=== PATIENT | male | born 1945 | race Caucasian/White ===

== ENCOUNTER 2022-03-28 07:45 | Outpatient (CLI) | payer MEDICARE, BC, SELFPAY ==
[2022-03-28 10:34] LABS: Albumin* 3.5 g/dL (3.3-5.0); Chloride* 105 mmol/L (96-114)
[2022-03-28 10:35] LABS: Sodium* 138 mmol/L (135-149)
[2022-03-28 10:36] LABS: Potassium* 4.9 mmol/L (3.6-5.1)
[2022-03-28 10:37] LABS: Cholesterol* 142 mg/dL (90-199)
[2022-03-28 10:38] LABS: Alanine Aminotransferase* 18 U/L (4-50); Alkaline Phosphatase* 71 U/L (40-150); Aspartate Amino Transferase* 22 U/L (12-35); Bilirubin Total* 0.4 mg/dL (0.1-1.5); Blood Urea Nitrogen* 23 mg/dL (7-30); Carbon Dioxide* 32 mmol/L (20-32); Creatinine* 0.7 mg/dL (0.5-1.5); Estimated Glomerular Filt Rate 95 ml/min; Glucose* 96 mg/dL (60-115); Total Protein* 6.2 g/dL (6.0-8.3); Triglycerides* 67 mg/dL (40-149)
[2022-03-28 10:39] LABS: HDL Cholesterol* 39 mg/dL (>=40); LDL Cholesterol Calculated 90 mg/dL (<100)
[2022-03-28 11:11] LABS: PSA Screen* 1.99 ng/mL (0.10-4.00)
[2022-03-28 11:15] LABS: Ferritin* 23.8 ng/mL (17.9-464.0)
== END 2022-03-28 07:46 | disposition home or self-care (01) ==
PROVIDERS: PCP Family Medicine; Visit Provider Family Medicine
DX: Z00.00 Encounter for general adult medical examination without abnormal findings (principal); E78.5 Hyperlipidemia, unspecified; D64.9 Anemia, unspecified; Z12.5 Encounter for screening for malignant neoplasm of prostate
CPT/HCPCS: 80053; 80061; 82728; 84153

== ENCOUNTER 2022-03-29 12:37 | Outpatient (CLI) | payer MEDICARE, BC, SELFPAY ==
--- NOTE | 2022-03-29 13:00 | CRLHL7_ITS ---
For Patients: As a result of the Century Cures Act, medical imaging exams and procedure reports are released immediately into your electronic medical record. You may view this report before your referring provider. If you have questions, please contact your health care provider. Indication: Follow up cystic lesion Technique: Post contrast CT chest. 75 cc Isovue 370 intravenous contrast. Please note that all CT scans at this facility use dose modulation, iterative reconstruction, and/or weight-based dosing when appropriate to reduce radiation dose to as low as reasonably achievable. Comparison: 08/11/2020 Findings: Stable ground-glass nodule within the left upper lobe measuring 8 millimeters, 3/46. stable ground-glass nodular density within the right upper lobe measuring 11-12 millimeters. Stable primarily cystic lesion within the periphery of the right upper lobe measuring 2.7 cm. Mild dependent atelectasis in the right lower lobe. Tiny pleural-based nodule left lower lobe is unchanged. No pneumothorax or infiltrate. No edema or effusion. Mild scarring at the right lung apex. Visualized thyroid is normal. No adenopathy. Upper abdomen is normal. Impression: Stable cavitary lesion within the periphery of the right upper lobe. Stable ground-glass nodules in both upper lobes. One year surveillance follow-up suggested. Please note that all CT scans at this facility use dose modulation, iterative reconstruction, and/or weight-based dosing when appropriate to reduce radiation dose to as low as reasonably achievable. Dictated by Rich Samuel MD @ 03/29/2022 1:36:30 PM (Electronically Signed)
== END 2022-03-29 12:38 | disposition home or self-care (01) ==
LOC: CT 12:38
PROVIDERS: PCP Family Medicine; Visit Provider Family Medicine
DX: R91.8 Other nonspecific abnormal finding of lung field (principal)
CPT/HCPCS: 71260; Q9967

== ENCOUNTER 2022-12-25 16:41 | Outpatient (REF) | payer MEDICARE, SELFPAY ==
[2022-12-25 16:53] LABS: Appearance Urine Clear (Clear); Bilirubin Urine Negative (Negative); Blood Urine Negative (Negative); Color Urine Yellow (Yellow); Glucose Urine Negative (Negative); Ketones Urine Trace (Negative); Leukocyte Esterase Urine Negative (Negative); Nitrite Urine Negative (Negative); Protein Urine Negative (Negative); Specific Gravity Urine 1.025 (1.000-1.030); Urobilinogen Urine 0.2 (0.2-1.0); pH Urine 5.5 (5.0-8.5)
== END 2022-12-25 16:42 | disposition home or self-care (01) ==
LOC: NPINS 16:41
PROVIDERS: PCP Family Medicine
DX: C67.9 Malignant neoplasm of bladder, unspecified (principal)
CPT/HCPCS: 81003; 87086; 87186

== ENCOUNTER 2023-01-15 12:59 | Outpatient (CLI) | payer MEDICARE, SELFPAY | END 2023-01-15 13:00 | disposition home or self-care (01) | PROVIDERS: PCP Family Medicine; Referring Provider Family Medicine; Visit Provider Internal Medicine | DX: M54.9 Dorsalgia, unspecified (principal); N39.0 Urinary tract infection, site not specified | CPT/HCPCS: 87086 ==

== ENCOUNTER 2023-02-10 07:55 | Outpatient (RCR) | payer MEDICARE, SELFPAY ==
--- NOTE | 2023-02-10 14:37 | PT.OPE ---
[facility] Eval Start: 02/10/23 14:13 Freq: Status: Active Protocol: Document 02/10/23 14:14 LISA (Rec: 02/10/23 14:30 LISA [id number]) E-signed By Tremaine Simon, PT, ATC Physical Therapy Outpatient Evaluation Insurance Information Insurance Name Medicare B Medical Diagnosis M54.9 Dorsalgia. Low back pain Treating Diagnosis Low back pain Referring MD Sharma Subjective Subjective Bill aggravated his lower back symptoms four weeks ago. Pain occurs after extended sitting and then transferring to standing. Also noticed when standing for increased durations. Two rounds of oral steroids have lessened his symptoms significantly. Last pill was yesterday so unsure what remainder of week could bring. He leaves for his winter home in [place] in a month so hopes to work in therapy to lessen chance for continuing symptoms. History of L5S1 DDD-arthritis. Epidural 2 1/2 years ago reported but doesn't believe this made much of a difference . Is performing a few ex.s daily he learned in PT previously. Pain Comments 05/10 today 10/07 four weeks ago Date of Last Physician Visit 02/03/23 Current Work Status Retired Preferred Name Jarod Precautions Weight Bearing Status Full Weight Bearing Therapy Limitations/Systems Review Not Limited Objective Range of Motion Trunk and hip ROM WNL's to all directions. End range back extension appears tight. Strength LE 5/5 all joints and respective patterns Palpation Mild tenderness over lower lumbar vertebrae-P/A direct pressure Some tenderness in lumbar paraspinals. No gluteal muscle irritation or tightness. Posture Stands in erect posture. Assessment Assessment/Impression Jarod is well known in PT from a similar episode of lower back symptoms a couple years ago. At that time he was also experiencing bilateral foot neuropathies and/or paresthesia in his feet. No report of this with this episode. I suspect his lumbar degenerative changes have advanced since seeing him last despite his effort to continue exercise and remain active with weekly tennis participation. The oral steroids have done a good job with symptom control...unsure yet how long they will last. He is a good candidate for PT and an exercise program for core stabilization and LE strengthening. Primary Functional Limitations Sit to stand transfers Extended standing Plan of Care Rehabilitation Potential Good Physical Therapy Goals 1.To keep lower back symptoms at 2/10 level or less with all transfers and extended standing. 2.Able to stand and prepare meals for durations up to 20 minutes without limitation for lbp. 3.To demonstrate correct performance with his HEP for core stabilization, hip stretching and LE strengthening. Coordination/Communication With Referral Source Frequency/Duration 3-12 visits Patient Will Be Discharged From Therapy Independent w/HEP, Independently Progressing Evaluation Billing Untimed Code Treatment Minutes 30 PT Eval No Charge No Complexity Low Certification Information Initial Certification Date 02/10/23 Ending Certification Date 05/13/23 Provider Signature Shows Agreement With POC & Medical Necessity Physician Signature & Date Requested Please Sign/Date Here Physician Comment/Change : Physician NPI Number #
== END 2023-04-23 15:41 | disposition home or self-care (01) ==
PROVIDERS: PCP Family Medicine; Visit Provider Internal Medicine
DX: M54.50 Low back pain, unspecified (principal); Z51.89 Encounter for other specified aftercare
CPT/HCPCS: 97110; 97161

== ENCOUNTER 2023-03-27 15:41 | Outpatient (CLI) | payer MEDICARE, SELFPAY | END 2023-03-27 15:42 | disposition home or self-care (01) | LOC: NFLDREF 15:42 | PROVIDERS: PCP Family Medicine; Visit Provider Family Medicine | DX: N40.0 Benign prostatic hyperplasia without lower urinary tract symptoms (principal); Z12.5 Encounter for screening for malignant neoplasm of prostate; N52.9 Male erectile dysfunction, unspecified | CPT/HCPCS: 84153 ==

== ENCOUNTER 2023-06-24 07:28 | Outpatient (CLI) | payer MEDICARE, SELFPAY ==
[2023-06-24 07:52] LABS: Creatinine* 0.7 mg/dL (0.5-1.5); Estimated Glomerular Filt Rate 95 ml/min
--- NOTE | 2023-06-24 08:00 | CT_ITS ---
Patient: RADHIKA SAEZ Facility:?[facility] Patient ID:?[id number] Site Patient ID:?[id number]. Site :?[id number] Study:?CT-Chest W/ 75CC ISOVUE 370-06/24/2023 8:32:22 AM Ordering Physician:HANNAH Final Report: INDICATION: Follow-up ground-glass opacity TECHNIQUE: CT chest with 75 mL Isovue 370 IV contrast. COMPARISON: 03/29/2022, 08/11/2020, 02/27/2018 chest CTs FINDINGS: Lungs and pleura: 7 mm ground-glass nodule left upper lobe image 36 series 3, stable. Semi-solid nodule in the right upper lobe best seen on image 57 of series 4 measures 12 x 6 mm. Overall size is unchanged. There is a 5 mm solid component in the superior portion of the nodule that was not present in 2018 and was very inconspicuous on intervening studies. 3.3 cm lateral right upper lobe cyst is unchanged. Mild emphysema through both lungs. Hyperinflation. Heart and vasculature: Heart size is normal. Thoracic aorta and pulmonary artery are normal in caliber.Coronary artery calcification. Lymph nodes/mediastinum: New mild mediastinal and bilateral hilar adenopathy. See for example a 24 x 14 mm right paratracheal node on image 45 of series 2 that measured 16 x 10 mm in 2021. thyroid gland is normal. Chest wall: No masses. Upper abdomen: Normal. Bones: Unremarkable for age. IMPRESSION: 1. Semi-solid right upper lobe pulmonary nodule stable in overall size at 12 x 6 mm but contains an enlarging 5 mm solid component. 2. New mediastinal and bilateral hilar adenopathy, nonspecific. 3. Left upper lobe ground-glass nodule and right middle lobe cystic lesion are stable. Please note that all CT scans at this facility use dose modulation, iterative reconstruction, and/or weight-based dosing when appropriate to reduce radiation dose to as low as reasonably achievable. Dictated by Frankie Farmer MD @ 06/24/2023 1:20:19 PM Signed by:?Frankie Farmer MD @06/24/2023 1:20:19 PM (Electronic Signature)
== END 2023-06-24 07:29 | disposition home or self-care (01) ==
LOC: CT 07:30
PROVIDERS: PCP Family Medicine; Visit Provider Family Medicine
DX: R91.8 Other nonspecific abnormal finding of lung field (principal)
CPT/HCPCS: 36415; 71260; 82565; Q9967

== ENCOUNTER 2023-08-12 06:33 | Observation (INO) | payer MEDICARE, SELFPAY ==
[2023-08-12] VITALS (39 sets, daily range): BP systolic 100–149; BP diastolic 65–99; PULSE 61–137; RESP 16–18; TEMP 36.5–37; O2SAT 86–98; BMI 24.4
--- NOTE | 2023-08-12 06:48 | ED_ITS ---
HPI - Arrhythmia/Palpitations General Time Seen by Provider: 06:49 Date Seen: 08/12/23 Chief Complaint: Arrhythmia/Palpitations Stated Complaint: irratic pulse Time Seen by Provider: 08/12/23 06:48 Source: patient Mode of arrival: ambulatory Limitations: no limitations History of Present Illness HPI narrative: 78-year-old male with recent respiratory infection, newly diagnosed COPD arrives at the emergency room with chest tightness and shortness of breath and a rapid heart rate which came on this morning while he was doing his workout. Martin is noted to have had a significant URI while wintering in the [facility]. initially was put on amoxicillin but he ended up being allergic to it he had constant cough with production at that time he then came back to [place] 3 weeks ago and was seen at [place] at which time they noted H change in ground-glass opacities he was put on Cipro and improved remarkably. During that time of infection he did experience shortness of breath and chest tightness. He was also noted to have had a CT that showed possible COPD versus chronic bronchitis. He is supposed to have a full pulmonology workup but is not able to do that until late August. Patient notes the onset of shortness of breath and chest tightness once again on August 06 the day after he underwent a 2nd course of BCG for bladder cancer. He notes that flu symptoms are normal and he did experience that but that is chest tightness and shortness of breath have continued. He gets dizzy when he is going up stairs. Currently in room 8 patient notes very slight chest tightness but no shortness of breath. No past history of heart attack. He quit smoking many years ago. No significant alcohol use but has had approximately 2 oz in the last 48 hours. Denies fever. Cough has resolved. Denies history of lower extremity swelling or DVT. Did take a commercial flight back from his home in the [facility] 3 weeks ago. Related Data Home Medications Medication Instructions Recorded Confirmed ascorbic acid (vitamin C) 250 mg 250 mg PO DAILY 01/22/22 07/14/23 tablet cholecalciferol (vitamin D3) 250 10,000 unit PO QDAY 01/22/22 07/14/23 mcg (10,000 unit) capsule multivitamin (Multiple Vitamins 1 tab PO QDAY 01/22/22 07/14/23 tablet) Previous Rx's Medication Instructions Recorded albuterol sulfate 90 mcg/actuation 2 puff inhalation Q4-6H PRN 03/27/22 aerosol inhaler shortness of breath or wheezing #6.7 grams gabapentin 300 mg capsule 300 mg PO DAILY #90 caps 03/27/23 lorazepam 1 mg tablet 0.5 - 1 mg (0.5 - 1 x 1 mg) PO BID 03/27/23 PRN tinnitus #30 tabs albuterol sulfate 90 mcg/actuation 2 puff inhalation Q4-6H PRN 07/14/23 aerosol inhaler shortness of breath or wheezing #8.5 grams Allergies Allergy/AdvReac Type Severity Reaction Status Date / Time amoxicillin Allergy Rash Verified 07/14/23 11:14 Review of Systems Status of ROS: Reports: 10 or more systems reviewed and unremarkable except as noted in History and below [facility] Medical History UTI (urinary tract infection) ?N39.0 - Urinary tract infection, site not specified (ICD-10) Back Pain ?M54.9 - Dorsalgia, unspecified (ICD-10) Laceration of scalp ?S01.01XA - Laceration without foreign body of scalp, initial encounter (ICD- 10) Injury of head ?S09.90XA - Unspecified injury of head, initial encounter (ICD-10) Hematoma of scalp ?S00.03XA - Contusion of scalp, initial encounter (ICD-10) Dizziness ?R42 - Dizziness and giddiness (ICD-10) Dehydration ?E86.0 - Dehydration (ICD-10) Family History Father Coronary artery disease Social History What is your current living situation?: I presently have a place to live Problems where you live: declined to answer In the past 12 months, utilities in danger of being shut off: no In past 12 months, lack of transportation kept you from medical appts, meetings, work, or getting things needed for daily living: no In the past 12 mos, have been you worried that your food would run out before you had money to buy more?: never true In the past 12 mos, the food you bought just didn't last and you didn't have money to buy more?: never true Smoking Status: Never smoker Do you use any of these nicotine containing products: None Non-prescribed substance use: denies use How often does anyone, including family, friends and others, physically hurt you : never How often does anyone, including family, friends and others, insult or talk down to you: never How often does anyone, including family, friends and others, threaten you with harm: never How often does anyone, including family, friends and others, scream or curse at you: never Little interest or pleasure in doing things: not at all Feeling down, depressed, or hopeless: not at all Exam Narrative: Exam Narrative: Martin is alert and oriented. No acute distress. No coughing is noted. Head is atraumatic normocephalic. Face is symmetrical. Speech is normal. Mentation is normal. Heart with a irregularly irregular rhythm and rapid rate. Questionable rather distant heart sounds. Lungs are with decreased breath sounds in the bases but I do not auscultate any crackles. Abdomen soft nontender. Lower extremities with no edema. Calves are nontender. Negative Homans sign. Moving all extremities. Const: Vital Signs, click to edit/add: Vital Signs - 24 hr 08/12/23 06:45 08/12/23 06:53 08/12/23 07:00 Temperature 97.7 F Pulse Rate 118 H 112 H Pulse Rate [Pulse Oximeter] 137 H Respiratory Rate 18 Blood Pressure Blood Pressure [Le ft Upper Arm] 115/78 Pulse Oximetry 97 98 97 [facility] 08/12/23 07:02 08/12/23 07:17 08/12/23 07:30 Temperature Pulse Rate 131 H 116 H 120 H Pulse Rate [Pulse Oximeter] Respiratory Rate Blood Pressure 100/69 101/87 Blood Pressure [Le ft Upper Arm] Pulse Oximetry 96 96 94 Oxygen Delivery Nh thod 08/12/23 07:31 08/12/23 07:47 08/12/23 07:48 Temperature Pulse Rate 111 H 121 H 114 H Pulse Rate [Pulse Oximeter] Respiratory Rate Blood Pressure 107/79 106/68 Blood Pressure [Le ft Upper Arm] Pulse Oximetry 97 96 86 L [facility] 08/12/23 08:00 08/12/23 08:02 08/12/23 08:17 Temperature Pulse Rate 136 H 76 72 Pulse Rate [Pulse Oximeter] Respiratory Rate Blood Pressure 125/99 H 110/68 Blood Pressure [Le ft Upper Arm] Pulse Oximetry 89 90 96 Oxygen Delivery Me thod 08/12/23 08:33 08/12/23 08:47 08/12/23 09:00 Temperature Pulse Rate 74 74 74 Pulse Rate [Pulse Oximeter] Respiratory Rate Blood Pressure 132/96 H Blood Pressure [Le ft Upper Arm] Pulse Oximetry 97 97 96 Oxygen Delivery Me thod 08/12/23 09:03 08/12/23 09:17 08/12/23 09:30 Temperature Pulse Rate 74 75 73 Pulse Rate [Pulse Oximeter] Respiratory Rate Blood Pressure 149/84 H 122/68 Blood Pressure [Le ft Upper Arm] Pulse Oximetry 97 98 96 Oxygen Delivery Me thod 08/12/23 09:32 08/12/23 09:47 08/12/23 10:00 Temperature Pulse Rate 78 77 74 Pulse Rate [Pulse Oximeter] Respiratory Rate Blood Pressure 116/65 136/80 Blood Pressure [Le ft Upper Arm] Pulse Oximetry 94 98 97 Oxygen Delivery Me thod 08/12/23 10:17 Temperature Pulse Rate 73 Pulse Rate [Pulse Oximeter] Respiratory Rate Blood Pressure 120/66 Blood Pressure [Le ft Upper Arm] Pulse Oximetry 97 Oxygen Delivery Me thod Documenting provider has reviewed patient's vital signs: yes Course Course ED Course: Patient is clearly in AFib with RVR. Differential diagnosis does include OK, PE, electrolyte abnormality, angina,. Will place an IV and give 1 L of normal saline check labs to include troponin, CBC, D-dimer, comprehensive panel, CRP as well as urinalysis to rule out infection. Chest x-ray pending at this time. Patient will remain on the monitor and also have EKG done. Reevaluation(s) Reevaluation #1: Patient noted to have some spontaneous conversion to normal sinus rhythm shortly after 0800 hours. Repeat EKG done. I also spoke with patient about need for CT given the elevated D-dimer. Vital Signs Vital signs: Initial Vital Signs Temperature 97.7 F 08/12/23 06:45 Temperature Source Temporal Artery Scan 08/12/23 06:45 Pulse Rate 137 H 08/12/23 06:45 Pulse Rhythm Irregular 08/12/23 06:45 Respiratory Rate 18 08/12/23 06:45 Respiratory Effort Spontaneous, Shortness of Breath at Re 08/12/23 06:45 Respiratory Depth Normal 08/12/23 06:45 Respiratory Pattern Normal 08/12/23 06:45 Blood Pressure 115/78 08/12/23 06:45 Blood Pressure Mean 90 08/12/23 06:45 Blood Pressure Position Sitting 08/12/23 06:45 Pulse Oximetry 97 08/12/23 06:45 Oxygen Delivery Method Room Air 08/12/23 06:45 Vital Signs Temperature 97.7 F 08/12/23 06:45 Pulse Rate 137 H 08/12/23 06:45 Respiratory Rate 18 08/12/23 06:45 Blood Pressure 115/78 08/12/23 06:45 Pulse Oximetry 97 08/12/23 06:45 Oxygen Delivery Method Room Air 08/12/23 06:45 Temperature 97.7 F 08/12/23 06:45 Pulse Rate 73 08/12/23 10:17 Respiratory Rate 18 08/12/23 06:45 Blood Pressure 120/66 08/12/23 10:17 Pulse Oximetry 97 08/12/23 10:17 Oxygen Delivery Method Room Air 08/12/23 06:45 Medications Administered Medications: Discontinued Medications Generic Name Dose Route Start Last Admin Trade Name Freq PRN Reason Stop Dose Admin Sodium Chloride 1,000 mls @ 1,000 mls/hr 08/12/23 07:04 08/12/23 10:25 0.9 % Sodium Chloride 1000 Ml IV 08/12/23 08:03 Infused .Q1H MEKHI Infusion MDM - Arrhythmia/Palpitations MDM Narrative Medical decision making narrative: 1. AFib with RVR -resolved after fluids. Troponin negative. Second troponin negative as well. Continues to be in a sinus rhythm. 2. New onset congestive heart failure-new pericardial effusion and pleural effusions are present with elevation of proBNP 2 greater than 3000. patient notes chest tightness and shortness of breath since undergoing BCG for bladder cancer on FridayAugust 12. CT concerning for cardiomegaly, new pleural effusions. No evidence of PE. ProBNP elevated greater than 3000 with no previous values for comparison. Pulmonology does not feel that the findings on CT which were pushed to [place] represent great changes for them but do note the congestive heart failure which is new compared to a CT from 3 weeks ago. I had the pleasure of speaking with Dr. Key cardiology at [place] who does suggest diuresis, admission and echocardiogram. Discussed the coincidence of onset following BCG treatment. However patient has no fever and white count is no rmal. 3. Disposition-admission to [facility] under the care of Dr. Grimes. Patient will receive Lasix 40 mg IV at this time. Medical Records Attestation: I reviewed the patient's medical records. Lab Data Attestation: I reviewed the patient's lab results. Labs: Lab Results 08/12/23 08/12/23 08/12/23 Range/Units 06:53 07:04 08:45 WBC 7.28 (4.50-11.00) K/uL RBC 4.08 L (4.30-5.90) m/uL Hgb 11.2 L (13.5-17.5) gm/dL Hct 35.7 L (37.0-53.0) % MCV 88 (80-100) fL MCH 28 (26-34) pg MCHC 31 L (32-36) gm/dL RDW Coeff of Thomas 13.7 (11.5-15.5) % Plt Count 265 (140-440) K/uL Neut % (Auto) 62.6 (42.0-72.0) % Lymph % (Auto) 17.2 L (20-44) % [place] % (Auto) 16.2 H (0.0-11.0) % Eos % (Auto) 3.4 (0.0-7.0) % Baso % (Auto) 0.5 (0.0-3.0) % Neut # (Auto) 4.55 (1.7-7.0) K/uL Lymph # (Auto) 1.30 (0.90-2.90) K/uL [place] # (Auto) 1.20 H (0.00-0.90) K/UL Eos # (Auto) 0.25 (0.00-0.50) K/uL Baso # (Auto) 0.04 (0.00-0.30) K/uL Abs Immat Gran (auto) 0.01 (0.00-0.30) K/uL Imm/Tot Granulo (auto) 0.1 % D-Dimer Quant (PE/DVT) 2.72 H (0.00-0.50) ug/ml Sodium 135 (135-149) mmol/L Potassium 3.6 (3.6-5.1) mmol/L Chloride 100 (96-114) mmol/L Carbon Dioxide 31 (20-32) mmol/L Anion Gap 4 L (7-15) mEq/L BUN 17 (7-30) mg/dL Creatinine 0.7 (0.5-1.5) mg/dL Estimated Creat Clear 72.76 Estimated GFR 94 ml/min Glucose 112 (60-115) mg/dL Calcium 8.5 (8.4-10.6) mg/dL Magnesium 2.2 (1.5-2.6) mg/dL Total Bilirubin 0.7 (0.1-1.5) mg/dL AST 61 H (12-35) U/L ALT 99 H (4-50) U/L Alkaline Phosphatase 191 H (40-150) U/L C-Reactive Protein 15.1 H (0.5-1.0) mg/dL NT-Pro-B Natriuret Pep 3040 pg/mL Total Protein 6.7 (6.0-8.3) g/dL Albumin 3.4 (3.3-5.0) g/dL Urine Color (Yellow) Urine Appearance (Clear) Urine pH (5.0-8.5) Ur Specific [place]ury (1.000-1.030) Urine Protein (Negative) Urine Glucose (UA) (Negative) Urine Ketones (Negative) Urine Blood (Negative) Urine Nitrite (Negative) Urine Bilirubin (Negative) Urine Urobilinogen (0.2-1.0) Ur Leukocyte Esterase (Negative) Urine RBC (0-2) Urine WBC (0-5) Ur Squamous Epith Cells (None-Few) Urine Bacteria (None) Lab Acknowledgement Test Added POC Troponin I 0.01 (0.01-0.04) ng/ml 08/12/23 08/12/23 Range/Units 09:29 10:03 WBC (4.50-11.00) K/uL RBC (4.30-5.90) m/uL Hgb (13.5-17.5) gm/dL Hct (37.0-53.0) % MCV (80-100) fL MCH (26-34) pg MCHC (32-36) gm/dL RDW Coeff of Thomas (11.5-15.5) % Plt Count (140-440) K/uL Neut % (Auto) (42.0-72.0) % Lymph % (Auto) (20-44) % [place] % (Auto) (0.0-11.0) % Eos % (Auto) (0.0-7.0) % Baso % (Auto) (0.0-3.0) % Neut # (Auto) (1.7-7.0) K/uL Lymph # (Auto) (0.90-2.90) K/uL [place] # (Auto) (0.00-0.90) K/UL Eos # (Auto) (0.00-0.50) K/uL Baso # (Auto) (0.00-0.30) K/uL Abs Immat Gran (auto) (0.00-0.30) K/uL Imm/Tot Granulo (auto) % D-Dimer Quant (PE/DVT) (0.00-0.50) ug/ml Sodium (135-149) mmol/L Potassium (3.6-5.1) mmol/L Chloride (96-114) mmol/L Carbon Dioxide (20-32) mmol/L Anion Gap (7-15) mEq/L BUN (7-30) mg/dL Creatinine (0.5-1.5) mg/dL Estimated Creat Clear Estimated GFR ml/min Glucose (60-115) mg/dL Calcium (8.4-10.6) mg/dL Magnesium (1.5-2.6) mg/dL Total Bilirubin (0.1-1.5) mg/dL AST (12-35) U/L ALT (4-50) U/L Alkaline Phosphatase (40-150) U/L C-Reactive Protein (0.5-1.0) mg/dL NT-Pro-B Natriuret Pep pg/mL Total Protein (6.0-8.3) g/dL Albumin (3.3-5.0) g/dL Urine Color Dark yellow (Yellow) Urine Appearance Clear (Clear) Urine pH 5.0 (5.0-8.5) Ur Specific [place]ury <= 1.005 (1.000-1.030) Urine Protein Negative (Negative) Urine Glucose (UA) Negative (Negative) Urine Ketones 1+ A (Negative) Urine Blood Negative (Negative) Urine Nitrite Negative (Negative) Urine Bilirubin Negative (Negative) Urine Urobilinogen 1.0 (0.2-1.0) Ur Leukocyte Esterase Negative (Negative) Urine RBC 0-2 (0-2) Urine WBC 5-10 A (0-5) Ur Squamous Epith Cells Few (None-Few) Urine Bacteria Few A (None) Lab Acknowledgement POC Troponin I 0.01 (0.01-0.04) ng/ml Imaging Data Chest x-ray: Attestation: I have reviewed the pertinent imaging results. My impression: Increased lung markings throughout. Radiologist's impression: Marked cardiomegaly which is new when compared to July 14, 2023. Acute cardiomyopathy or pericardial effusions are considerations. Mild interstitial opacities and central vascular congestion concerning for mild interstitial edema. Small right pleural effusion and mild bibasilar atelectasis. No pneumothorax. CT scan - chest: Attestation: I have reviewed the pertinent imaging results. Radiologist's impression: Cardiovascular structures: CT pulmonary angiogram demonstrates adequate opacification of the pulmonary arteries. No evidence of pulmonary embolus. Thoracic aorta is normal in caliber. Coronary artery calcifications. Heart size is within normal limits. Mediastinum and wood: Lower right paratracheal node on image 87 of series 4 is 19 x 12 mm and was 24 x 14 mm. Additional subcentimeter short axis mediastinal nodes have similarly decreased. No new lymphadenopathy. Lungs: No pneumothorax. Mild lower lobe bronchial wall thickening. Central airways are otherwise patent. Mild emphysema. Stable 7 mm left upper lobe ground-glass nodule on image 82 of series 4. Semi-solid 12 mm nodule in the r ight upper lobe on image 56 is unchanged. Stable 3 cm cystic lesion in the right upper lobe on image 84. New bilateral subcentimeter nodular and ground-glass opacities greatest in the right lower lobe. A right lower lobe nodule on image 161 measures 10 mm. Bibasilar scarring and atelectasis has increased. Pleura and pericardium: New small bilateral pleural effusions. New small to moderate pericardial effusion. Chest wall and axilla: Unremarkable. Bones: Mild degenerative changes. No acute or suspicious osseous abnormality. Upper abdomen: Unremarkable. IMPRESSION: 1. No evidence of pulmonary embolus. 2. New bilateral subcentimeter nodular and ground-glass opacities are likely infectious/inflammatory. However, metastasis is also a consideration. Continued attention to these on follow-up imaging is recommended. 3. New small to moderate pericardial effusion and small bilateral pleural effusions. Mild lower lobe atelectasis. 4. Mediastinal lymphadenopathy has improved. 5. Previously indexed pulmonary nodules and cystic right upper lobe lesion are unchanged. ECG Data Attestation: I personally reviewed and interpreted this ECG as follows: ECG interpretation date: 08/12/23 Interpretation: EKG by my read shows atrial fibrillation with RVR at a rate of 137. There is a T-wave inversion noted in the inferior lateral leads. P.r.n. QT intervals within normal limits. EKG 2. By my read shows sinus rhythm at a rate of 71. Persisting nonspecific ST and T-wave changes are noted. Discharge Plan Discharge Clinical Impression: New onset atrial fibrillation, Atrial fibrillation with rapid ventricular response Prescriptions: No Action cholecalciferol (vitamin D3) 250 mcg (10,000 unit) capsule 10,000 unit PO QDAY ascorbic acid (vitamin C) 250 mg tablet 250 mg PO DAILY multivitamin [Multiple Vitamins] Tablet 1 tab PO QDAY albuterol sulfate 90 mcg/actuation HFA aerosol inhaler 2 puff inhalation Q4-6H PRN (Reason: shortness of breath or wheezing) Qty: 8.5 1RF albuterol sulfate 90 mcg/actuation HFA aerosol inhaler 2 puff inhalation Q4-6H PRN (Reason: shortness of breath or wheezing) Qty: 6.7 5RF lorazepam 1 mg tablet 0.5 - 1 mg PO BID PRN (Reason: tinnitus) Qty: 30 0RF gabapentin 300 mg capsule 300 mg PO DAILY Qty: 90 3RF Follow Up/Referrals: González Mathew MD [Primary Care Provider] -
--- NOTE | 2023-08-12 07:04 | XR_ITS ---
Patient: RADHIKA SAEZ Facility:?[facility] Patient ID:?[id number] Site Patient ID:?[id number]. Site :?[id number] Study:?XRay-Chest PORTABLE-08/12/2023 7:33:36 AM Ordering Physician:INEZ Final Report: INDICATION: NEW ONSET AFIB TECHNIQUE: Chest 1 views. COMPARISON: July 14, 2023. IMPRESSION: Marked cardiomegaly which is new when compared to July 14, 2023. Acute cardiomyopathy or pericardial effusions are considerations. Mild interstitial opacities and central vascular congestion concerning for mild interstitial edema. Small right pleural effusion and mild bibasilar atelectasis. No pneumothorax. Dictated by Rocky Shepherd MD @ 08/12/2023 7:40:49 AM Signed by:?Rocky Shepherd MD @08/12/2023 7:40:49 AM (Electronic Signature)
[2023-08-12 07:08] LABS: Troponin, Point-of-Care* 0.01 ng/ml (0.01-0.04)
--- OUTSIDE RECORDS SUMMARY | 2023-08-12 07:10 | XMS_ITS ---
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 Manager Name Role Phone Miguel Vazquez DO Primary Care Provider Plan of Treatment No Plan of Treatment Recorded Assessments Includes: Assessments for all patient encounters No Assessments Recorded Medical Equipment - Implanted Devices Includes: Current and historical Devices No Medical Equipment Recorded Medications Administered Includes: Administered Medications in patient's chart No Administered Medications Recorded Results Includes: Results from 08/11/2020 through 08/12/2023 No Results Recorded For Specified Dates Social History No Social History Recorded - Smoking Status Unknown Medical History Includes: Medical History in patient's chart No Medical History Recorded Family History Includes: Family History in patient's chart No Family History Recorded Review of Systems Review of Systems not supported for this document type No Review of Systems Recorded Mental Status No Mental Status Recorded Functional Status No Functional Status Recorded Physical Exam Physical Exam not supported for this document type No Physical Exam Recorded Insurance Includes: Active Insurance Policies No Insurance Coverage Recorded Guarantor Relationship Effective Dates Guarantor Ph one Martin Vieira Self [id number] Clinical Notes Includes: Signed Clinical Notes starting from 11/08/2022 No Clinical Notes Recorded
--- OUTSIDE RECORDS SUMMARY | 2023-08-12 07:10 | XMS_ITS | Continuity of Care Document ---
Author Name Unknown Address [address] [place] [address] Phone [phone] Organization [facility], [facility] Address [address] [facility] [place] [address] Assessment No assessment recorded. Plan of Treatment Reminders Order Date Submit Date Provider Last Modified By Organization Details Last Modified Time Details Appointments None recorded. Lab None recorded. Referral None recorded. Procedures None recorded. Surgeries None recorded. Imaging None recorded. Medication Orders amoxicillin 875 mg tablet 2023 024 [facility] [id number], [address] [place], [place], [id number], 4 12:29:55 Medrol (Ranjith) 4 mg tablets in a dose pack [address] [facility] [facility] #[id number], [address] [place], [place], [id number], 4 12:29:58 Patient TargetsNo targets recorded. Patient InstructionsNo instructions recorded. Reason for Referral None Reported. Problems Name Status Onset Date Resolution Date Notes Provider Name and Address Organization Details Recorded Time Generalized rash Active 06/28/19 24 Darin Marie MD [address] [place], [address], [facility] 06/28/2023 10:05:38 Allergic reaction to drug Active 06/28/19 24 Darin Marie MD [address] [place], [address], [facility] 06/28/2023 10:06:11 Problem Notes None recorded. Medical Equipment None Reported. Allergies Allergen ID Allergen Name Allergen Category Reaction Reaction Severity Criticality Documentation Date Start Date Code Code System Note Provider Name and Address Organization Details Recorded Time 4653 amoxicill in medicatio n Not available Not available Not available 06/28/2023 723 [facility] Darin Marie MD [address] [place], [address] [place] [address] Urgent Care 10:02:28 Medications Name Sig Start Date Stop Date Status Note LastModified by Organization Details LastModified Time ofloxacin 0.3 % eye drops active Not Available Not Available Not Available prednisone 20 mg tablet TAKE 1 TABLET BY MOUTH TWICE DAILY FOR 5 DAYS active Not Available Not Available No t Available ciprofloxaci n 250 mg tablet TAKE 1 TABLET BY MOUTH TWICE DAILY FOR UTI active Not Available Not Available No t Available sulfamethoxa zole 800 mg-trimethop rim 160 mg tablet TAKE 1 TABLET BY MOUTH TWICE DAILY FOR UTI active Not Available Not Available No t Available amoxicillin 875 mg tablet TAKE 1 TABLET BY MOUTH EVERY 12 HOURS active Not Available Not Available No t Available prednisolone acetate 1 % eye drops,suspen susan active Not Available Not Available Not Available gabapentin 300 mg capsule TAKE 1 CAPSULE BY MOUTH DAILY active Not Available Not Available Not Available dexamethason e sodium phosphate 4 mg/mL injection solution Inject 4 mg by intramuscul ar route. 2023 active Not Available Not Available Not Avai lable lorazepam 1 mg tablet TAKE ONE-HALF TO 1 TABLET BY MOUTH TWICE DAILY NEEDED FOR TINNITUS active Not Available Not Available No t Available epinephrine 0.3 mg/0.3 mL injection, auto-injecto r INJECT 1 PEN IN THE MUSCLE ONCE NEEDED FOR ANAPHYLAXIS active Not Available Not Available Not Available levofloxacin 500 mg tablet active Not Available Not Available Not Available methylpredni solone 4 mg tablets in a dose pack FOLLOW PACKAGE DIRECTIONS active Not Available Not Available N ot Available cefdinir 300 mg capsule active Not Available Not Available N ot Available ketorolac 0.4 % eye drops active Not Available Not Available Not Available Vitals Date Recorded Body height Body mass index (BMI) Body weight Body temperature Respiratory rate Oxygen saturation Oxygen saturation in Arterial blood by Pulse oximetry Heart rate Systolic blood pressure Diastolic blood pressure Provider Name and Address Organization Details Last Updated DateTime 4 190.5 cm 25 kg/m2 63614.4 7 g 98.1 [degF] 16 /min 99 % 99 % 59 /min 118 mm[Hg] 66 mm[Hg] Farh[facility] 12:20:15 Social History Question Answer Notes LastModified by Organizat ion Details LastModified Time Tobacco Smoking Status Former Smoker Not Available [facility] 06/19/2023 12:01:38 What Is Your Level Of Alcohol Consumption? Occasional [email or web address]-13 Information not available 06/19/2023 Do You Or Have You Ever Used E-cigarettes Or Vape? Never Used Electronic Cigarettes [email or web address] Information not available 06/19/2023 Do You Use Any Illicit Or Recreational Drugs? No [email or web address] Information not available 06/19/2023 Has Tobacco Cessation Counseling Been Provided? No [email or web address] Information not available 06/19/2023 Sex: Male Functional Status None recorded. Mental Status None recorded. Family History Relationship Description Onset Age of this Age Resolved Age Notes Father Myocardial infarction pt. added directly (06/19/23) Medical History Condition Response Other Y Cancer Y Past Encounters Encounter ID Performer Location Encounter Start Date Encounter Closed Date Diagnosis/Indication Diagnosis SNOMED-CT Code [id number] Raji Parikh MD [facility] [address] [place] [phone] 06/19/2023 11:14:05 06/19/2023 12:32:51 Sinusitis [id number] Health Concerns Section Related Observation LastModified by Organization Detai ls LastModified Time None Recorded Concern Status LastModified by Organization Details LastModified Time None Recorded Payers Encounter Date Sequence Insurance Name Policy Number Policy Magallanes Covered Member ID Magallanes Member ID Guarantor Name 06/19/2023 2 [place] Martin Vieira [id number] Martin Vieira 06/19/2023 1 [employer] (PPO) Martin Vieira [id number] Martin Vieira Notes Date Note Type Note Provider Name and Address Organization Details Recorded Time 06/19/2023 text/html HPI Notes: runny nose, nasal congestion, cough x 3 days pt took at home covid test yesterday and was neg fly to [place] jhonathan + bladder [place] Raji Parikh MD [address] [facility] [place], [address], [facility] 06/19/2023 12:32:16
--- OUTSIDE RECORDS SUMMARY | 2023-08-12 07:10 | XMS_ITS ---
Care Plan - [facility] Created on: August 12, 2023 Martin Vieira : 1945 Sex: Male Author Name Unknown Address [address] [facility] [address] [place] [address] Phone Organization [facility] Address [address] [facility] [address] [place] [address] Phone Care Team Providers Care Transportation Modeler Name Role Phone Miguel Vazquez DO Primary Care Provider
[2023-08-12] MEDS: 0.9 % SODIUM CHLORIDE 1000 ml 1,000 ML IV (07:11)
--- OUTSIDE RECORDS SUMMARY | 2023-08-12 07:11 | XMS_ITS | Encounter Summary ---
Author Name Unknown Organization [facility] Address [address] [place] [address] Care Team Providers Care Front Desk Representative Name Role Phone Elsewhere, Pcp Primary Care Provider Unavailabl e Reason for Referral * Injectables (Routine) - Authorized Specialty Diagnoses / Procedures Referred By Mychal izquierdo Referred To Contact Diagnoses Malignant Neoplasm Of Bladder (HCC) Procedures URO Intravesical instillation - BCG maintenance River Stockton M.D. [address] [place] [phone] [facility] Referral ID Status Reason Start Date Expiration Date V isits Requested Visits Authorized [id number] Authorized 07/29/2023 07/28/2024 6 6 Reason for Visit * Reason Onset Date Comments Appt Request 07/24/2023 Encounter Details Date Type Department Care Team (Late st Contact Info) Description 07/24/2023 Clinical Communication Department of Urology in [place], [place] [address] [place] [phone] River Stockton M.D. [address] [place] [phone] Appt Request Social History Tobacco Use Types Packs/Day Years Used Date Smoking Tobacco: Former Cigarettes 1.5 42.2 0 03/31/1961 - 06/30/2003 Passive Smoke Exposure: Past Smokeless Tobacco: Former Chew Quit: 03/31/1998 Comments:Quit several times Alcohol Use Standard Drinks/Week Comments Yes 9 (1 standard drink = 0.6 oz pur e alcohol) [facility] Utilities Answer Date Recorded In the past 12 months has e electric, gas, oil, or water company threatened to shut off services in your home? No 03/26/2023 Humiliation, Afraid, Rape, and Kick questionnair e Answer Date Recorded Within the last year, have y ou been afraid of your partner or ex-partner? No 08/27/2022 Within the last year, have y ou been humiliated or emotionally abused in other ways by your partner or ex-partner? No Within the last year, have y ou been kicked, hit, slapped, or otherwise physically hurt by your partner or ex-partner? No 08/27/2022 Within the last year, have y ou been raped or forced to have any kind of sexual activity by your partner or ex-partner? No 08/27/2022 Social Connection and Isolat ion Panel [NHANES] Answer Date Recorded In a typical week, how many times do you talk on the phone with family, friends, or neighbors? More than three times a week 03/17/2022 How often do you get togethe r with friends or relatives? Twice a week 03/17/2022 How often do you attend chur or yazidism services? Never 03/17/2022 Do you belong to any clubs o r organizations such as taoist groups, unions, fraternal or athletic groups, or school groups? Yes 03/17/2022 How often do you attend meet ings of the clubs or organizations you belong to? More than 4 times per year 03/17/2022 Are you , , di vorced, , never , or living with a partner? 03/17/2022 AUDIT-C Answer Date Recorded Q1: How often do you have a drink containing alcohol? 4 or more times a week 03/17/2022 Q2: How many drinks containi ng alcohol do you have on a typical day when you are drinking? 1 or 2 2 Q3: How often do you have si x or more drinks on one occasion? Never 03/17/2022 Overall Financial Resource Strain (CARDIA) Answe r Date Recorded How hard is it for you to pa y for the very basics like food, housing, medical care, and heating? Not hard at all 08/27/2022 [facility] - Occupational Stress Questionnaire Answer Date Recorded Do you feel stress - tense, restless, nervous, or anxious, or unable to sleep at night because your mind is troubled all the time - these days? Only a little 03/17/2022 Exercise Vital Sign Answer Date Recorde d On average, how many days pe r week do you engage in moderate to strenuous exercise (like a brisk walk)? 3 days 03/26/2023 On average, how many minutes do you engage in exercise at this level? 60 min 03/26/2023 Hunger Vital Sign Answer Date Recorded Within the past 12 months, y ou worried that your food would run out before you got the money to buy more. Never true 03/26/20 23 Within the past 12 months, t he food you bought just didn't last and you didn't have money to get more. Never true 03/26/2023 PRAPARE - Transportation Answer Date Re corded In the past 12 months, has l ack of transportation kept you from medical appointments or from getting medications? No 03/01 In the past 12 months, has l ack of transportation kept you from meetings, work, or from getting things needed for daily living? No 03/26/2023 Nutrition Answer Date Recorded Nutrition: EVOO Fat Source Yes 03/26 On average, how many serving s of fruits and vegetables do you eat per day (serving size is equal to 1 cup or approximately the size of a tennis ball)? 3-5 03/26/2023 Dental Answer Date Recorded Dental: Regular Dentist Yes 06/02/19 Employment Answer Date Recorded Employment status Retired 03/26/2023 Housing Stability Answer Date Recorded What is your living situation today? I have a [facility] place to live 03/26/2023 Education Answer Date Recorded What is the highest level of school you have completed or the highest degree you have received? Bachelor's degree (e.g., BA, AB, BS) 03/05/2019 Sex and Gender Information Value Date Recorded Sex Assigned at Male 09/14/2017 9:59 AM CDT Gender Identity Male 09/14/2017 9:59 AM CDT Sexual Orientation Straight 08/28/2018 6: 34 AM CDT documented as of this encounter Miscellaneous Notes * Telephone Encounter - River Stockton M.D. - 07/29/2023 2:09 PM CDT Mr. Vieira is a 77 y.o. 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 He had an induction course of BCG earlier this year. He had a negative biopsy in December of 2022. 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 I reviewed the results with the patient. Recommended another induction course of BCG. We will get that scheduled. Results for orders placed or performed during the hospital encounter of 07/16/23 Surgical Pathology Status: None Result Value Report electronically signed by Riley Tarango M.D. I verify that I have examined all relevant slides/materials for the specimen(s) and rendered or confirmed the diagnosis. Gross Description Interpretation FINAL DIAGNOSIS A. Urinary bladder, left diverticulum, biopsy: Urothelial carcinoma in situ No muscularis propria identified B. 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 *Note: Due to a large number of results and/or encounters for the requested time period, some results have not been displayed. A complete set of results can be found in Results Review. documented in this encounter Plan of Treatment Upcoming Encounters Date Type Department Care Team (Late st Contact Info) Description 08/13/2023 1:00 PM CDT Procedure visit Department of Urology in [place], [place] [address] [place] [address] River Stockton M.D. [address] [place] [address] 08/20/2023 1:00 PM CDT Procedure visit Department of Urology in [place], [place] [address] [place] [phone] River Stockton M.D. [address] [place] [phone] 08/26/2023 10:30 AM CDT Procedure visit Department of Urology in [place], [place] [address] [place] [phone] River Stockton M.D. [address] [place] [phone] 09/03/2023 1:00 PM CDT Procedure visit Department of Urology in [place], [place] [address] [place] [address] River Stockton M.D. [address] [place] [phone] 09/09/2023 10:30 AM CDT Procedure visit Department of Urology in [place], [place] [address] [place] [address] River Stockton M.D. [address] [place] [phone] 09/22/2023 10:30 AM CDT Procedure visit Department of Dermatology in [place], [place] [address] [place] [phone] Vitaliy Alvares M.D. [address] [place] [phone] 09/25/2023 9:00 AM CDT Appointment Department of Radiology, [facility], in [place], [place] [address] [place] [phone] Cody Carroll M.D. [address] [place] [phone] 09/25/2023 9:30 AM CDT Diagnostic Division of Pulmonary Medicine in [place], [place] [address] [place] [phone] Cody Carroll M.D. [address] [place] [phone] 09/25/2023 11:30 AM CDT Office Visit Division of Pulmonary Medicine in [place], [place] [address] [place] [phone] Teri Cerda APRN, C.N.P., D.N.P. [address] [place] [phone] 10/23/2023 9:20 AM CDT Office Visit Department of Dermatology in [place], [place] [address] [place] [phone] Crystal Rodriguez APRN, C.N.P., M.S.N. [address] [place] [phone] Scheduled Orders Name Type Priority Associated Diagnoses Orde r Schedule URO Intravesical instillation - BCG maintenance Procedure Routine Malignant Neoplasm Of Bladder (HCC) 6 Occurrences starting 07/29/2023 until 10/27/2024 documented as of this encounter Visit Diagnoses Diagnosis Malignant Neoplasm Of Bladder (HCC)- Primary documented in this encounter Additional Health Concerns Infection Onset Date Last Indicated Resolved Time Protective Environment 08/06/2023 08/06/2023 documented as of this encounter Care Teams Front Desk Representative Relationship Specialty Start Date End Date Elsewhere, Pcp PCP - General Family Medicine 10/30/20 documented as of this encounter
--- OUTSIDE RECORDS SUMMARY | 2023-08-12 07:11 | XMS_ITS ---
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 Linked Problems Malignant Neoplasm Of Bladde r (HCC) Treatment Medications BCG bladder instillation (TI CE BCG) Past Plans Urology Plan Name Start Date Discontinue Date Treatment Medications Discontinue Reason Plan Provider BCG LIVE (INDUCTION) WEEKLY FOR 6 WEEKS 10/03/2022 07/29/2023 BCG live ([facility] BCG) Therapy Complete River Stockton M.D. Radiation Treatments * No radiation treatments are documented for this patient in [facility]. Treatments may have been administered in another system. Lifetime Dose Tracking * Chemical Lifetime Dose Automatic Entry Manual Entr y Radiation 10.09 mGy 10.09 mGy 0 mGy Fluoro Time 0.217 minutes 0.217 minutes 0 minutes
--- OUTSIDE RECORDS SUMMARY | 2023-08-12 07:11 | XMS_ITS | Referral Summary ---
Author Name Unknown Organization [facility] Address [address] [place] [address] Care Team Providers Care Design Assembler Name Role Phone Elsewhere, Pcp Primary Care Provider Unavailabl e Source Comments Patient records contain information from all sites at [facility]. For routine questions regarding patient records, call [phone] during business hours, M-F 8:00 AM - 5:00 PM Central Time. Record requests for emergency care only can be directed to [phone] at any time.[facility] Encounters Date Type Department Care Team Description 08/11/2023 Clinical Communication Division of Pulmonary Medicine in [place], [place] [address] [place] [phone] Cody Carroll M.D. 08/06/2023 1:00 PM CDT Procedure visit Department of Urology in [place], [place] [address] [place] [phone] River Stockton M.D. Hartz, Jane L, R.N. Malignant Neoplasm Of Bladder (HCC) (Primary Dx) 07/30/2023 Orders Only Department of Urology in [place], [place] [address] [place] [phone] River Stockton M.D. Malignant Neoplasm Of Bladder (HCC) 07/29/2023 Orders Only Department of Urology in [place], [place] [address] [place] [phone] River Stockton M.D. 07/24/2023 Clinical Communication Department of Urology in [place], [place] [address] [place] [phone] River Stockton M.D. Appt Request 07/17/2023 8:30 AM CDT Comprehensive Visit Division of Pulmonary Medicine in [place], [place] [address] [place] [phone] Cody Carroll M.D. Nodule Pulmonary Solitary; Localized Enlarged Lymph Nodes 07/16/2023 12:00 PM CDT Ancillary Procedure Department of General Surgery 07/16/2023 12:55 PM CDT - 07/16/2023 2:10 PM CDT Surgery Outpatient Procedure Center in [address] [phone] Cale De La Fuente M.D. CYSTOSCOPY BIOPSY FULGURATION 07/16/2023 2:07 PM CDT Anesthesia Event Outpatient Procedure Center in [address] [phone] Grecia Chauhan APRN, CRNA Ochs Kinney, Michelle A, M.D. 07/16/2023 11:29 AM CDT - 07/16/2023 3:55 PM CDT Hospital Encounter Outpatient Procedure Center in [address] [phone] Cale De La Fuente M.D. Malignant Neoplasm Of Bladder (HCC) Discharge Disposition: Home or Self Care 07/15/2023 2:15 PM CDT Clinical Communication Virtual Review in [place], [place] 200 [place] [address] Pre-visit Intake 07/09/2023 Clinical Communication Department of Urology in [address] [phone] Lynne Virgen 07/09/2023 Virtual Visit Division of Pulmonary Medicine in [address] [phone] Marcial Bush M.D. Nodule Pulmonary (Primary Dx) 07/07/2023 Clinical Communication Department of Urology in [place], [place] [address] [place] [address] River Stockton M.D. Urine Results 07/07/2023 2:00 PM CDT Telemedicine Preoperative Evaluation Center in [place], [place] [address] [place] [address] Cornell Rowan APRN, C.N.PJodie Mckeon APRN C.N.P., M.S.N. Preanesthetic Medical Exam (Primary Dx); Mass Bladder; Malignant Neoplasm Of Bladder (HCC); Other Nonspecific Abnormal Finding Of Lung Field; Paresthesias Feet; Polyneuropathy; Neuroma Acoustic (HCC); Vertigo; Crohn's Disease (HCC) 07/04/[address] [address] González Mathew M.D. Nodule Pulmonary Solitary (Primary Dx); Localized Enlarged Lymph Nodes 07/04/2023 Clinical Communication Preoperative Evaluation Center in [place], [place] [address] [place] [address] Vanessa Larios APRN, C.N.P., M.S.N. 06/30/2023 Orders Only Department of Dermatology in [place], [place] [address] [place] [address] Sallie Padilla P.A.-Trini., M.S. Squamous Cell Carcinoma In Situ (Primary Dx) 06/23/2023 Orders Only Department of Urology in [place], [place] [address] [place] [address] Cornell Rowan APRN, C.N.P. Mass Bladder (Primary Dx); Malignant Neoplasm Of Bladder (HCC) 06/23/2023 8:05 AM CDT Ancillary Procedure Department of Dermatology 06/23/2023 8:00 AM CDT Comprehensive Visit Department of Dermatology in [place], [place] [address] [place] [phone] Sallie Padilla P.Norberto.-Trini., M.S. Tumor Skin Uncertain Behavior (Primary Dx); Keratosis Actinic; Keratosis Seborrheic 06/23/2023 3:00 PM CDT Office Visit Department of Urology in [place], [place] [address] [place] [phone] River Stockton M.D. Lesion Bladder (Primary Dx) 06/23/2023 10:00 AM CDT Procedure visit Department of Urology in [address] [phone] Rula Elmore M.D. Tentis, Elise R, P.A.-C. Malignant Neoplasm Of Bladder (HCC) 06/20/2023 11:15 AM CDT Clinical Communication Virtual Review in [address] [phone] Pre-visit Intake from Last 3 Months Allergies Active Allergy Reactions Criticality Noted Date Comments Amoxicillin Rash 07/07/2023 Rash and 'fuzzy' tongue. Medications Medication Sig Dispensed Refills Start Date End Date Status multivitamin tablet Take 1 tablet by mouth daily. 09/29/2008 Active omega-3 fatty acids/fish oil (OMEGA 3 FISH OIL ORAL) Take 2 capsules by mouth daily. 500 mg capsules - total 1000 mg 11/18/2013 Active LORazepam (ATIVAN) 0.5 mg tablet 0.5 mg as needed (vertigo). 10/20/2017 Active vitamin B complex tablet extended release Take 1 capsule by mouth daily. 08/29/2020 Active cholecalciferol (VITAMIN D3) 125 mcg (5,000 Unit) tablet Take 125 mcg by mouth daily. Active gabapentin (NEURONTIN) 300 mg capsule Take 2 capsules (600 mg total) by mouth 3 (three) times a day. 540 capsule 3 02/01/2021 Active Additional Information Patient taking differently:600 mg oral 3 times daily,1 capsule daily, Reported on 08/16/2022 albuterol 90 mcg/actuation inhaler Inhale 2 puffs every 4 (four) hours as needed. 01/22/2022 Active qs-hjc-IW-vit O-ofdizy-hcgcdhy (PreserVision AREDS 2 Plus MV) 200 mcg-15 mcg- 5 mg-1 mg capsule Take by mouth. Active calcipotriene 0.005 %, 5-FU 5 % - lipoderm Apply topically 2 (two) times a day. Apply to entire scalp, forehead, temples, and cheeks for 7 days. 30 g 2 06/23/2023 Active EPINEPHrine 0.3 mg/0.3 mL injection syringe Inject 0.3 mg intramuscularly as needed. 06/27/2023 Active azithromycin (ZITHROMAX) 250 mg tablet 250 mg daily. 6 days 07/14/2023 Acti ve Active Problems Problem Noted Date Diagnosed Date [...] Sleep Behavior Disorder 02/12 Neuroma Acoustic 08/29/2020 Immunizations Name Administration Dates Next Due Influenza (IM) Preservative Free 01/27/2013 Social History Tobacco Use Types Packs/Day Years Used Date Smoking Tobacco: Former Cigarettes 1.5 42.2 0 03/31/1961 - 06/30/2003 Passive Smoke Exposure: Past Smokeless Tobacco: Former Chew Quit: 03/31/1998 Tobacco Cessation:Counseling Given: Not Answered Comments:Quit several times Alcohol Use Standard Drinks/Week Comments Yes 9 (1 standard drink = 0.6 oz pur e alcohol) [facility] Utilities Answer Date Recorded In the past 12 months has e [employer], gas, oil, or water [email or web address] threatened to shut off services in your [...] How often do you attend chur or baptist services? Never 03/17/2022 Do you belong to any clubs o r organizations such as mu-ism groups, unions, fraternal or athletic groups, or [...] and heating? Not hard at all 08/27/2022 [facility] of Occupat ional Health - Occupational Stress Questionnaire Answer Date Recorded [...] your living situation today? I have a [facility] place to live 03/26/2023 Education Answer Date Recorded What is the highest level of school you have completed or the highest degree you have received? Bachelor's degree (e.g., BA, AB, BS) 03/05/2019 Sex and Gender Information Value Date Recorded Sex Assigned at Male 09/14/2017 9:59 AM CDT Gender Identity Male 09/14/2017 9:59 AM CDT Sexual Orientation Straight 08/28/2018 6: 34 AM CDT Last Filed Vital Signs Vital Sign Reading Time Taken Comments Blood Pressure 141/90 07/16/2023 3:15 PM CDT Pulse 62 07/16/2023 3:25 PM CDT Temperature 36.6 ??C (97.9 ??F) 07/16/2023 1:29 PM CD T Respiratory Rate 15 07/16/2023 3:25 PM CDT Oxygen Saturation 94% 07/17/2023 8:19 AM CDT Inhaled Oxygen Concentration - - Weight 89 kg (196 lb 3.4 oz) 07/16/2023 1:29 PM CDT Height 188 cm (6' 2.02) 07/16/2023 1:29 PM CDT Body Mass Index 25.18 07/16/2023 1:29 PM CDT Plan of Treatment Upcoming Encounters Date Type Department Care Team (Late st Contact Info) Description 08/13/2023 1:00 PM CDT Procedure visit Department of Urology in [place], [place] [address] [place] [phone] River Stockton M.D. [address] [place] [phone] 08/20/2023 1:00 PM CDT Procedure visit Department of Urology in [place], [place] [address] [place] [address] River Stockton M.D. [address] [place] [phone] 08/26/2023 10:30 AM CDT Procedure visit Department of Urology in [place], [place] [address] [place] [address] River Stockton M.D. [address] [place] [phone] 09/03/2023 1:00 PM CDT Procedure visit Department of Urology in [place], [place] [address] [place] [address] River Stockton M.D. [address] [place] [phone] 09/09/2023 10:30 AM CDT Procedure visit Department of Urology in [place], [place] [address] [place] [address] River Stockton M.D. [address] [place] [phone] 09/22/2023 10:30 AM CDT Procedure visit Department of Dermatology in [place], [place] [address] [place] [phone] Vitaliy Alvares M.D. [address] [place] [phone] 09/25/2023 9:00 AM CDT Appointment Department of Radiology, [facility], in [place], [place] [address] [place] [phone] Cody Carroll M.D. [address] [place] [phone] 09/25/2023 9:30 AM CDT Diagnostic Division of Pulmonary Medicine in [place], [place] [address] [place] [phone] Cody Carroll M.D. [address] [place] [phone] 09/25/2023 11:30 AM CDT Office Visit Division of Pulmonary Medicine in [place], [place] [address] [place] [phone] Teri Cerda APRN, C.N.P., D.N.P. [address] [place] [phone] 10/23/2023 9:20 AM CDT Office Visit Department of Dermatology in [place], [place] [address] [place] [phone] Crystal Rodriguez APRN, C.N.P., M.S.N. [address] [place] [phone] Medical Devices Implanted Type Area Senior Controller Device Identifier Shelf Expiration Date Model / Serial / Lot Lens Tcn Mnfcl Dcb00 +18.5d - [id number] - [id number] Implanted:Qty : 1 on 01/29/2023 by Chuckie Sawant M.D. at [facility] Ocular Lens Left: Eye [employer] (Previously ERENDIRA) 11/10/2025 [id number] / [id number] / Eyhance Iol Implanted:Qty : 1 on 02/28/2023 by Chuckie Sawant M.D. at [facility] Ocular Lens Right: Eye [employer] 12/24/2025 [id number] / [id number] / Procedures Procedure Name Priority Date/Time Associated Diagnosis Comments SURGICAL PATHOLOGY Routine 07/16/2023 2: 33 PM CDT Malignant Neoplasm Of Bladder (HCC) CYSTOSCOPY BIOPSY FULGURATION 07/16/2023 1:57 PM CDT Malignant Neoplasm Of Bladder (HCC) Case Notes Shantanu 07/06 Special Needs Primary [place]. ADULT OXYGEN THERAPY Routine 07/16/2023 1:05 PM CDT SURGERY IMAGE EXAM Routine 07/16/2023 12:00 PM CDT OUTSIDE DX CHEST Routine 07/14/2023 11:[address] BODY Routine 06/24/2023 8:15 AM CDT URO CYSTOSCOPY (GENERAL) Routine 06/23/2023 10:00 AM CDT Malignant Neoplasm Of Bladder (HCC) CYTOLOGY NON-MILL LABORER Routine 06/23/2023 9:58 AM CDT Malignant Neoplasm Of Bladder (HCC) DERMATOPATHOLOGY Routine 06/23/2023 8:06 AM CDT DERMATOLOGY IMAGE EXAM Routine 8:04 AM CDT COLONOSCOPY Routine 08/29/2021 9:32 AM CDT Crohn's Disease (HCC) CT ABDOMEN PELVIS ENTEROGRAPHY WITH IV CONTRAST Routine 11/18/2013 1:46 PM CDT from Last 3 Months or Most Recently Relevant to Health Maintenance Results * Surgical Pathology (07/16/2023 2:33 PM CDT) 07/17/2023 1:23 PM CDT DTL Report electronically signed by Riley Tarango M.D. I verify that I have examined all relevant slides/materi als for the specimen(s) and rendered or confirmed the diagnosis. 07/17/2023 1:23 PM CDT DTL Gross Description A: Received in formalin labeled with the patient's name, medical record number, and left diverticulum is a 0.2 x 0.2 x 0.2 cm fragment ofpink-white soft tissue. ??The specimen is entirely submitted as received in A1. ??Tiffanie Perez M.S., PA([facility]) B: Received in formalin labeled with the patient's name, medical record number, and right diverticulum are 2 fragments of sanchez-white tissue ranging from 0.2-0.3 cm in greatest dimension. ??The specimen is entirely submitted in B1. ??Tiffanie Perez M.S., PA([facility]) 07/17/2023 1:23 PM CDT DTL Interpretation FINAL DIAGNOSIS A. Urinary bladder, left diverticulum, biopsy: Urothelial carcinoma in situ No muscularis propria identified B. 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 07/17/2023 1:23 PM CDT DTL Biopsy (Bladder) 07/16/2023 2:33 PM CDT Biopsy (Bladder) 07/16/2023 2:33 PM CDT Cale De La Fuente M.D. LAB SURG PATH ORDERA BLES [facility] [address] [place] [address], [facility] DTL [address] [place] [address] * BLADDER-Surgery Image Exam (07/16/2023 12:00 PM CDT) 07/16/2023 11:5 6 AM CDT Narrative IISC - 07/16/2023 3:01 PM CDT This order has been created and auto-finalized to support the import of images acquired without order. The clinical documentation to support these images can be found on the encounter that produced images. Provider Not In System IMG NON RAD IMAGI NG PROCEDURES Performing Organization Address [facility] de Phone Number IIMS NA * XR chest 2V-Outside Chest Xray (07/14/2023 11:45 AM CDT) 07/14/2023 11:4 1 AM CDT Narrative IISC - 07/14/2023 1:23 PM CDT This order has been created and auto-finalized to support the import of outside images. If available, original interpretation can be found on the Media Tab in Chart Review, in Document Viewer, or as an image in QREADS. If a re-interpretation or overread is required please follow defined workflow. ?? Provider Not In System IM DIAGNOSTIC IM AGING PROCEDURES Performing Organization Address [facility] de Phone Number IIMS NA * CT CHEST W CON-Outside CT Body (06/24/2023 8:15 AM CDT) Narrative IISC - 07/04/2023 1:06 PM CDT This order has been created and auto-finalized to support the import of outside images. If available, original interpretation can be found on the Media Tab in Chart Review, in Document Viewer, or as an image in QREADS. If a re-interpretation or overread is required please follow defined workflow. ?? Provider Not In System IM CT PROCEDURES Performing Organization Address [facility] de Phone Number IIMS NA * URO Cystoscopy (general) (06/23/2023 10:00 AM CDT) Narrative Irma Larsen P.A.-C. - 06/23/2023 10:00 AM CDT Irma Larsen P.A.-C. ? 06/23/2023 ??9:53 AM URO Cystoscopy (general) Performed by: Irma Larsen P.A.-C. Authorized by: Rula Elmore M.D. ?? Additional procedures performed: cystoscopy ?? PROCEDURE DETAILS: ??Blue light imaging agent used: ??no Fluoroscopy: Fluoroscopic image guidance used to localize target, identify at risk structures, and dynamically used to direct therapy to the target. Image(s) acquired and saved. A flexible cystoscope was inserted through the urethra into the bladder. Cystoscope was removed at the end of procedure. 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 BX 01/07/2023 reactive cystitis Patient was prepped and draped in the dorsal lithotomy position. ?? Cystoscope was placed into the urethra and sphincter coapted appropriately. ??Upon entry into the bladder spangler cystoscopy was performed with a pinched up area on the posterior bladder wall that was indeterminate. ??Along the right lateral bladder wall there was a diverticulum that was inspected with a small area of erythema which was also indeterminate. ??Along the left bladder wall there was a larger bladder diverticulum that was inspected and this too had a more prominent area of erythema in pinched up tissue. ??On retroflexed view there is normal-appearing bladder neck with ureteral orifices in the orthotopic position. ??Cystoscope was then removed and the patient tolerated the procedure well. DX: ??Indeterminate area within bilateral bladder diverticulum left bladder wall more than the right. ??Pinched up area of tissue along posterior bladder wall. ??Clinical correlation recommended. PLAN: Patient has upcoming appt with Dr. Stockton CONSENT Consent obtained: verbal Consent given by: patient The benefits, risks and alternatives to the procedure and the potential need for sedation or anesthesia as well as the names, roles, and responsibilities of healthcare team members performing significant interventional tasks were discussed with the patient and/or decision maker. UNIVERSAL PROTOCOL All relevant documentation and testing were reviewed and available. All required blood products, implants, devices and or special equipment were made available as applicable. Pre-procedure verification was conducted and the correct site was marked if required. A fire risk assessment was done as applicable. The procedural time-out to verify correct patient, correct side/site, and procedure was conducted prior to performing the procedure and confirmed in a procedural pause. PRE-PROCEDURE DETAILS Procedure purpose: ??Diagnostic Appropriate hand hygiene, gown, cap, mask, protective eyewear, sterile gloves, skin preparation, sterile drape, and strict aseptic technique were utilized as applicable for the procedure.: yes ?? Site preparation: ??Povidone-iodine SEDATION / ANESTHESIA Anesthesia method: none POST-PROCEDURE DETAILS Procedure completed successfully: yes ?? Complications: no apparent complications ?? Rula Elmore M.D. UROLOGY ORDERABLES * Cytology Non-MILL LABORER (06/23/2023 9:58 AM CDT) 06/24/2023 1:37 PM CDT DTL Report electronically signed by Kyara Chappell M.D. I verify that I have examined all relevant slides/material s for the specimen(s) and rendered or confirmed the diagnosis. 06/24/2023 1:37 PM CDT DTL Gross Description Received 20 cc of yellow fluid. 06/24/2023 1:37 PM CDT DTL Source A. Urine, Cystoscopy, catheterized 06/24/2023 1:37 PM CDT DTL Interpretation A. Urine, Cystoscopy, catheterized (ThinPrep): Negative for High-Grade Urothelial Carcinoma. ?? Degenerated urothelial cells. 06/24/2023 1:37 PM CDT DTL Urine 06/23/2023 9:58 AM CDT 06/23/2023 10:33 AM CDT Irma Larsen P.A.-C. LAB SURG PATH ORD ERABLES [facility] [address] [place] [address], [facility] DTL [address] [place] [address] * Dermatopathology (06/23/2023 8:06 AM CDT) 06/26/2023 9:35 AM CDT PDRM Participated in the Interpretation Salo Sequeira M.D. - Dermatopathology Fellow 06/26/2023 9:35 AM CDT PDRM Report electronically signed by Teresa Pérez M.D. 06/26/2023 9:35 AM CDT PDRM Gross Description A: Received in formalin, labeled with the patient's name, medical record number, and designated right frontal scalp, a is a 1 x 0.8 x 0.2cm friable and nodular sanchez-white skin shave quadrisected and submitted entirely in cassette A1. Grossed by [email or web address]. B: Received in formalin, labeled with the patient's name, medical record number, and designated right parietal scalp, B is a 0.9 x 0.7 x0.1 cm white-sanchez skin shave, bisected, and submitted entirely in cassette B1. ??Grossed by [email or web address]. C: Received in formalin, labeled with the patient's name, medical record number, and designated left vertex scalp, C is a 0.9 x 0.7 x 0.1cm white-sanchez skin shave, bisected, and submitted entirely in cassette C1. ??Grossed by [email or web address]. 06/26/2023 9:35 AM CDT PDRM Interpretation FINAL DIAGNOSIS A. ??Right Frontal Scalp, A, Skin shave biopsy: At least squamous cell carcinoma in situ, superficially transected B. ??Right Parietal Scalp, B, Skin shave biopsy: ??Squamous cell carcinoma in situ, involving biopsy borders C. ??Left vertex scalp, C, Skin shave biopsy: ??At least squamous cell carcinoma in situ, superficially transected, with inflamed and impetiginized crust COMMENT Clinical note and photographs reviewed. Digital imaging was used in the diagnostic assessment of this case. 06/26/2023 9:35 AM CDT PDRM Skin (Right Frontal Scalp) 06/23/2023 8:04 AM CDT Skin (Right Parietal Scalp) 06/23/2023 8:04 AM CDT Skin (Left vertex scalp) 06/23/2023 8:05 AM CDT Claire Cerda P.A.-C.S. LAB PATH DE RM ORDERABLES [facility] [address] [place] [address], [facility] [address] [place] [address] * Scalp 502-Dermatology Image Exam (06/23/2023 8:04 AM CDT) 06/23/2023 8:02 AM CDT Narrative IIMS - 06/23/2023 8:04 AM CDT This order has been created and auto-finalized to support the import of images acquired without order. The clinical documentation to support these images can be found on the encounter that produced images. Provider Not In System IMG NON RAD IMAGI NG PROCEDURES Performing Organization Address [facility] Co de Phone Number IIMS NA * CT Abdomen Pelvis Enterography with IV Contrast (11/18/2013 1:46 PM CDT) Anatomical Region Laterality Modality Abdomen, Pelvis N/A Computed Tomogra phy 11/18/2013 1:46 PM CDT Impressions 11/18/2013 2:53 PM CDT ??Findings of active Crohn's disease are similar to comparison CT enterography. Possible minimal penetrating disease, as below. FINDINGS: ??Again seen are several abnormal mid and distal ileal segments with mural thickening,asymmetric mucosal hyperenhancement, and mild narrowing with intervening minimally dilated segments. Findings are consistent with active Crohn's disease. The distribution, degree of enhancement and mural thickening is similar to the comparison CT enterography, with the ??disease being most prominent in the 20 cm segment of mid ileum referenced on comparison exam (series 3/149, series 4/103). There is a small 5 mm serosal contour irregularity involving this inflamed segment (series 2/149). It may represent a small Sinus tract, ??however, the finding appears unchanged from the exam. Otherwise, no evidence of penetrating disease. Stable 4.5 cm duodenal diverticulum at the junction of the third and fourth segments. The liver, gallbladder, pancreas, left kidney, adrenal glands are normal. Tiny splenic cyst or hemangioma. Multiple cysts right kidney. Colonic diverticulosis without diverticulitis. Bladder diverticula. Electronically signed by: ?? Nico Ospina MD [phone] 18-Nov-2013 14:53 ?Rich Munoz M.D. [phone] 18-Nov-2013 14:53 Narrative 11/18/2013 2:53 PM CDT 18-Nov-2013 13:46:00 ??Exam: CT Ent Abd w - Pelvis w Indications: Crohn's Disease Small Intestine;Pain Abdominal NOS ORIGINAL REPORT - 18-Nov-2013 14:53:00 EXAM: CT scan of the Abdomen and Pelvis with oral and IV contrast using the enterography protocol COMPARISON: ?? CT enterography 02/26/2011 Procedure Note Rich Munoz M.B., Ch.B. - 06/27/2017 18-Nov-2013 13:46:00 Exam: CT Ent Abd w - Pelvis w Indications: Crohn's Disease Small Intestine;Pain Abdominal NOS ORIGINAL REPORT - 18-Nov-2013 14:53:00 EXAM: CT scan of the Abdomen and Pelvis with oral and IV contrast usingthe enterography protocol COMPARISON: CT enterography 02/26/2011 IMPRESSION: Findings of active Crohn's disease are similar to comparisonCT enterography. Possible minimal penetrating disease, as below. FINDINGS: Again seen are several abnormal mid and distal ileal segmentswith mural thickening,asymmetric mucosal hyperenhancement, and mildnarrowing with intervening minimally dilated segments. Findings areconsistent with active Crohn's disease. The distribution, degree ofenhancement and mural thickening is similar to the comparison CTenterography, with the disease being most prominent in the 20 cm segmentof mid ileum referenced on comparison exam (series 3/149, series 4/103).There is a small 5 mm serosal contour irregularity involving this inflamedsegment (series 2/149). It may represent a small Sinus tract, however,the finding appears unchanged from the exam. Otherwise, no evidence ofpenetrating disease. Stable 4.5 cm duodenal diverticulum at the junction of the third andfourth segments. The liver, gallbladder, pancreas, left kidney, adrenalglands are normal. Tiny splenic cyst or hemangioma. Multiple cysts rightkidney. Colonic diverticulosis without diverticulitis. Bladderdiverticula. Electronically signed by: Nico Ospina MD [id number] 18-Nov-2013 14:53 Rich Munoz [id number] 18-Nov-2013 14:53 Noé Artis M.D. IMG CT PROCEDURES from Last 3 Months or Most Recently Relevant to Health Maintenance Additional Health Concerns Infection Onset Date Last Indicated Protective Environment 08/06/2023 Advance Directives For more information, please contact: [phone] Documents on File Type Date Recorded Patient Electronic Engineering Technician Expl anation Advance Directives 11/30/2018 4:27 PM Healt h Care Directive * Full Code (Latest Code Status on File) Date Activated Date Inactivated Comments 07/16/2023 1:05 PM 07/16/2023 5:55 PM Question Answer Comments Full Code: Discussed Healthcare Agents on File Name Relationship Healthcare Agent Relationship Communication Joanie Vieira Spouse Health Care Agent Melonie Vieira First Alternate Health Care Agent Nissa Vieira Second Alternat e Health Care Agent Care Teams Design Assembler Relationship Specialty Start Date End Date Elsewhere, Pcp PCP - General Family Medicine 10/30/20
--- OUTSIDE RECORDS SUMMARY | 2023-08-12 07:11 | XMS_ITS | Encounter Summary ---
Author Name Unknown Organization [facility] Address [address] [place] [address] Care Team Providers Care Carpenter Supervisor Wooden Ship Name Role Phone Elsewhere, Pcp Primary Care Provider Unavailabl e Reason for Visit * Reason Comments Bladder Cancer BCG #1 of 6. * Injectables (Routine) - Authorized Specialty Diagnoses / Procedures Referred By Contradha t Referred To Contact Diagnoses Malignant Neoplasm Of Bladder (HCC) Procedures URO Intravesical instillation - BCG maintenance River Stockton M.D. [address] [place] [phone] [facility] Referral ID Status Reason Start Date Expiration Date V isits Requested Visits Authorized [id number] Authorized 07/29/2023 07/28/2024 6 6 Encounter Details Date Type Department Care Team (Latest Contact Info) Description 08/06/2023 1:00 PM CDT Procedure visit Department of Urology in [place], [place] [address] [place] [phone] River Stockton M.D. [address] [place] [address] [phone] Abimbola Pascal R.N. [address] [place] [address] [phone] Malignant Neoplasm Of Bladder (HCC) (Primary Dx) Social History Tobacco Use Types Packs/Day Years Used Date Smoking Tobacco: Former Cigarettes 1.5 42.2 0 03/31/1961 - 06/30/2003 Passive Smoke Exposure: Past Smokeless Tobacco: Former Chew Quit: 03/31/1998 Comments:Quit several times Alcohol Use Standard Drinks/Week Comments Yes 9 (1 standard drink = 0.6 oz pur e alcohol) [facility] Utilities Answer Date Recorded In the past [...] week 03/17/2022 How often do you attend [facility] services? Never 03/17/2022 Do you belong to any clubs o r organizations such as adventist groups, unions, fraternal or athletic groups, or [...] and heating? Not hard at all 08/27/2022 [facility] - Occupational Stress Questionnaire Answer Date Recorded [...] Date Recorded Dental: Regular Dentist Yes 06/02/19 21 Employment Answer Date Recorded Employment status Retired 03/26/2023 Housing Stability Answer Date Recorded What is your living situation today? I have a [facility] place to live 03/26/2023 Education Answer Date [...] AM CDT documented as of this encounter Progress Notes * Abimbola Pascal R.N. - 08/06/2023 1:00 PM CDT CHIEF COMPLAINT Martin Vieira is here for BCG treatment # 1 of 6 Patient denies symptoms of urinary tract infection, blood in the urine, fever, chills, urgency, frequency, and pain with urination. We will proceed with today's treatment. Per provider orders urines not indicated and labs CBC not indicated . Patient has done these treatments in the past. Treatment #2 scheduled for 08/13/2023. Abimbola Pascal R.N. * Abimbola Pascal R.N. - 08/06/2023 1:00 PM CDT CHIEF COMPLAINT Bladder Instillation Patient here for BCG treatment #1 of #6 Prior to the procedure the following lab(s) were reviewed: Urines/Labs Not Indicated for this visit The patient was prepped in sterile fashion using Betadine Catheter size: 12F Catheter type:coude non-latex, had attempted #12 Fr. Coude red rubber without success and 8 mL's lubricating jelly per urethra prior. Medication administered (see MAR for specific details): BCG 50MG/50ML Medication instilled via closed system. Catheter removed intact. Patient tolerated procedure well. The patient was provided with the following post instillation: Dwell time of 1-2 hours, post procedure instructions per [id number] and cleansing wipes. Next treatment/follow up scheduled for: 08/13/2023 documented in this encounter Plan of Treatment Upcoming Encounters Date Type Department Care Team (Late st Contact Info) Description 08/13/2023 1:00 PM CDT Procedure visit Department of Urology in [place], [place] [address] [place] [address] River Stockton M.D. [address] [place] [phone] 08/20/2023 1:00 PM CDT Procedure visit Department of Urology in [place], [place] [address] [place] [address] River Stockton M.D. [address] [place] [phone] 08/26/2023 10:30 AM CDT Procedure visit Department of Urology in [place], [place] [address] [place] [address] River Stockton M.D. [address] [place] [phone] 09/03/2023 1:00 PM CDT Procedure visit Department of Urology in [place], [place] [address] [place] [address] River Stockton M.D. [address] [place] [phone] 09/09/2023 10:30 AM CDT Procedure visit Department of Urology in [place], [place] [address] [place] [phone] River Stockton M.D. [address] [place] [phone] 09/22/2023 10:30 AM CDT Procedure visit Department of Dermatology in [place], [place] [address] [place] [phone] Vitaliy Alvares M.D. [address] [place] [phone] 09/25/2023 9:00 AM CDT Appointment Department of Radiology, [facility], in [place], [place] [address] [place] [phone] Cody Carroll M.D. [address] [place] [phone] 09/25/2023 9:30 AM CDT Diagnostic Division of Pulmonary Medicine in [place], [place] [address] [place] [phone] Cody Carroll M.D. [address] [place] [phone] 09/25/2023 11:30 AM CDT Office Visit Division of Pulmonary Medicine in [place], [place] [address] [place] [phone] Teri Cerda APRN, C.N.P., D.N.P. [address] [place] [phone] 10/23/2023 9:20 AM CDT Office Visit Department of Dermatology in [place], [place] [address] [place] [phone] Crystal Rodriguez APRN, C.N.P., M.S.N. [address] [place] [phone] documented as of this encounter Visit Diagnoses Diagnosis Malignant Neoplasm Of Bladder (HCC)- Primary documented in this encounter Administered Medications Inactive Administered Medications - up to 3 most recent administrations Medication Order MAR Action Action Date Dose Rate Site BCG live 50 mg in NaCl 0.9% 50 mL bladder instillation ([place] BCG) 50 mg, intravesical, Once, On Fri08/06/23 at 1300, For 1 dose, For bladder instillation, recommended dwell time is 120 minutes if tolerated, no less than 60 minutes. HAZARDOUS - Handle with care. Use with CSTD Bladder Instillation Kit. Given 08/06/2023 1:03 PM CDT 50 mg documented in this encounter Additional Health Concerns Infection Onset Date Last Indicated Resolved Time Protective Environment 08/06/2023 08/06/2023 documented as of this encounter Care Teams Carpenter Supervisor Wooden Ship Relationship Specialty Start Date End Date Elsewhere, Pcp PCP - General Family Medicine 10/30/20 documented as of this encounter
--- OUTSIDE RECORDS SUMMARY | 2023-08-12 07:11 | XMS_ITS | Encounter Summary ---
Author Name Unknown Organization [facility] Address [address] [place] [address] Care Team Providers Care Production Drilling Machine Operator Name Role Phone Elsewhere, Pcp Primary Care Provider Unavailabl e Encounter Details Date Type Department Care Team (Late st Contact Info) Description 08/11/2023 Clinical Communication Division of Pulmonary Medicine in [place], [place] [address] [place] [phone] Cody Carroll M.D. [address] [place] [phone] Social History Tobacco Use Types Packs/Day Years Used Date Smoking Tobacco: Former Cigarettes 1.5 42.2 0 03/31/1961 - 06/30/2003 Passive Smoke Exposure: Past Smokeless Tobacco: Former Chew Quit: 03/31/1998 Comments:Quit several times Alcohol Use Standard Drinks/Week Comments Yes 9 (1 standard drink = 0.6 oz pur e alcohol) [facility] Utilities Answer Date Recorded In the [...] How often do you attend chur or cheondoism services? Never 03/17/2022 Do you belong to any clubs o r organizations such as muslim groups, unions, fraternal or athletic groups, or [...] and heating? Not hard at all 08/27/2022 [facility] - Occupational Stress [...] your living situation today? I have a [facility] place to live 03/26/2023 Education Answer [...] encounter Miscellaneous Notes * Telephone Encounter - Cody Carroll M.D. - 08/11/2023 5:27 PM CDT I responded to his message via phone call. Chest tightness worse with exertion but satuaration is 93% and heart rate is 70's (basseline is 50's). The symptom started 5 days ago after BCG treatment. I told him I was concerned about PE or IN and other side effects from BCG. Advised him to go to ED since he did not respond to Albuterol. He wanted to see and get evaluated by local provider tomorrow. I shared my concern and ultimately let him decide. He will share CXR and other workup done at local provider with me tomorrow when done. Cody Carroll MD Department of Pulmonary and Critical Care Fellow, PGY-4 documented in this encounter Plan of Treatment Upcoming Encounters Date Type Department Care Team (Late st Contact Info) Description 08/13/2023 1:00 PM CDT Procedure visit Department of Urology in [place], [place] [address] [place] [phone] River Stockton M.D. [address] [place] [phone] 08/20/2023 1:00 PM CDT Procedure visit Department of Urology in [place], [place] [address] [place] [phone] River Stockton M.D. [address] [place] [phone] 08/26/2023 10:30 AM CDT Procedure visit Department of Urology in [place], [place] [address] [place] [address] River Stockton M.D. [address] [place] [phone] 09/03/2023 1:00 PM CDT Procedure visit Department of Urology in [place], [place] [address] [place] [phone] River Stockton M.D. [address] [place] [phone] 09/09/2023 10:30 AM CDT Procedure visit Department of Urology in [place], [place] [address] [place] [phone] River Stockton M.D. [address] [place] [phone] 09/22/2023 10:30 AM CDT Procedure visit Department of Dermatology in [place], [place] [address] [place] [phone] Vitaliy Alvares M.D. [address] [place] [phone] 09/25/2023 9:00 AM CDT Appointment Department of Radiology, [facility], in [place], [place] [address] [place] [phone] Cody Carroll M.D. [address] [place] [phone] 09/25/2023 9:30 AM CDT Diagnostic Division of Pulmonary Medicine in [place], [place] [address] [place] [phone] Cody Carroll M.D. [address] [place] [phone] 09/25/2023 11:30 AM CDT Office Visit Division of Pulmonary Medicine in [place], [place] [address] [place] [phone] Teri Cerda APRN, C.N.P., D.N.P. [address] [place] [phone] 10/23/2023 9:20 AM CDT Office Visit Department of Dermatology in [place], [place] [address] [place] [phone] Crystal Rodriguez APRN, C.N.P., M.S.N. [address] [place] [phone] documented as of this encounter Visit Diagnoses Not on filedocumented in this encounter Additional Health Concerns Infection Onset Date Last Indicated Resolved Time Protective Environment 08/06/2023 08/06/2023 documented as of this encounter Care Teams Production Drilling Machine Operator Relationship Specialty Start Date End Date Elsewhere, Pcp PCP - General Family Medicine 10/30/20 documented as of this encounter
--- OUTSIDE RECORDS SUMMARY | 2023-08-12 07:11 | XMS_ITS | Encounter Summary ---
Author Name Unknown Organization [facility] Address [address] [place] [address] Care Team Providers Care Web Page Developer Name Role Phone Elsewhere, Pcp Primary Care Provider Unavailabl e Encounter Details Date Type Department Care Team (Late st Contact Info) Description 07/16/2023 12:00 PM CDT Ancillary Procedure Department of General Surgery Social History Tobacco Use Types Packs/Day Years Used Date Smoking Tobacco: Former Cigarettes 1.5 42.2 0 03/31/1961 - 06/30/2003 Passive Smoke Exposure: Past Smokeless Tobacco: Former Chew Quit: 03/31/1998 Comments:Quit several times Alcohol Use Standard Drinks/Week Comments Yes 9 (1 standard drink = 0.6 oz pur e alcohol) [facility] Utilities Answer Date Recorded In the past 12 months has e [employer], gas, oil, or water [employer] threatened to shut off services in your [...] How often do you attend chur or alevism services? Never 03/17/2022 Do you belong to any clubs o r organizations such as religion groups, unions, fraternal or athletic groups, or [...] and heating? Not hard at all 08/27/2022 [facility] - Occupational Stress [...] your living situation today? I have a [facility] place [facility] 03/26/2023 Education Answer [...] AM CDT documented as of this encounter Plan of Treatment Upcoming Encounters Date Type Department Care Team (Late st Contact Info) Description 08/13/2023 1:00 PM CDT Procedure visit Department of Urology in [place], [place] [address] [place] [address] River Stockton M.D. [address] [place] [phone] 08/20/2023 1:00 PM CDT Procedure visit Department of Urology in [place], [place] [address] [place] [address] River Stockton M.D. [address] [place] [phone] 08/26/2023 10:30 AM CDT Procedure visit Department of Urology in [place], [place] [address] [place] [address] River Stockton M.D. [address] [place] [phone] 09/03/2023 1:00 PM CDT Procedure visit Department of Urology in [place], [place] [address] [place] [address] River Stockton M.D. [address] [place] [phone] 09/09/2023 10:30 AM CDT Procedure visit Department of Urology in [place], [place] [address] [place] [address] River Stockton M.D. [address] [place] [phone] 09/22/2023 10:30 AM CDT Procedure visit Department of Dermatology in [place], [place] [address] [place] [address] Vitaliy Alvares M.D. [address] [place] [phone] 09/25/2023 9:00 AM CDT Appointment Department of Radiology, [facility], in [place], [place] [address] [place] [address] Cody Carroll M.D. [address] [place] [phone] 09/25/2023 9:30 AM CDT Diagnostic Division of Pulmonary Medicine in [place], [place] [address] [place] [address] Cody Carroll M.D. [address] [place] [phone] 09/25/2023 11:30 AM CDT Office Visit Division of Pulmonary Medicine in [place], [place] [address] [place] [phone] Teri Cerda APRN, C.N.P., D.N.P. [address] [place] [phone] 10/23/2023 9:20 AM CDT Office Visit Department of Dermatology in [place], [place] [address] [place] [phone] Crystal Rodriguez APRN, C.N.P., M.S.N. [address] [place] [phone] documented as of this encounter Procedures Procedure Name Priority Date/Time Associated Diagnosis Comments SURGERY IMAGE EXAM Routine 07/16/2023 12 :00 PM CDT documented in this encounter Results * BLADDER-Surgery Image Exam (07/16/2023 12:00 PM CDT) 07/16/2023 11:5 6 AM CDT Narrative [facility] - 07/16/2023 3:01 PM CDT This order has been created and auto-finalized to support the import of images acquired without order. The clinical documentation to support these images can be found on the encounter that produced images. Provider Not In System IMG NON RAD IMAGI NG PROCEDURES [facility] NA documented in this encounter Visit Diagnoses Not on filedocumented in this encounter Care Teams Web Page Developer Relationship Specialty Start Date End Date Elsewhere, Pcp PCP - General Family Medicine 10/30/20 documented as of this encounter
--- OUTSIDE RECORDS SUMMARY | 2023-08-12 07:11 | XMS_ITS | Encounter Summary ---
Author Name Unknown Organization [facility] Address [address] [place] [address] Care Team Providers Care Training And Development Specialist Name Role Phone Elsewhere, Pcp Primary Care Provider Unavailabl e Encounter Details Date Type Department Care Team (Late st Contact Info) Description 07/30/2023 Orders Only Department of Urology in [place], [place] [address] [place] [phone] River Stockton M.D. [address] [place] [phone] Malignant Neoplasm Of Bladder (HCC) Social History Tobacco Use Types Packs/Day Years Used Date Smoking Tobacco: Former Cigarettes 1.5 42.2 0 03/31/1961 - 06/30/2003 Passive Smoke Exposure: Past Smokeless Tobacco: Former Chew Quit: 03/31/1998 Comments:Quit several times Alcohol Use Standard Drinks/Week Comments Yes 9 (1 standard drink = 0.6 oz pur e alcohol) [facility] Utilities Answer Date Recorded In the past [...] How often do you attend chur or presybeterian services? Never 03/17/2022 Do you belong to any clubs o r organizations such as jewish groups, unions, fraternal or athletic groups, or [...] and heating? Not hard at all 08/27/2022 [facility] Occupat ional Health - Occupational Stress [...] your living situation today? I have a [facility] place to live 03/26/2023 Education Answer [...] CDT Procedure visit Department of Urology in [place], [place] 200 [place] [address] River Stockton M.D. 200 [place] [address] 08/20/2023 1:00 PM CDT Procedure visit Department of Urology in [place], [place] [address] [place] [address] River Stockton M.D. [address] [place] [phone] 08/26/2023 10:30 AM CDT Procedure visit Department of Urology in [place], [place] [address] [place] [address] River Stockton M.D. [address] [place] [phone] 09/03/2023 1:00 PM CDT Procedure visit Department of Urology in [place], [place] [address] [place] [address] River Stockton M.D. [address] [place] [phone] 09/09/2023 10:30 AM CDT Procedure visit Department of Urology in [place], [place] [address] [place] [address] River Stockton M.D. [address] [place] [phone] 09/22/2023 10:30 AM CDT Procedure visit Department of Dermatology in [place], [place] [address] [place] [phone] Vitaliy Alvares M.D. [address] [place] [phone] 09/25/2023 9:00 AM CDT Appointment Department of Radiology, [facility], in [place], [place] [address] [place] [address] Cody Carroll M.D. [address] [place] [phone] 09/25/2023 9:30 AM CDT Diagnostic Division of Pulmonary Medicine in [place], [place] [address] [place] [phone] Cody Carroll M.D. [address] [place] [phone] 09/25/2023 11:30 AM CDT Office Visit Division of Pulmonary Medicine in [place], [place] [address] [place] [phone] Teri Cerda APRN, C.N.P., D.N.P. [address] [place] [phone] 10/23/2023 9:20 AM CDT Office Visit Department of Dermatology in [place], [place] [address] [place] [phone] Crystal Rodriguez APRN, C.N.P., M.S.N. [address] [place] [phone] documented as of this encounter Visit Diagnoses Diagnosis Malignant Neoplasm Of Bladder (HCC) documented in this encounter Additional Health Concerns Infection Onset Date Last Indicated Resolved Time Protective Environment 08/06/2023 08/06/2023 documented as of this encounter Care Teams Training And Development Specialist Relationship Specialty Start Date End Date Elsewhere, Pcp PCP - General Family Medicine 10/30/20 documented as of this encounter
--- OUTSIDE RECORDS SUMMARY | 2023-08-12 07:11 | XMS_ITS | Encounter Summary ---
Author Name Unknown Organization [facility] Address [address] [place] [address] Care Team Providers Care Plastics Worker Name Role Phone Elsewhere, Pcp Primary Care Provider Unavailabl e Reason for Referral * Outpatient (Routine) - Authorized Specialty Diagnoses / Procedures Referred By Contac t Referred To Contact Pulmonary Medicine Diagnoses Nodule Pulmonary Solitary Localized Enlarged Lymph Nodes Cody Carroll M.D. [address] [place] [address] [facility] Referral ID Status Reason Start Date Expiration Date V isits Requested Visits Authorized [id number] Authorized 07/17/2023 01/15/2025 1 1 * MRI/CAT/PET Scan (Routine) - Pending Review Specialty Diagnoses / Procedures Referred By Contradha t Referred To Contact Radiology Diagnoses Nodule Pulmonary Solitary Localized Enlarged Lymph Nodes Procedures CT Chest without IV Contrast Cody Carroll M.D. [address] [place] [address] [facility] Referral ID Status Reason Start Date Expiration Date V isits Requested Visits Authorized [id number] Pending Review 07/17/2023 07/16/2024 1 1 Reason for Visit * Outpatient (Routine) - Closed Specialty Diagnoses / Procedures Referred By Mychal izquierdo Referred To Contact Pulmonary Medicine Diagnoses Nodule Pulmonary Solitary Localized Enlarged Lymph Nodes González Mathew M.D. [address] [place] [address] [facility] Referral ID Status Reason Start Date Expiration Date Visits Re quested Visits Authorized [id number] Closed 07/04/2023 01/02/2025 1 1 Encounter Details Date Type Department Care Team (Latest Contact Info) Description 07/17/2023 8:30 AM CDT Comprehensive Visit Division of Pulmonary Medicine in [place], [place] [address] [place] [address] Cody Carroll M.D. [address] [place] [address] Nodule Pulmonary Solitary; Localized Enlarged Lymph Nodes Social History Tobacco Use Types Packs/Day Years Used Date Smoking Tobacco: Former Cigarettes 1.5 42.2 0 03/31/1961 - 06/30/2003 Passive Smoke Exposure: Past Smokeless Tobacco: Former Chew Quit: 03/31/1998 Comments:Quit several times Alcohol Use Standard Drinks/Week Comments Yes 9 (1 standard drink = 0.6 oz pur e alcohol) [facility] Utilities Answer Date Recorded In the past 12 months has [facility] [employer], gas, oil, or water [employer] threatened to shut off services in your [...] 03/17/2022 How often do you attend chur ch or worship services? Never 03/17/2022 Do you belong to any clubs o r organizations such as evangelical groups, unions, fraternal or athletic groups, or [...] and heating? Not hard at all 08/27/2022 [facility] - Occupational Stress [...] your living situation today? I have a [facility] place to live 03/26/2023 Education Answer [...] AM CDT documented as of this encounter Last Filed Vital Signs Vital Sign Reading Time Taken Comments Blood Pressure - - Pulse - - Temperature - - Respiratory Rate - - Oxygen Saturation 94% 07/17/2023 8:19 AM CDT Inhaled Oxygen Concentration - - Weight - - Height - - Body Mass Index - - documented in this encounter Consult Notes * Cody Carroll M.D. - 07/17/2023 8:30 AM CDT SUBJECTIVE REASON FOR CONSULT Pulmonary Lung Nodule HISTORY OF PRESENT ILLNESS Martin Vieira is a 77 y.o. 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 The patient reports that the imaging was performed to evaluate symptoms of dyspnea on exertion, productive cough, and shortness of breath which have been present for 1 month and are stable. Symptoms are exacerbated by exercise and walking and relieved by rest. Weight loss of 10 lb in 1 month during illness He has a history of 60 pack years and quit 20 years ago. The patient has no known exposure to tuberculosis. The patient does have a history of bladder cancer (2006). He has been sick since last month. He had one episode of productive cough and malaise with low grade fever and he was given 5-day course of prednisone with Amoxicillin in [place]. He did not feel better overall and developed rash and angioedema on day 8. He was hospitalized and treated for that. He felt ill again about 5-6 days ago and went to [place]. He had similar symptoms as last month.Currently only on Azithromycin without prednisone. Not having any fever or chills. No family history of Lung cancer. He takes 0.5 mg Ativan QHS PRN 2-3x in a week. With Azithromycin, he is feeling better. He has never had PFT and not on any inhaler. Up to date with vaccination with flu and Pneumococcal. 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 CT from 06/24/2023 (compared to 03/29/2022, 08/11/2020, and 02/27/2018), 7 mm Ground glass nodule ELENA stable. Semi-solid nodule in the Right Upper Lobe best seen measures 12x6 mm. Overall size is unchanged. There is a 5 mm solid component in the superior portion of the nodule that was not present in 2018 and was very inconspicuous on intervening studies. 3.3 cm lateralRUL cyst is unchanged. Mild Emphysema through both lungs. Hyperinflation. New mild mediastinal and bilateral hilar adenopathy 24 x14 mm right paratracheal node on image 45 of series 2 that measured 16 x 10 mm in 2021. The following portions of the patient's history were reviewed and updated as appropriate: allergies, current medications, family history, medical history, social history, surgical history, and problem list. Review of Systems Pertinent items are noted in HPI; all other review of systems was negative. OBJECTIVE PHYSICAL EXAM Normal physical exam. DIAGNOSTIC REVIEW I have reviewed the patient's current laboratory, imaging, and other diagnostic studies. Clinicallysignificant abnormal findings are as follows: Chest CT and Xray from June,. ASSESSMENT / PLAN ASSESSMENT # Multiple lung nodules - 7 mm GG nodule ELENA stable - Semi-solid nodule RUL 12x6 mm unchanged in size - 5 mm solid nodule, inconspicuous appearing in previous films (absent in 2018) - 3.3 cm lateral RUL cyst unchanged # Mild mediastinal and bilateral hilar adenopathy # Multiple Bronchitis/PNA - Screens negative for frequent aspiration but drinks and Ativan at nighttime concerning for microaspiration at bedtime, reviewed aspiration precaution by avoiding drinking/eating 2 hours prior to the bedtime # Allergic Rhinitis PLAN - Given that he had recent illness and the lymph nodes can be reactive from the inflammation, we will repeat chest CT in 2 months (3 month from the last film). If the nodules are still the same but the LADs are worsened and he has been recovered fully from illness, the next step will be PET-CT with+/- EBUS - Okay to complete Azithromycin 5-day course. However, if the symptoms recur, we asked him to contact us to get sputum culture ordered and work him up for possible fungal infection - PFT on the day of subsequent visit also to help out Emphysema care - For his allergic rhinitis, recommend trying Saline rinse followed by Flonase. - I sent a message to him to make sure he can send us 08/11/2020 and 02/27/2018 CT Films - RTC in 2 months - Case staffed with Dr. Jairo Carroll MD Department of Pulmonary and Critical Care Fellow, PGY-4 Cody Carroll M.D. documented in this encounter Plan of Treatment Upcoming Encounters Date Type Department Care Team (Late st Contact Info) Description 08/13/2023 1:00 PM CDT Procedure visit Department of Urology in [place], [place] [address] [place] [address] River Stockton M.D. [address] [place] [phone] 08/20/2023 1:00 PM CDT Procedure visit Department of Urology in [place], [place] [address] [place] [phone] River Stockton M.D. [address] [place] [address] 08/26/2023 10:30 AM CDT Procedure visit Department of Urology in [place], [place] [address] [place] [address] River Stockton M.D. [address] [place] [phone] 09/03/2023 1:00 PM CDT Procedure visit Department of Urology in [place], [place] [address] [place] [address] River Stockton M.D. [address] [place] [phone] 09/09/2023 10:30 AM CDT Procedure visit Department of Urology in [place], [place] [address] [place] [address] River Stockton M.D. [address] [place] [phone] 09/22/2023 10:30 AM CDT Procedure visit Department of Dermatology in [place], [place] [address] [place] [address] Vitaliy Alvares M.D. [address] [place] [phone] 09/25/2023 9:00 AM CDT Appointment Department of Radiology, [facility], in [place], [place] [address] [place] [address] Cody Carroll M.D. [address] [place] [phone] 09/25/2023 9:30 AM CDT Diagnostic Division of Pulmonary Medicine in [place], [place] [address] [place] [phone] Cody Carroll M.D. [address] [place] [phone] 09/25/2023 11:30 AM CDT Office Visit Division of Pulmonary Medicine in [place], [place] [address] [place] [phone] Teri Cerda APRN, C.N.P., D.N.P. [address] [place] [phone] 10/23/2023 9:20 AM CDT Office Visit Department of Dermatology in [place], [place] [address] [place] [phone] Crystal Rodriguez APRN, C.N.P., M.S.N. [address] [place] [phone] Scheduled Orders Name Type Priority Associated Diagnoses Orde r Schedule Pulmonary Function Tests PFT Routine Nodule Pulmonary Solitary Localized Enlarged Lymph Nodes Expected: 09/25/2023, Expires: 10/15/2024 CT Chest without IV Contrast Imaging RAD - Routine (most inpatients and all outpatients) Nodule Pulmonary Solitary Localized Enlarged Lymph Nodes Expected: 09/25/2023, Expires: 10/15/2024 Scheduled Referrals Name Type Priority Associated Diagnoses Orde r Schedule Pulmonary Medicine office visit (clinic) Outpatient Referral Routine Nodule Pulmonary Solitary Localized Enlarged Lymph Nodes Expected: 09/25/2023, Expires: 10/15/2024 documented as of this encounter Visit Diagnoses Diagnosis Nodule Pulmonary Solitary Localized Enlarged Lymph Nodes documented in this encounter Care Teams Plastics Worker Relationship Specialty Start Date End Date Elsewhere, Pcp PCP - General Family Medicine 10/30/20 documented as of this encounter
--- OUTSIDE RECORDS SUMMARY | 2023-08-12 07:11 | XMS_ITS ---
Author Name Unknown Organization [facility] Address [address] [place] [address] Care Team Providers Care Telephone Answerer Name Role Phone Unavailable Unavailable Unavailable Surgery Details Not on file Complications Check Surgery Details section. Procedure Estimated Blood Loss Check Surgery Details section. Procedure Findings Check Surgery Details section. Procedure Specimens Taken Check Surgery Details section.
--- OUTSIDE RECORDS SUMMARY | 2023-08-12 07:11 | XMS_ITS | Encounter Summary ---
Author Name Unknown Organization [facility] Address [address] [place] [address] Care Team Providers Care Control Clerk Repairs Name Role Phone Elsewhere, Pcp Primary Care Provider Unavailabl e Encounter Details Date Type Department Care Team (Late st Contact Info) Description 07/29/2023 Orders Only Department of Urology in [place], [place] [address] [place] [phone] River Stockton M.D. [address] [place] [phone] Social History Tobacco Use Types Packs/Day Years Used Date Smoking Tobacco: Former Cigarettes 1.5 42.2 0 03/31/1961 - 06/30/2003 Passive Smoke Exposure: Past Smokeless Tobacco: Former Chew Quit: 03/31/1998 Comments:Quit several times Alcohol Use Standard Drinks/Week Comments Yes 9 (1 standard drink = 0.6 oz pur e alcohol) [facility] Utilities Answer Date Recorded In the [...] How often do you attend chur or confucianism services? Never 03/17/2022 Do you belong to any clubs o r organizations such as restorationist groups, unions, fraternal or athletic groups, or [...] and heating? Not hard at all 08/27/2022 [facility] [place] of Occupat ional Health - Occupational Stress [...] your living situation today? I have a [facility] place to live 03/26/2023 Education Answer [...] CDT Procedure visit Department of Urology in [place], [place] 200 [place] [address] River Stockton M.D. 200 [place] [address] 08/20/2023 1:00 PM CDT Procedure visit Department of Urology in [place], [place] [address] [place] [address] River Stockton M.D. [address] [place] [phone] 08/26/2023 10:30 AM CDT Procedure visit Department of Urology in [place], [place] [address] [place] [address] River Stockton M.D. [address] [place] [phone] 09/03/2023 1:00 PM CDT Procedure visit Department of Urology in [place], [place] [address] [place] [address] River Stockton M.D. [address] [place] [phone] 09/09/2023 10:30 AM CDT Procedure visit Department of Urology in [place], [place] [address] [place] [address] River Stockton M.D. [address] [place] [phone] 09/22/2023 10:30 AM CDT Procedure visit Department of Dermatology in [place], [place] [address] [place] [phone] Vitaliy Alvares M.D. [address] [place] [phone] 09/25/2023 9:00 AM CDT Appointment Department of Radiology, [facility], in [place], [place] [address] [place] [address] Cody Carroll M.D. [address] [place] [phone] 09/25/2023 9:30 AM CDT Diagnostic Division of Pulmonary Medicine in [place], [place] [address] [place] [phone] Cody Carroll M.D. [address] [place] [phone] 09/25/2023 11:30 AM CDT Office Visit Division of Pulmonary Medicine in [place], [place] [address] [place] [phone] Teri Cerda APRN, C.N.P., D.N.P. [address] [place] [phone] 10/23/2023 9:20 AM CDT Office Visit Department of Dermatology in [place], [place] [address] [place] [phone] Crystal Rodriguez APRN, C.N.P., M.S.N. [address] [place] [phone] documented as of this encounter Visit Diagnoses Not on filedocumented in this encounter Additional Health Concerns Infection Onset Date Last Indicated Resolved Time Protective Environment 08/06/2023 08/06/2023 documented as of this encounter Care Teams Control Clerk Repairs Relationship Specialty Start Date End Date Elsewhere, Pcp PCP - General Family Medicine 10/30/20 documented as of this encounter
--- OUTSIDE RECORDS SUMMARY | 2023-08-12 07:11 | XMS_ITS | Clinical Summary ---
Author Name Unknown Organization [facility] Address [place], [place] [address] Care Team Providers Care Adult Caregiver Name Role Phone Unavailable Primary Care Provider Unavailabl e Allergies No known active allergies Medications Medication Sig Dispensed Refills Start Date End Date Status MULTIVITAMIN TAB take 1 tablet by oral route once daily with food 0 01/19/2007 Active OMEGA 3-6-9 40 MG-60 MG-10 UNIT CAP Once daily 0 01/19/2007 Active ZINC 15 MG TAB 1/2 tablet daily 0 01/19/2007 Acti ve ASPIRIN 81 MG TAB, DELAYED RELEASE take 1 tablet (81 mg) by oral route once daily 0 05/16/2008 Active LYSINE 500 MG TAB 1 po qd 0 05/16/2008 Active ergocalciferol (VITAMIN D) 50,000 unit capsule Take 1 capsule by mouth once weekly. one po WEEKLY for 8 weeks 8 capsule 0 11/02/2009 Active albuterol HFA (PRO-AIR,VENTOLIN,PROV ENTIL) 90 mcg/Actuation inhalerIndications:Acu te bronchitis 2 Puffs. 2 puffs every 4-6 hours PRN wheezing. Up to 4 times per day. 1 Inhaler 0 01/01/2011 Active predniSONE (DELTASONE) 20 mg tabletIndications:Acut e bronchospasm Take 3 tablets once a day x 5 days. Take with food or a meal. 15 tablet 0 01/04/2011 Active tadalafil (CIALIS) 20 mg tablet 1/2 to one oral daily as needed. Take 30 minutes before sexual activity. 10 tablet prn 03/21/2011 Active ORDER - MEDICATION ORDER COMPOSER 0 04/01/2011 Active budesonide (ENTOCORT EC) 3 mg capsule Take 1 capsule by mouth every morning. 0 12/02/2015 Active Active Problems Problem Noted Date Diagnosed Date Benign localized hyperplasia of prostate with urinary obstruction and other lower urinary tract symptoms (LUTS)(600.21) 01/19/2007 Diverticulosis of colon (without mention of hemo rrhage) 01/19/2007 Family history of diabetes mellitus 01/19/2007 Immunizations Name Administration Dates Next Due Influenza, High-dose Inactivated 03/18/2016 Influenza, IIV3 (Age >=3 years) 12/07/2008,01/19 Td (Age >=7 Years) 03/31/2001 Tdap 04/01/2011 Family History Medical History Relation Name Comments Cancer Brother , Hodgk ins Heart Disease Father in 50 s from [place] Other Father colitis Diabetes Maternal Aunt Psychiatric illness Mother dementia Cancer-colon Neg. 1 Cancer-prostate Neg. 2 GI Disease Sister Crohns Relation Name Status Comments Brother Father Maternal Aunt Mother Alive Neg. 1 Neg. 2 Sister Social History Tobacco Use Types Packs/Day Years Used Date Smoking Tobacco: Former Cigarettes Q uit: 01/20/2004 Smokeless Tobacco: Never Tobacco Cessation:Counseling Given: Yes Comments:Still chews nicotine gum; 60 pack years Alcohol Use Standard Drinks/Week Comments Yes 0 (1 standard drink = 0.6 oz pur e alcohol) 3-4 drinks/day x 40 years Sex and Gender Information Value Date Recorded Sex Assigned at Not on file Gender Identity Not on file Sexual Orientation Not on file Obstetrics History Last Filed Vital Signs Vital Sign Reading Time Taken Comments Blood Pressure 144/79 12/02/2015 8:41 AM CDT Pulse 62 12/02/2015 8:41 AM CDT Temperature 36.8 ??C (98.2 ??F) 12/02/2015 8:41 AM CD T Respiratory Rate - - Oxygen Saturation 95% 12/02/2015 8:41 AM CDT Inhaled Oxygen Concentration - - Weight 101.7 kg (224 lb 2 oz) 12/02/2015 8:41 AM CDT Height 190.5 cm (6' 3) 12/02/2015 8:41 AM CDT Body Mass Index 28.01 12/02/2015 8:41 AM CDT Plan of Treatment Health Maintenance Due Date Last Done Comments Hepatitis C screening for age 18-79 08/01/1963 Zoster (shingles) series for age 50+ (1 of 2) 08/01/1995 Pneumococcal series for age 65+ (1 of 1 - PCV) 2010 BMI (ht and wt on same day) for age 18+ 12/01/2016 12/02/2015 Depression screening for age 12+ 12/01/2016 12/02/19 16 Tetanus booster 04/01/2021 04/01/2011, 05/01, 03/31/2001 COVID-19 vaccine series (2022-24 season) 2022 Influenza for age 65+ 11/30/2023 03/18/2016 , 12/07/2008, 01/19/2007 Tdap Completed 04/01/2011
--- OUTSIDE RECORDS SUMMARY | 2023-08-12 07:11 | XMS_ITS | Clinical Summary ---
Author Name Unknown Organization [facility] Address [address] [place] [address] Care Team Providers Care Judge Name Role Phone Elsewhere, Pcp Primary Care Provider Unavailabl e Source Comments Patient records contain information from all sites at [facility]. For routine questions regarding patient records, call [phone] during business hours, M-F 8:00 AM - 5:00 PM Central Time. Record requests for emergency care only can be directed to [phone] at any time.[facility] Allergies Active Allergy Reactions Criticality Noted Date [...] 4 (four) hours as needed. 01/22/2022 Active kr-uee-FY-vit X-qqqlfm-cxirlou (PreserVision AREDS 2 Plus MV) 200 mcg-15 [...] Sleep Behavior Disorder 02/12 Neuroma Acoustic 08/29/2020 Encounters Date Type Department Care Team Description 08/11/2023 Clinical Communication Division of Pulmonary Medicine in [place], [place] [address] [place] [phone] Cody Carroll M.D. 08/06/2023 1:00 PM CDT Procedure visit Department of Urology in [place], [place] [address] [place] [phone] River Stockton M.D. Hartz, Jane L, R.N. Malignant Neoplasm Of Bladder (HCC) (Primary Dx) 07/30/2023 Orders Only Department of Urology in [place], [place] [address] [place] [phone] River Stockton M.D. Malignant Neoplasm Of Bladder (HCC) 07/29/2023 Orders Only Department of Urology in [place], [place] [address] [place] [phone] River Stockton M.D. 07/24/2023 Clinical Communication Department of Urology in [place], [place] [address] [place] [phone] River Stockton M.D. Appt Request 07/17/2023 8:30 AM CDT Comprehensive Visit Division of Pulmonary Medicine in [address] [phone] Cody Carroll M.D. Nodule Pulmonary Solitary; Localized Enlarged Lymph Nodes 07/16/2023 2:07 PM CDT Anesthesia Event Outpatient Procedure Center in [address] [phone] Grecia Chauhan APRN, CRNA Ochs Kinney, Michelle A, M.D. 07/16/2023 12:55 PM CDT - 07/16/2023 2:10 PM CDT Surgery Outpatient Procedure Center in [address] [phone] Cale De La Fuente M.D. CYSTOSCOPY BIOPSY FULGURATION 07/16/2023 12:00 PM CDT Ancillary Procedure Department of General Surgery 07/16/2023 11:29 AM CDT - 07/16/2023 3:55 PM CDT Hospital Encounter Outpatient Procedure Center in [address] [phone] Cale De La Fuente M.D. Malignant Neoplasm Of Bladder (HCC) Discharge Disposition: Home or Self Care 07/15/2023 2:15 PM CDT Clinical Communication Virtual Review in [address] [phone] Pre-visit Intake 07/09/2023 Clinical Communication Department of Urology in [place], [place] [address] [place] [address] Lynne Virgen 07/09/2023 Virtual Visit Division of Pulmonary Medicine in [place], [place] [address] [place] [phone] Marcial Bush M.D. Nodule Pulmonary (Primary Dx) 07/07/2023 2:00 PM CDT Telemedicine Preoperative Evaluation Center in [place], [place] [address] [place] [phone] Cornell Rowan APRN, C.N.P. Jodie Durbin APRN, C.N.P., M.S.N. Preanesthetic Medical Exam (Primary Dx); Mass Bladder; Malignant Neoplasm Of Bladder (HCC); Other Nonspecific Abnormal Finding Of Lung Field; Paresthesias Feet; Polyneuropathy; Neuroma Acoustic (HCC); Vertigo; Crohn's Disease (HCC) 07/07/2023 Clinical Communication Department of Urology in [place], [place] [address] [place] [phone] River Stockton M.D. Urine Results 07/04/2023 [facility] AND [address] [address] González Mathew M.D. Nodule Pulmonary Solitary (Primary Dx); Localized Enlarged Lymph Nodes 07/04/2023 Clinical Communication Preoperative Evaluation Center in [place], [place] [address] [place] [phone] Vanessa Larios APRN, C.N.P., M.S.N. 06/30/2023 Orders Only Department of Dermatology in [place], [place] [address] [place] [phone] Sallie Padilla P.A.-C., M.S. Squamous Cell Carcinoma In Situ (Primary Dx) 06/23/2023 3:00 PM CDT Office Visit Department of Urology in [place], [place] [address] [place] [phone] River Stockton M.D. Lesion Bladder (Primary Dx) 06/23/2023 10:00 AM CDT Procedure visit Department of Urology in [place], [place] [address] [place] [phone] Rula Elmore M.D. Tentis, Elise R, P.A.-C. Malignant Neoplasm Of Bladder (HCC) 06/23/2023 8:05 AM CDT Ancillary Procedure Department of Dermatology 06/23/2023 8:00 AM CDT Comprehensive Visit Department of Dermatology in [place], [place] [address] [place] [phone] Sallie Padilla P.A.-Dorian, M.S. Tumor Skin Uncertain Behavior (Primary Dx); Keratosis Actinic; Keratosis Seborrheic 06/23/2023 Orders Only Department of Urology in [place], [place] [address] [place] [phone] Cornell Rowan, ZAKIYA CRenataNRenataPRenata Mass Bladder (Primary Dx); Malignant Neoplasm Of Bladder (HCC) 06/20/2023 11:15 AM CDT Clinical Communication Virtual Review in [place], [place] 200 [place] [address] Pre-visit Intake from Last 3 Months Immunizations Name Administration Dates Next Due Influenza (IM) Preservative Free 01/27/2013 Family History Medical History Relation Name Comments Coronary artery disease Father Jeffrey Ulcerative colitis Father Jeffrey Dementia Mother Kieran at 91 years Migraines Mother Kieran Macular degeneration Sister rajat Migraines Sister rajat Ulcerative colitis Sister rajat Amblyopia Neg Hx Blindness Neg Hx Cancer Neg Hx Cataracts Neg Hx Corneal Dystrophy Neg Hx Diabetes Neg Hx Glaucoma Neg Hx Hypertension Neg Hx Retinal degeneration Neg Hx Retinal detachment Neg Hx Strabismus Neg Hx Stroke Neg Hx Thyroid disease Neg Hx Vision loss Neg Hx Relation Name Status Comments Father Jeffrey Mother Kieran Sister rajat Social History Tobacco Use Types Packs/Day Years Used Date Smoking Tobacco: Former Cigarettes 1.5 42.2 0 03/31/1961 - 06/30/2003 Passive Smoke Exposure: Past Smokeless Tobacco: Former Chew Quit: 03/31/1998 Tobacco Cessation:Counseling Given: Not Answered Comments:Quit several times Alcohol Use Standard Drinks/Week Comments Yes 9 (1 standard drink = 0.6 oz pur e alcohol) [facility] Utilities Answer Date Recorded In the past 12 months has th e electric, gas, oil, or water company [...] How often do you attend chur or yazidi services? Never 03/17/2022 Do you belong to any clubs o r organizations such as confucianist groups, unions, fraternal or athletic groups, or [...] and heating? Not hard at all 08/27/2022 [facility] Health - Occupational Stress Questionnaire Answer Date [...] CDT Procedure visit Department of Urology in [place], [place] [address] [place] [phone] River Stockton M.D. [address] [place] [phone] 08/20/2023 1:00 PM CDT Procedure visit Department of Urology in [place], [place] [address] [place] [phone] River Stockton M.D. [address] [place] [phone] 08/26/2023 10:30 AM CDT Procedure visit Department of Urology in [place], [place] [address] [place] [phone] River Stockton M.D. [address] [place] [phone] 09/03/2023 1:00 PM CDT Procedure visit Department of Urology in [place], [place] [address] [place] [phone] River Stockton M.D. [address] [place] [phone] 09/09/2023 10:30 AM CDT Procedure visit Department of Urology in [place], [place] [address] [place] [address] River Stockton M.D. [address] [place] [phone] 09/22/2023 10:30 AM CDT Procedure visit Department of Dermatology in [place], [place] [address] [place] [phone] Vitaliy Alvares M.D. [address] [place] [phone] 09/25/2023 9:00 AM CDT Appointment Department of Radiology, [facility] in [place], [place] [address] [place] [phone] Cody Carroll M.D. [address] [place] [phone] 09/25/2023 9:30 AM CDT Diagnostic Division of Pulmonary Medicine in [place], [place] [address] [place] [phone] Cody Carroll M.D. [address] [place] [phone] 09/25/2023 11:30 AM CDT Office Visit Division of Pulmonary Medicine in [place], [place] [address] [place] [phone] Teri Cerda, ZAKIYA, C.N.P., D.N.P. [address] [place] [phone] 10/23/2023 9:20 AM CDT Office Visit Department of Dermatology in [place], [place] [address] [place] [address] Crystal Rodriguez APRN, C.N.P., M.S.N. [address] [place] [address] Health Maintenance Due Date Last Done Comments Hepatitis C Screening 1945 COVID-19 Vaccine (4 - 2022-2 4 season) 2023 12/31/2022, 12/14/2021, 01/01/2021 Depression Screening (Annual PHQ-2) 03/31/2023 DTaP,Tdap,and Td Vaccines (4 - Td or Tdap) 03/28/2032 03/28/2022, 06/07/2019, 04/01/2011 Abdominal Aortic Aneurysm (A AA) Screen Discontinued 11/18/2013, 02/26/2011 Pneumococcal vaccine (65+ years) Completed 01/23/20, 09/29/2012 Zoster Vaccines Completed 03/15/2019, 12/23/2018 Colonoscopy Discontinued 08/29/2021, 060 03/2021, 01/29/2017, Additional history exists Colonoscopy Discontinued 08/29/2021, 060 03/2021, 01/29/2017, Additional history exists Colorectal Cancer Screening Discontinued Colorectal Cancer Surveillance Discontinued Influenza Vaccine Completed 12/31/2022, , 02/15/2021, Additional history exists Fall Risk Screen (Annual) Completed 07/16/[address] Colonography Discontinued Cologuard Discontinued FIT Discontinued Medical Devices Implanted Type Area Corporate Staff Accountant Device Identifier Shelf Expiration Date Model / Serial / Lot Lens Tcn Mnfcl Dcb00 +18.5d - [id number] - [id number] Implanted:Qty : 1 on 01/29/2023 by Chuckie Sawant M.D. at [facility] Ocular Lens Left: Eye [employer] (Previously ERENDIRA) 11/10/2025 [id number] / [id number] / Eyhance Iol Implanted:Qty : 1 on 02/28/2023 by Chuckie Sawant M.D. at [facility] O[employer] Lens Right: Eye [facility]Nlion [facility] 12/24/2025 [id number] / [id number] / Procedures Procedure Name Priority Date/Time Associated Diagnosis Comments SURGICAL PATHOLOGY Routine 07/16/2023 2: 33 PM CDT Malignant Neoplasm Of Bladder (HCC) CYSTOSCOPY BIOPSY FULGURATION 07/16/2023 1:57 PM CDT Malignant Neoplasm Of Bladder (HCC) Case Notes Shantanu 4/ Special Needs Primary Pabellones. ADULT OXYGEN THERAPY Routine 07/16/2023 1:05 PM CDT SURGERY IMAGE EXAM Routine 07/16/2023 12:00 PM CDT OUTSIDE DX CHEST Routine 07/14/2023 11:[address] BODY Routine 06/24/2023 8:15 AM CDT URO CYSTOSCOPY (GENERAL) Routine 06/23/2023 10:00 AM CDT Malignant Neoplasm Of Bladder (HCC) CYTOLOGY NON-DOCTOR OF NAPRAPATHY Routine 06/23/2023 9:58 AM CDT Malignant Neoplasm [...] as received in A1. ??Tiffanie Perez M.S., TANISHA([facility]) B: Received in formalin labeled with the patient's name, medical record number, and right diverticulum are 2 fragments of sanchez-white tissue ranging from 0.2-0.3 cm in greatest dimension. ??The specimen is entirely submitted in B1. ??Tiffanie Perez M.S., TANISHA([facility]) 07/17/2023 1:23 PM CDT DTL Interpretation FINAL [...] La Fuente M.D. LAB SURG PATH ORDERA [facility] [place] [address] [place] [address], [facility] DTL [address] [place] [address] * BLADDER-Surgery Image Exam (07/16/2023 12:00 PM [...] RAD IMAGI NG PROCEDURES Performing Organization Address [facility] de Phone Number IIMS NA * XR chest 2V-Outside Chest Xray (07/14/2023 11:45 AM CDT) 07/14/2023 11:4 1 AM CDT Narrative IIWY - 07/14/2023 1:23 PM CDT This order [...] DIAGNOSTIC IM AGING PROCEDURES Performing Organization Address [facility] de Phone Number IIMS NA * CT CHEST W CON-Outside CT Body (06/24/2023 8:15 AM CDT) Narrative [facility] - 07/04/2023 1:06 PM CDT This order [...] System IM CT PROCEDURES Performing Organization Address [facility] de Phone Number IIMS NA * URO [...] Rula Elmore M.D. UROLOGY ORDERABLES * Cytology Non-DOCTOR OF NAPRAPATHY (06/23/2023 9:58 AM CDT) 06/24/2023 1:37 PM [...] Larsen P.A.-C. LAB SURG PATH ORD ERABLES Performing Organization Address City/State/[facility] Co de Phone Number [facility] [place] [address] DTL 200 [facility] [address] [place] [address] * Dermatopathology (06/23/2023 8:06 AM CDT) 06/26/2023 9:35 AM CDT PDRKye Participated in the Interpretation Salo Sequeira M.D. [...] (Left vertex scalp) 06/23/2023 8:05 AM CDT Sallie Padilla P.A.-C., M.S. LAB PATH DE ORDERABLES [facility] [place] [address] [place] [address], [facility] PDR [address] [place] [address] * Scalp 502-Dermatology Image Exam (06/23/2023 8:04 AM CDT) 06/23/2023 8:02 AM CDT Narrative IIMS - 06/23/2023 8:04 AM CDT This order has been created and auto-finalized to support the import of images acquired without order. The clinical documentation to support these images can be found on the encounter that produced images. Provider Not In System IMG NON RAD IMAGI NG PROCEDURES IIWY NA * CT Abdomen Pelvis Enterography with [...] Electronically signed by: ?? Nico Ospina MD [id number] 18-Nov-2013 14:53 ?Rich Munoz M.D. [id number] 18-Nov-2013 14:53 Narrative 11/18/2013 2:53 PM CDT 18-Nov-2013 13:46:00 ??Exam: CT Ent Abd w - Pelvis w Indications: Crohn's Disease Small Intestine;Pain Abdominal NOS ORIGINAL REPORT - 18-Nov-2013 14:53:00 EXAM: CT scan of the Abdomen and Pelvis with oral and IV contrast using the enterography protocol COMPARISON: ?? CT enterography 02/26/2011 Procedure Note Rich Munoz M.B., .B. - 06/27/2017 18-Nov-2013 13:46:00 Exam: CT Ent [...] Bladderdiverticula. Electronically signed by: Nico Ospina MD [id number] 18-Nov-2013 14:53 Rich Munoz M.D.[id number] 18-Nov-2013 14:53 Noé Artis M.D. IMG CT PROCEDURES from Last 3 Months or Most Recently Relevant to Health Maintenance Additional Health Concerns Infection Onset Date Last Indicated Protective Environment 08/06/2023 05/08/202 4 Advance Directives For more information, please contact: [phone] Documents on File Type Date Recorded Patient Dishwasher Preparer Expl anation Advance Directives 11/30/2018 4:27 PM [...] Alternat e Health Care Agent Care Teams Judge Relationship Specialty Start Date End Date Elsewhere, Pcp PCP - General Family Medicine 10/30/20
--- OUTSIDE RECORDS SUMMARY | 2023-08-12 07:12 | XMS_ITS | Encounter Summary ---
Author Name Unknown Organization [facility] Address [address] [place] [address] Care Team Providers Care Software Engineer Name Role Phone Elsewhere, Pcp Primary Care Provider Unavailabl e Encounter Details Date Type Department Care Team (Late st Contact Info) Description 06/23/2023 8:05 AM CDT Ancillary Procedure Department of Dermatology Social History Tobacco Use Types Packs/Day Years Used Date Smoking Tobacco: Former Cigarettes 0 03/31/1961 - 03/31/1999 Passive Smoke Exposure: Past Smokeless Tobacco: Former Snuff Quit: 03/31/1994 Alcohol Use Standard Drinks/Week Comments Yes 7 (1 standard drink = 0.6 oz pur e alcohol) [facility] Utilities Answer Date Recorded In the past 12 months has [facility] [employer], gas, oil, or water [email or web address] threatened to shut off services in your [...] often do you attend chur ch or mandaen services? Never 03/17/2022 Do you belong to any clubs o r organizations such as yarsani groups, unions, fraternal or athletic groups, or [...] and heating? Not hard at all 08/27/2022 [facility] Health - Occupational Stress Questionnaire Answer Date [...] your living situation today? I have a [facility] place to live 03/26/2023 Education [...] CDT Procedure visit Department of Urology in [place], [place] [address] [place] [phone] River Stockton M.D. [address] [place] [phone] 08/20/2023 1:00 PM CDT Procedure visit Department of Urology in [place], [place] [address] [place] [address] River Stockton M.D. [address] [place] [phone] 08/26/2023 10:30 AM CDT Procedure visit Department of Urology in [place], [place] [address] [place] [phone] River Stockton M.D. [address] [place] [phone] 09/03/2023 1:00 PM CDT Procedure visit Department of Urology in [place], [place] [address] [place] [phone] River Stockton M.D. [address] [place] [phone] 09/09/2023 10:30 AM CDT Procedure visit Department of Urology in [place], [place] [address] [place] [address] River Stockton M.D. [address] [place] [phone] 09/22/2023 10:30 AM CDT Procedure visit Department of Dermatology in [place], [place] [address] [place] [phone] Vitaliy Alvares M.D. [address] [place] [phone] 09/25/2023 9:00 AM CDT Appointment Department of Radiology, [facility], in [place], [place] [address] [place] [phone] Cody Carroll M.D. [address] [place] [phone] 09/25/2023 9:30 AM CDT Diagnostic Division of Pulmonary Medicine in [place], [place] [address] [place] [phone] Cody Carroll M.D. [address] [place] [phone] 09/25/2023 11:30 AM CDT Office Visit Division of Pulmonary Medicine in [place], [place] [address] [place] [address] Teri Cerda APRN, C.N.P., D.N.P. [address] [place] [address] 10/23/2023 9:20 AM CDT Office Visit Department of Dermatology in [place], [place] [address] [place] [phone] Crystal Rodriguez APRN, C.N.P., M.S.N. [address] [place] [phone] documented as of this encounter Procedures Procedure Name Priority Date/Time Associated Diagnosis Comments DERMATOLOGY IMAGE EXAM Routine 06/23/2023 8:04 AM CDT documented in this encounter Results * Scalp 502-Dermatology Image Exam (06/23/2023 8:04 [...] on filedocumented in this encounter Care Teams Software Engineer Relationship Specialty Start Date End Date Elsewhere, Pcp PCP - General Family Medicine 10/30/20 documented as of this encounter
--- OUTSIDE RECORDS SUMMARY | 2023-08-12 07:12 | XMS_ITS | Encounter Summary ---
Author Name Unknown Organization [facility] Address [address] [place] [address] Care Team Providers Care Stunner Animal Name Role Phone Elsewhere, Pcp Primary Care Provider Unavailabl e Encounter Details Date Type Department Care Team (Late st Contact Info) Description 07/04/2023 Clinical Communication Preoperative Evaluation Center in [place], [place] [address] [place] [phone] Vanessa Larios APRN, C.N.P., M.S.N. [address] [place] [phone] Social History Tobacco Use Types Packs/Day Years Used Date Smoking Tobacco: Former Cigarettes 0 03/31/1961 - 03/31/1999 Passive Smoke Exposure: Past Smokeless Tobacco: Former Snuff Quit: 03/31/1994 Alcohol Use Standard Drinks/Week Comments Yes 7 (1 standard drink = 0.6 oz pur e alcohol) [facility] Utilities Answer Date Recorded In the past [...] How often do you attend chur or buddhism services? Never 03/17/2022 Do you belong to any clubs o r organizations such as voodoo groups, unions, fraternal or athletic groups, or [...] and heating? Not hard at all 08/27/2022 [facility] [place] of Occupat ional Health - Occupational Stress [...] your living situation today? I have a [facility] place to live 03/26/2023 Education Answer [...] AM CDT documented as of this encounter Patient Instructions * Attachments The following attachments cannot be sent through Care Everywhere. * Instructions To Get Ready for Your Surgery or Procedure: [facility] ([place]) documented in this encounter Plan of Treatment Upcoming Encounters Date Type Department Care Team (Late st Contact Info) Description 08/13/2023 1:00 PM CDT Procedure visit Department of Urology in [place], [place] 200 [place] [phone] River Stockton M.D. [address] [place] [phone] 08/20/2023 1:00 PM CDT Procedure visit Department of Urology in [place], [place] [address] [place] [phone] River Stockton M.D. [address] [place] [phone] 08/26/2023 10:30 AM CDT Procedure visit Department of Urology in [place], [place] [address] [place] [phone] River Stockton M.D. [address] [place] [phone] 09/03/2023 1:00 PM CDT Procedure visit Department of Urology in [place], [place] [address] [place] [phone] River Stockton M.D. [address] [place] [phone] 09/09/2023 10:30 AM CDT Procedure visit Department of Urology in [place], [place] [address] [place] [phone] River Stockton M.D. [address] [place] [phone] 09/22/2023 10:30 AM CDT Procedure visit Department of Dermatology in [place], [place] [address] [place] [phone] Vitaliy Alvares M.D. [address] [place] [phone] 09/25/2023 9:00 AM CDT Appointment Department of Radiology, [facility], in [place], [place] [address] [place] [phone] Cody Carroll M.D. [address] [place] [phone] 09/25/2023 9:30 AM CDT Diagnostic Division of Pulmonary Medicine in [place], [place] [address] [place] [phone] Cody Carroll M.D. [address] [place] [phone] 09/25/2023 11:30 AM CDT Office Visit Division of Pulmonary Medicine in [place], [place] [address] [place] [phone] Teri Cerda APRN, C.N.P., D.N.P. [address] [place] [phone] 10/23/2023 9:20 AM CDT Office Visit Department of Dermatology in [place], [place] [address] [place] [phone] Crystal Rodriguez APRN, C.N.P., M.S.N. [address] [place] [phone] documented as of this encounter Visit Diagnoses Not on filedocumented in this encounter Care Teams Stunner Animal Relationship Specialty Start Date End Date Elsewhere, Pcp PCP - General Family Medicine 10/30/20 documented as of this encounter
--- OUTSIDE RECORDS SUMMARY | 2023-08-12 07:12 | XMS_ITS | Encounter Summary ---
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 [address] [place] [phone] [facility] Referral ID Status Reason Start Date Expiration Date Visits Re quested Visits Authorized [id number] Closed 07/04/2023 01/02/2025 1 1 Encounter Details Date Type Department Care Team (Late st Contact Info) Description 07/04/2023 [facility] [address] [place] [address] González Mathew M.D. [address] [place] [phone] Nodule Pulmonary Solitary (Primary Dx); Localized Enlarged Lymph Nodes Social History Tobacco Use Types Packs/Day Years Used Date Smoking Tobacco: Former Cigarettes 0 03/31/1961 - 03/31/1999 Passive Smoke Exposure: Past Smokeless Tobacco: Former Snuff Quit: 03/31/1994 Alcohol Use Standard Drinks/Week Comments Yes 7 (1 standard drink = 0.6 oz pur e alcohol) [facility] Utilities Answer Date Recorded In the past [...] often do you attend chur ch or protestant services? Never 03/17/2022 Do you belong to any clubs o r organizations such as latter-day groups, unions, fraternal or athletic groups, or [...] when you are drinking? 1 or 2 Q3: How often do you have si x or more drinks on one occasion? Never 03/17/2022 Overall Financial Resource Strain (CARDIA) Answe r Date Recorded How hard is it for you to pa y for the very basics like food, housing, medical care, and heating? Not hard at all 08/27/2022 [facility] [place] of Occupat ional Health - Occupational Stress [...] your living situation today? I have a [facility] place to live 03/26/2023 Education Answer Date [...] CDT Procedure visit Department of Urology in [place], [place] [address] [place] [phone] River Stockton M.D. [address] [place] [phone] 08/20/2023 1:00 PM CDT Procedure visit Department of Urology in [place], [place] [address] [place] [phone] River Stockton M.D. [address] [place] [phone] 08/26/2023 10:30 AM CDT Procedure visit Department of Urology in [place], [place] [address] [place] [phone] River Stockton M.D. [address] [place] [phone] 09/03/2023 1:00 PM CDT Procedure visit Department of Urology in [place], [place] [address] [place] [phone] River Stockton M.D. [address] [place] [phone] 09/09/2023 10:30 AM CDT Procedure visit Department of Urology in [place], [place] [address] [place] [phone] River Stockton M.D. [address] [place] [phone] 09/22/2023 10:30 AM CDT Procedure visit Department of Dermatology in [place], [place] [address] [place] [phone] Vitaliy Alvares M.D. [address] [place] [phone] 09/25/2023 9:00 AM CDT Appointment Department of Radiology, [facility], in [place], [place] [address] [place] [phone] Cody Carroll M.D. [address] [place] [phone] 09/25/2023 9:30 AM CDT Diagnostic Division of Pulmonary Medicine in [place], [place] [address] [place] [phone] Cody Carroll M.D. [address] [place] [phone] 09/25/2023 11:30 AM CDT Office Visit Division of Pulmonary Medicine in [place], [place] [address] [place] [phone] Teri Cerda APRN, C.N.P., D.N.P. [address] [place] [phone] 10/23/2023 9:20 AM CDT Office Visit Department of Dermatology in [place], [place] [address] [place] [phone] Crystal Rodriguez APRN, C.N.P., M.S.N. 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
--- OUTSIDE RECORDS SUMMARY | 2023-08-12 07:12 | XMS_ITS | Encounter Summary ---
Author Name Unknown Organization [facility] Address [address] [place] [address] Care Team Providers Care Web Merchant Name Role Phone Elsewhere, Pcp Primary Care Provider Unavailabl e Reason for Visit * Auth/Cert (Routine) Specialty Diagnoses / Procedures Referred By Mychal t Referred To Contact Diagnoses Bladder disorder, unspecified X Procedures OH CYSTOURETHROSCOPY WITH BX BIOPSY BLADDER Referral ID Status Reason Start Date Expiration Date Visits Re quested Visits Authorized [id number] 1 1 Encounter Details Date Type Department Care Team (Late st Contact Info) Description 07/16/2023 12:55 PM CDT - 07/16/2023 2:10 PM CDT Surgery Outpatient Procedure Center in [place], [place] [address] [place] [phone] Cale De La Fuente M.D. [address] [place] [phone] CYSTOSCOPY BIOPSY FULGURATION Social History Tobacco Use Types Packs/Day Years Used Date Smoking Tobacco: Former Cigarettes 1.5 42.2 0 03/31/1961 - 06/30/2003 Passive Smoke Exposure: Past Smokeless Tobacco: Former Chew Quit: 03/31/1998 Comments:Quit several times Alcohol Use Standard Drinks/Week Comments Yes 9 (1 standard drink = 0.6 oz pur e alcohol) [facility] Utilities Answer Date Recorded In the past 12 months has [employer], gas, oil, or water [employer] threatened to shut off services in your [...] often do you attend chur ch or taoism services? Never 03/17/2022 Do you belong to [...] and heating? Not hard at all 08/27/2022 [facility] [place] of Occupat ional Health - Occupational Stress [...] your living situation today? I have a [facility] place to live 03/26/2023 Education Answer [...] Sign Reading Time Taken Comments Blood Pressure 122/58 07/16/2023 1:45 PM CDT Pulse 60 07/16/2023 2:00 PM CDT Temperature 36.6 ??C (97.9 ??F) 07/16/2023 1:29 PM CD T Respiratory Rate 21 07/16/2023 2:00 PM CDT Oxygen Saturation 94% 07/16/2023 2:00 PM CDT Inhaled Oxygen Concentration - - Weight 89 kg (196 lb 3.4 oz) 07/16/2023 1:29 PM CDT Height 188 cm (6' 2.02) 07/16/2023 1:29 PM CDT Body Mass Index 25.18 07/16/2023 1:29 PM CDT documented in this encounter Medications at Time of Discharge Medication Sig Dispensed Refills Start Date End Date albuterol 90 mcg/actuation inhaler Inhale 2 puffs every 4 (four) hours as needed. 01/22/2022 azithromycin (ZITHROMAX) 250 mg tablet 250 mg daily. 6 days 07/14/2023 calcipotriene 0.005 %, 5-FU 5 % - lipoderm Apply topically 2 (two) times a day. Apply to entire scalp, forehead, temples, and cheeks for 7 days. 30 g 2 06/23/2023 cholecalciferol (VITAMIN D3) 125 mcg (5,000 Unit) tablet Take 125 mcg by mouth daily. EPINEPHrine 0.3 mg/0.3 mL injection syringe Inject 0.3 mg intramuscularly as needed. 06/27/2023 LORazepam (ATIVAN) 0.5 mg tablet 0.5 mg as needed (vertigo). 10/20/2017 multivitamin tablet Take 1 tablet by mouth daily. 09/29/2008 po-wxf-NG-vit S-gtaxan-odbyftj (PreserVision AREDS 2 Plus MV) 200 mcg-15 mcg- 5 mg-1 mg capsule Take by mouth. omega-3 fatty acids/fish oil (OMEGA 3 FISH OIL ORAL) Take 2 capsules by mouth daily. 500 mg capsules - total 1000 mg 11/18/2013 vitamin B complex tablet extended release Take 1 capsule by mouth daily. 08/29/2020 documented as of this encounter OR Notes * Op Jennifer - Christel Callejas M.D. - 07/16/2023 2:26 PM CDT Pre-op Diagnosis Malignant Neoplasm Of Bladder (HCC) Post-op Diagnosis Malignant Neoplasm Of Bladder (HCC) Industrial Real Estate Agent A medical record assistant actively participated and was necessary for one or more of the following: opening, exposure and visualization during the case, maintaining hemostasis, wound closure resulting in itssafe and expeditious completion. Findings As expected. Complications None Operative Note Narrative FINDINGS AT THE TIME OF THE PROCEDURE 1. Anterior and posterior urethra unremarkable 2. Left diverticuli with erythematous area and indeterminate carpeting. Right posterior lateral diverticuli with indeterminate erythema. 3. Biopsy and fulguration within left and right diverticuli as described above NARRATIVE OF EVENTS After appropriate patient identification and verification of informed consent, the patient was brought into the OR where he underwent general anesthesia. The patient was then prepped and draped in the standard sterile fashion in the dorsal lithotomy position. After surgical pause and confirmation of antibiotic administration, we proceeded with a cystoscopy. Anterior and posterior urethra unremarkable. The bladder was systematically examined demonstrating trabeculations, cellules, and multiple diverticuli. Large left diverticuli with erythematous necessary area and indeterminate carpeting. No with right posterolateral diverticuli with indeterminate erythema. A total of 2 areas were identified. We proceeded to biopsy these areas using the cold-cup biopsy forceps, < 0.5 cm in total. Hemostasis was then obtained by fulgurating the biopsy site and surrounding edges. The bladder was drained under direct visualization revealing excellent hemostasis. The patient's bladder was drained. The patient was awoken from anesthesia and transferred to the recovery room in stable condition Christel Callejas M.D. documented in this encounter Plan of Treatment Upcoming Encounters Date Type Department Care Team (Late st Contact Info) Description 08/13/2023 1:00 PM CDT Procedure visit Department of Urology in [place], [place] [address] [place] [phone] River Stockton M.D. [address] [place] [phone] 08/20/2023 1:00 PM CDT Procedure visit Department of Urology in [place], [place] [address] [place] [phone] River Stockton M.D. [address] [place] [phone] 08/26/2023 10:30 AM CDT Procedure visit Department of Urology in [place], [place] [address] [place] [phone] River Stockton M.D. [address] [place] [phone] 09/03/2023 1:00 PM CDT Procedure visit Department of Urology in [place], [place] [address] [place] [phone] River Stockton M.D. [address] [place] [phone] 09/09/2023 10:30 AM CDT Procedure visit Department of Urology in [place], [place] [address] [place] [phone] River Stockton M.D. [address] [place] [phone] 09/22/2023 10:30 AM CDT Procedure visit Department of Dermatology in [place], [place] [address] [place] [phone] Vitaliy Alvares M.D. [address] [place] [phone] 09/25/2023 9:00 AM CDT Appointment Department of Radiology, [facility], in [place], [place] [address] [place] [phone] Cody Carroll M.D. [address] [place] [phone] 09/25/2023 9:30 AM CDT Diagnostic Division of Pulmonary Medicine in [place], [place] [address] [place] [phone] Cody Carroll M.D. [address] [place] [phone] 09/25/2023 11:30 AM CDT Office Visit Division of Pulmonary Medicine in [place], [place] [address] [place] [phone] Teri Cerda APRN, C.N.P., D.N.P. [address] [place] [phone] 10/23/2023 9:20 AM CDT Office Visit Department of Dermatology in [place], [place] [address] [place] [phone] Crystal Rodriguez APRN, C.N.P., M.S.N. [address] [place] [phone] documented as of this encounter Procedures Procedure Name Priority Date/Time Associated Diagnosis Comments SURGICAL PATHOLOGY Routine 07/16/2023 2: 33 PM CDT Malignant Neoplasm Of Bladder (HCC) CYSTOSCOPY BIOPSY FULGURATION 07/16/2023 1:57 PM CDT Malignant Neoplasm Of Bladder (HCC) Case Notes Shantanu 4/8 Special Needs Primary Kath. ADULT OXYGEN THERAPY Routine 07/16/2023 1:05 PM CDT documented in this encounter Results * Surgical Pathology (07/16/2023 2:33 PM CDT) 07/17/2023 1:23 PM CDT DTL Report electronically signed by Riely Tarango M.D. I verify that I have [...] as received in A1. ??Tiffanie Perez M.S., [facility]IS[facility]) B: Received in formalin labeled with the patient's name, medical record number, and right diverticulum are 2 fragments of sanchez-white tissue ranging from 0.2-0.3 cm in greatest dimension. ??The specimen is entirely submitted in B1. ??Tiffanie Perez M.S., [place]([facility]) 07/17/2023 1:23 PM CDT DTL Interpretation [...] La Fuente M.D. LAB SURG PATH ORDERA MINNA Performing Organization Address City/State/[facility] Co de Phone Number [facility] [address] [place] [address], [facility] DTL [address] [place] [address] documented in this encounter Visit Diagnoses Diagnosis Malignant Neoplasm Of Bladder (HCC) Malignant Neoplasm Of Bladder (HCC) documented in this encounter Administered Medications Inactive Administered Medications - up to 3 most recent administrations Medication Order MAR Action Action Date Dose Rate Site acetaminophen injection 1,000 mg 1,000 mg, intravenous, at 400 mL/hr, Administer over 15 Minutes, Once as needed, other, If patient has not received in previous 6 hours, Starting on Fri07/16/23 at 1305, For 1 dose, PACU (only), Oral unless RASS less than -1 or nausea/vomiting. Do not use if given in last 6 hours, Restriction Criteria (Pharmacy will review and approve if criteria met): Unable to take or tolerate medications administered via the enteral route or orally (not just NPO) acetaminophen tablet 1,000 mg (TYLENOL) 1,000 mg, oral, Once, On Fri07/16/23 at 1330, For 1 dose, Pre-Op Given 07/16/2023 1:38 PM CDT 1,000 mg acetaminophen tablet 1,000 mg (TYLENOL) 1,000 mg, oral, Once as needed, other, If patient has not received in the previous 6 hours, Starting on Fri07/16/23 at 1305, For 1 dose, PACU (only), Oral unless RASS less than -1 or nausea/vomiting. Do not use if given in last 6 hours chlorhexidine 0.12 % mouthwash 15 mL (PERIDEX) 15 mL, swish & spit, Once as needed, Chlorhexidine mouthwash (Peridex) should be given if patient did not complete oral care, if completion is greater than 4 hours prior to surgery or procedure start time and they do not have the opportunity to brush their teeth now (or at this time)., Starting on Fri07/16/23 at 1305, For 1 dose, Pre-Op, Instruct patient to swish entire content of Chlorhexidine 0.12% mouthwash (PERIDEX) 15 mL cup for 30 seconds, then spit, swish & spit. If patient is at risk for aspiration, apply Chlorhexidine 0.12% mouthwash to a swab and gently swab the patient's teeth and gums. Ensure swab is not oversaturated. Lactated Ringer's 80 mL/hr, intravenous, Continuous, Starting on Fri07/16/23 at 1330 Rate/Dose Change 07/16/2023 2:48 PM CDT 900 mL/hr Rate/Dose Verify 07/16/2023 2:07 PM CDT 80 mL/h r New Bag 07/16/2023 1:38 PM CDT 80 mL/hr 80 mL/hr lidocaine HCL 2 % topical jelly 1 Application (GLYDO) 1 Application, urethral, Once, On Fri07/16/23 at 1215, For 1 dose, Intra-Op Given 07/16/2023 2:22 PM CDT 1 Application Ur ethra sodium chloride 0.9 % injection 10 mL 10 mL, intravenous, As needed, line care, Starting on Fri07/16/23 at 1305, Pre-Op, Peripheral Intravenous Catheter and Rapid Infusion Catheter, prior to blood sampling, post blood transfusion or post blood sampling sodium chloride 0.9 % injection 3 mL 3 mL, intravenous, As needed, line care, Starting on Fri07/16/23 at 1305, Pre-Op, Prior to and following infusion and between multiple consecutive infusions: sodium chloride 0.9 % injection sodium chloride 0.9 % injection 3 mL 3 mL, intravenous, Every 12 hours scheduled, First dose on Fri07/16/23 at 2100, Pre-Op, Peripheral Intravenous Catheter and Rapid Infusion Catheter, when no infusion to maintain patency documented in this encounter Active and Recently Administered Medications Times are shown in CDT. Scheduled Medication Order 07/14/2023 07/15/2023 07/16/2023 acetaminophen tablet 1,000 mg (TYLENOL) 1,000 mg, oral, Once, On Fri07/16/23 at 1330, For 1 dose, Pre-Op, PreOp give in preprocedural area. 1330 (Due) acetaminophen tablet 1,000 mg (TYLENOL) (COMPLETED) 1,000 mg, oral, Once, On Fri07/16/23 at 1330, For 1 dose, Pre-Op 1338 (Given - Provid er: Humberto Morales, R.N.) ceFAZolin injection 2 g (ANCEF) (COMPLETED) 2 g, intravenous, Once, On Fri07/16/23 at 1215, For 1 dose, Intra-Op, If needed, reconstitute vial per package insert instructions. See IVAG for administration guidelines., Drug Monitoring Program: Pharmacist to adjust medication dosing based on indication and drug clearance factors., Indications: Prophylaxis, surgical 1418 (Given - Provid er: Grecia Chauhan APRN, LAB TESTER - Comment: NO RASH NOTED FROM ADMINISTRATION) lidocaine HCL 2 % topical jelly 1 Application (GLYDO) (COMPLETED) 1 Application, urethral, Once, On Fri07/16/23 at 1215, For 1 dose, Intra-Op 1215 (Due)1422 (Give n - Provider: Christel Callejas M.D.) sodium chloride 0.9 % injection 3 mL 3 mL, intravenous, Every 12 hours scheduled, First dose on Fri07/16/23 at 2100, Pre-Op, Peripheral Intravenous Catheter and Rapid Infusion Catheter, when no infusion to maintain patency Continuous Medication Order 07/14/2023 07/15/2023 07/16/2023 Lactated Ringer's 80 mL/hr, intravenous, Continuous, Starting on Fri07/16/23 at 1330 1338 (New Bag - Prov ider: Humberto Morales, R.N.)1407 (Rate/Dose Verify - Provider: Grecia Chauhan APRN, CRNA)1448 (Rate/Dose Change - Provider: Grecia Chauhan APRN, CRNA)1449 (Anesthesia Volume Adjustment - Provider: Grecia Chauhan APRN, CRNA) PRN Medication Order 07/14/2023 07/15/2023 07/16/2023 acetaminophen injection 1,000 mg(Linked Group 1) 1,000 mg, intravenous, at 400 mL/hr, Administer over 15 Minutes, Once as needed, other, If patient has not received in previous 6 hours, Starting on Fri07/16/23 at 1305, For 1 dose, PACU (only), Oral unless RASS less than -1 or nausea/vomiting. Do not use if given in last 6 hours, Restriction Criteria (Pharmacy will review and approve if criteria met): Unable to take or tolerate medications administered via the enteral route or orally (not just NPO) acetaminophen tablet 1,000 mg (TYLENOL)(Linked Group 1) 1,000 mg, oral, Once as needed, other, If patient has not received in the previous 6 hours, Starting on Fri07/16/23 at 1305, For 1 dose, PACU (only), Oral unless RASS less than -1 or nausea/vomiting. Do not use if given in last 6 hours chlorhexidine 0.12 % mouthwash 15 mL (PERIDEX) 15 mL, swish & spit, Once as needed, Chlorhexidine mouthwash (Peridex) should be given if patient did not complete oral care, if completion is greater than 4 hours prior to surgery or procedure start time and they do not have the opportunity to brush their teeth now (or at this time)., Starting on Fri07/16/23 at 1305, For 1 dose, Pre-Op, Instruct patient to swish entire content of Chlorhexidine 0.12% mouthwash (PERIDEX) 15 mL cup for 30 seconds, then spit, swish & spit. If patient is at risk for aspiration, apply Chlorhexidine 0.12% mouthwash to a swab and gently swab the patient's teeth and gums. Ensure swab is not oversaturated. fentaNYL injection 25 mcg (SUBLIMAZE) 25 mcg, intravenous, Every 2 min PRN, moderate pain or score 4-6 of 10, severe pain or score 7-10 of 10, Starting on Fri07/16/23 at 1305, PACU (only), Up to maximum total dose of 200 mcg ondansetron (PF) injection 4 mg (ZOFRAN) 4 mg, intravenous, Every 6 hours PRN, nausea, vomiting, (If patient has not received in the previous 6 hours), Starting on Fri07/16/23 at 1305, PACU (only), Administer first. If nausea and vomiting persists, proceed with haloperidol. (order of antiemetic administration - ondansetron then haloperidol then granisetron) oxyBUTYnin tablet 5 mg (DITROPAN) 5 mg, oral, Once as needed, If patient is not required to void prior to dismissal, Starting on Fri07/16/23 at 1305, For 1 dose, PACU (only) oxyCODONE IR tablet 5 mg (ROXICODONE) 5 mg, oral, Once as needed, For pain 4 or greater, Starting on Fri07/16/23 at 1305, For 1 dose, PACU (only) sodium chloride 0.9 % injection 10 mL 10 mL, intravenous, As needed, line care, Starting on Fri07/16/23 at 1305, Pre-Op, Peripheral Intravenous Catheter and Rapid Infusion Catheter, prior to blood sampling, post blood transfusion or post blood sampling sodium chloride 0.9 % injection 3 mL 3 mL, intravenous, As needed, line care, Starting on Fri07/16/23 at 1305, Pre-Op, Prior to and following infusion and between multiple consecutive infusions: sodium chloride 0.9 % injection Linked Groups Order Group 1: acetaminophen tablet 1,000 mg (TYLENOL)Jump to med 1,000 mg, oral, Once as needed, other, If patient has not received in the previous 6 hours, Starting on Fri07/16/23 at 1305, For 1 dose, PACU (only), Oral unless RASS less than -1 or nausea/vomiting. Do not use if given in last 6 hours Or acetaminophen injection 1,000 mgJump to med 1,000 mg, intravenous, at 400 mL/hr, Administer over 15 Minutes, Once as needed, other, If patient has not received in previous 6 hours, Starting on Fri07/16/23 at 1305, For 1 dose, PACU (only), Oral unless RASS less than -1 or nausea/vomiting. Do not use if given in last 6 hours, Restriction Criteria (Pharmacy will review and approve if criteria met): Unable to take or tolerate medications administered via the enteral route or orally (not just NPO) documented in this encounter Care Teams Web Merchant Relationship Specialty Start Date End Date Elsewhere, Pcp PCP - General Family Medicine 10/30/20 documented as of this encounter
--- OUTSIDE RECORDS SUMMARY | 2023-08-12 07:12 | XMS_ITS | Encounter Summary ---
Author Name Unknown Organization [facility] Address [address] [place] [address] Care Team Providers Care Shrimp Packer Name Role Phone Elsewhere, Pcp Primary Care Provider Unavailabl e Reason for Referral * Outpatient (Routine) - Authorized Specialty Diagnoses / Procedures Referred By Mychal izquierdo Referred To Contact Urology Cornell Rowan APRN, C.N.P. [address] [place] [phone] River Stockton M.D. [address] [place] [phone] Referral ID Status Reason Start Date Expiration Date V isits Requested Visits Authorized [id number] Authorized 07/21/2023 01/19/2025 1 1 Scheduling Instructions F2f or video Reason for Visit * Reason Onset Date Comments Urine Results 07/07/2023 Encounter Details Date Type Department Care Team (Late st Contact Info) Description 07/07/2023 Clinical Communication Department of Urology in [place], [place] [address] [place] [phone] River Stockton M.D. [address] [place] [phone] Urine Results Social History Tobacco Use Types Packs/Day Years Used Date Smoking Tobacco: Former Cigarettes 1.5 42.2 0 03/31/1961 - 06/30/2003 Passive Smoke Exposure: Past Smokeless Tobacco: Former Chew Quit: 03/31/1998 Comments:Quit several times Alcohol Use Standard Drinks/Week Comments Yes 9 (1 standard drink = 0.6 oz pur e alcohol) [facility] Utilities Answer Date Recorded In the past 12 months has e [employer], [employer], oil, or water [employer] threatened to shut off services in your [...] often do you attend chur ch or catholic services? Never 03/17/2022 Do you belong to any clubs o r organizations such as religious groups, unions, fraternal or athletic groups, or [...] and heating? Not hard at all 08/27/2022 [facility] - Occupational Stress Questionnaire Answer Date [...] encounter Miscellaneous Notes * Telephone Encounter - Cornell Rowan APRN, C.N.P. - 07/21/2023 3:45 PM CDT I reached Mr. Vieira by phone to go over the results from his bladder biopsy last week. 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 We reviewed options going forward. I suspect he will need additional intravesical therapy. He does have questions on if there are agents that would be superior as an alternative to BCG or in combination with BCG. He is also concerned about getting the BCG into the diverticulum. We will set up an meggan ointment with Dr. Stockton to go over options. documented in this encounter Plan of Treatment Upcoming Encounters Date Type Department Care Team (Late st Contact Info) Description 08/13/2023 1:00 PM CDT Procedure visit Department of Urology in [place], [place] [address] [place] [phone] River Stockton M.D. [address] [place] [phone] 08/20/2023 1:00 PM CDT Procedure visit Department of Urology in [place], [place] [address] [place] [phone] River Stockton M.D. [address] [place] [phone] 08/26/2023 10:30 AM CDT Procedure visit Department of Urology in [place], [place] [address] [place] [address] River Stockton M.D. [address] [place] [phone] 09/03/2023 1:00 PM CDT Procedure visit Department of Urology in [place], [place] [address] [place] [address] River Stockton M.D. [address] [place] [phone] 09/09/2023 10:30 AM CDT Procedure visit Department of Urology in [place], [place] [address] [place] [address] River Stockton M.D. [address] [place] [phone] 09/22/2023 10:30 AM CDT Procedure visit Department of Dermatology in [place], [place] [address] [place] [address] Vitaliy Alvares M.D. [address] [place] [phone] 09/25/2023 9:00 AM CDT Appointment Department of Radiology, [facility], in [place], [place] [address] [place] [address] Cody Carroll M.D. [address] [place] [phone] 09/25/2023 9:30 AM CDT Diagnostic Division of Pulmonary Medicine in [place], [place] [address] [place] [phone] Cody Carroll M.D. [address] [place] [phone] 09/25/2023 11:30 AM CDT Office Visit Division of Pulmonary Medicine in [place], [place] [address] [place] [phone] Teri Cerda APRN, C.N.P., D.N.P. [address] [place] [phone] 10/23/2023 9:20 AM CDT Office Visit Department of Dermatology in [place], [place] [address] [place] [phone] Crystal Rodriguez APRN, C.N.P., M.S.N. [address] [place] [phone] Scheduled Referrals Name Type Priority Associated Diagnoses Orde r Schedule Urology office visit (clinic) Outpatient Referral Routine Expected: 07/21/2023, Expires: 10/19/2024 documented as of this encounter Visit Diagnoses Not on filedocumented in this encounter Care Teams Shrimp Packer Relationship Specialty Start Date End Date Elsewhere, Pcp PCP - General Family Medicine 10/30/20 documented as of this encounter
--- OUTSIDE RECORDS SUMMARY | 2023-08-12 07:12 | XMS_ITS | Encounter Summary ---
Author Name Unknown Organization [facility] Address [address] [place] [address] Care Team Providers Care Dot Net Developer Name Role Phone Elsewhere, Pcp Primary Care Provider Unavailabl e Reason for Visit * Auth/Cert (Routine) Specialty Diagnoses / Procedures Referred By Mychal t Referred To Contact Diagnoses Bladder disorder, unspecified X Procedures SC CYSTOURETHROSCOPY WITH BX BIOPSY BLADDER Referral ID Status Reason Start Date Expiration Date Visits Re quested Visits Authorized [id number] 1 1 Encounter Details Date Type Department Care Team (Latest Contact Info) Description 07/16/2023 11:29 AM CDT - 07/16/2023 3:55 PM CDT Hospital Encounter Outpatient Procedure Center in [place], [place] [address] [place] [address] Cale De La Fuente M.D. [address] [place] [address] Malignant Neoplasm Of Bladder (HCC) Discharge Disposition: Home or Self Care Social History Tobacco Use Types Packs/Day Years Used Date Smoking Tobacco: Former Cigarettes 1.5 42.2 0 03/31/1961 - 06/30/2003 Passive Smoke Exposure: Past Smokeless Tobacco: Former Chew Quit: 03/31/1998 Comments:Quit several times Alcohol Use Standard Drinks/Week Comments Yes 9 (1 standard drink = 0.6 oz pur e alcohol) [facility] Utilities Answer Date Recorded In the past 12 months has th e [employer], gas, oil, or water company threatened to [...] often do you attend chur ch or tenriism services? Never 03/17/2022 Do you belong to any clubs o r organizations such as shinto groups, unions, fraternal or athletic groups, or [...] heating? Not hard at all 08/27/2022 [facility] [place] of Occupat ional Health - Occupational Stress [...] your living situation today? I have a [facility] [facility] place to live 03/26/2023 Education Answer Date [...] 15 07/16/2023 3:25 PM CDT Oxygen Saturation 92% 07/16/2023 3:25 PM CDT Inhaled Oxygen Concentration - - [...] Take 1 tablet by mouth daily. 09/29/2008 ww-kug-OH-vit W-yawdwh-jnecflx (PreserVision AREDS 2 Plus MV) 200 mcg-15 mcg- 5 mg-1 mg capsule Take by mouth. omega-3 fatty acids/fish oil (OMEGA 3 FISH OIL ORAL) Take 2 capsules by mouth daily. 500 mg capsules - total 1000 mg 11/18/2013 vitamin B complex tablet extended release Take 1 capsule by mouth daily. 08/29/2020 documented as of this encounter OR Notes * Op Note - Christel Callejas M.D. - 07/16/2023 2:26 PM CDT Pre-op Diagnosis Malignant Neoplasm Of Bladder (HCC) Post-op Diagnosis Malignant Neoplasm Of Bladder (HCC) Managed Care Liaison A retail administrative assistant actively participated and was necessary for [...] CDT Procedure visit Department of Urology in [place], [place] [address] [place] [address] River Stockton M.D. [address] [place] [address] 08/20/2023 1:00 PM CDT Procedure visit Department of Urology in [place], [place] [address] [place] [address] River Stockton M.D. [address] [place] [phone] 08/26/2023 10:30 AM CDT Procedure visit Department of Urology in [place], [place] [address] [place] [address] River Stockton M.D. [address] [place] [phone] 09/03/2023 1:00 PM CDT Procedure visit Department of Urology in [place], [place] [address] [place] [address] River Stockton M.D. [address] [place] [phone] 09/09/2023 10:30 AM CDT Procedure visit Department of Urology in [place], [place] [address] [place] [address] River Stockton M.D. [address] [place] [phone] 09/22/2023 10:30 AM CDT Procedure visit Department of Dermatology in [place], [place] [address] [place] [phone] Vitaliy Alvares M.D. [address] [place] [phone] 09/25/2023 9:00 AM CDT Appointment Department of Radiology, [facility], in [place], [place] [address] [place] [phone] Cody Carroll M.D. [address] [place] [phone] 09/25/2023 9:30 AM CDT Diagnostic Division of Pulmonary Medicine in [place], [place] [address] [place] [phone] Cody Carroll M.D. [address] [place] [phone] 09/25/2023 11:30 AM CDT Office Visit Division of Pulmonary Medicine in [place], [place] [address] [place] [phone] Teri Cerda APRN C.N.P., D.N.P. [address] [place] [phone] 10/23/2023 9:20 AM CDT Office Visit Department of Dermatology in [place], [place] [address] [place] [phone] Crystal Rodriguez APRN, C.N.P., M.S.N. [address] [place] [phone] documented as of this encounter Procedures Procedure Name Priority Date/Time Associated Diagnosis Comments SURGICAL PATHOLOGY Routine 07/16/2023 2: 33 PM CDT Malignant Neoplasm Of Bladder (HCC) CYSTOSCOPY BIOPSY FULGURATION 07/16/2023 1:57 PM CDT Malignant Neoplasm Of Bladder (HCC) Case Notes Shantanu 4/8 Special Needs Primary [place]. ADULT OXYGEN THERAPY Routine 07/16/2023 1:05 PM [...] as received in A1. ??Tiffanie Perez M.S., PA([facility]) B: Received in formalin labeled with the patient's name, medical record number, and right diverticulum are 2 fragments of sanchez-white tissue ranging from 0.2-0.3 cm in greatest dimension. ??The specimen is entirely submitted in B1. ??Tiffanie Perez M.S., TANISHA([facility]) 07/17/2023 1:23 PM CDT DTL [...] La Fuente M.D. LAB SURG PATH [facility] [address] [place] [address], [facility] [address] [place] [address] documented in this encounter Visit Diagnoses Diagnosis [...] 1:38 PM CDT 80 mL/hr 80 mL/hr sodium chloride 0.9 % injection 10 mL 10 mL, intravenous, As needed, line care, Starting on Fri07/16/23 at 1305, Pre- Op, Peripheral Intravenous Catheter and Rapid Infusion Catheter, prior to blood sampling, post blood transfusion or post blood sampling sodium chloride 0.9 % injection 3 mL 3 mL, intravenous, As needed, line care, Starting on Fri07/16/23 at 1305, Pre- Op, Prior to and following infusion and between [...] (Given - Provid er: Grecia Chauhan APRN, CONTINUOUS PICKLING LINE PICKLER HELPER - Comment: NO RASH NOTED FROM ADMINISTRATION) [...] NPO) documented in this encounter Care Teams Dot Net Developer Relationship Specialty Start Date End Date Elsewhere, Pcp PCP - General Family Medicine 10/30/20 documented as of this encounter
--- OUTSIDE RECORDS SUMMARY | 2023-08-12 07:12 | XMS_ITS | Encounter Summary ---
Author Name Unknown Organization [facility] Address [address] [place] [address] Care Team Providers Care Consulting Group Analyst Name Role Phone Elsewhere, Pcp Primary Care Provider Unavailabl e Reason for Visit * Reason Onset Date Comments Pre-visit Intake 07/15/2023 Encounter Details Date Type Department Care Team (Latest Contact Info) Description 07/15/2023 2:15 PM CDT Clinical Communication Virtual Review in [place], [place] 200 [place] [address] Pre-visit Intake Social History Tobacco Use Types Packs/Day Years Used Date Smoking Tobacco: Former Cigarettes 1.5 42.2 0 03/31/1961 - 06/30/2003 Passive Smoke Exposure: Past Smokeless Tobacco: Former Chew Quit: 03/31/1998 Tobacco Cessation:Counseling Given: Not Answered Comments:Quit several times Alcohol Use Standard Drinks/Week Comments Yes 9 (1 standard drink = 0.6 oz pur e alcohol) [facility] Utilities Answer Date Recorded In the past 12 months has e electric, gas, oil, or water [employer] threatened to shut off services in your [...] any clubs o r organizations such as synagogue groups, unions, fraternal or athletic groups, or [...] and heating? Not hard at all 08/27/2022 [facility] [place] of Occupat ional Health - Occupational Stress [...] your living situation today? I have a [facility] place to live 03/26/2023 Education [...] CDT Procedure visit Department of Urology in [place], [place] 200 [place] [address] River Stockton M.D. 200 [place] [address] 08/20/2023 1:00 PM CDT Procedure visit Department of Urology in [place], [place] [address] [place] [address] River Stockton M.D. [address] [place] [phone] 08/26/2023 10:30 AM CDT Procedure visit Department of Urology in [place], [place] [address] [place] [address] River Stockton M.D. [address] [place] [phone] 09/03/2023 1:00 PM CDT Procedure visit Department of Urology in [place], [place] [address] [place] [phone] River Stockton M.D. [address] [place] [phone] 09/09/2023 10:30 AM CDT Procedure visit Department of Urology in [place], [place] [address] [place] [address] River Stockton M.D. [address] [place] [phone] 09/22/2023 10:30 AM CDT Procedure visit Department of Dermatology in [place], [place] [address] [place] [phone] Vitaliy Alvares M.D. [address] [place] [phone] 09/25/2023 9:00 AM CDT Appointment Department of Radiology, [facility], in [place], [place] [address] [place] [phone] Cody Carroll M.D. [address] [place] [phone] 09/25/2023 9:30 AM CDT Diagnostic Division of Pulmonary Medicine in [place], [place] [address] [place] [phone] Cody Carroll M.D. [address] [place] [phone] 09/25/2023 11:30 AM CDT Office Visit Division of Pulmonary Medicine in [place], [place] [address] [place] [phone] Teri Cerda APRN, C.N.P., D.N.P. [address] [place] [phone] 10/23/2023 9:20 AM CDT Office Visit Department of Dermatology in [place], [place] [address] [place] [phone] Crystal Rodriguez APRN, C.N.P., M.S.N. [address] [place] [phone] documented as of this encounter Visit Diagnoses Not on filedocumented in this encounter Care Teams Consulting Group Analyst Relationship Specialty Start Date End Date Elsewhere, Pcp PCP - General Family Medicine 10/30/20 documented as of this encounter
--- OUTSIDE RECORDS SUMMARY | 2023-08-12 07:12 | XMS_ITS | Encounter Summary ---
Author Name Unknown Organization [facility] Address [address] [place] [address] Care Team Providers Care Product Scientist Name Role Phone Elsewhere, Pcp Primary Care Provider Unavailabl e Reason for Referral * Outpatient (Routine) - Authorized Specialty Diagnoses / Procedures Referred By Mychal izquierdo Referred To Contact Dermatology Diagnoses Squamous Cell Carcinoma In Situ Procedures LASHAWN MOHS 1-4 sites Sallie Padilla P.A.-C., M.S. [address] [place] [phone] [facility] Referral ID Status Reason Start Date Expiration Date V isits Requested Visits Authorized [id number] Authorized 06/30/2023 06/29/2024 1 1 Encounter Details Date Type Department Care Team (Late st Contact Info) Description 06/30/2023 Orders Only Department of Dermatology in [place], [place] [address] [place] [phone] Sallie Padilla P.A.-C., M.S. [address] [place] [phone] Squamous Cell Carcinoma In Situ (Primary Dx) Social History Tobacco Use Types Packs/Day Years Used Date Smoking Tobacco: Former Cigarettes 0 03/31/1961 - 03/31/1999 Passive Smoke Exposure: Past Smokeless Tobacco: Former Snuff Quit: 03/31/1994 Alcohol Use Standard Drinks/Week Comments Yes 7 (1 standard drink = 0.6 oz pur e alcohol) [facility] Utilities Answer Date Recorded In the [...] How often do you attend chur or protestant services? Never 03/17/2022 Do you belong to any clubs o r organizations such as congregational groups, unions, fraternal or athletic groups, or [...] and heating? Not hard at all 08/27/2022 [facility] - Occupational Stress Questionnaire Answer Date [...] living situation today? I have a [facility] place to live 03/26/2023 Education Answer [...] CDT Procedure visit Department of Urology in [place], [place] [address] [place] [phone] River Stockton M.D. [address] [place] [phone] 08/20/2023 1:00 PM CDT Procedure visit Department of Urology in [place], [place] [address] [place] [phone] River Stockton M.D. [address] [place] [phone] 08/26/2023 10:30 AM CDT Procedure visit Department of Urology in [place], [place] [address] [place] [phone] River Stockton M.D. [address] [place] [phone] 09/03/2023 1:00 PM CDT Procedure visit Department of Urology in [place], [place] [address] [place] [phone] River Stockton M.D. [address] [place] [phone] 09/09/2023 10:30 AM CDT Procedure visit Department of Urology in [place], [place] [address] [place] [phone] River Stockton M.D. [address] [place] [phone] 09/22/2023 10:30 AM CDT Procedure visit Department of Dermatology in [place], [place] [address] [place] [phone] Vitaliy Alvares M.D. [address] [place] [phone] 09/25/2023 9:00 AM CDT Appointment Department of Radiology, [facility], in [place], [place] [address] [place] [phone] Cody Carroll M.D. [address] [place] [phone] 09/25/2023 9:30 AM CDT Diagnostic Division of Pulmonary Medicine in [place], [place] [address] [place] [phone] Cody Carroll M.D. [address] [place] [phone] 09/25/2023 11:30 AM CDT Office Visit Division of Pulmonary Medicine in [address] [phone] Teri Cerda APRN, C.N.P., D.N.P. [address] [place] [phone] 10/23/2023 9:20 AM CDT Office Visit Department of Dermatology in [place], [place] [address] [place] [phone] Crystal Rodriguez APRN, C.N.P., M.S.N. [address] [place] [phone] Scheduled Orders Name Type Priority Associated Diagnoses Orde r Schedule LASHAWN MOHS 1-4 sites Dermatology Routine Squamous Cell Carcinoma In Situ Expected: 07/14/2023, Expires: 09/28/2024 documented as of this encounter Visit Diagnoses Diagnosis Squamous Cell Carcinoma In Situ- Primary documented in this encounter Care Teams Product Scientist Relationship Specialty Start Date End Date Elsewhere, Pcp PCP - General Family Medicine 10/30/20 documented as of this encounter
--- OUTSIDE RECORDS SUMMARY | 2023-08-12 07:12 | XMS_ITS | Encounter Summary ---
Author Name Unknown Organization [facility] Address [address] [place] [phone] Care Team Providers Care Circuit Board Repair Technician Name Role Phone Elsewhere, Pcp Primary Care Provider Unavailabl e Reason for Visit * Auth/Cert (Routine) Specialty Diagnoses / Procedures Referred By Mychal t Referred To Contact Diagnoses Bladder disorder, unspecified X Procedures OR CYSTOURETHROSCOPY WITH BX BIOPSY BLADDER Referral ID Status Reason Start Date Expiration Date Visits Re quested Visits Authorized [id number] 1 1 Encounter Details Date Type Department Care Team (Late st Contact Info) Description 07/16/2023 2:07 PM CDT Anesthesia Event Outpatient Procedure Center in [place], [place] [address] [place] [phone] Grecia Chauhan APRN, JAYLA [address] [place] [phone] Mahogany Elkins M.D. [address] [place] [phone] Anesthesia Record Procedure Summary Procedure Name Responsible Anesthesiologist Anesthesia Start Time Anesthesia Stop Time CYSTOSCOPY BIOPSY FULGURATION Grecia Chauhan APRN, CRNA 07/16/23 1407 07/16/23 1500 Events Date Time Event Comment 07/16/2023 1407 An Start Machine/Equipme nt Checked Infection Precautions Followed Procedure/Site Verified NPO Status Verified Supine Standard ASA Monitors Applied 1416 Turnover to Proceduralist 1426 Proc Start 1448 Proc Fin 1449 Turnover to ANE Staff 1455 an stop data 1500 An End I completed my handoff to the receiving staff during which we 1. Identified the patient 2. Identified the responsible provider 3. Reviewed the pertinent medical history 4. Discussed the surgical course 5. Reviewed intra-op anesthesia management and issues during anesthesia 6. Set expectations for post-procedure period 7. Allowed opportunity for questions and acknowledgement of understanding. Meds Name Total fentanyl injection 50 mcg/mL 50 mcg lidocaine 2% (mg) injection 100 mg ondansetron PF 4 mg/2 mL injection 4 mg propofol 10 mg/mL injection 50 mg propofol 10 mg/mL infusion 371.13 mg ceFAZolin injection 2 g (ANCEF) 2 g phenylephrine 100 mcg/mL injection 300 m cg Lactated Ringer's 900 mL * Agents No agents on file. * Blood No blood administrations on file. Lines, Drains, and Airways Type Details Placement Removal Wound 02/28/23; N; Incisio n; Eye; Right; cataract; eye shield 02/28/23 0000 by Mahogany Weiss M.S.N., R.N. Peripheral IV Placement Date: 06/29 10/21; Placement Time: 1329; Catheter Size: 22 G; Orientation: Left; Location: Antecubital; Removal Date: 07/16/23; Removal Time: 153; Removal Reason: Patient discharged 07/16/23 1329 by Caty Spivey, M.A.N., R.N. 07/16/23 1532 by Caty Spivey M.A.N., R.N. documented in this encounter Social History Tobacco Use Types Packs/Day Years Used Date Smoking Tobacco: Former Cigarettes 1.5 42.2 0 03/31/1961 - 06/30/2003 Passive Smoke Exposure: Past Smokeless Tobacco: Former Chew Quit: 03/31/1998 Comments:Quit several times Alcohol Use Standard Drinks/Week Comments Yes 9 (1 standard drink = 0.6 oz pur e alcohol) [facility] Utilities Answer Date Recorded In the past 12 months has [place], gas, oil, or water [employer] threatened to shut off services in your [...] week 03/17/2022 How often do you attend [facility] or confucianist services? Never 03/17/2022 Do you belong to any clubs o r organizations such as scientologist groups, unions, fraternal or athletic groups, or [...] and heating? Not hard at all 08/27/2022 [facility] - Occupational [...] your living situation today? I have a [facility] place to live 03/26/2023 Education Answer [...] AM CDT documented as of this encounter OR Notes * Anesthesia Postprocedure Evaluation - Grecia Chauhan APRN, JAYLA - 07/16/2023 3:01 PM CDT Patient: Martin Vieira Procedure Summary Date: 07/16/23 Room / Location: ROOM [address] / [facility] in [place], [place] Anesthesia Start: 1407 Anesthesia Stop: 1500 Procedure: CYSTOSCOPY BIOPSY FULGURATION Diagnosis: Malignant Neoplasm Of Bladder (HCC) (Malignant Neoplasm Bladder (HCC) [C67.9].) Surgeons: Cale De La Fuente M.D. Responsible Provider: Grecia Chauhan APRN, CRNA Anesthesia Type: MAC ASA Status: 3 Anesthesia Type: MAC Last vitals Vitals Value Taken Time BP 109/71 07/16/23 1501 Temp Pulse 65 07/16/23 1501 Resp 24 07/16/23 1501 SpO2 94 % 07/16/23 1501 Vitals shown include unfiled device data. Please reference Vitals flowsheet for most recent vital signs. Anesthesia Post Evaluation Patient Disposition: dismissal Cardiovascular status: hemodynamics (HR & BP) acceptable Respiratory status: patent airway with spontaneous effort Temperature: normothermic Oxygen requirements: room air Level of consciousness: awake Pain score: pain adequately controlled and/or at baseline Post Op nausea/vomiting: none Hydration status: euvolemic * Anesthesia Preprocedure Evaluation - Mahogany Elkins M.D. - 07/16/2023 1:46 PM CDT Preprocedure Anesthesia & H&P Assessment Procedure Summary Date/Time: 07/16/23 1255 Procedure: BIOPSY BLADDER. Diagnosis: Malignant Neoplasm Of Bladder (HCC) [C67.9] Pre-op diagnosis: Malignant Neoplasm Bladder (HCC) [C67.9]. Location: ROOM [address] / [facility] in [place], [place] Surgeons: Cale De La Fuente M.D. Pertinent components of the patient's history including current problem list, medical history, surgical history, family history, social history, medications and allergies were reviewed. Present illness and pre-op diagnosis were confirmed. The planned surgery / procedure was verified with the patient / legal guardian. The patient's general health condition remains unchanged RELEVANT COMORBID CONDITIONS GI (+) Crohn's Disease (HCC) ONC (+) Personal History Of Malignant Melanoma Of Skin OBJECTIVE PHYSICAL EXAMINATION Airway (HEENT) Mallampati: III TM Distance: >3 FB Neck ROM: Full Mouth Opening: >3 cm Cardiovascular Rhythm: Regular Rate: Normal Cardiovascular Assessment: cardiovascular normal Functional Capacity: >4 METS Pulmonary Pulmonary Assessment: Clear General / Constitutional Constitutional Assessment: Normal General State of Health:: healthy appearing and calm Neurological Neurologic Assessment: alert Dental Dental Assessment: dentition intact ASSESSMENT / PLAN ANESTHESIA PLAN ASA: 3 Anesthesia Plan: general Patient seen and allergies reviewed, anesthesia plan and risks discussed directly with patient /legal guardian or through an lean manufacturing engineer. The use of blood products not discussed Approval to Proceed: approved for anesthesia documented in this encounter Plan of Treatment Upcoming Encounters Date Type Department Care Team (Late st Contact Info) Description 08/13/2023 1:00 PM CDT Procedure visit Department of Urology in [place], [place] [address] [place] [phone] River Stockton M.D. [address] [place] [phone] 08/20/2023 1:00 PM CDT Procedure visit Department of Urology in [place], [place] [address] [place] [phone] River Stockton M.D. [address] [place] [phone] 08/26/2023 10:30 AM CDT Procedure visit Department of Urology in [place], [place] [address] [place] [phone] River Stockton M.D. [address] [place] [phone] 09/03/2023 1:00 PM CDT Procedure visit Department of Urology in [place], [place] [address] [place] [phone] River Stockton M.D. [address] [place] [phone] 09/09/2023 10:30 AM CDT Procedure visit Department of Urology in [place], [place] [address] [place] [phone] River Stockton M.D. [address] [place] [phone] 09/22/2023 10:30 AM CDT Procedure visit Department of Dermatology in [place], [place] [address] [place] [phone] Vitaliy Alvares M.D. [address] [place] [phone] 09/25/2023 9:00 AM CDT Appointment Department of Radiology, [facility], in [place], [place] [address] [place] [phone] Cody Carroll M.D. [address] [place] [phone] 09/25/2023 9:30 AM CDT Diagnostic Division of Pulmonary Medicine in [place], [place] [address] [place] [phone] Cody Carroll M.D. [address] [place] [phone] 09/25/2023 11:30 AM CDT Office Visit Division of Pulmonary Medicine in [place], [place] [address] [place] [phone] Teri Cerda, ZAKIYA, C.N.P., D.N.P. [address] [place] [phone] 10/23/2023 9:20 AM CDT Office Visit Department of Dermatology in [place], [place] [address] [place] [phone] Crystal Rodriguez APRN, C.N.P., M.S.N. [address] [place] [phone] documented as of this encounter Visit Diagnoses Not on filedocumented in this encounter Administered Medications Inactive Administered Medications - up to 3 most recent administrations Medication Order MAR Action Action Date Dose Rate Site ceFAZolin injection 2 g (ANCEF) 2 g, intravenous, Once, On Fri07/16/23 at 1215, For 1 dose, Intra-Op, If needed, reconstitute vial per package insert instructions. See IVAG for administration guidelines., Drug Monitoring Program: Pharmacist to adjust medication dosing based on indication and drug clearance factors., Indications: Prophylaxis, surgical Given 07/16/2023 2:18 PM CDT 2 g fentaNYL injection (SUBLIMAZE) intravenous, As needed, Starting on Fri07/16/23 at 1413, Anesthesia Intra-op Given 07/16/2023 2:13 PM CDT 50 mcg Lactated Ringer's 80 mL/hr, intravenous, Continuous, Starting on Fri07/16/23 at 1330 Rate/Dose Change 07/16/2023 2:48 PM CDT 900 mL/hr Rate/Dose Verify 07/16/2023 2:07 PM CDT 80 mL/h r New Bag 07/16/2023 1:38 PM CDT 80 mL/hr 80 mL/hr lidocaine (PF) (cardiac) injection intravenous, As needed, Starting on Fri07/16/23 at 1413, Anesthesia Intra-op Given 07/16/2023 2:13 PM CDT 100 mg ondansetron (PF) injection (ZOFRAN) intravenous, As needed, Starting on Fri07/16/23 at 1413, Anesthesia Intra-op Given 07/16/2023 2:13 PM CDT 4 mg phenylephrine injection intravenous, As needed, Starting on Fri07/16/23 at 1431, Anesthesia Intra-op Given 07/16/2023 2:51 PM CDT 100 mcg Given 07/16/2023 2:40 PM CDT 100 mcg Given 07/16/2023 2:31 PM CDT 100 mcg propofol 10 mg/mL infusion (DIPRIVAN) intravenous, Continuous Infusion: Per Instructions PRN, Starting on Fri07/16/23 at 1413, Anesthesia Intra-op Rate/Dose Change 07/16/2023 2:42 PM CDT 90 mcg/kg/min 48.06 mL/hr Rate/Dose Change 07/16/2023 2:18 PM CDT 120 mcg/kg/min 64. 08 mL/hr New Bag 07/16/2023 2:13 PM CDT 150 mcg/kg/min 80.1 mL/h r propofoL injection (DIPRIVAN) intravenous, As needed, Starting on Fri07/16/23 at 1414, Anesthesia Intra-op Given 07/16/2023 2:26 PM CDT 20 mg Given 07/16/2023 2:14 PM CDT 30 mg documented in this encounter Care Teams Circuit Board Repair Technician Relationship Specialty Start Date End Date Elsewhere, Pcp PCP - General Family Medicine 10/30/20 documented as of this encounter
--- OUTSIDE RECORDS SUMMARY | 2023-08-12 07:12 | XMS_ITS | Encounter Summary ---
Author Name Unknown Organization [facility] Address [address] [place] [id number] Care Team Providers Care Freelance Interpreter/Translator Name Role Phone Elsewhere, Pcp Primary Care Provider Unavailabl e Reason for Visit * Outpatient (Routine) - Closed Specialty Diagnoses / Procedures Referred By Mychal izquierdo Referred To Contact Anesthesiology Diagnoses Mass Bladder Malignant Neoplasm Of Bladder (HCC) Cornell Rowan APRN, C.N.P. 200 [place] [address] [facility] Referral ID Status Reason Start Date Expiration Date Visits Re quested Visits Authorized [id number] Closed 06/23/2023 12/22/2024 1 1 Encounter Details Date Type Department Care Team (Latest Contact Info) Description 07/07/2023 2:00 PM CDT Telemedicine Preoperative Evaluation Center in [place], [place] 200 [place] [phone] Cornell Rowan APRN, C.N.P. [address] [place] [phone] Jodie Durbin APRN, C.N.P., M.S.N. [address] [place] [phone] Preanesthetic Medical Exam (Primary Dx); Mass Bladder; Malignant Neoplasm Of Bladder (HCC); Other Nonspecific Abnormal Finding Of Lung Field; Paresthesias Feet; Polyneuropathy; Neuroma Acoustic (HCC); Vertigo; Crohn's Disease (HCC) Social History Tobacco Use Types Packs/Day Years Used Date Smoking Tobacco: Former Cigarettes 1.5 42.2 0 03/31/1961 - 06/30/2003 Passive Smoke Exposure: Past Smokeless Tobacco: Former Chew Quit: 03/31/1998 Tobacco Cessation:Counseling Given: Not Answered Comments:Quit several times Alcohol Use Standard Drinks/Week Comments Yes 9 (1 standard drink = 0.6 oz pur e alcohol) [facility] Utilities Answer Date Recorded In the past 12 months has e electric, gas, oil, or water [employer] threatened to shut off services in your [...] often do you attend chur ch or baptist services? Never 03/17/2022 Do you belong to any clubs o r organizations such as orthodoxy groups, unions, fraternal or athletic groups, or [...] and heating? Not hard at all 08/27/2022 [facility] - [facility]ational Stress Questionnaire Answer Date Recorded [...] AM CDT documented as of this encounter H&P Notes * Jodie Durbin APRN, C.N.P., M.S.N. - 07/07/2023 2:00 PM CDT Images from the original note were not included. REASON FOR VISIT: Preoperative Medical Evaluation REFERRING PHYSICIAN: Cornell Rowan APRN C.N.P. 07/16/2023: BIOPSY BLADDER; Cale De La Fuente M.D. Surgery Specific Risk Classification: Low Risk SUBJECTIVE HISTORY OF PRESENT ILLNESS This Consult was conducted via real-time audio/video technology. This is a 77 y.o. male who is here for preanesthetic medical examination prior to the planned procedure as listed above. REVIEW OF SYSTEMS The following systems were negative: Constitutional, Respiratory, Cardiovascular, Neurological Cardiac Risk Scoring: PRO Scores: 10/23/2020 11/24/2020 06/30/2023 Spine[employer] PROMIS-CAT: Anxiety 54 (within normal limits) 60 (mild) PROMIS-CAT: Depression 50 (within normal limits) 56 (mild) PROMIS-CAT: Fatigue 49 (within normal limits) 59 (mild) PROMIS-CAT: Sleep disturbance 49 (within normal limits) 54 (within normal limits) PROMIS-CAT: Pain interference 65 (moderate) PROMIS-CAT: Ability to participate social roles 44 (mild dysfunction) 44 (mild dysfunction) PROMIS-CAT: Physical function 36 (moderate dysfunction) 38 (moderate dysfunction) 45 (within normallimits) PROMIS SHORT FORM (Pain Intensity): Pain rating (avg.) 7 7 DASI Calculations Flowsheet Row Telemedicine from 07/07/2023 in Preoperative Evaluation Center in [place], [place] Telemedicine from 07/25/2022 in Preoperative Evaluation Center in [place], [place] DASI Total Score 37.45 45.45 Estimated V02 Peak 25.7 29.14 Estimated MET Level 7.34 8.33 OBJECTIVE OBJECTIVE PHYSICAL EXAMINATION General/Constitutional Constitutional Assessment: Normal General State of Health: Healthy appearing Airway (HEENT) Neck ROM: Full Dental Assessment: Dentition intact Cardiovascular Virtual visit Pulmonary Virtual visit Neurological Neurologic Assessment: Alert and oriented X 3 Musculoskeletal Unable to assess gait. MSK Assessment: Normal Ambulate with: None Psychiatric Psychiatric Assessment: Calm Dermatology Skin Assessment: normal Physical exam will be performed by anesthesia the day of procedure. ASSESSMENT / PLAN Anesthesia: Patient denies previous anesthesia related complications. Airway Hx : 01/07/2023. LMA unique. Size 4 (MC). 09/04/2022. LMA unique. Size 5 (). Lab Results Component Value Date CREATININE 0.96 07/09/2022 EGFR 82 07/09/2022 TSH 1.6 08/11/2020 HGBA1C 5.4 08/11/2020 ECG: Not indicated. ECHO: 2013. Document viewer. Holter Monitor. 10/21/2016. Sinus rhythm with an average heart rate of 63. Rare premature beats with 1 couplet. Supraventricular ectopics totaled 40 with (3-7 beats) episodes of ectopic atrial tachycardia with maximum heart rate 139. Diary notes ???flutter/buzz?? sinus rhythm with and without PVCs and PACs, heart rate varied from 56-84 (CE). CT Coronary Calcium Score. 10/03/2015 (CE). Total calcium score 115. The total Agatston calcium score is 115, which is in the 44 th percentile compared to age and gender matched control group. #1 Preanesthetic Medical Exam #2 Mass Bladder #3 Malignant Neoplasm Of Bladder (HCC) Delightful 77-year-old male, former smoker (52.5 pack years) presents for virtual CYNDY. He will be accompanied by his day of procedure. He is very active playing tennis, hiking and can tolerate 2flights of stair climbing. He denies any worrisome cardiopulmonary symptoms at rest or with activity. He will hold all vitamins, supplements, and NSAIDs 1 week prior to procedure. Tylenol as needed forpain. #4 Other Nonspecific Abnormal Finding Of Lung Field He has a 5 mm solid component to the right upper lobe pulmonary nodule in addition to a new mediastinal and bilateral hilar adenopathy per CT scan on 07/03/2023. He will be meeting with Pulmonary Medicine in the next 1 week. Please see Care everywhere from [facility] in Care everywhere if n eeded. #5 Paresthesias Feet #6 Polyneuropathy Managed with gabapentin. He will continue as prescribed. #7 Neuroma Acoustic (HCC) #8 Vertigo Right vestibular schwannoma. He takes lorazepam 1-2 times per week for vertigo. He will continue asprescribed. #9 Crohn's Disease (HCC) In remission. No medications. RECOMMENDATIONS: Patient medically optimized for planned procedure: Yes Further Recommendations: None Caprini Total Score: Caprini not calculated. VTE prophylaxis per surgery provider PATIENT EDUCATION: Instructions To Get Ready for Your Surgery or Procedure: [facility]?? [id number] rev 0124. Verbal instructions given on medication management before surgery. Reviewed instructions on avoiding aspirin, ibuprofen-containing medications, and supplements one week before surgery. Patient may take acetaminophen as needed for pain. Evening before your surgery: The evening before your procedure at about 8:15 p.m. [facility] will inform you of the time to arrive the next day using one of these methods: - A text -or- An automated phone call If you have not received a text or a phone call by 8:45 p.m. or if you prefer to call after 8:15 p.m. to get the information: - Please call [phone] (automated) or [phone] (live plastic press operator) to learn report time for surgery next day. Phone system will ask for [facility] number and date of . Fasting for Adults: - 8 hours before your report time stop eating solid foods. - 6 hours before your report time stop drinking any non clear liquids such as: milk, soy/almond milk, orange juice, or tomato juice. - 1 hour before your report time stop drinking clear liquids. Clear Liquids: - Water, clear fruit juice (apple/white grape), carbonated beverages, clear broth, gelatin, ice pops or popsicles, and clear tea or black coffee (no milk or creamer). Consult conducted via real-time audio/video technology by Jodie Durbin APRN, C.N.P., M.S.N. in [facility] to the patient in the patient's home. documented in this encounter Plan of Treatment Upcoming Encounters Date Type Department Care Team (Late st Contact Info) Description 08/13/2023 1:00 PM CDT Procedure visit Department of Urology in [place], [place] [address] [place] [phone] River Stockton M.D. [address] [place] [phone] 08/20/2023 1:00 PM CDT Procedure visit Department of Urology in [place], [place] [address] [place] [phone] River Stockton M.D. [address] [place] [phone] 08/26/2023 10:30 AM CDT Procedure visit Department of Urology in [place], [place] [address] [place] [phone] River Stockton M.D. [address] [place] [phone] 09/03/2023 1:00 PM CDT Procedure visit Department of Urology in [place], [place] [address] [place] [phone] River Stockton M.D. [address] [place] [phone] 09/09/2023 10:30 AM CDT Procedure visit Department of Urology in [place], [place] [address] [place] [phone] River Stocktno M.D. [address] [place] [phone] 09/22/2023 10:30 AM CDT Procedure visit Department of Dermatology in [place], [place] [address] [place] [phone] Vitaliy Alvares M.D. [address] [place] [phone] 09/25/2023 9:00 AM CDT Appointment Department of Radiology, [facility] in [place], [place] [address] [place] [phone] Cody Carroll M.D. [address] [place] [phone] 09/25/2023 9:30 AM CDT Diagnostic Division of Pulmonary Medicine in [place], [place] [address] [place] [phone] Cody Carroll M.D. [address] [place] [phone] 09/25/2023 11:30 AM CDT Office Visit Division of Pulmonary Medicine in [place], [place] [address] [place] [phone] Teri Cerda APRN, C.N.P., D.N.P. [address] [place] [phone] 10/23/2023 9:20 AM CDT Office Visit Department of Dermatology in [place], [place] [address] [place] [phone] Crystal Rodriguez APRN, C.N.P., M.S.N. [address] [place] [phone] documented as of this encounter Visit Diagnoses Diagnosis Preanesthetic Medical Exam- Primary Mass Bladder Malignant Neoplasm Of Bladder (HCC) Other Nonspecific Abnormal Finding Of Lung Field Paresthesias Feet Polyneuropathy Neuroma Acoustic (HCC) Vertigo Crohn's Disease (HCC) documented in this encounter Care Teams Freelance Interpreter/Translator Relationship Specialty Start Date End Date Elsewhere, Pcp PCP - General Family Medicine 10/30/20 documented as of this encounter
--- OUTSIDE RECORDS SUMMARY | 2023-08-12 07:12 | XMS_ITS | Encounter Summary ---
Author Name Unknown Organization [facility] Address [address] [place] [address] Care Team Providers Care Laboratory Immunologist Name Role Phone Elsewhere, Pcp Primary Care Provider Unavailabl e Encounter Details Date Type Department Care Team (Late st Contact Info) Description 07/09/2023 Clinical Communication Department of Urology in [place], [place] [address] [place] [address] Lynne Virgen Kye Social History Tobacco Use Types Packs/Day Years Used Date Smoking Tobacco: Former Cigarettes 1.5 42.2 0 03/31/1961 - 06/30/2003 Passive Smoke Exposure: Past Smokeless Tobacco: Former Chew Quit: 03/31/1998 Comments:Quit several times Alcohol Use Standard Drinks/Week Comments Yes 9 (1 standard drink = 0.6 oz pur e alcohol) [facility] Utilities Answer Date Recorded In the past 12 months has [employer] gas, oil, or water [employer] threatened to shut off services in your [...] often do you attend chur ch or yarsanism services? Never 03/17/2022 Do you belong to any clubs o r organizations such as moravian groups, unions, fraternal or athletic groups, or [...] and heating? Not hard at all 08/27/2022 [facility] of Occupat ionwa Health - Occupational Stress Questionnaire Answer Date [...] your living situation today? I have a [facility] place to live 03/26/2023 Education Answer [...] CDT Procedure visit Department of Urology in [place], [place] [address] [place] [address] River Stockton M.D. [address] [place] [phone] 08/20/2023 1:00 PM CDT Procedure visit Department of Urology in [place], [place] [address] [place] [address] River Stockton M.D. [address] [place] [phone] 08/26/2023 10:30 AM CDT Procedure visit Department of Urology in [place], [place] [address] [place] [address] River Stockton M.D. [address] [place] [phone] 09/03/2023 1:00 PM CDT Procedure visit Department of Urology in [place], [place] [address] [place] [address] River Stockton M.D. [address] [place] [phone] 09/09/2023 10:30 AM CDT Procedure visit Department of Urology in [place], [place] [address] [place] [address] River Stockton M.D. [address] [place] [phone] 09/22/2023 10:30 AM CDT Procedure visit Department of Dermatology in [place], [place] [address] [place] [phone] Vitaliy Alvares M.D. [address] [place] [phone] 09/25/2023 9:00 AM CDT Appointment Department of Radiology, [facility], in [place], [place] [address] [place] [phone] Cody Carroll M.D. [address] [place] [phone] 09/25/2023 9:30 AM CDT Diagnostic Division of Pulmonary Medicine in [place], [place] [address] [place] [phone] Cody Carroll M.D. [address] [place] [phone] 09/25/2023 11:30 AM CDT Office Visit Division of Pulmonary Medicine in [place], [place] [address] [place] [phone] Teri Cerda APRN, C.N.P., D.N.P. [address] [place] [phone] 10/23/2023 9:20 AM CDT Office Visit Department of Dermatology in [place], [place] [address] [place] [phone] Crystal Rodriguez APRN, C.N.P., M.S.N. [address] [place] [phone] documented as of this encounter Visit Diagnoses Not on filedocumented in this encounter Care Teams Laboratory Immunologist Relationship Specialty Start Date End Date Elsewhere, Pcp PCP - General Family Medicine 10/30/20 documented as of this encounter
--- OUTSIDE RECORDS SUMMARY | 2023-08-12 07:12 | XMS_ITS | Encounter Summary ---
Author Name Unknown Organization [facility] Address [address] [place] [address] Care Team Providers Care Sock Drier Name Role Phone Elsewhere, Pcp Primary Care Provider Unavailabl e Encounter Details Date Type Department Care Team (Late st Contact Info) Description 07/09/2023 Virtual Visit Division of Pulmonary Medicine in [place], [place] [address] [place] [phone] Marcial Bush M.D. [address] [place] [phone] Nodule Pulmonary (Primary Dx) Social History Tobacco Use Types Packs/Day Years Used Date Smoking Tobacco: Former Cigarettes 1.5 42.2 0 03/31/1961 - 06/30/2003 Passive Smoke Exposure: Past Smokeless Tobacco: Former Chew Quit: 03/31/1998 Comments:Quit several times Alcohol Use Standard Drinks/Week Comments Yes 9 (1 standard drink = 0.6 oz pur e alcohol) [facility] Utilities Answer Date Recorded In the past 12 months has [employer], gas, oil, or water company threatened to [...] How often do you attend chur or episcopalian services? Never 03/17/2022 Do you belong to any clubs o r organizations such as amish groups, unions, fraternal or athletic groups, or [...] and heating? Not hard at all 08/27/2022 [facility] [place] of Occupat ional Health - Occupational Stress [...] your living situation today? I have a [facility] place to live 03/26/2023 Education [...] AM CDT documented as of this encounter Consult Notes * Marcial Bush M.D. - 07/09/2023 8:26 AM CDT SUBJECTIVE Ovy-Trzy-cw-Face Consultation ASSESSMENT / PLAN #1 Cystic lesion, right upper lobe Kpzd-tz-fyve consultation would be appropriate for review of the CT scan findings and determinationof next steps. This could be done either virtually or in person. MARGIN CODE: No charge. Marcial Bush M.D. CT CT Job ID: [id number] documented in this encounter Plan of Treatment Upcoming Encounters Date Type Department Care Team (Late st Contact Info) Description 08/13/2023 1:00 PM CDT Procedure visit Department of Urology in [place], [place] [address] [place] [phone] River Stockton M.D. [address] [place] [phone] 08/20/2023 1:00 PM CDT Procedure visit Department of Urology in [place], [place] [address] [place] [phone] River Stockton M.D. [address] [place] [phone] 08/26/2023 10:30 AM CDT Procedure visit Department of Urology in [place], [place] [address] [place] [phone] River Stockton M.D. [address] [place] [phone] 09/03/2023 1:00 PM CDT Procedure visit Department of Urology in [place], [place] [address] [place] [phone] River Stockton M.D. [address] [place] [phone] 09/09/2023 10:30 AM CDT Procedure visit Department of Urology in [place], [place] [address] [place] [phone] River Stockton M.D. [address] [place] [phone] 09/22/2023 10:30 AM CDT Procedure visit Department of Dermatology in [place], [place] [address] [place] [phone] Vitaliy Alvares M.D. [address] [place] [phone] 09/25/2023 9:00 AM CDT Appointment Department of Radiology, [facility], in [place], [place] [address] [place] [phone] Cody Carroll M.D. [address] [place] [phone] 09/25/2023 9:30 AM CDT Diagnostic Division of Pulmonary Medicine in [address] [phone] Cody Carroll M.D. [address] [place] [phone] 09/25/2023 11:30 AM CDT Office Visit Division of Pulmonary Medicine in [address] [phone] Teri Cerda APRN, C.N.P., D.N.P. [address] [place] [phone] 10/23/2023 9:20 AM CDT Office Visit Department of Dermatology in [address] [phone] Crystal Rodriguez APRN, C.N.P., M.S.N. [address] [place] [phone] documented as of this encounter Visit Diagnoses Diagnosis Nodule Pulmonary- Primary documented in this encounter Care Teams Sock Drier Relationship Specialty Start Date End Date Elsewhere, Pcp PCP - General Family Medicine 10/30/20 documented as of this encounter
--- OUTSIDE RECORDS SUMMARY | 2023-08-12 07:12 | XMS_ITS | Encounter Summary ---
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 200 [place] [address] [facility] Referral ID Status Reason Start Date Expiration Date Visits Re quested Visits Authorized [id number] Closed 06/23/2023 12/22/2024 1 1 Encounter Details Date Type Department Care Team (Late st Contact Info) Description 06/23/2023 Orders Only Department of Urology in [place], [place] [address] [place] [phone] Cornell Rowan APRN, C.N.P. [address] [place] [phone] Mass Bladder (Primary Dx); Malignant Neoplasm Of Bladder (HCC) Social History Tobacco Use Types Packs/Day Years Used Date Smoking Tobacco: Former Cigarettes 0 03/31/1961 - 03/31/1999 Passive Smoke Exposure: Past Smokeless Tobacco: Former Snuff Quit: 03/31/1994 Alcohol Use Standard Drinks/Week Comments Yes 7 (1 standard drink = 0.6 oz pur e alcohol) [facility] Utilities Answer Date Recorded In the [...] How often do you attend chur or religion services? Never 03/17/2022 Do you belong to any clubs o r organizations such as jehovah's witness groups, unions, fraternal or athletic groups, or [...] and heating? Not hard at all 08/27/2022 [facility] [place] of Occupat ional Health - Occupational Stress [...] your living situation today? I have a [facility] place to live 03/26/2023 Education Answer [...] CDT Procedure visit Department of Urology in [place], [place] [address] [place] [phone] River Stockton M.D. [address] [place] [phone] 08/20/2023 1:00 PM CDT Procedure visit Department of Urology in [place], [place] [address] [place] [address] River Stockton M.D. [address] [place] [phone] 08/26/2023 10:30 AM CDT Procedure visit Department of Urology in [place], [place] [address] [place] [address] River Stockton M.D. [address] [place] [phone] 09/03/2023 1:00 PM CDT Procedure visit Department of Urology in [place], [place] [address] [place] [phone] River Stockton M.D. [address] [place] [phone] 09/09/2023 10:30 AM CDT Procedure visit Department of Urology in [place], [place] [address] [place] [address] River Stockton M.D. [address] [place] [phone] 09/22/2023 10:30 AM CDT Procedure visit Department of Dermatology in [place], [place] [address] [place] [phone] Vitaliy Alvares M.D. [address] [place] [phone] 09/25/2023 9:00 AM CDT Appointment Department of Radiology, [facility], in [place], [place] [address] [place] [phone] Cody Carroll M.D. [address] [place] [phone] 09/25/2023 9:30 AM CDT Diagnostic Division of Pulmonary Medicine in [address] [phone] Cody Carroll M.D. [address] [place] [phone] 09/25/2023 11:30 AM CDT Office Visit Division of Pulmonary Medicine in [address] [phone] Teri Cerda APRN, C.N.P., D.N.P. [address] [place] [phone] 10/23/2023 9:20 AM CDT Office Visit Department of Dermatology in [address] [phone] Crystal Rodriguez APRN, C.N.P., M.S.N. 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
--- OUTSIDE RECORDS SUMMARY | 2023-08-12 07:13 | XMS_ITS ---
Care Plan - [facility] Created on: August 12, 2023 Martin Vieira : 1945 Sex: Male Author Name Unknown Address [address] [facility] [address] [place] [address] Phone Organization [facility] Address [address] [facility] [address] [place] [address] Phone Care Team Providers Care Physical Chemist Name Role Phone Miguel Vazquez DO Primary Care Provider
--- OUTSIDE RECORDS SUMMARY | 2023-08-12 07:13 | XMS_ITS | Encounter Summary ---
Author Name Unknown Organization [facility] Address [address] [place] [address] Care Team Providers Care Seamstress Fitter Name Role Phone Elsewhere, Pcp Primary Care Provider Unavailabl e Reason for Visit * Reason Onset Date Comments Pre-visit Intake 06/20/2023 Encounter Details Date Type Department Care Team (Latest Contact Info) Description 06/20/2023 11:15 AM CDT Clinical Communication Virtual Review in [place], [place] 200 [place] [address] Pre-visit Intake Social History Tobacco Use Types Packs/Day Years Used Date Smoking Tobacco: Former Cigarettes 0 03/31/1961 - 03/31/1999 Passive Smoke Exposure: Past Smokeless Tobacco: Former Snuff Quit: 03/31/1994 Tobacco Cessation:Counseling Given: Not Answered Alcohol Use Standard Drinks/Week Comments Yes 7 (1 standard drink = 0.6 oz pur e alcohol) [facility] Utilities Answer Date Recorded In the past 12 months has [employer], gas, oil, or water [employer] threatened to shut off services in your [...] often do you attend chur ch or confucianism services? Never 03/17/2022 Do you belong to any clubs o r organizations such as advent groups, unions, fraternal or athletic groups, or [...] and heating? Not hard at all 08/27/2022 [facility] of Occupat ional Health - Occupational Stress [...] your living situation today? I have a [facility] place to live 03/26/2023 Education [...] CDT Procedure visit Department of Urology in [place], [place] 200 [place] [address] River Stockton M.D. [address] [place] [address] 08/20/2023 1:00 PM CDT Procedure visit Department of Urology in [place], [place] [address] [place] [address] River Stockton M.D. [address] [place] [phone] 08/26/2023 10:30 AM CDT Procedure visit Department of Urology in [place], [place] [address] [place] [address] River Stockton M.D. [address] [place] [phone] 09/03/2023 1:00 PM CDT Procedure visit Department of Urology in [place], [place] [address] [place] [address] River Stockton M.D. [address] [place] [phone] 09/09/2023 10:30 AM CDT Procedure visit Department of Urology in [place], [place] [address] [place] [address] River Stockton M.D. [address] [place] [phone] 09/22/2023 10:30 AM CDT Procedure visit Department of Dermatology in [place], [place] [address] [place] [address] Vitaliy Alvares M.D. [address] [place] [phone] 09/25/2023 9:00 AM CDT Appointment Department of Radiology, [facility], in [place], [place] [address] [place] [address] Cody Carroll M.D. [address] [place] [phone] 09/25/2023 9:30 AM CDT Diagnostic Division of Pulmonary Medicine in [place], [place] [address] [place] [phone] Cody Carroll M.D. [address] [place] [phone] 09/25/2023 11:30 AM CDT Office Visit Division of Pulmonary Medicine in [place], [place] [address] [place] [phone] Teri Cerda APRN, C.N.P., D.N.P. [address] [place] [phone] 10/23/2023 9:20 AM CDT Office Visit Department of Dermatology in [place], [place] [address] [place] [phone] Crystal Rodriguez APRN, C.N.P., M.S.N. [address] [place] [phone] documented as of this encounter Visit Diagnoses Not on filedocumented in this encounter Care Teams Seamstress Fitter Relationship Specialty Start Date End Date Elsewhere, Pcp PCP - General Family Medicine 10/30/20 documented as of this encounter
--- OUTSIDE RECORDS SUMMARY | 2023-08-12 07:13 | XMS_ITS | Encounter Summary ---
Author Name Unknown Organization [facility] Address [address] [place] [address] Care Team Providers Care Pattern Drafter Name Role Phone Elsewhere, Pcp Primary Care Provider Unavailabl e Encounter Details Date Type Department Care Team (Late st Contact Info) Description 04/15/2023 Clinical Communication Department of Urology in [place], [place] [address] [place] [phone] River Stockton M.D. [address] [place] [phone] Social History Tobacco Use Types Packs/Day Years Used Date Smoking Tobacco: Former Cigarettes 0 03/31/1961 - 03/31/1999 Passive Smoke Exposure: Past Smokeless Tobacco: Former Snuff Quit: 03/31/1994 Alcohol Use Standard Drinks/Week Comments Yes 7 (1 standard drink = 0.6 oz pur e alcohol) [facility] Utilities Answer Date Recorded In [...] How often do you attend chur or restorationist services? Never 03/17/2022 Do you belong to any clubs o r organizations such as zoroastrian groups, unions, fraternal or athletic groups, or [...] and heating? Not hard at all 08/27/2022 [facility] of Occupat ional Health - [...] your living situation today? I have a [facility] place to live 03/26/2023 Education Answer [...] CDT Procedure visit Department of Urology in [place], [place] 200 [place] [address] River Stockton M.D. 200 [place] [address] 08/20/2023 1:00 PM CDT Procedure visit Department of Urology in [place], [place] [address] [place] [address] River Stockton M.D. [address] [place] [phone] 08/26/2023 10:30 AM CDT Procedure visit Department of Urology in [place], [place] [address] [place] [address] River Stockton M.D. [address] [place] [phone] 09/03/2023 1:00 PM CDT Procedure visit Department of Urology in [place], [place] [address] [place] [address] River Stockton M.D. [address] [place] [phone] 09/09/2023 10:30 AM CDT Procedure visit Department of Urology in [place], [place] [address] [place] [address] River Stockton M.D. [address] [place] [phone] 09/22/2023 10:30 AM CDT Procedure visit Department of Dermatology in [place], [place] [address] [place] [phone] Vitaliy Alvares M.D. [address] [place] [phone] 09/25/2023 9:00 AM CDT Appointment Department of Radiology, [facility], in [place], [place] [address] [place] [phone] Cody Carroll M.D. [address] [place] [phone] 09/25/2023 9:30 AM CDT Diagnostic Division of Pulmonary Medicine in [place], [place] [address] [place] [phone] Cody Carroll M.D. [address] [place] [phone] 09/25/2023 11:30 AM CDT Office Visit Division of Pulmonary Medicine in [place], [place] [address] [place] [phone] Teri Cerda APRN, C.N.P., D.N.P. [address] [place] [phone] 10/23/2023 9:20 AM CDT Office Visit Department of Dermatology in [place], [place] [address] [place] [phone] Crystal Rodriguez APRN, C.N.P., M.S.N. [address] [place] [phone] documented as of this encounter Visit Diagnoses Not on filedocumented in this encounter Care Teams Pattern Drafter Relationship Specialty Start Date End Date Elsewhere, Pcp PCP - General Family Medicine 10/30/20 documented as of this encounter
--- OUTSIDE RECORDS SUMMARY | 2023-08-12 07:13 | XMS_ITS ---
Author Name Unknown Address [address] [facility] [address] [place] [address] Phone Organization [facility] Address [address] [facility] [address] [place] [address] Phone Care Team Providers Care Researcher Name Role Phone Miguel Vazquez DO Primary [...] Dates Guarantor Ph one Martin Vieira Self [phone] Clinical Notes Includes: Signed Clinical Notes starting from 11/08/2022 No Clinical Notes Recorded
--- OUTSIDE RECORDS SUMMARY | 2023-08-12 07:13 | XMS_ITS | Data Portability ---
Author Name Unknown Address [address] [place] [address] Phone [phone] Organization [place] - [facility], Patient Home Address [address] [place] [address] Assessment No assessment recorded. Plan of Treatment Reminders Order Date Submit Date Provider Last Modified By Organization Details Last Modified Time Details Appointments None recorded. Lab None recorded. Referral None recorded. Procedures None recorded. Surgeries None recorded. Imaging None recorded. Medication Orders prednisone 20 mg tablet 2023 024 [facility] #[id number], [address] [place], [place], [id number], 4 10:06:51 dexamethaso ne sodium phosphate 4 mg/mL injection solution 2023 024 [email or web address] Not available 4 12:25:20 amoxicillin 875 mg tablet 2023 024 [id number], [address], [place], [id number], 4 12:29:55 Medrol (Ranjith) 4 mg tablets in a dose pack 2023 024 [id number], [address], [place], [id number], 4 12:29:58 Patient TargetsNo targets recorded. Patient InstructionsNo instructions recorded. Reason for Referral None Reported. Problems Name Status Onset Date Resolution Date Notes Provider Name and Address Organization Details Recorded Time Generalized rash Active 06/28/19 24 Darin Marie MD [address] [place], [address], [facility] 06/28/2023 10:05:38 Allergic reaction to drug Active 06/28/19 24 Darin Marie MD [address] [place], [address], [facility] 06/28/2023 10:06:11 Problem Notes None recorded. Medical Equipment None Reported. Allergies Allergen ID Allergen Name Allergen Category Reaction Reaction Severity Criticality Documentation Date Start Date Code Code System Note Provider Name and Address Organization Details Recorded Time 4653 amoxicill in medicatio n Not available Not available Not available 06/28/2023 723 Rx[facility] Darin Marie MD [address] [place], [address], [facility] 10:02:28 Medications Name Sig Start Date Stop [...] Updated DateTime 4 190.5 cm 25 kg/m2 59367.4 7 g 98.1 [degF] 16 /min 99 % 99 % 59 /min 118 mm[Hg] 66 mm[Hg] Farhana Gonzalez [facility] 4 12:20:15 Date Recorded Body height Body mass index (BMI) Body weight Heart rate Respiratory rate Oxygen saturation Oxygen saturation in Arterial blood by Pulse oximetry Body temperature Systolic blood pressure Diastolic blood pressure Provider Name and Address Organization Details Last Updated DateTime 4 187.96 cm 25 kg/m2 29115.5 1 g 65 /min 18 /min 97 % 97 % 98.4 [degF] 132 mm[Hg] 71 mm[Hg] Victor Manuel Cheneyahan [facility] 4 09:56:35 Social History Question Answer Notes LastModified by [...] Encounter Closed Date Diagnosis/Indication Diagnosis SNOMED-CT Code [id number] Raji Parikh MD [facility] [address] [place] [address] 06/19/2023 11:14:05 06/19/2023 12:32:51 Sinusitis [id number] Darin Marie MD [facility] [address] [place] [address] 06/28/2023 09:34:11 06/28/2023 12:59:02 Generalized rash 873097509 Allergic r eaction to drug 492305013 Health Concerns Section Related Observation LastModified by Organization Detai ls LastModified Time None Recorded Concern Status LastModified by Organization Details LastModified Time None Recorded Advance Directives Directive None Recorded Payers Encounter Date Sequence Insurance Name Policy Number Policy Magallanes Covered Member ID Magallanes Member ID Guarantor Name 06/28/2023 1 [employer] - DOS ON OR AFTER 19 (MEDICARE REPLACEMENT/ ADVANTAGE - PPO) Martin Vieira [id number] Martin Vieira 06/19/2023 2 [place] Martin Vieira [id number] Martin Vieira 06/19/2023 1 [employer] (PPO) Martin Vieira [id number] Martin Vieira Notes Date Note Type Note Provider Name and Address Organization Details Recorded Time 06/19/2023 text/html HPI Notes: runny nose, nasal congestion, cough x 3 days pt took at home covid test yesterday and was neg fly to [place] friday + bladder CA Raji Parikh MD [address] [place], [address], [facility] 06/19/2023 12:32:16 06/28/2023 text/html HPI Notes: allergic reaction to prob amox went to the ER rash only no angioedeam given 1 day of steroids helped but now worse again Darin Marie MD [address] [place], [address], [facility] 06/28/2023 10:39:42
--- OUTSIDE RECORDS SUMMARY | 2023-08-12 07:13 | XMS_ITS | Encounter Summary ---
Author Name Unknown Organization [facility] Address [address] [place] [address] Care Team Providers Care Fern Cutter Name Role Phone Elsewhere, Pcp Primary Care Provider Unavailabl e Reason for Visit * Outpatient (Routine) - Closed Specialty Diagnoses / Procedures Referred By Mychal izquierdo Referred To Contact Diagnoses Malignant Neoplasm Of Bladder (HCC) Procedures URO Cystoscopy (general) Rula Elmore M.D. [address] [place] [phone] [facility] Region Referral ID Status Reason Start Date Expiration Date Visits Re quested Visits Authorized [id number] Closed 04/16/2023 04/15/2024 1 1 Encounter Details Date Type Department Care Team (Latest Contact Info) Description 06/23/2023 10:00 AM CDT Procedure visit Department of Urology in [place], [place] [address] [place] [phone] Rula Elmore M.D. [address] [place] [phone] Irma Larsen P.A.-C. [address] [place] [phone] Malignant Neoplasm Of Bladder (HCC) Social History Tobacco Use Types Packs/Day Years Used Date Smoking Tobacco: Former Cigarettes 0 03/31/1961 - 03/31/1999 Passive Smoke Exposure: Past Smokeless Tobacco: Former Snuff Quit: 03/31/1994 Alcohol Use Standard Drinks/Week Comments Yes 7 (1 standard drink = 0.6 oz pur e alcohol) [facility] Utilities Answer Date Recorded In the [...] How often do you attend chur or anabaptism services? Never 03/17/2022 Do you belong to [...] when you are drinking? 1 or 2 12/18/202 2 Q3: How often do you have si x or more drinks on one occasion? Never 03/17/2022 Overall Financial Resource Strain (CARDIA) Answe r Date Recorded How hard is it for you to pa y for the very basics like food, housing, medical care, and heating? Not hard at all 08/27/2022 [facility] [...] living situation today? I have a [facility] place to live 03/26/2023 Education Answer Date [...] as of this encounter Patient Instructions * Patient Instructions* Shira Bermudez L.P.N. - 06/23/2023 10:00 AM CDT Care after your cystoscopy Possible blood in your urine You may see some blood the first few times you urinate after the cystoscopy. There could be some small clots of blood in your urine. Or your urine could be pink or light red. These effects are commonafter a cystoscopy. Discomfort For the first day or two after your cystoscopy, you may need to urinate often, and you may have a mild burning feeling while urinating. You also may have mild low abdominal pain for a day. To relievediscomfort, drink two 8-ounce glasses of water each hour for two hours after the test (a total of four glasses in two hours). This will help flush your bladder. To relieve discomfort, if your provider says it???s OK, you may take a warm tub bath for 20 minutes. Or you may hold a clean, warm, moist washcloth over the urethral opening for 20 minutes. Some common pain relievers can affect blood thinning. Examples include aspirin, aspirin-containing products, ibuprofen (Advil, Motrin), and naproxen(Aleve, Naprosyn). Talk with your health care providers about what you can take for pain. Activity Rest for the remainder of the day after your cystoscopy. Gradually return to your usual activity level when you feel able. Diet For the first two days after your cystoscopy, while you are awake, you may find it more comfortableif you drink at least one glass of fluid every one to two hours. This will help flush your bladder.Drink fluids such as water, juice, caffeine-free carbonated beverages and tea. Resume your usual diet after the procedure, unless you are scheduled for more tests or procedures that require a specialdiet. When to get medical help Contact your health care provider right away if you: Are not able to urinate for 6 to 8 hours. Have blood clots or bright red blood in your urine (not pink or rust colored) that lasts for 4 to 5hours despite increased intake of fluids. Have frequent urination with any of the following: - Pain not relieved by increasing fluids. - Chills. - Temperature of 100.4 degrees Fahrenheit (38 degrees Celsius) or higher. Have a burning feeling while urinating on day three or after. documented in this encounter Progress Notes * Shira Bermudez L.P.N. - 06/23/2023 10:00 AM CDT Patient here for a cystoscopy performed by Irma Larsen Cystoscope [facility]F-[facility] #[id number] was used during today's cystoscopy procedure. Accessories used: disposable stop cock. Load number from processing via [employer]: [id number] Urines sent: No 4. Was dye used? No documented in this encounter Procedure Notes * Irma Larsen P.A.-C. - 06/23/2023 10:00 AM CDTAssociated Order(s): URO Cystoscopy (general) Pre-Procedure Diagnose(s): Malignant Neoplasm Of Bladder (HCC) Post-Procedure Diagnose(s): Malignant Neoplasm Of Bladder (HCC) URO Cystoscopy (general) Performed by: Irma Larsen P.A.-C. Authorized by: Rula Elmore M.D. Additional procedures performed: cystoscopy PROCEDURE DETAILS: Blue light imaging agent used: no Fluoroscopy: Fluoroscopic image guidance used to localize [...] and draped in the dorsal lithotomy position. Cystoscope was placed into the urethra and sphincter coapted appropriately. Upon entry into the bladder spangler cystoscopy was performed with a pinched up area on the posterior bladder wall that was indeterminate. Along the right lateral bladder wall there was a diverticulum that was inspected with a small area of erythema which was also indeterminate. Along the left bladder wall there was a larger bladder diverticulum that was inspected and this too had a more prominent area of erythema in pinched up tissue. On retroflexed view there is normal-appearing bladder neck with ureteral orifices in the orthotopic position. Cystoscope was then removed and the patient tolerated the procedure well. DX: Indeterminate area within bilateral bladder diverticulum left bladder wall more than the right.Pinched up area of tissue along posterior bladder wall. Clinical correlation recommended. PLAN: Patient has upcoming appt [...] a procedural pause. PRE-PROCEDURE DETAILS Procedure purpose: Diagnostic Appropriate hand hygiene, gown, cap, mask, protective eyewear, sterile gloves, skin preparation, sterile drape, and strict aseptic technique were utilized as applicable for the procedure.: yes Site preparation: Povidone-iodine SEDATION / ANESTHESIA Anesthesia method: none POST-PROCEDURE DETAILS Procedure completed successfully: yes Complications: no apparent complications documented in this encounter Plan of Treatment Upcoming Encounters Date Type Department Care Team (Late st Contact Info) Description 08/13/2023 1:00 PM CDT Procedure visit Department of Urology in [place], [place] [address] [place] [phone] River Stockton M.D. [address] [place] [address] 08/20/2023 1:00 PM CDT Procedure visit Department of Urology in [place], [place] [address] [place] [address] River Stockton M.D. [address] [place] [phone] 08/26/2023 10:30 AM CDT Procedure visit Department of Urology in [place], [place] [address] [place] [address] River Stockton M.D. [address] [place] [phone] 09/03/2023 1:00 PM CDT Procedure visit Department of Urology in [place], [place] [address] [place] [address] River Stockton M.D. [address] [place] [phone] 09/09/2023 10:30 AM CDT Procedure visit Department of Urology in [place], [place] [address] [place] [address] River Stockton M.D. [address] [place] [phone] 09/22/2023 10:30 AM CDT Procedure visit Department of Dermatology in [place], [place] [address] [place] [phone] Vitaliy Alvares M.D. [address] [place] [phone] 09/25/2023 9:00 AM CDT Appointment Department of Radiology, [facility], in [place], [place] [address] [place] [address] Cody Carroll M.D. [address] [place] [phone] 09/25/2023 9:30 AM CDT Diagnostic Division of Pulmonary Medicine in [place], [place] [address] [place] [phone] Cody Carroll M.D. [address] [place] [phone] 09/25/2023 11:30 AM CDT Office Visit Division of Pulmonary Medicine in [place], [place] [address] [place] [phone] Teri Cerda APRN, C.N.P., D.N.P. [address] [place] [phone] 10/23/2023 9:20 AM CDT Office Visit Department of Dermatology in [address] [phone] Crystal Rodriguez APRN, C.N.P., M.S.N. [address] [place] [phone] documented as of this encounter Procedures Procedure Name Priority Date/Time Associated Diagnosis Comments URO CYSTOSCOPY (GENERAL) Routine 06/23/2023 10:00 AM CDT Malignant Neoplasm Of Bladder (HCC) CYTOLOGY NON-INFECTION PREVENTION COORDINATOR Routine 06/23/2023 9:58 AM CDT Malignant Neoplasm Of Bladder (HCC) documented in this encounter Results * URO Cystoscopy (general) (06/23/2023 10:00 AM [...] Rula Elmore M.D. UROLOGY ORDERABLES * Cytology Non-INFECTION PREVENTION COORDINATOR (06/23/2023 9:58 AM CDT) 06/24/2023 1:37 PM [...] Larsen P.A.-C. LAB SURG PATH ORD ERABLES [facility] [address] [place] [address], [facility] [address] [place] [address] documented in this encounter Visit Diagnoses Diagnosis Malignant Neoplasm Of Bladder (HCC) documented in this encounter Care Teams Fern Cutter Relationship Specialty Start Date End Date Elsewhere, Pcp PCP - General Family Medicine 10/30/20 documented as of this encounter
--- OUTSIDE RECORDS SUMMARY | 2023-08-12 07:13 | XMS_ITS | Encounter Summary ---
Author Name Unknown Organization [facility] Address [address] [place] [address] Care Team Providers Care Visiting Nurse Name Role Phone Elsewhere, Pcp Primary Care Provider Unavailabl e Reason for Referral * Outpatient (Routine) - Closed Specialty Diagnoses / Procedures Referred By Mychal izquierdo Referred To Contact Otorhinolaryngology Diagnoses Neuroma Acoustic (HCC) Vertigo Rikki Leiva M.D. [address] [place] [address] [facility] Referral ID Status Reason Start Date Expiration Date Visits Re quested Visits Authorized [id number] Closed 04/17/2018 04/17/2019 2 1 STIGATOR CASH SHORTAGE Encounter Details Date Type Department Care Team (Late st Contact Info) Description 04/17/2018 [facility] [address] [place] [address] Rikki Leiva M.D. [address] [place] [address] Neuroma Acoustic (HCC) (Primary Dx); Vertigo Social History Tobacco Use Types Packs/Day Years Used Date Smoking Tobacco: Former Smokeless Tobacco: Never Sex and Gender Information Value Date Recorded Sex Assigned at Male 09/14/2017 9:59 AM CDT Gender Identity Male 09/14/2017 9:59 AM CDT Sexual Orientation Straight 08/28/2018 6: 34 AM CDT documented as of this encounter Plan of Treatment Upcoming Encounters Date Type Department Care Team (Late st Contact Info) Description 08/13/2023 1:00 PM CDT Procedure visit Department of Urology in [place], [place] [address] [place] [address] River Stockton M.D. [address] [place] [phone] 08/20/2023 1:00 PM CDT Procedure visit Department of Urology in [place], [place] [address] [place] [address] River Stockton M.D. [address] [place] [phone] 08/26/2023 10:30 AM CDT Procedure visit Department of Urology in [place], [place] [address] [place] [address] River Stockton M.D. [address] [place] [phone] 09/03/2023 1:00 PM CDT Procedure visit Department of Urology in [place], [place] [address] [place] [address] River Stockton M.D. [address] [place] [phone] 09/09/2023 10:30 AM CDT Procedure visit Department of Urology in [place], [place] [address] [place] [address] River Stockton M.D. [address] [place] [phone] 09/22/2023 10:30 AM CDT Procedure visit Department of Dermatology in [place], [place] [address] [place] [phone] Vitaliy Alvares M.D. [address] [place] [phone] 09/25/2023 9:00 AM CDT Appointment Department of Radiology, [facility], in [place], [place] [address] [place] [phone] Cody Carroll M.D. [address] [place] [phone] 09/25/2023 9:30 AM CDT Diagnostic Division of Pulmonary Medicine in [place], [place] [address] [place] [phone] Cody Carroll M.D. [address] [place] [phone] 09/25/2023 11:30 AM CDT Office Visit Division of Pulmonary Medicine in [place], [place] [address] [place] [phone] Teri Cerda APRN, C.N.P., D.N.P. [address] [place] [phone] 10/23/2023 9:20 AM CDT Office Visit Department of Dermatology in [address] [phone] Crystal Rodriguez APRN, C.N.P., M.S.N. [address] [place] [phone] Scheduled Referrals Name Type Priority Associated Diagnoses Order Schedule Otolaryngology Referral Outpatient Referral Routine Neuroma Acoustic (HCC) Vertigo Expected: 08/05/2018 (Approximate), Expires: 04/17/2021 documented as of this encounter Visit Diagnoses Diagnosis Neuroma Acoustic (HCC)- Primary Vertigo documented in this encounter Additional Health Concerns Infection Onset Date Last Indicated Resolved Time COVID19 Pending 10/25/2020 10/26/2020 10/26/2020 8 :41 PM CDT COVID19 Pending 08/28/2021 08/28/2021 08/28/2021 5 :58 PM CDT Protective Environment 09/04/2022 09/04/202212/08 5:31 AM CDT Protective Environment 08/06/2023 08/06/2023 documented as of this encounter Care Teams Visiting Nurse Relationship Specialty Start Date End Date Elsewhere, Pcp PCP - General Family Medicine 10/30/20 documented as of this encounter
--- OUTSIDE RECORDS SUMMARY | 2023-08-12 07:13 | XMS_ITS | Encounter Summary ---
Author Name Unknown Organization [facility] Address [address] [place] [address] Care Team Providers Care Cement Mason Name Role Phone Elsewhere, Pcp Primary Care Provider Unavailabl e Reason for Visit * Outpatient (Routine) - Closed Specialty Diagnoses / Procedures Referred By Mychal izquierdo Referred To Contact Urology Rula Elmore M.D. [address] [place] [phone] River Stockton M.D. [address] [place] [phone] Referral ID Status Reason Start Date Expiration Date Visits Re quested Visits Authorized [id number] Closed 04/16/2023 04/15/2026 1 1 Encounter Details Date Type Department Care Team (Late st Contact Info) Description 06/23/2023 3:00 PM CDT Office Visit Department of Urology in [place], [place] [address] [place] [phone] River Stockton M.D. [address] [place] [address] [phone] Lesion Bladder (Primary Dx) Social History Tobacco Use Types Packs/Day Years Used Date Smoking Tobacco: Former Cigarettes 0 03/31/1961 - 03/31/1999 Passive Smoke Exposure: Past Smokeless Tobacco: Former Snuff Quit: 03/31/1994 Alcohol Use Standard Drinks/Week Comments Yes 7 (1 standard drink = 0.6 oz pur e alcohol) [facility] Utilities Answer Date Recorded In [...] often do you attend chur ch or orthodox services? Never 03/17/2022 Do you belong to [...] and heating? Not hard at all 08/27/2022 [facility] - Occupational Stress [...] your living situation today? I have a [facility] place to live 03/26/2023 Education [...] as of this encounter Progress Notes * Cornell Rowan APRN, C.N.P. - 06/23/2023 3:00 PM CDT SUBJECTIVE REASON FOR CONSULT Urothelial carcinoma of the bladder Suspicious bladder lesions HISTORY OF PRESENT ILLNESS Mr. Vieira is a 77 y.o. 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 He had a negative biopsy in December of 2022. Cystoscopy today shows erythematous patches in both bladder diverticulum and within the bladder mucosa. PHYSICAL EXAM General: Well-appearing, in no acute apparent distress. ASSESSMENT / PLAN #1 Bladder lesions Plan I have recommended biopsy which the patient is in agreement with. We had a good discussion on risks. These include bleeding, infection, urosepsis, bladder perforation, hematuria, need for catheter, and need for stent. He wishes to proceed forward. Informed consent signed. We reviewed NPO instructions. His report location is [facility]. Surgical date is July 15 I gave him an order to obtain urine culture locally 1 to 2 weeks before the procedure. RECOMMENDATIONS 1. Preoperative examination 2. Urine culture 1 to 2 weeks before procedure 3. NPO after midnight night before procedure 4. Multiple CBF in OPC 07/16/2023 documented in this encounter Plan of Treatment Upcoming Encounters Date Type Department Care Team (Late st Contact Info) Description 08/13/2023 1:00 PM CDT Procedure visit Department of Urology in [place], [place] [address] [place] [phone] River Stockton M.D. [address] [place] [phone] 08/20/2023 1:00 PM CDT Procedure visit Department of Urology in [place], [place] [address] [place] [phone] River Stockton M.D. [address] [place] [address] 08/26/2023 10:30 AM CDT Procedure visit Department of Urology in [place], [place] [address] [place] [address] River Stockton M.D. [address] [place] [phone] 09/03/2023 1:00 PM CDT Procedure visit Department of Urology in [place], [place] [address] [place] [phone] River Stockton M.D. [address] [place] [phone] 09/09/2023 10:30 AM CDT Procedure visit Department of Urology in [place], [place] [address] [place] [phone] River Stockton M.D. [address] [place] [phone] 09/22/2023 10:30 AM CDT Procedure visit Department of Dermatology in [place], [place] [address] [place] [address] Vitaliy Alvares M.D. [address] [place] [phone] 09/25/2023 9:00 AM CDT Appointment Department of Radiology, [facility], in [place], [place] [address] [place] [address] Cody Carroll M.D. [address] [place] [phone] 09/25/2023 9:30 AM CDT Diagnostic Division of Pulmonary Medicine in [place], [place] [address] [place] [phone] Cody Carroll M.D. [address] [place] [phone] 09/25/2023 11:30 AM CDT Office Visit Division of Pulmonary Medicine in [place], [place] [address] [place] [phone] Teri Cerda APRN, C.N.P., D.N.P. [address] [place] [phone] 10/23/2023 9:20 AM CDT Office Visit Department of Dermatology in [place], [place] [address] [place] [phone] Crystal Rodriguez APRN, C.N.P., M.S.N. [address] [place] [phone] documented as of this encounter Visit Diagnoses Diagnosis Lesion Bladder- Primary documented in this encounter Care Teams Cement Mason Relationship Specialty Start Date End Date Elsewhere, Pcp PCP - General Family Medicine 10/30/20 documented as of this encounter
--- OUTSIDE RECORDS SUMMARY | 2023-08-12 07:13 | XMS_ITS | Encounter Summary ---
Author Name Unknown Organization [facility] Address [address] [place] [address] Care Team Providers Care Safety Manager Name Role Phone Elsewhere, Pcp Primary Care Provider Unavailabl e Reason for Referral * Outpatient (Routine) - Authorized Specialty Diagnoses / Procedures Referred By Contac t Referred To Contact Dermatology Sallie Padilla P.A.-C., M.S. [address] [place] [phone] [facility] Referral ID Status Reason Start Date Expiration Date V isits Requested Visits Authorized [id number] Authorized 06/23/2023 12/22/2024 1 1 Scheduling Instructions Needs full body skin check, can be with any provider Reason for Visit * Appointment Request (Routine) - Closed Specialty Diagnoses / Procedures Referred By Contac t Referred To Contact Dermatology Diagnoses Lesion Skin Face Referral ID Status Reason Start Date Expiration Date Visits Re quested Visits Authorized [id number] Closed 05/26/2023 05/25/2024 1 1 Encounter Details Date Type Department Care Team (Latest Contact Info) Description 06/23/2023 8:00 AM CDT Comprehensive Visit Department of Dermatology in [place], [place] [address] [place] [phone] Sallie Padilla P.A.-C., M.S. [address] [place] [address] Tumor Skin Uncertain Behavior (Primary Dx); Keratosis Actinic; Keratosis Seborrheic Social History Tobacco Use Types Packs/Day Years Used Date Smoking Tobacco: Former Cigarettes 0 03/31/1961 - 03/31/1999 Passive Smoke Exposure: Past Smokeless Tobacco: Former Snuff Quit: 03/31/1994 Alcohol Use Standard Drinks/Week Comments Yes 7 (1 standard drink = 0.6 oz pur e alcohol) [facility] Utilities Answer Date Recorded In the [...] often do you attend chur ch or episcopalian services? Never 03/17/2022 Do you belong to any clubs o r organizations such as christian groups, unions, fraternal or athletic groups, or [...] and heating? Not hard at all 08/27/2022 [facility] - Occupational Stress Questionnaire Answer Date [...] as of this encounter Progress Notes * Ana Lilia Wong R.N. - 06/23/2023 8:00 AM CDT Shave biopsies on the right frontal scalp (A), right parietal scalp (B), and left vertex scalp (C) was/were performed as ordered and outlined by Dottie Padilla P.A.-C., M.S. in the clinical note dated with today's date. Fire Risk Assessment: NA. documented in this encounter Consult Notes * Sallie Padilla P.A.-C., M.S. - 06/23/2023 8:00 AM CDT REFERRED BY No ref. provider found CHIEF COMPLAINT/REASON FOR VISIT Skin lesions HISTORY OF PRESENT ILLNESS Mr. Martin Vieira is a pleasant 77 y.o. male who presents today for a scalp and face skin cancer screening examination. 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 A biopsy ofthe right forehead was obtained and revealed a squamous cell carcinoma in-situ with marked periadnexal extension. This was treated with electrodesiccation and curettage at time of biopsy. Today, the patient requests limited evaluation of his scalp and face only. He has noticed some scaly lesions throughout his scalp. He has a has a new skin growth on the right nasal dorsum and right lateral canthus. He states these areas are scaly. The lesion on the right frontal scalp does not seemto be healing. These areas do not itch, bleed, or cause pain. In the past, patient has previously declined field treatment for actinic keratoses. He questions if this is something he should now consider. No Known Allergies PAST DERMATOLOGIC HISTORY 1. 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 History of nonmelanoma skin cancer FAMILY DERMATOLOGIC HISTORY Negative for skin cancer PHYSICAL EXAM General: Awake, alert, in no acute distress, and with appropriate affect. Eyes: No scleral injection or icterus. No eyelid abnormalities. Skin: I have examined the scalp and face. Sanchez skin type II with evidence of significant dermatoheliosis on the sun-exposed scalp and face. Involving the patient's lesion of concern at the right nasal dorsum as well throughout the face and scalp are few skin colored to sanchez-brown, waxy, stuck-on papules consistent with seborrheic keratosis. Involving the scalp, forehead, temples, right lateral canthus, right superior helix, left tragus, right lateral neck, and right postauricular neck x2 are pink to red macules with overlying adherent scale and small thin hyperkeratotic and crusted papules consistent with actinic keratoses. Involving the left vertex scalp is an indurated hyperkeratotic plaque. Involving the right parietal scalp is a pink hyperkeratotic plaque with dot vessels on dermoscopy. Involving the right frontal scalp an erythematous indurated hyperkeratotic plaque. IMPRESSION/REPORT/PLAN #1 Tumor of the skin uncertain behavior x3, right frontal scalp, right parietal scalp, and left vertex scalp Photographs obtained. These are clinically significant for nonmelanoma skin cancer. Shave biopsy performed by Ana Lilia Wong RN. Results will be communicated in a letter on the [facility] portal. CONSENT Discussed the risks, benefits, alternatives, and the necessity of other members of the healthcare team participating in the procedure. All questions answered and consent given. UNIVERSAL PROTOCOL Procedural pause conducted to verify: correct patient identity, procedure to be performed, and as applicable, correct side and site, correct patient position, and availability of implants, special equipment, or special requirements. PROCEDURE INFORMATION Shave biopsy. We explained the potential diagnosis and recommended that we obtain a biopsy. The risks and benefits of the procedure were discussed, and the patient consented to these procedures. Using 1% lidocainewith epinephrine for local anesthesia, a shave biopsy was obtained from the right frontal scalp, right parietal scalp, and left vertex scalp. Biopsy submitted to Dermatopathology for H&E. Specialstains will be performed as indicated. The bleeding was well controlled with application of aluminum chloride. Dressing was applied, and wound care instructions were explained. Biopsy results and anyfurther recommendations will be communicated to the patient by letter. Patient given pamphlet [id number]. #2 Actinic Keratoses x13 Actinic keratoses are pre-cancerous skin growths caused by sun exposure. Treatment is recommended and medically indicated. A total of 13 actinic keratosis were treated with liquid nitrogen. Location:Scalp x5, right lateral canthus, right druze x2, right superior helix, left tragus, right lateral neck, and right postauricular neck x2. After explaining the procedure, discussing the associated risks, benefits, and alternatives, and obtaining verbal informed consent, the lesion(s) underwent treatment with liquid nitrogen cryotherapy in the standard fashion with two freeze-thaw cycles. The patient tolerated the procedure well. Aftercare instructions were provided in writing and verbal form to the patient. Should any of these lesions recur, the patient should return for biopsy or further evaluation. #3 Diffuse actinic keratoses, scalp and face Field treatment with 5-Fluorouracil cream and calcipotriene ointment is recommended. These medications should be applied to the scalp, forehead, temples, and cheeks morning and night for 7 days. 5-fluorouracil cream and calcipotriene ointment cause a reaction to skin that has precancerous changes. The reaction includes irritation, erosion and scabbing. Although unpleasant, this is necessary to treat actinic keratoses and superficial skin cancers. To soothe your skin and help decrease discomfort during treatment, apply Aquaphor??? or petroleum jelly as often as every three hours. Wait at least 60 minutes after applying the medication before applying Aquaphor??? or petroleum jelly. Unless you are told otherwise, you may take the recommended dose of acetaminophen (Tylenol???) for discomfort and diphenhydramine (Benadryl???) for itching. An educational pamphlet was given to the patient today regarding this treatment. #4 Inflamed Seborrheic Keratoses x1 Location: Right nasal dorsum. The benign nature of this lesion(s) was discussed with the patient. Given the inflamed nature of this lesion(s), its treatment is medically indicated. After explaining the procedure, discussing the associated risks, benefits, and alternatives, and obtaining verbal informed consent, the lesion(s) underwent treatment with liquid nitrogen cryotherapy in the standard fashion. The patient tolerated the procedure well. Aftercare instructions were provided in written and verbal form to the patient. Should any of these lesions recur, the patient should return for furtherevaluation. #5 History of malignant melanoma #6 History of nonmelanoma skin cancer Full skin check offered to the patient today which he politely declined. I would recommend a full skin cancer screening examination with an appropriately trained clinician every 6 months. He will return in September for his next full body skin check. Order placed. All questions answered. PATIENT EDUCATION Ready to learn. No apparent learning barriers were identified. Learning preferences include listening. Explained diagnosis and treatment plan; patient/guardian of patient expressed understanding of the content. documented in this encounter Plan of Treatment Upcoming Encounters Date Type Department Care Team (Late st Contact Info) Description 08/13/2023 1:00 PM CDT Procedure visit Department of Urology in [place], [place] [address] [place] [address] River Stockton M.D. [address] [place] [address] 08/20/2023 1:00 PM CDT Procedure visit Department of Urology in [place], [place] [address] [place] [address] River Stockton M.D. [address] [place] [phone] 08/26/2023 10:30 AM CDT Procedure visit Department of Urology in [place], [place] [address] [place] [address] River Stockton M.D. [address] [place] [phone] 09/03/2023 1:00 PM CDT Procedure visit Department of Urology in [place], [place] [address] [place] [address] River Stockton M.D. [address] [place] [phone] 09/09/2023 10:30 AM CDT Procedure visit Department of Urology in [place], [place] [address] [place] [address] River Stockton M.D. [address] [place] [phone] 09/22/2023 10:30 AM CDT Procedure visit Department of Dermatology in [place], [place] [address] [place] [phone] Vitaliy Alvares M.D. [address] [place] [phone] 09/25/2023 9:00 AM CDT Appointment Department of Radiology, [facility], in [place], [place] [address] [place] [phone] Cody Carroll M.D. [address] [place] [phone] 09/25/2023 9:30 AM CDT Diagnostic Division of Pulmonary Medicine in [place], [place] [address] [place] [phone] Cody Carroll M.D. [address] [place] [phone] 09/25/2023 11:30 AM CDT Office Visit Division of Pulmonary Medicine in [place], [place] [address] [place] [address] Teri Cerda APRN, C.N.P., D.N.P. [address] [place] [phone] 10/23/2023 9:20 AM CDT Office Visit Department of Dermatology in [place], [place] [address] [place] [phone] Crystal Rodriguez APRN, C.N.P., M.S.N. [address] [place] [phone] Scheduled Referrals Name Type Priority Associated Diagnoses Order Schedule Dermatology office visit (clinic) Outpatient Referral Routine Expected: 10/23/2023, Expires: 09/22/2024 documented as of this encounter Procedures Procedure Name Priority Date/Time Associated Diagnosis Comments DERMATOPATHOLOGY Routine 06/23/2023 8:06 AM CDT documented in this encounter Results * Dermatopathology (06/23/2023 8:06 AM CDT) 06/26/2023 9:35 AM CDT PDRM Participated in the Interpretation Salo Sequeira M.D. - Dermatopathology Fellow 06/26/2023 9:35 AM CDT PDRM Report electronically signed by Teresa Pérez M.D. 06/26/2023 9:35 AM CDT STACEYM Gross Description A: Received in formalin, labeled [...] Sallie Padilla P.A.-C., M.S. LAB PATH DE RM ORDERABLES [facility] 200 [place] [place] [address] [address] [facility] 200 [place] [address] documented in this encounter Visit Diagnoses Diagnosis Tumor Skin Uncertain Behavior- Primary Keratosis Actinic Keratosis Seborrheic documented in this encounter Care Teams Safety Manager Relationship Specialty Start Date End Date Elsewhere, Pcp PCP - General Family Medicine 10/30/20 documented as of this encounter
[2023-08-12 07:18] LABS: Basophils Absolute Auto 0.04 K/uL (0.00-0.30); Basophils Percent Auto 0.5 % (0.0-3.0); Eosinophils Absolute Auto 0.25 K/uL (0.00-0.50); Eosinophils Percent Auto 3.4 % (0.0-7.0); Hematocrit 35.7 % (37.0-53.0); Hemoglobin* 11.2 gm/dL (13.5-17.5); Immature Granulocytes Abs Auto 0.01 K/uL (0.00-0.30); Immature Granulocytes Pct Auto 0.1 %; Lymphocytes Percent Auto 17.2 % (20-44); Mean Corpuscular HGB Conc 31 gm/dL (32-36); Mean Corpuscular Hemoglobin 28 pg (26-34); Mean Corpuscular Volume 88 fL (80-100); Monocytes Percent Auto 16.2 % (0.0-11.0); Neutrophils Absolute Auto 4.55 K/uL (1.7-7.0); Neutrophils Percent Auto 62.6 % (42.0-72.0); Platelet Count* 265 K/uL (140-440); RDW Coefficient of Variation % 13.7 % (11.5-15.5); Red Blood Count 4.08 m/uL (4.30-5.90); White Blood Count* 7.28 K/uL (4.50-11.00)
[2023-08-12 07:22] LABS: Slide Review Reflex No
[2023-08-12 07:31] LABS: Albumin* 3.4 g/dL (3.3-5.0); Chloride* 100 mmol/L (96-114)
[2023-08-12 07:32] LABS: Potassium* 3.6 mmol/L (3.6-5.1); Sodium* 135 mmol/L (135-149)
[2023-08-12 07:34] LABS: Alkaline Phosphatase* 191 U/L (40-150); Anion Gap 4 mEq/L (7-15); Aspartate Amino Transferase* 61 U/L (12-35); Bilirubin Total* 0.7 mg/dL (0.1-1.5); Carbon Dioxide* 31 mmol/L (20-32); Creatinine* 0.7 mg/dL (0.5-1.5); Est. Creatinine Clearance* 72.76; Estimated Glomerular Filt Rate 94 ml/min; Magnesium* 2.2 mg/dL (1.5-2.6); Total Protein* 6.7 g/dL (6.0-8.3)
[2023-08-12 07:35] LABS: Alanine Aminotransferase* 99 U/L (4-50); Blood Urea Nitrogen* 17 mg/dL (7-30); Calcium* 8.5 mg/dL (8.4-10.6); Glucose* 112 mg/dL (60-115)
[2023-08-12 07:43] LABS: D Dimer Quantitative* 2.72 ug/ml (0.00-0.50)
[2023-08-12 07:50] LABS: C Reactive Protein* 15.1 mg/dL (0.5-1.0)
--- NOTE | 2023-08-12 07:56 | CT_ITS ---
Patient: RADHIKA SAEZ Facility:?[facility] RIS Patient ID:?[id number] Site Patient ID:?[id number]. Site :?[id number] Study:?CT-Chest W/95 ML ISOVUE 370 PE PROTOCOL-08/12/2023 8:43:39 AM Ordering Physician:SHAVON WILEY Final Report: INDICATION: Cough. Possible atrial fibrillation. Elevated D-dimer. History of bladder cancer. Opacity on radiograph. TECHNIQUE: CT chest pulmonary angiogram acquired with 95 mL of Isovue 370 IV contrast. COMPARISON: Chest radiograph 08/12/2023. CT chest 06/24/2023. FINDINGS: Cardiovascular structures: CT pulmonary angiogram demonstrates adequate opacification of the pulmonary arteries. No evidence of pulmonary embolus. Thoracic aorta is normal in caliber. Coronary artery calcifications. Heart size is within normal limits. Mediastinum and wood: Lower right paratracheal node on image 87 of series 4 is 19 x 12 mm and was 24 x 14 mm. Additional subcentimeter short axis mediastinal nodes have similarly decreased. No new lymphadenopathy. Lungs: No pneumothorax. Mild lower lobe bronchial wall thickening. Central airways are otherwise patent. Mild emphysema. Stable 7 mm left upper lobe ground-glass nodule on image 82 of series 4. Semi-solid 12 mm nodule in the right upper lobe on image 56 is unchanged. Stable 3 cm cystic lesion in the right upper lobe on image 84. New bilateral subcentimeter nodular and ground- glass opacities greatest in the right lower lobe. A right lower lobe nodule on image 161 measures 10 mm. Bibasilar scarring and atelectasis has increased. Pleura and pericardium: New small bilateral pleural effusions. New small to moderate pericardial effusion. Chest wall and axilla: Unremarkable. Bones: Mild degenerative changes. No acute or suspicious osseous abnormality. Upper abdomen: Unremarkable. IMPRESSION: 1. No evidence of pulmonary embolus. 2. New bilateral subcentimeter nodular and ground-glass opacities are likely infectious/inflammatory. However, metastasis is also a consideration. Continued attention to these on follow-up imaging is recommended. 3. New small to moderate pericardial effusion and small bilateral pleural effusions. Mild lower lobe atelectasis. 4. Mediastinal lymphadenopathy has improved. 5. Previously indexed pulmonary nodules and cystic right upper lobe lesion are unchanged. Dictated by Tato Genao MD @ 08/12/2023 9:18:39 AM Please note that all CT scans at this facility use dose modulation, iterative reconstruction, and/or weight-based dosing when appropriate to reduce radiation dose to as low as reasonably achievable. Dictated by: Tato Genao MD @ 08/12/2023 09:18:56 Signed by:?Tato Genao MD @08/12/2023 9:18:56 AM (Electronic Signature)
[2023-08-12 09:28] LABS: NT Pro B Type NatriureticPept* 3040 pg/mL
[2023-08-12 10:15] LABS: Appearance Urine Clear (Clear); Bilirubin Urine Negative (Negative); Blood Urine Negative (Negative); Color Urine Dark yellow (Yellow); Glucose Urine Negative (Negative); Ketones Urine 1+ (Negative); Leukocyte Esterase Urine Negative (Negative); Nitrite Urine Negative (Negative); Protein Urine Negative (Negative); Specific Gravity Urine <= 1.005 (1.000-1.030)
[2023-08-12 10:20] LABS: Troponin, Point-of-Care* 0.01 ng/ml (0.01-0.04)
[2023-08-12 10:22] LABS: RBC Urine 0-2 (0-2)
[2023-08-12 10:23] LABS: Bacteria Urine Few; Squamous Epithelial Cell Urine Few (None-Few)
--- NOTE | 2023-08-12 11:17 | P.IMHP_ITS ---
Hospitalist- H&P: HPI History of Present Illness Date Seen: 08/12/23 Chief complaint: erratic pulse Narrative: Martin Vieira is a 78 year old male who presented to the emergency room this morning for concern of palpitations. He was doing some light calisthenics at home this morning, when he started noticing a fluttering in his chest. He checked his heart rate on his home pulse oximeter, and it was in the 130s, which prompted ER visit. Martin has a history of recently diagnosed bladder cancer, last BCG treatment was 6 days ago. Following the treatment he had 2 days of mild flu symptoms, typical. He also had post-procedure dyspnea and intermittent chest tightness that per sisted until yesterday. He called his [facility] department chairperson (seeing them for lengthy URI over the past winter and recent diagnosis of COPD, known GGOs on previous imaging), who recommended an ED visit ER Course and Findings: - Found to be in a fib with RVR upon arrival, spontaneously converted to sinus rhythm while receiving 1L of NS in ED - elevated d-dimer, CTA revealed no PE, GGOs bilaterally, small pleural effusions and small to moderate pericardial effusion - elevated AST/ALT/Alk phos, normal bilirubin Histories updated below. PCP is Dr. Mathew locally. Review of Systems Status of ROS: Reports: 10 or more systems reviewed and unremarkable except as noted in History and below Narrative: - had lost about 10 pounds over the winter while dealing with URI, has gained 5 pounds back - no abdominal pain or stool changes - no skin concerns PFSH [facility] Medical History (Updated 08/12/23 @ 13:35 by Joanne Kelly MD) Insomnia ?G47.00 - Insomnia, unspecified (ICD-10) Macular degeneration ?H35.30 - Unspecified macular degeneration (ICD-10) Bilateral cataracts ?H26.9 - Unspecified cataract (ICD-10) REM sleep behavior disorder ?G47.52 - REM sleep behavior disorder (ICD-10) Squamous cell carcinoma Malignant neoplasm of urinary bladder (2004) ?C67.9 - Malignant neoplasm of bladder, unspecified (ICD-10) Malignant melanoma ?C43.9 - Malignant melanoma of skin, unspecified (ICD-10) Hyperlipidemia ?E78.5 - Hyperlipidemia, unspecified (ICD-10) Erectile dysfunction (09/29/12) ?N52.9 - Male erectile dysfunction, unspecified (ICD-10) Crohn's disease (09/29/12) ?K50.90 - Crohn's disease, unspecified, without complications (ICD-10) Acoustic neuroma ?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.3 - Benign neoplasm of cranial nerves (ICD-10) UTI (urinary tract infection) ?N39.0 - Urinary tract infection, site not specified (ICD-10) Back Pain ?M54.9 - Dorsalgia, unspecified (ICD-10) Laceration of scalp ?S01.01XA - Laceration without foreign body of scalp, initial encounter (ICD- 10) Injury of head ?S09.90XA - Unspecified injury of head, initial encounter (ICD-10) Hematoma of scalp ?S00.03XA - Contusion of scalp, initial encounter (ICD-10) Dizziness ?R42 - Dizziness and giddiness (ICD-10) Dehydration ?E86.0 - Dehydration (ICD-10) Family History Father Coronary artery disease Social History (Updated 08/12/23 @ 13:21 by Joanne Kelly MD) Narrative: Lives with Joanie, retired. Nonsmoker, no ETOH. Requests Full Code status. What is your current living situation?: I presently have a place to live Problems where you live: declined to answer Problems where you live details: na In the past 12 months, utilities in danger of being shut off: no In past 12 months, lack of transportation kept you from medical appts, meetings, work, or getting things needed for daily living: no In the past 12 mos, have been you worried that your food would run out before you had money to buy more?: never true In the past 12 mos, the food you bought just didn't last and you didn't have money to buy more?: never true Highest level of school completed/degree received: Bachelor's degree Smoking Status: Never smoker Do you use any of these nicotine containing products: None How often do you have a drink containing alcohol: 2-3 times a week AUDIT-C Alcohol total score: 3 Non-prescribed substance use: denies use How often does anyone, including family, friends and others, physically hurt you : never How often does anyone, including family, friends and others, insult or talk down to you: never How often does anyone, including family, friends and others, threaten you with harm: never How often does anyone, including family, friends and others, scream or curse at you: never Little interest or pleasure in doing things: not at all Feeling down, depressed, or hopeless: not at all service: No Meds Home Medications and Allergies Home Medications Medication Instructions Recorded Confirmed Type ascorbic acid (vitamin C) 250 mg 250 mg PO DAILY 01/22/22 08/12/23 History tablet cholecalciferol (vitamin D3) 250 10,000 unit PO QDAY 01/22/22 08/12/23 History mcg (10,000 unit) capsule multivitamin (Multiple Vitamins 1 tab PO QDAY 01/22/22 08/12/23 History tablet) Allergies Allergy/AdvReac Type Severity Reaction Status Date / Time amoxicillin Allergy Rash Verified 07/14/23 11:14 Exam Narrative: Exam Narrative: GEN: Alert HEENT: Normal external ears, EOMIs bilaterally, no scleral icterus CV: Sinus rhythm during my exam, distant heart sounds without any concerning murmurs noted R: LCTA bilaterally without concerning wheezing, air movement adequate Ab: Soft, mild hepatomegaly. Moderate discomfort with palpation of RUQ, negative Vazquez's sign Ext: wwp, no LE edema Skin: Scattered AKs and SKs on back and extremities Neuro: Nonfocal Psych: Appropriate Const: Vital Signs, click to edit/add: Vital Signs - 24 hr 08/12/23 06:45 08/12/23 06:53 08/12/23 07:00 Temperature 97.7 F Pulse Rate 118 H 112 H Pulse Rate [Pulse Oximeter] 137 H Respiratory Rate 18 Blood Pressure Blood Pressure [Le ft Upper Arm] 115/78 Pulse Oximetry 97 98 97 Oxygen Delivery Me thod Room Air 08/12/23 07:02 08/12/23 07:17 08/12/23 07:30 Temperature Pulse Rate 131 H 116 H 120 H Pulse Rate [Pulse Oximeter] Respiratory Rate Blood Pressure 100/69 101/87 Blood Pressure [Le ft Upper Arm] Pulse Oximetry 96 96 94 Oxygen Delivery Me thod 08/12/23 07:31 08/12/23 07:47 08/12/23 07:48 Temperature Pulse Rate 111 H 121 H 114 H Pulse Rate [Pulse Oximeter] Respiratory Rate Blood Pressure 107/79 106/68 Blood Pressure [Le ft Upper Arm] Pulse Oximetry 97 96 86 L Oxygen Delivery [facility] 08/12/23 08:00 08/12/23 08:02 08/12/23 08:17 Temperature Pulse Rate 136 H 76 72 Pulse Rate [Pulse Oximeter] Respiratory Rate Blood Pressure 125/99 H 110/68 Blood Pressure [Le ft Upper Arm] Pulse Oximetry 89 90 96 Oxygen Delivery [facility] 08/12/23 08:33 08/12/23 08:47 08/12/23 09:00 Temperature Pulse Rate 74 74 74 Pulse Rate [Pulse Oximeter] Respiratory Rate Blood Pressure 132/96 H Blood Pressure [Le ft Upper Arm] Pulse Oximetry 97 97 96 Oxygen Delivery [facility] 08/12/23 09:03 08/12/23 09:17 08/12/23 09:30 Temperature Pulse Rate 74 75 73 Pulse Rate [Pulse Oximeter] Respiratory Rate Blood Pressure 149/84 H 122/68 Blood Pressure [Le ft Upper Arm] Pulse Oximetry 97 98 96 Oxygen Delivery [facility] 08/12/23 09:32 08/12/23 09:47 08/12/23 10:00 Temperature Pulse Rate 78 77 74 Pulse Rate [Pulse Oximeter] Respiratory Rate Blood Pressure 116/65 136/80 Blood Pressure [Le ft Upper Arm] Pulse Oximetry 94 98 97 Oxygen Delivery [facility] 08/12/23 10:17 Temperature Pulse Rate 73 Pulse Rate [Pulse Oximeter] Respiratory Rate Blood Pressure 120/66 Blood Pressure [Le ft Upper Arm] Pulse Oximetry 97 Oxygen Delivery [facility] Hospitalist - H&P: Result Labs Labs: Short CBC 08/12/23 Range/Units 06:53 WBC 7.28 (4.50-11.00) K/uL Hgb 11.2 L (13.5-17.5) gm/dL Hct 35.7 L (37.0-53.0) % Plt Count 265 (140-440) K/uL BMP 08/12/23 06:53 Sodium 135 Potassium 3.6 Chloride 100 Carbon Dioxide 31 BUN 17 Creatinine 0.7 Glucose 112 Calcium 8.5 Liver Function 08/12/23 Range/Units 06:53 Total Bilirubin 0.7 (0.1-1.5) mg/dL AST 61 H (12-35) U/L ALT 99 H (4-50) U/L Alkaline Phosphatase 191 H (40-150) U/L Albumin 3.4 (3.3-5.0) g/dL Urine 08/12/23 Range/Units 09:29 Urine Color Dark yellow (Yellow) Urine Appearance Clear (Clear) Urine pH 5.0 (5.0-8.5) Ur Specific [place] <= 1.005 (1.000-1.030) Urine Protein Negative (Negative) Urine Glucose (UA) Negative (Negative) Assessment and Plan Assessment and plan (1) Atrial fibrillation with rapid ventricular response: Problem comment: - new diagnosis (08/12/23), - initiated Metoprolol and Eliquis 08/11 - TTE, telemetry Status: Acute (2) Elevated LFTs: Problem comment: - concern for hepatomegaly on exam, RUQ ultrasound ordered Status: Acute (3) Malignant neoplasm of urinary bladder: Problem comment: - follows with [facility], last BCG treatment was 08/06/23 Status: Acute (4) Ground glass opacity present on imaging of lung: Problem comment: - known, following with [facility] Status: Acute (5) Pleural effusion: Status: Acute Plan - per above - plan pending results of above studies - home with when medically appropriate for d/c
--- OUTSIDE RECORDS SUMMARY | 2023-08-12 14:05 | XMS_ITS | Continuity of Care Document ---
Author Name Unknown Address [address] [place] [address] Phone [phone] Organization [facility], [facility] Address [address] [address] Assessment No assessment recorded. Plan of Treatment Reminders Order Date Submit Date Provider Last Modified By Organization Details Last Modified Time Details Appointments None recorded. Lab None recorded. Referral None recorded. Procedures None recorded. Surgeries None recorded. Imaging None recorded. Medication Orders prednisone 20 mg tablet 2023 024 [id number], [address] [place], [place], [id number], 10:06:51 dexamethaso ne sodium phosphate 4 mg/mL injection solution 2023 024 [email or web address] Not available 12:25:20 Patient TargetsNo targets recorded. Patient InstructionsNo instructions recorded. Reason for Referral None Reported. Problems Name Status Onset Date Resolution Date Notes Provider Name and Address Organization Details Recorded Time Generalized rash Active 06/28/19 24 Darin Marie MD [address] [place], [address], [facility] 06/28/2023 10:05:38 Allergic reaction to drug Active 06/28/19 24 Darin Marie MD [address] [place], [address], [facility] 06/28/2023 10:06:11 Problem Notes None recorded. Medical Equipment None Reported. Allergies Allergen ID Allergen Name Allergen Category Reaction Reaction Severity Criticality Documentation Date Start Date Code Code System Note Provider Name and Address Organization Details Recorded Time 4653 amoxicill in medicatio n Not available Not available Not available 06/28/2023 723 RxNorm Darin Marie MD [address] [place], [address], [facility] 4 10:02:28 Medications Name Sig Start Date Stop [...] Updated DateTime 4 187.96 cm 25 kg/m2 12476.5 1 g 65 /min 18 /min 97 % 97 % 98.4 [degF] 132 mm[Hg] 71 mm[Hg] Victor Manuel Acosta [facility] 09:56:35 Social History Question Answer Notes LastModified [...] Encounter Closed Date Diagnosis/Indication Diagnosis SNOMED-CT Code 12214 Raji Parikh MD [facility] [address] [place] [address] 06/19/2023 11:14:05 06/19/2023 12:32:51 Sinusitis [id number] Darin Marie MD [facility] [address] [place] [address] 06/28/2023 09:34:11 06/28/2023 12:59:02 Generalized rash 141806337 Allergic r eaction to drug [id number] Health Concerns Section Related Observation LastModified by Organization Detai ls LastModified Time None Recorded Concern Status LastModified by Organization Details LastModified Time None Recorded Payers Encounter Date Sequence Insurance Name Policy Number Policy Magallanes Covered Member ID Magallanes Member ID Guarantor Name 06/28/2023 1 [employer] - DOS ON OR AFTER 19 (MEDICARE REPLACEMENT/ ADVANTAGE - PPO) Martin Vieira [id number] Martin Vieira Notes Date Note Type Note Provider Name and Address Organization Details Recorded Time 06/28/2023 text/html HPI Notes: allergic reaction to prob amox went to the ER rash only no angioedeam given 1 day of steroids helped but now worse again Darin Marie MD [address] [place], [address], [facility] 06/28/2023 10:39:42
--- OUTSIDE RECORDS SUMMARY | 2023-08-12 14:05 | XMS_ITS | Clinical Summary ---
Author Name Unknown Organization [facility] Address [place], [place] [address] Care Team Providers Care Senior Writer Name Role Phone Unavailable Primary Care Provider [...] Heart Disease Father in 50 s from [place] Other Father colitis Diabetes Maternal Aunt Psychiatric [...]
--- OUTSIDE RECORDS SUMMARY | 2023-08-12 14:06 | XMS_ITS | Encounter Summary ---
Author Name Unknown Organization [facility] Address [address] [place] [address] Care Team Providers Care Assisted Living Executive Director Name Role Phone Elsewhere, Pcp Primary Care Provider Unavailabl e Encounter Details Date Type Department Care Team (Late st Contact Info) Description 07/30/2023 Orders Only Department of Urology in [place], [place] [address] [place] [place] [phone] River Stockton M.D. [address] [place] [phone] Malignant Neoplasm Of Bladder (HCC) Social History Tobacco Use Types Packs/Day Years Used Date Smoking Tobacco: Former Cigarettes 1.5 42.2 0 03/31/1961 - 06/30/2003 Passive Smoke Exposure: Past Smokeless Tobacco: Former Chew Quit: 03/31/1998 Comments:Quit several times Alcohol Use Standard Drinks/Week Comments Yes 9 (1 standard drink = 0.6 oz pur e alcohol) [facility] Utilities Answer Date Recorded In the [...] How often do you attend chur or gnosticism services? Never 03/17/2022 Do you belong to any clubs o r organizations such as presybeterian groups, unions, fraternal or athletic groups, or [...] heating? Not hard at all 08/27/2022 [facility] [place] of Occupat ional Health - Occupational Stress [...] your living situation today? I have a [facility] place to live 03/26/2023 Education Answer [...] Care Team (Late st Contact Info) Description 08/20/2023 1:00 PM CDT Procedure visit Department of Urology in [place], [place] 200 [place] [address] River Stockton M.D. 200 [place] [address] 08/26/2023 10:30 AM CDT Procedure visit Department of Urology in [place], [place] [address] [place] [address] River Stockton M.D. [address] [place] [phone] 09/03/2023 1:00 PM CDT Procedure visit Department of Urology in [place], [place] [address] [place] [address] River Stockton M.D. [address] [place] [phone] 09/09/2023 10:30 AM CDT Procedure visit Department of Urology in [place], [place] [address] [place] [address] River Stockton M.D. [address] [place] [phone] 09/22/2023 10:30 AM CDT Procedure visit Department of Dermatology in [place], [place] [address] [place] [place] [phone] Vitaliy Alvares M.D. [address] [place] [phone] 09/25/2023 9:00 AM CDT Appointment Department of Radiology, [facility], in [place], [place] [address] [place] [address] Cody Carroll M.D. [address] [place] [phone] 09/25/2023 9:30 AM CDT Diagnostic Division of Pulmonary Medicine in [place], [place] [address] [place] [address] Cody Carroll M.D. [address] [place] [phone] 09/25/2023 11:30 AM CDT Office Visit Division of Pulmonary Medicine in [place], [place] [address] [place] [address] Teri Cerda APRN C.N.P., D.N.P. [address] [place] [phone] 10/23/2023 9:20 AM CDT Office Visit Department of Dermatology in [place], [place] [address] [place] [address] Crystal Rodriguez APRN, C.N.P., M.S.N. [address] [place] [phone] documented as of this encounter Visit Diagnoses Diagnosis Malignant Neoplasm Of Bladder (HCC) documented in this encounter Additional Health Concerns Infection Onset Date Last Indicated Resolved Time Protective Environment 08/06/2023 08/06/2023 documented as of this encounter Care Teams Assisted Living Executive Director Relationship Specialty Start Date End Date Elsewhere, Pcp PCP - General Family Medicine 10/30/20 documented as of this encounter
--- OUTSIDE RECORDS SUMMARY | 2023-08-12 14:06 | XMS_ITS | Encounter Summary ---
Author Name Unknown Organization [facility] Address [address] [place] [address] Care Team Providers Care Mini Baccarat Dealer Name Role Phone Elsewhere, Pcp Primary Care Provider Unavailabl e Encounter Details Date Type Department Care Team (Late st Contact Info) Description 08/12/2023 Clinical Communication Department of Urology in [place], [place] [address] [place] [phone] River Stockton M.D. [address] [place] [phone] Social History Tobacco Use Types Packs/Day Years Used Date Smoking Tobacco: Former Cigarettes 1.5 42.2 0 03/31/1961 - 06/30/2003 Passive Smoke Exposure: Past Smokeless Tobacco: Former Chew Quit: 03/31/1998 Comments:Quit several times Alcohol Use Standard Drinks/Week Comments Yes 9 (1 standard drink = 0.6 oz pur e alcohol) [facility] Utilities Answer Date Recorded In the [...] How often do you attend chur or buddhist services? Never 03/17/2022 Do you belong to any clubs o r organizations such as mandaen groups, unions, fraternal or athletic groups, or [...] Not hard at all 08/27/2022 [facility] [place] of Occupat ional Health - Occupational Stress [...] your living situation today? I have a [facility] place to live 03/26/2023 Education Answer [...] CDT Procedure visit Department of Urology in [place], [place] 200 [place] [address] River Stockton M.D. 200 [place] [address] 08/26/2023 10:30 AM CDT Procedure visit Department of Urology in [place], [place] [address] [place] [address] River Stockton M.D. [address] [place] [phone] 09/03/2023 1:00 PM CDT Procedure visit Department of Urology in [place], [place] [address] [place] [phone] River Stockton M.D. [address] [place] [phone] 09/09/2023 10:30 AM CDT Procedure visit Department of Urology in [place], [place] [address] [place] [address] River Stockton M.D. [address] [place] [phone] 09/22/2023 10:30 AM CDT Procedure visit Department of Dermatology in [place], [place] [address] [place] [phone] Vitaliy Alvares M.D. [address] [place] [phone] 09/25/2023 9:00 AM CDT Appointment Department of Radiology, [facility], in [place], [place] [address] [place] [phone] Cody Carroll M.D. [address] [place] [phone] 09/25/2023 9:30 AM CDT Diagnostic Division of Pulmonary Medicine in [place], [place] [address] [place] [phone] Cody Carroll M.D. [address] [place] [phone] 09/25/2023 11:30 AM CDT Office Visit Division of Pulmonary Medicine in [place], [place] [address] [place] [phone] Teri Cerda APRN, C.N.P., D.N.P. [address] [place] [phone] 10/23/2023 9:20 AM CDT Office Visit Department of Dermatology in [place], [place] [address] [place] [phone] Crystal Rodriguez APRN, C.N.P., M.S.N. [address] [place] [phone] documented as of this encounter Visit Diagnoses Not on filedocumented in this encounter Additional Health Concerns Infection Onset Date Last Indicated Resolved Time Protective Environment 08/06/2023 08/06/2023 documented as of this encounter Care Teams Mini Baccarat Dealer Relationship Specialty Start Date End Date Elsewhere, Pcp PCP - General Family Medicine 10/30/20 documented as of this encounter
--- OUTSIDE RECORDS SUMMARY | 2023-08-12 14:06 | XMS_ITS | Encounter Summary ---
Author Name Unknown Organization [facility] Address [address] [place] [address] Care Team Providers Care Ferryboat Ticket Taker Name Role Phone Elsewhere, Pcp Primary Care Provider Unavailabl e Reason for Visit * Auth/Cert (Routine) Specialty Diagnoses / Procedures Referred By Mychal t Referred To Contact Diagnoses Bladder disorder, unspecified X Procedures AL CYSTOURETHROSCOPY WITH BX BIOPSY BLADDER Referral ID Status Reason Start Date Expiration Date Visits Re quested Visits Authorized [id number] 1 1 Encounter Details Date Type Department Care Team (Late st Contact Info) Description 07/16/2023 12:55 PM CDT - 07/16/2023 2:10 PM CDT Surgery Outpatient Procedure Center in [place], [place] [address] [place] [phone] Cale De La Fuente M.D. [address] [place] [phone] CYSTOSCOPY BIOPSY FULGURATION Social History Tobacco Use Types Packs/Day Years Used Date Smoking Tobacco: Former Cigarettes 1.5 42.2 0 03/31/1961 - 06/30/2003 Passive Smoke Exposure: Past Smokeless Tobacco: Former Chew Quit: 03/31/1998 Comments:Quit several times Alcohol Use Standard Drinks/Week Comments Yes 9 (1 standard drink = 0.6 oz pur e alcohol) [facility] Utilities Answer Date Recorded In the past 12 months has [employer], gas, oil, or water [employer] threatened to shut off services in your [...] often do you attend chur ch or bahai services? Never 03/17/2022 Do you belong to any clubs o r organizations such as pentecostal groups, unions, fraternal or athletic groups, or [...] hard at all 08/27/2022 [facility] of Occupat ional Health - Occupational Stress [...] your living situation today? I have a [facility] place to live 03/26/2023 Education Answer [...] Take 1 tablet by mouth daily. 09/29/2008 ew-rfd-XD-vit B-cqdngc-ltyioez (PreserVision AREDS 2 Plus MV) 200 mcg-15 mcg- 5 mg-1 mg capsule Take by mouth. omega-3 fatty acids/fish oil (OMEGA 3 FISH OIL ORAL) Take 2 capsules by mouth daily. 500 mg capsules - total 1000 mg 11/18/2013 vitamin B complex tablet extended release Take 1 capsule by mouth daily. 08/29/2020 documented as of this encounter OR Notes * Op Jeninfer - Christel Callejas M.D. - 07/16/2023 2:26 PM CDT Pre-op Diagnosis Malignant Neoplasm Of Bladder (HCC) Post-op Diagnosis Malignant Neoplasm Of Bladder (HCC) Amusement Equipment Operator A airline pilot/first officer actively participated and was necessary for one [...] CDT Procedure visit Department of Urology in [place], [place] [address] [place] [phone] River Stockton M.D. [address] [place] [phone] 08/26/2023 10:30 AM CDT Procedure visit Department of Urology in [place], [place] [address] [place] [address] River Stockton M.D. [address] [place] [phone] 09/03/2023 1:00 PM CDT Procedure visit Department of Urology in [place], [place] [address] [place] [address] River Stockton M.D. [address] [place] [phone] 09/09/2023 10:30 AM CDT Procedure visit Department of Urology in [place], [place] [address] [place] [address] River Stockton M.D. [address] [place] [phone] 09/22/2023 10:30 AM CDT Procedure visit Department of Dermatology in [place], [place] [address] [place] [phone] Vitaliy Alvares M.D. [address] [place] [phone] 09/25/2023 9:00 AM CDT Appointment Department of Radiology, [facility], in [place], [place] [address] [place] [phone] Cody Carroll M.D. [address] [place] [phone] 09/25/2023 9:30 AM CDT Diagnostic Division of Pulmonary Medicine in [place], [place] [address] [place] [phone] Cody Carroll M.D. [address] [place] [phone] 09/25/2023 11:30 AM CDT Office Visit Division of Pulmonary Medicine in [place], [place] [address] [place] [address] Teri Cerda APRN, C.N.P., D.N.P. [address] [place] [phone] 10/23/2023 9:20 AM CDT Office Visit Department of Dermatology in [place], [place] [address] [place] [phone] Crystal Rodriguez APRN, C.N.P., M.S.N. [address] [place] [phone] documented as of this encounter Procedures Procedure Name Priority Date/Time Associated Diagnosis Comments SURGICAL PATHOLOGY Routine 07/16/2023 2: 33 PM CDT Malignant Neoplasm Of Bladder (HCC) CYSTOSCOPY BIOPSY FULGURATION 07/16/2023 1:57 PM CDT Malignant Neoplasm Of Bladder (HCC) Case Notes Shantanu 4 Special Needs Primary [place]. ADULT OXYGEN THERAPY Routine 07/16/2023 1:05 PM [...] as received in A1. ??Tiffanie Perez M.S., PA([facility]) B: Received in formalin labeled with the patient's name, medical record number, and right diverticulum are 2 fragments of sanchez-white tissue ranging from 0.2-0.3 cm in greatest dimension. ??The specimen is entirely submitted in B1. ??Tiffanie Perez M.S., TANISHA([facility]) 07/17/2023 1:23 PM CDT DTL [...] Fuente M.D. LAB SURG PATH ORDERA [facility] [address] [facility] [address] [place] [address] documented in this encounter Visit Diagnoses Diagnosis [...] (Given - Provid er: Grecia Chauhan APRN, ACCOUNTING FILE CLERK - Comment: NO RASH NOTED FROM ADMINISTRATION) [...] 1330 1338 (New Bag - Prov ider: Caty L Selvaraju, M.A.N., R.N.)1407 (Rate/Dose Verify - Provider: Grecia Chauhan [...] received in previous 6 hours, Starting on 4/17/24 at 1305, For 1 dose, PACU (only), Oral unless RASS less than -1 or nausea/vomiting. Do not use if given in last 6 hours, Restriction Criteria (Pharmacy will review and approve if criteria met): Unable to take or tolerate medications administered via the enteral route or orally (not just NPO) documented in this encounter Care Teams Ferryboat Ticket Taker Relationship Specialty Start Date End Date Elsewhere, Pcp PCP - General Family Medicine 10/30/20 documented as of this encounter
--- OUTSIDE RECORDS SUMMARY | 2023-08-12 14:06 | XMS_ITS ---
Author Name Unknown Organization [facility] Address [address] [place] [address] Care Team Providers Care Spring Upholsterer Name Role Phone Unavailable Unavailable Unavailable Surgery Details Not on file Complications Check Surgery Details section. Procedure Estimated Blood Loss Check Surgery Details section. Procedure Findings Check Surgery Details section. Procedure Specimens Taken Check Surgery Details section.
--- OUTSIDE RECORDS SUMMARY | 2023-08-12 14:06 | XMS_ITS | Encounter Summary ---
Author Name Unknown Organization [facility] Address [address] [place] [address] Care Team Providers Care Dissolver Operator Name Role Phone Elsewhere, Pcp Primary Care Provider Unavailabl e Encounter Details Date Type Department Care Team (Late st Contact Info) Description 07/29/2023 Orders Only Department of Urology in [place], [place] [address] [place] [phone] River Stockton M.D. [address] [place] [phone] Social History Tobacco Use Types Packs/Day Years Used Date Smoking Tobacco: Former Cigarettes 1.5 42.2 0 03/31/1961 - 06/30/2003 Passive Smoke Exposure: Past Smokeless Tobacco: Former Chew Quit: 03/31/1998 Comments:Quit several times Alcohol Use Standard Drinks/Week Comments Yes 9 (1 standard drink = 0.6 oz pur e alcohol) [facility] Utilities Answer Date Recorded In the [...] How often do you attend chur or faith services? Never 03/17/2022 Do you belong to any clubs o r organizations such as bahai groups, unions, fraternal or athletic groups, or [...] and heating? Not hard at all 08/27/2022 [facility] of Occupat ional Health - Occupational Stress [...] your living situation today? I have a [facility] place to live 03/26/2023 Education Answer [...] CDT Procedure visit Department of Urology in [place], [place] 200 [place] [address] River Stockton M.D. 200 [place] [phone] 08/26/2023 10:30 AM CDT Procedure visit Department of Urology in [place], [place] [address] [place] [address] River Stockton M.D. [address] [place] [phone] 09/03/2023 1:00 PM CDT Procedure visit Department of Urology in [place], [place] [address] [place] [phone] River Stockton M.D. [address] [place] [phone] 09/09/2023 10:30 AM CDT Procedure visit Department of Urology in [place], [place] [address] [place] [address] River Stockton M.D. [address] [place] [phone] 09/22/2023 10:30 AM CDT Procedure visit Department of Dermatology in [place], [place] [address] [place] [phone] Vitaliy Alvares M.D. [address] [place] [phone] 09/25/2023 9:00 AM CDT Appointment Department of Radiology, [facility], in [place], [place] [address] [place] [phone] Cody Carroll M.D. [address] [place] [phone] 09/25/2023 9:30 AM CDT Diagnostic Division of Pulmonary Medicine in [place], [place] [address] [place] [phone] Cody Carroll M.D. [address] [place] [phone] 09/25/2023 11:30 AM CDT Office Visit Division of Pulmonary Medicine in [place], [place] [address] [place] [phone] Teri Cerda APRN, C.N.P., D.N.P. [address] [place] [phone] 10/23/2023 9:20 AM CDT Office Visit Department of Dermatology in [place], [place] [address] [place] [phone] Crystal Rodriguez APRN, C.N.P., M.S.N. [address] [place] [phone] documented as of this encounter Visit Diagnoses Not on filedocumented in this encounter Additional Health Concerns Infection Onset Date Last Indicated Resolved Time Protective Environment 08/06/2023 08/06/2023 documented as of this encounter Care Teams Dissolver Operator Relationship Specialty Start Date End Date Elsewhere, Pcp PCP - General Family Medicine 10/30/20 documented as of this encounter
--- OUTSIDE RECORDS SUMMARY | 2023-08-12 14:06 | XMS_ITS | Encounter Summary ---
Author Name Unknown Organization [facility] Address [address] [place] [address] Care Team Providers Care Nursing Informatics Analyst Name Role Phone Elsewhere, Pcp Primary [...] = 0.6 oz pur e alcohol) [facility] Utilities Answer Date Recorded In the past 12 months has e [employer], gas, oil, or water [employer] threatened to shut off services in your [...] How often do you attend chur or scientologist services? Never 03/17/2022 Do you belong to [...] and heating? Not hard at all 08/27/2022 [facility] of Occupat ional Health - Occupational Stress [...] CDT Procedure visit Department of Urology in [place], [place] [address] [place] [address] River Stockton M.D. [address] [place] [phone] 08/26/2023 10:30 AM CDT Procedure visit Department of Urology in [place], [place] [address] [place] [address] River Stockton M.D. [address] [place] [phone] 09/03/2023 1:00 PM CDT Procedure visit Department of Urology in [place], [place] [address] [place] [address] River Stockton M.D. [address] [place] [phone] 09/09/2023 10:30 AM CDT Procedure visit Department of Urology in [place], [place] [address] [place] [address] River Stockton M.D. [address] [place] [phone] 09/22/2023 10:30 AM CDT Procedure visit Department of Dermatology in [place], [place] [address] [place] [phone] Vitaliy Alvares M.D. [address] [place] [phone] 09/25/2023 9:00 AM CDT Appointment Department of Radiology, [facility], in [place], [place] [address] [place] [address] Cody Carroll M.D. [address] [place] [phone] 09/25/2023 9:30 AM CDT Diagnostic Division of Pulmonary Medicine in [place], [place] [address] [place] [phone] Cody Carroll M.D. [address] [place] [phone] 09/25/2023 11:30 AM CDT Office Visit Division of Pulmonary Medicine in [place], [place] [address] [place] [phone] BanzoTeri reyes APRN, C.NJames., D.N.P. [address] [place] [phone] 10/23/2023 9:20 AM CDT Office Visit Department of Dermatology in [place], [place] [address] [place] [address] Crystal Rodriguez APRN, C.N.Marianela., M.S.N. [address] [place] [phone] documented as of this encounter Procedures Procedure [...] on filedocumented in this encounter Care Teams Nursing Informatics Analyst Relationship Specialty Start Date End Date Elsewhere, Pcp PCP - General Family Medicine 10/30/20 documented as of this encounter
--- OUTSIDE RECORDS SUMMARY | 2023-08-12 14:06 | XMS_ITS | Clinical Summary ---
Author Name Unknown Organization [facility] Address [address] [place] [address] Care Team Providers Care Manager Poker Name Role Phone Elsewhere, Pcp Primary Care Provider Unavailabl e Source Comments Patient records contain information from all sites at [facility]. For routine questions regarding patient records, call [phone] during business hours, M-F 8:00 AM - 5:00 PM Central Time. Record requests for emergency care only can be directed to [phone] at any time.[facility] Allergies Active Allergy Reactions Criticality Noted Date [...] 4 (four) hours as needed. 01/22/2022 Active fp-hdm-AI-vit Y-twqvby-wegqynq (PreserVision AREDS 2 Plus MV) 200 mcg-15 [...] Encounters Date Type Department Care Team Description 08/12/2023 Clinical Communication Department of Urology in [place], [place] [address] [place] [address] River Stockton M.D. 08/11/2023 Clinical Communication Division of Pulmonary Medicine in [place], [place] [address] [place] [address] Cody Carroll M.D. 08/06/2023 1:00 PM CDT Procedure visit Department of Urology in [place], [place] [address] [place] [phone] River Stockton M.D. Hartz, Jane L, R.N. Malignant Neoplasm Of Bladder (HCC) (Primary Dx) 07/30/2023 Orders Only Department of Urology in [place], [place] [address] [place] [phone] River Stockton M.D. Malignant Neoplasm Of Bladder (HCC) 07/29/2023 Orders Only Department of Urology in [place], [place] [address] [place] [phone] River Stockton M.D. 07/24/2023 Clinical Communication Department of Urology in [place], [place] [address] [place] [phone] River Stockton M.D. Appt Request 07/17/2023 8:30 AM CDT Comprehensive Visit Division of Pulmonary Medicine in [place], [place] [address] [place] [phone] Cody Carroll M.D. Nodule Pulmonary Solitary; Localized Enlarged Lymph Nodes 07/16/2023 2:07 PM CDT Anesthesia Event Outpatient Procedure Center in [address] [phone] Grecia Chauhan APRN, CRNA Ochs Kinney, Michelle A, M.D. 07/16/2023 12:55 PM CDT - 07/16/2023 2:10 PM CDT Surgery Outpatient Procedure Center in [place], [place] [address] [place] [phone] Cale De La Fuente M.D. CYSTOSCOPY BIOPSY FULGURATION 07/16/2023 12:00 PM CDT Ancillary Procedure Department of General Surgery 07/16/2023 11:29 AM CDT - 07/16/2023 3:55 PM CDT Hospital Encounter Outpatient Procedure Center in [place], [place] [address] [place] [phone] Cale De La Fuente M.D. Malignant Neoplasm Of Bladder (HCC) Discharge Disposition: Home or Self Care 07/15/2023 2:15 PM CDT Clinical Communication Virtual Review in [place], [place] 200 [place] [phone] Pre-visit Intake 07/09/2023 Clinical Communication Department of Urology in [place], [place] [address] [place] [phone] Lynne Virgen 07/09/2023 Virtual Visit Division of Pulmonary Medicine in [address] [phone] Marcial Bush M.D. Nodule Pulmonary (Primary Dx) 07/07/2023 2:00 PM CDT Telemedicine Preoperative Evaluation Center in [address] [phone] Cornell Rowan APRN, C.N.P. Jodie Durbin APRN, C.N.P., M.S.N. Preanesthetic Medical Exam (Primary Dx); Mass Bladder; Malignant Neoplasm Of Bladder (HCC); Other Nonspecific Abnormal Finding Of Lung Field; Paresthesias Feet; Polyneuropathy; Neuroma Acoustic (HCC); Vertigo; Crohn's Disease (HCC) 07/07/2023 Clinical Communication Department of Urology in [address] [phone] River Stockton M.D. Urine Results 07/04/[address] [facility] AND [address] [address] González Mathew M.D. Nodule Pulmonary Solitary (Primary Dx); Localized Enlarged Lymph Nodes 07/04/2023 Clinical Communication Preoperative Evaluation Center in [address] [phone] Vanessa Larios APRN, C.N.P., M.S.N. 06/30/2023 Orders Only Department of Dermatology in [address] [phone] Sallie Padilla P.A.-C., M.S. Squamous Cell Carcinoma In Situ (Primary Dx) 06/23/2023 3:00 PM CDT Office Visit Department of Urology in [place], [place] [address] [place] [phone] River Stockton M.D. Lesion Bladder (Primary Dx) 06/23/2023 10:00 AM CDT Procedure visit Department of Urology in [place], [place] [address] [place] [phone] Rula Elmore M.D. Tentis, Elise R, P.A.-C. Malignant Neoplasm Of Bladder (HCC) 06/23/2023 8:05 AM CDT Ancillary Procedure Department of Dermatology 06/23/2023 8:00 AM CDT Comprehensive Visit Department of Dermatology in [place], [place] [address] [place] [phone] Sallie Padilla P.A.-C., M.S. Tumor Skin Uncertain Behavior (Primary Dx); Keratosis Actinic; Keratosis Seborrheic 06/23/2023 Orders Only Department of Urology in [place], [place] [address] [place] [phone] Cornell Rowan, ZAKIYA, C.N.P. Mass Bladder (Primary Dx); Malignant Neoplasm Of Bladder (HCC) 06/20/2023 11:15 AM CDT Clinical Communication Virtual Review in [place], [place] 200 [place] [address] Pre-visit Intake from Last 3 Months Immunizations [...] drink = 0.6 oz pur e alcohol) [facility] Utilities Answer Date Recorded In [...] How often do you attend chur or spiritism services? Never 03/17/2022 Do you belong to any clubs o r organizations such as yazdanism groups, unions, fraternal or athletic groups, or [...] and heating? Not hard at all 08/27/2022 [facility] Occupat ional Health - Occupational [...] living situation today? I have a [facility] place to live 03/26/2023 Education Answer [...] CDT Procedure visit Department of Urology in [place], [place] [address] [place] [phone] River Stockton M.D. [address] [place] [phone] 08/26/2023 10:30 AM CDT Procedure visit Department of Urology in [place], [place] [address] [place] [phone] River Stockton M.D. [address] [place] [phone] 09/03/2023 1:00 PM CDT Procedure visit Department of Urology in [place], [place] [address] [place] [phone] River Stockton M.D. [address] [place] [phone] 09/09/2023 10:30 AM CDT Procedure visit Department of Urology in [place], [place] [address] [place] [phone] River Stockton M.D. [address] [place] [phone] 09/22/2023 10:30 AM CDT Procedure visit Department of Dermatology in [place], [place] [address] [place] [phone] Vitaliy Alvares M.D. [address] [place] [phone] 09/25/2023 9:00 AM CDT Appointment Department of Radiology, [facility] in [place], [place] [address] [place] [phone] Cody Carroll M.D. [address] [place] [phone] 09/25/2023 9:30 AM CDT Diagnostic Division of Pulmonary Medicine in [address] [phone] Cody Carroll M.D. [address] [place] [phone] 09/25/2023 11:30 AM CDT Office Visit Division of Pulmonary Medicine in [place], [place] [address] [place] [phone] Teri Cerda APRN, C.N.P., D.N.P. [address] [place] [phone] 10/23/2023 9:20 AM CDT Office Visit Department of Dermatology in [place], [place] [address] [place] [phone] Crystal Rodriguez APRN, C.N.P., M.S.N. [address] [place] [address] Health Maintenance Due Date Last Done Comments Hepatitis C Screening 1945 COVID-19 Vaccine (4 - 2022-2 4 season) 2023 12/31/2022, 12/14/2021, 01/01/2021 Depression Screening (Annual PHQ-2) 03/31/2023 DTaP,Tdap,and Td Vaccines (4 - Td or Tdap) 03/28/2032 03/28/2022, 06/07/2019, 04/01/2011 Abdominal Aortic Aneurysm (A AA) Screen Discontinued 11/18/2013, 02/26/2011 Pneumococcal vaccine (65+ years) Completed 01/23/20, 09/29/2012 Zoster Vaccines Completed 03/15/2019, 12/23/2018 Colonoscopy Discontinued 08/29/2021, 0 03/2021, 01/29/2017, Additional history exists Colonoscopy Discontinued 08/29/2021, 060 03/2021, 01/29/2017, Additional history exists Colorectal Cancer Screening Discontinued Colorectal Cancer Surveillance Discontinued Influenza Vaccine Completed 12/31/2022, , 02/15/2021, Additional history exists Fall Risk Screen (Annual) Completed 07/16/[address] Colonography Discontinued Cologuard Discontinued FIT Discontinued Medical Devices Implanted Type Area Attending Psychiatrist Device Identifier Shelf Expiration Date Model / Serial / Lot Lens Tcn Mnfcl Dcb00 +18.5d - [id number] - [id number] Implanted:Qty : 1 on 01/29/2023 by Chuckie Sawant M.D. at [facility] Ocular Lens Left: Eye [employer] (Previously ERENDIRA) 11/10/2025 [id number] / [id number] / Eyhance Iol Implanted:Qty : 1 on 02/28/2023 by Chuckie Sawant M.D. at [facility] Ocular Lens Right: Eye [employer] 12/24/2025 [id number] / [id number] / Procedures Procedure Name Priority Date/Time Associated Diagnosis Comments OUTSIDE CT BODY Routine 08/12/2023 8:30 AM CDT OUTSIDE DX CHEST Routine 08/12/2023 7:25 AM CDT SURGICAL PATHOLOGY Routine 07/16/2023 2: 33 PM CDT Malignant Neoplasm Of Bladder (HCC) CYSTOSCOPY BIOPSY FULGURATION 07/16/2023 1:57 PM CDT Malignant Neoplasm Of Bladder (HCC) Case Notes Shantanu 4 Special Needs Primary Kath. ADULT OXYGEN THERAPY Routine 07/16/2023 1:05 PM CDT SURGERY IMAGE EXAM Routine 07/16/2023 12:00 PM CDT OUTSIDE DX CHEST Routine 07/14/2023 11:[address] BODY Routine 06/24/2023 8:15 AM CDT URO CYSTOSCOPY (GENERAL) Routine 06/23/2023 10:00 AM CDT Malignant Neoplasm Of Bladder (HCC) CYTOLOGY NON-CAR CONDITIONER Routine 06/23/2023 9:58 AM CDT Malignant Neoplasm Of Bladder (HCC) DERMATOPATHOLOGY Routine 06/23/2023 8:06 AM CDT DERMATOLOGY IMAGE EXAM Routine 8:04 AM CDT COLONOSCOPY Routine 08/29/2021 9:32 AM CDT Crohn's Disease (HCC) CT ABDOMEN PELVIS ENTEROGRAPHY WITH IV CONTRAST Routine 11/18/2013 1:46 PM CDT from Last 3 Months or Most Recently Relevant to Health Maintenance Results * CT Angio Chest PE Protocol-Outside CT Body (08/12/2023 8:30 AM CDT) Only the most recent of2 resultswithin the time period is included. 08/12/2023 8:27 AM CDT Narrative [facility] - 08/12/2023 10:09 AM CDT This order has been created and auto-finalized to support the import of outside images. If available, original interpretation can be found on the Media Tab in Chart Review, in Document Viewer, or as an image in QREADS. If a re-interpretation or overread is required please follow defined workflow. ?? Provider Not In System IMG CT PROCEDURES Performing Organization Address [facility] Co de Phone Number [facility] NA * XR CHEST 1V PORTABLE-Outside Chest Xray (08/12/2023 7:25 AM CDT) Only the most recent of2 resultswithin the time period is included. 08/12/2023 7:25 AM CDT Narrative [facility] - 08/12/2023 9:44 AM CDT This order has been created and auto-finalized to support the import of outside images. If available, original interpretation can be found on the Media Tab in Chart Review, in Document Viewer, or as an image in QREADS. If a re-interpretation or overread is required please follow defined workflow. ?? Provider Not In System IMG DIAGNOSTIC IM AGING PROCEDURES Performing Organization Address [facility] de Phone Number [facility] NA * Surgical Pathology (07/16/2023 2:33 PM CDT) [...] as received in A1. ??Tiffanie Perez M.S., PA([facility]) B: Received in formalin labeled with the patient's name, medical record number, and right diverticulum are 2 fragments of sanchez-white tissue ranging from 0.2-0.3 cm in greatest dimension. ??The specimen is entirely submitted in B1. ??Tiffanie Perez M.S., TANISHA([facility]) 07/17/2023 1:23 PM CDT DTL Interpretation FINAL [...] Fuente M.D. LAB SURG PATH ORDERA BLES Performing Organization Address [facility]/ZIP Co de Phone Number [facility] [address] [place] [address], [facility] DTL [address] [place] [address] * BLADDER-Surgery Image Exam (07/16/2023 12:00 PM [...] RAD IMAGI NG PROCEDURES Performing Organization Address City/[facility]/ZIP Co de Phone Number [facility] NA * URO Cystoscopy (general) (06/23/2023 10:00 AM CDT) Narrative Irma Larsen P.A.-C. - 06/23/2023 10:00 AM CDT rIma Larsen P.A.-C. ? 06/23/2023 ??9:53 AM URO [...] Rula Elmore M.D. UROLOGY ORDERABLES * Cytology Non-CAR CONDITIONER (06/23/2023 9:58 AM CDT) 06/24/2023 1:37 PM [...] P.A.-C. LAB SURG PATH ORD ERABLES [facility] [address] [place] [address], [facility] DTL [address] [place] [address] * Dermatopathology (06/23/2023 8:06 AM CDT) 06/26/2023 9:35 AM CDT WALDO Participated in the Interpretation Salo Sequeira M.D. [...] Padilla P.A.-C., M.S. LAB PATH DE ORDERABLES [facility] [address] [place] [address], [facility] PDRM [address] [place] [address] * Scalp 502-Dermatology Image Exam (06/23/2023 8:04 AM CDT) 06/23/2023 8:02 AM CDT Narrative [facility] - 06/23/2023 8:04 AM CDT This order has been created and auto-finalized to support the import of images acquired without order. The clinical documentation to support these images can be found on the encounter that produced images. Provider Not In System IMG NON RAD IMAGI NG PROCEDURES II NA * CT Abdomen Pelvis Enterography with [...] Electronically signed by: ?? Nico Ospina MD [id number] 18-Nov-2013 14:53 ?Rich Munoz M.D. [id number] 18-Nov-2013 [...] Bladderdiverticula. Electronically signed by: Nico Ospina MD [id number] 18-Nov-2013 14:53 Rich Munoz M.D.[id number] 18-Nov-2013 14:53 Noé Artis M.D. IMMichelle CT PROCEDURES from Last 3 Months or Most Recently Relevant to Health Maintenance Additional Health Concerns Infection Onset Date Last Indicated Protective Environment 08/06/2023 Advance Directives For more information, please contact: [phone] Documents on File Type Date Recorded Patient Joint Terminal Attack Controller Expl anation Advance Directives 11/30/2018 4:27 PM Healt h Care Directive * Full Code (Latest Code Status on File) Date Activated Date Inactivated Comments 07/16/2023 1:05 PM 07/16/2023 5:55 PM Question Answer Comments Full Code: Discussed Healthcare Agents on File Name Relationship Healthcare Agent Relationship Communication Joanie Vieira Spouse Health Care Agent Melonie Isha First Alternate Health Care Agent Nissa Vieira Second Alternat e Health Care Agent Care Teams Manager Poker Relationship Specialty Start Date End Date Elsewhere, Pcp PCP - General Family Medicine 10/30/20
--- OUTSIDE RECORDS SUMMARY | 2023-08-12 14:06 | XMS_ITS ---
Author Name Unknown Organization [facility] Address [address] [place] [address] Care Team Providers Care Arc Cutter Name Role Phone Elsewhere, Pcp Primary [...] treatments are documented for this patient in [facility]. Treatments may have been administered in another system. Lifetime Dose Tracking * Chemical Lifetime Dose Automatic Entry Manual Entr y Radiation 10.09 mGy 10.09 mGy 0 mGy Fluoro Time 0.217 minutes 0.217 minutes 0 minutes
--- OUTSIDE RECORDS SUMMARY | 2023-08-12 14:06 | XMS_ITS | Encounter Summary ---
Author Name Unknown Organization [facility] Address [address] [place] [address] Care Team Providers Care Mechanical Operator Name Role Phone Elsewhere, Pcp Primary Care Provider Unavailabl e Encounter Details Date Type Department Care Team (Late st Contact Info) Description 08/11/2023 Clinical Communication Division of Pulmonary Medicine in [place], [place] [address] [place] [phone] Cody Carroll M.D. [address] [place] [phone] Social History Tobacco Use Types Packs/Day Years Used Date Smoking Tobacco: Former Cigarettes 1.5 42.2 0 03/31/1961 - 06/30/2003 Passive Smoke Exposure: Past Smokeless Tobacco: Former Chew Quit: 03/31/1998 Comments:Quit several times Alcohol Use Standard Drinks/Week Comments Yes 9 (1 standard drink = 0.6 oz pur e alcohol) [facility] Utilities Answer Date Recorded In the [...] and heating? Not hard at all 08/27/2022 [facility] [place] of Occupat ional Health - Occupational Stress [...] your living situation today? I have a [facility] place to live 03/26/2023 Education Answer [...] him I was concerned about PE or WA and other side effects from BCG. Advised [...] CDT Procedure visit Department of Urology in [address] [phone] River Stockton M.D. [address] [place] [phone] 08/26/2023 10:30 AM CDT Procedure visit Department of Urology in [place], [place] [address] [place] [phone] River Stockton M.D. [address] [place] [phone] 09/03/2023 1:00 PM CDT Procedure visit Department of Urology in [address] [phone] River Stockton M.D. [address] [place] [phone] 09/09/2023 10:30 AM CDT Procedure visit Department of Urology in [address] [phone] River Stockton M.D. [address] [place] [phone] 09/22/2023 10:30 AM CDT Procedure visit Department of Dermatology in [place], [place] [address] [place] [phone] Vitaliy Alvares M.D. [address] [place] [phone] 09/25/2023 9:00 AM CDT Appointment Department of Radiology, [facility], in [place], [place] [address] [place] [phone] Cody Carroll M.D. [address] [place] [phone] 09/25/2023 9:30 AM CDT Diagnostic Division of Pulmonary Medicine in [place], [place] [address] [place] [phone] Cody Carroll M.D. [address] [place] [phone] 09/25/2023 11:30 AM CDT Office Visit Division of Pulmonary Medicine in [place], [place] [address] [place] [phone] Teri Cerda APRN, C.N.P., D.N.P. [address] [place] [phone] 10/23/2023 9:20 AM CDT Office Visit Department of Dermatology in [place], [place] [address] [place] [phone] Crystal Rodriguez APRN, C.N.P., M.S.N. [address] [place] [phone] documented as of this encounter Visit Diagnoses Not on filedocumented in this encounter Additional Health Concerns Infection Onset Date Last Indicated Resolved Time Protective Environment 08/06/2023 08/06/2023 documented as of this encounter Care Teams Mechanical Operator Relationship Specialty Start Date End Date Elsewhere, Pcp PCP - General Family Medicine 10/30/20 documented as of this encounter
--- OUTSIDE RECORDS SUMMARY | 2023-08-12 14:06 | XMS_ITS | Encounter Summary ---
Author Name Unknown Organization [facility] Address [address] [place] [address] Care Team Providers Care Asphalt Distributor Operator Name Role Phone Elsewhere, Pcp Primary Care Provider Unavailabl e Reason for Visit * Reason Comments Bladder Cancer BCG #1 of 6. * Injectables (Routine) - Authorized Specialty Diagnoses / Procedures Referred By Contradha t Referred To Contact Diagnoses Malignant Neoplasm Of Bladder (HCC) Procedures URO Intravesical instillation - BCG maintenance River Stockton M.D. [address] [place] [phone] [facility] Referral ID Status Reason Start Date Expiration Date V isits Requested Visits Authorized [id number] Authorized 07/29/2023 07/28/2024 6 6 Encounter Details Date Type Department Care Team (Latest Contact Info) Description 08/06/2023 1:00 PM CDT Procedure visit Department of Urology in [place], [place] [address] [place] [phone] River Stockton M.D. [address] [place] [phone] Abimbola Pascal R.N. [address] [place] [phone] Malignant Neoplasm Of Bladder (HCC) (Primary Dx) Social History Tobacco Use Types Packs/Day Years Used Date Smoking Tobacco: Former Cigarettes 1.5 42.2 0 03/31/1961 - 06/30/2003 Passive Smoke Exposure: Past Smokeless Tobacco: Former Chew Quit: 03/31/1998 Comments:Quit several times Alcohol Use Standard Drinks/Week Comments Yes 9 (1 standard drink = 0.6 oz pur e alcohol) [facility] Utilities Answer Date Recorded [...] week 03/17/2022 How often do you attend [facility] or yazidism services? Never 03/17/2022 Do you [...] and heating? Not hard at all 08/27/2022 [facility] - Occupational Stress Questionnaire Answer Date [...] your living situation today? I have a [facility] place to live 03/26/2023 Education [...] of 1-2 hours, post procedure instructions per [id number] and cleansing wipes. Next treatment/follow up scheduled for: 08/13/2023 documented in this encounter Plan of Treatment Upcoming Encounters Date Type Department Care Team (Late st Contact Info) Description 08/20/2023 1:00 PM CDT Procedure visit Department of Urology in [place], [place] [address] [place] [address] River Stockton M.D. [address] [place] [phone] 08/26/2023 10:30 AM CDT Procedure visit Department of Urology in [place], [place] [address] [place] [address] River Stockton M.D. [address] [place] [phone] 09/03/2023 1:00 PM CDT Procedure visit Department of Urology in [place], [place] [address] [place] [address] River Stockton M.D. [address] [place] [phone] 09/09/2023 10:30 AM CDT Procedure visit Department of Urology in [place], [place] [address] [place] [phone] River Stockton M.D. [address] [place] [phone] 09/22/2023 10:30 AM CDT Procedure visit Department of Dermatology in [place], [place] [address] [place] [phone] Vitaliy Alvares M.D. [address] [place] [phone] 09/25/2023 9:00 AM CDT Appointment Department of Radiology, [facility], in [place], [place] [address] [place] [phone] Cody Carroll M.D. [address] [place] [phone] 09/25/2023 9:30 AM CDT Diagnostic Division of Pulmonary Medicine in [place], [place] [address] [place] [phone] Cody Carroll M.D. [address] [place] [phone] 09/25/2023 11:30 AM CDT Office Visit Division of Pulmonary Medicine in [place], [place] [address] [place] [phone] Teri Cerda APRN, C.N.P., D.N.P. [address] [place] [phone] 10/23/2023 9:20 AM CDT Office Visit Department of Dermatology in [place], [place] [address] [place] [phone] Crystal Rodriguez APRN, C.N.P., M.S.N. [address] [place] [phone] documented as of this encounter Visit Diagnoses [...] documented as of this encounter Care Teams Asphalt Distributor Operator Relationship Specialty Start Date End Date Elsewhere, Pcp PCP - General Family Medicine 10/30/20 documented as of this encounter
--- OUTSIDE RECORDS SUMMARY | 2023-08-12 14:06 | XMS_ITS | Referral Summary ---
Author Name Unknown Organization [facility] Address [address] [place] [address] Care Team Providers Care Bandoleer Straightener Stamper Name Role Phone Elsewhere, Pcp Primary Care Provider Unavailabl e Source Comments Patient records contain information from all sites at [facility]. For routine questions regarding patient records, call [phone] during business hours, M-F 8:00 AM - 5:00 PM Central Time. Record requests for emergency care only can be directed to [phone] at any time.[facility] Encounters Date Type Department Care Team Description 08/12/2023 Clinical Communication Department of Urology in [place], [place] [address] [place] [address] River Stockton M.D. 08/11/2023 Clinical Communication Division of Pulmonary Medicine in [place], [place] [address] [place] [phone] Cody Carroll M.D. 08/06/2023 1:00 PM CDT Procedure visit Department of Urology in [place], [place] [address] [place] [phone] River Stockton M.D. Hartz, Jane L, R.N. Malignant Neoplasm Of Bladder (HCC) (Primary Dx) 07/30/2023 Orders Only Department of Urology in [place], [place] [address] [place] [address] River Stockton M.D. Malignant Neoplasm Of Bladder (HCC) 07/29/2023 Orders Only Department of Urology in [place], [place] [address] [place] [phone] River Stockton M.D. 07/24/2023 Clinical Communication Department of Urology in [place], [place] [address] [place] [phone] River Stockton M.D. Appt Request 07/17/2023 8:30 AM CDT Comprehensive Visit Division of Pulmonary Medicine in [place], [place] [address] [place] [phone] Cody Carroll M.D. Nodule Pulmonary Solitary; Localized Enlarged Lymph Nodes 07/16/2023 12:00 PM CDT Ancillary Procedure Department of General Surgery 07/16/2023 12:55 PM CDT - 07/16/2023 2:10 PM CDT Surgery Outpatient Procedure Center in [address] [address] Cale De La Fuente M.D. CYSTOSCOPY BIOPSY FULGURATION 07/16/2023 2:07 PM CDT Anesthesia Event Outpatient Procedure Center in [address] [phone] Grecia Chauhan APRN, CRNA Ochs Kinney, Michelle A, M.D. 07/16/2023 11:29 AM CDT - 07/16/2023 3:55 PM CDT Hospital Encounter Outpatient Procedure Center in [address] [address] Cale De La Fuente M.D. Malignant Neoplasm Of Bladder (HCC) Discharge Disposition: Home or Self Care 07/15/2023 2:15 PM CDT Clinical Communication Virtual Review in [address] [phone] Pre-visit Intake 07/09/2023 Clinical Communication Department of Urology in [place], [place] [address] [place] [phone] Lynne Virgen 07/09/2023 Virtual Visit Division of Pulmonary Medicine in [place], [place] [address] [place] [phone] Marcial Bush M.D. Nodule Pulmonary (Primary Dx) 07/07/2023 Clinical Communication Department of Urology in [place], [place] [address] [place] [phone] River Stockton M.D. Urine Results 07/07/2023 2:00 PM CDT Telemedicine Preoperative Evaluation Center in [place], [place] [address] [place] [phone] Cornell Rowan APRN, C.N.P. Jodie Durbin APRN, C.N.P., M.S.N. Preanesthetic Medical Exam (Primary Dx); Mass Bladder; Malignant Neoplasm Of Bladder (HCC); Other Nonspecific Abnormal Finding Of Lung Field; Paresthesias Feet; Polyneuropathy; Neuroma Acoustic (HCC); Vertigo; Crohn's Disease (HCC) 07/04/[address] [address] González Mathew M.D. Nodule Pulmonary Solitary (Primary Dx); Localized Enlarged Lymph Nodes 07/04/2023 Clinical Communication Preoperative Evaluation Center in [place], [place] [address] [place] [phone] Vanessa Larios APRN, C.N.P., M.S.N. 06/30/2023 Orders Only Department of Dermatology in [place], [place] [address] [place] [phone] Sallie Padilla P.A.-C., M.S. Squamous Cell Carcinoma In Situ (Primary Dx) 06/23/2023 Orders Only Department of Urology in [place], [place] [address] [place] [phone] Cornell Rowan APRN, C.N.P. Mass Bladder (Primary Dx); Malignant Neoplasm Of Bladder (HCC) 06/23/2023 8:05 AM CDT Ancillary Procedure Department of Dermatology 06/23/2023 8:00 AM CDT Comprehensive Visit Department of Dermatology in [place], [place] [address] [place] [address] Sallie Padilla P.A.-C., M.S. Tumor Skin Uncertain Behavior (Primary Dx); Keratosis Actinic; Keratosis Seborrheic 06/23/2023 3:00 PM CDT Office Visit Department of Urology in [place], [place] [address] [place] [phone] River Stockton M.D. Lesion Bladder (Primary Dx) 06/23/2023 10:00 AM CDT Procedure visit Department of Urology in [place], [place] [address] [place] [phone] Rula Elmore M.D. Tentis, Elise R, P.A.-C. Malignant Neoplasm Of Bladder (HCC) 06/20/2023 11:15 AM CDT Clinical Communication Virtual Review in [place], [place] 200 [place] [address] Pre-visit Intake from Last 3 Months Allergies [...] 4 (four) hours as needed. 01/22/2022 Active wj-cqq-OA-vit U-bzfuku-oeanliv (PreserVision AREDS 2 Plus MV) 200 mcg-15 [...] drink = 0.6 oz pur e alcohol) [facility] Utilities Answer Date Recorded In the past 12 months has e [employer], gas, oil, or water company threatened to [...] week 03/17/2022 How often do you attend [facility] or adventist services? Never 03/17/2022 Do you belong to any clubs o r organizations such as pentecostalism groups, unions, fraternal or athletic groups, or [...] and heating? Not hard at all 08/27/2022 [facility] [place] of Occupat ional Health - Occupational Stress [...] your living situation today? [facility] 03/26/2023 Education [...] CDT Procedure visit Department of Urology in [place], [place] [address] [place] [phone] River Stockton M.D. [address] [place] [phone] 08/26/2023 10:30 AM CDT Procedure visit Department of Urology in [place], [place] [address] [place] [phone] River Stockton M.D. [address] [place] [phone] 09/03/2023 1:00 PM CDT Procedure visit Department of Urology in [place], [place] [address] [place] [phone] River Stockton M.D. [address] [place] [phone] 09/09/2023 10:30 AM CDT Procedure visit Department of Urology in [place], [place] [address] [place] [phone] River Stockton M.D. [address] [place] [phone] 09/22/2023 10:30 AM CDT Procedure visit Department of Dermatology in [place], [place] [address] [place] [phone] Vitaliy Alvares M.D. [address] [place] [phone] 09/25/2023 9:00 AM CDT Appointment Department of Radiology, [facility], in [place], [place] [address] [place] [phone] Cody Carroll M.D. [address] [place] [phone] 09/25/2023 9:30 AM CDT Diagnostic Division of Pulmonary Medicine in [place], [place] [address] [place] [phone] Cody Carroll M.D. [address] [place] [phone] 09/25/2023 11:30 AM CDT Office Visit Division of Pulmonary Medicine in [place], [place] [address] [place] [phone] Teri Cerda APRN, C.N.P., D.N.P. [address] [place] [phone] 10/23/2023 9:20 AM CDT Office Visit Department of Dermatology in [place], [place] [address] [place] [phone] Crystal Rodriguez APRN, C.N.P., M.S.N. [address] [place] [phone] Medical Devices Implanted Type Area Reconnaissance Crewmember Device Identifier Shelf Expiration Date Model / Serial / Lot Lens Tcn Mnfcl Dcb00 +18.5d - [id number] - [id number] Implanted:Qty : 1 on 01/29/2023 by Chuckie Sawant M.D. at [facility] Ocular Lens Left: Eye [employer] (Previously ERENDIRA) 11/10/2025 [id number] / [id number] / Eyhance Iol Implanted:Qty : 1 on 02/28/2023 by Chuckie Sawant M.D. at [facility] [place] Ocular Lens Right: Eye [employer] 12/24/2025 [id number] / [id number] / Procedures Procedure Name Priority Date/Time Associated [...] CDT Malignant Neoplasm Of Bladder (HCC) CYTOLOGY NON-DONOR SUPPORT TECHNICIAN Routine 06/23/2023 9:58 AM CDT Malignant Neoplasm [...] is included. 08/12/2023 8:27 AM CDT Narrative [facility] - 08/12/2023 10:09 AM CDT This order [...] System IMG CT PROCEDURES Performing Organization Address [facility] de Phone Number IIMS NA * XR CHEST 1V PORTABLE-Outside Chest Xray (08/12/2023 7:25 AM CDT) Only the most recent of2 resultswithin the time period is included. 08/12/2023 7:25 AM CDT Narrative [facility] - 08/12/2023 9:44 AM CDT This order [...] DIAGNOSTIC IM AGING PROCEDURES Performing Organization Address [facility] de Phone Number IIMS NA * Surgical [...] as received in A1. ??Tiffanie Perez M.S., TANISHA([facility]) B: Received in formalin labeled with the patient's name, medical record number, and right diverticulum are 2 fragments of sanchez-white tissue ranging from 0.2-0.3 cm in greatest dimension. ??The specimen is entirely submitted in B1. ??Tiffanie Perez M.S., TANISHA([facility]) 07/17/2023 1:23 PM CDT DTL Interpretation [...] Fuente M.D. LAB SURG PATH ORDERA BLES [facility] [address] [place] [address], [facility] DTL [address] [place] [address] * BLADDER-Surgery Image Exam (07/16/2023 12:00 PM [...] NON RAD IMAGI NG PROCEDURES IIMS NA * URO Cystoscopy (general) (06/23/2023 [...] Rula Elmore M.D. UROLOGY ORDERABLES * Cytology Non-DONOR SUPPORT TECHNICIAN (06/23/2023 9:58 AM CDT) 06/24/2023 1:37 PM [...] Larsen P.A.-C. LAB SURG PATH ORD ERABLES [facility] 200 [place] [address], [facility] DT 200 [facility] 200 [place] [address] * Dermatopathology (06/23/2023 8:06 AM CDT) 06/26/2023 [...] scalp) 06/23/2023 8:05 AM CDT Sallie Padilla P.A.-C. MRenataS. LAB PATH DE RM ORDERABLES Performing Organization Address City/[facility]/ZIP Co de Phone Number [facility] [address] [place] [address], [facility] P[facility] [address] [facility] 200 [place] [address] * Scalp 502-Dermatology Image Exam (06/23/2023 8:04 [...] RAD IMAGI NG PROCEDURES Performing Organization Address [facility] Co de Phone Number IIMS NA * [...] Electronically signed by: ?? Nico Ospina MD [phone] 18-Nov-2013 14:53 ?Rich Munoz M.D. [phone] 18-Nov-2013 [...] Bladderdiverticula. Electronically signed by: Nico Ospina MD [phone] 18-Nov-2013 14:53 Rich Munoz M.D.[phone] 18-Nov-2013 14:53 Noé Artis M.D. IMG CT PROCEDURES from Last 3 Months or Most Recently Relevant to Health Maintenance Additional Health Concerns Infection Onset Date Last Indicated Protective Environment 08/06/2023 Advance Directives For more information, please contact: [phone] Documents on File Type Date Recorded Patient Director Of Video Analytics Expl anation Advance Directives 11/30/2018 4:27 PM [...] Alternat e Health Care Agent Care Teams Bandoleer Straightener Stamper Relationship Specialty Start Date End Date Elsewhere, Pcp PCP - General Family Medicine 10/30/20
--- OUTSIDE RECORDS SUMMARY | 2023-08-12 14:06 | XMS_ITS | Encounter Summary ---
Author Name Unknown Organization [facility] Address [address] [place] [address] Care Team Providers Care Leadership Coach Name Role Phone Elsewhere, Pcp Primary Care Provider Unavailabl e Reason for Referral * Outpatient (Routine) - Authorized Specialty Diagnoses / Procedures Referred By Contac t Referred To Contact Pulmonary Medicine Diagnoses Nodule Pulmonary Solitary Localized Enlarged Lymph Nodes Cody Carroll M.D. 200 [place] [address] [facility] Referral ID Status Reason Start Date Expiration Date V isits Requested Visits Authorized [id number] Authorized 07/17/2023 01/15/2025 1 1 * MRI/CAT/PET Scan (Routine) - Pending Review Specialty Diagnoses / Procedures Referred By Contradha t Referred To Contact Radiology Diagnoses Nodule Pulmonary Solitary Localized Enlarged Lymph Nodes Procedures CT Chest without IV Contrast Cody Carroll M.D. [address] [place] [address] [facility] Referral ID Status Reason Start Date Expiration Date V isits Requested Visits Authorized [id number] Pending Review 07/17/2023 07/16/2024 1 1 Reason for Visit * Outpatient (Routine) - Closed Specialty Diagnoses / Procedures Referred By Mychal izquierdo Referred To Contact Pulmonary Medicine Diagnoses Nodule Pulmonary Solitary Localized Enlarged Lymph Nodes González Mathew M.D. [address] [place] [address] [facility] Referral ID Status Reason Start Date Expiration Date Visits Re quested Visits Authorized [id number] Closed 07/04/2023 01/02/2025 1 1 Encounter Details Date Type Department Care Team (Latest Contact Info) Description 07/17/2023 8:30 AM CDT Comprehensive Visit Division of Pulmonary Medicine in [place], [place] [address] [place] [address] Cody Carroll M.D. [address] [place] [address] Nodule Pulmonary Solitary; Localized Enlarged Lymph Nodes Social History Tobacco Use Types Packs/Day Years Used Date Smoking Tobacco: Former Cigarettes 1.5 42.2 0 03/31/1961 - 06/30/2003 Passive Smoke Exposure: Past Smokeless Tobacco: Former Chew Quit: 03/31/1998 Comments:Quit several times Alcohol Use Standard Drinks/Week Comments Yes 9 (1 standard drink = 0.6 oz pur e alcohol) [facility] Utilities Answer Date Recorded In the past 12 months has [facility] [employer], gas, oil, or water [employer] threatened to shut off services in your [...] often do you attend chur ch or sikhism services? Never 03/17/2022 Do you belong to any clubs o r organizations such as christianity groups, unions, fraternal or athletic groups, or [...] and heating? Not hard at all 08/27/2022 [facility] of Occupat ional Health - Occupational [...] your living situation today? I have a [employer] place to live 03/26/2023 Education Answer Date [...] 5-day course of prednisone with Amoxicillin in [place]. He did not feel better overall and developed rash and angioedema on day 8. He was hospitalized and treated for that. He felt ill again about 5-6 days ago and went to [place]. He had similar symptoms as last month.Currently [...] CDT Procedure visit Department of Urology in [place], [place] [address] [place] [address] River Stockton M.D. [address] [place] [phone] 08/26/2023 10:30 AM CDT Procedure visit Department of Urology in [place], [place] [address] [place] [phone] River Stockton M.D. [address] [place] [address] 09/03/2023 1:00 PM CDT Procedure visit Department of Urology in [place], [place] [address] [place] [address] River Stockton M.D. [address] [place] [phone] 09/09/2023 10:30 AM CDT Procedure visit Department of Urology in [place], [place] [address] [place] [address] River Stockton M.D. [address] [place] [phone] 09/22/2023 10:30 AM CDT Procedure visit Department of Dermatology in [place], [place] [address] [place] [address] Vitaliy Alvares M.D. [address] [place] [phone] 09/25/2023 9:00 AM CDT Appointment Department of Radiology, [facility], in [place], [place] [address] [place] [address] Cody Carroll M.D. [address] [place] [phone] 09/25/2023 9:30 AM CDT Diagnostic Division of Pulmonary Medicine in [place], [place] [address] [place] [phone] Cody Carroll M.D. [address] [place] [phone] 09/25/2023 11:30 AM CDT Office Visit Division of Pulmonary Medicine in [place], [place] [address] [place] [address] Teri Cerda APRN, C.N.P., D.N.P. [address] [place] [phone] 10/23/2023 9:20 AM CDT Office Visit Department of Dermatology in [place], [place] [address] [place] [phone] Crystal Rodriguez APRN, C.N.P., M.S.N. [address] [place] [phone] Scheduled Orders Name Type Priority Associated Diagnoses [...] Nodes documented in this encounter Care Teams Leadership Coach Relationship Specialty Start Date End Date Elsewhere, Pcp PCP - General Family Medicine 10/30/20 documented as of this encounter
--- OUTSIDE RECORDS SUMMARY | 2023-08-12 14:06 | XMS_ITS | Encounter Summary ---
Author Name Unknown Organization [facility] Address [address] [place] [address] Care Team Providers Care Loan Officer Assistant Name Role Phone Elsewhere, Pcp Primary Care Provider Unavailabl e Reason for Referral * Injectables (Routine) - Authorized Specialty Diagnoses / Procedures Referred By Mychal izquierdo Referred To Contact Diagnoses Malignant Neoplasm Of Bladder (HCC) Procedures URO Intravesical instillation - BCG maintenance River Stockton M.D. [address] [place] [phone] [facility] Referral ID Status Reason Start Date Expiration Date V isits Requested Visits Authorized [id number] Authorized 07/29/2023 07/28/2024 6 6 Reason for Visit * Reason Onset Date Comments Appt Request 07/24/2023 Encounter Details Date Type Department Care Team (Late st Contact Info) Description 07/24/2023 Clinical Communication Department of Urology in [place], [place] [address] [place] [phone] River Stockton M.D. [address] [place] [phone] Appt Request Social History Tobacco Use Types Packs/Day Years Used Date Smoking Tobacco: Former Cigarettes 1.5 42.2 0 03/31/1961 - 06/30/2003 Passive Smoke Exposure: Past Smokeless Tobacco: Former Chew Quit: 03/31/1998 Comments:Quit several times Alcohol Use Standard Drinks/Week Comments Yes 9 (1 standard drink = 0.6 oz pur e alcohol) [facility] Utilities Answer Date Recorded In [...] How often do you attend chur or confucianist services? Never 03/17/2022 Do you belong to any clubs o r organizations such as methodist groups, unions, fraternal or athletic groups, or [...] heating? Not hard at all 08/27/2022 [facility] of Occupat ional [facility] - Occupational Stress Questionnaire Answer Date [...] CDT Procedure visit Department of Urology in [place], [place] [address] [place] [address] River Stockton M.D. [address] [place] [address] 08/26/2023 10:30 AM CDT Procedure visit Department of Urology in [place], [place] [address] [place] [address] River Stockton M.D. [address] [place] [phone] 09/03/2023 1:00 PM CDT Procedure visit Department of Urology in [place], [place] [address] [place] [address] River Stockton M.D. [address] [place] [phone] 09/09/2023 10:30 AM CDT Procedure visit Department of Urology in [place], [place] [address] [place] [address] River Stockton M.D. [address] [place] [phone] 09/22/2023 10:30 AM CDT Procedure visit Department of Dermatology in [place], [place] [address] [place] [address] Vitaliy Alvares M.D. [address] [place] [phone] 09/25/2023 9:00 AM CDT Appointment Department of Radiology, [facility], in [place], [place] [address] [place] [address] Cody Carroll M.D. [address] [place] [phone] 09/25/2023 9:30 AM CDT Diagnostic Division of Pulmonary Medicine in [place], [place] [address] [place] [phone] Cody Gatica M.D. [address] [place] [phone] 09/25/2023 11:30 AM CDT Office Visit Division of Pulmonary Medicine in [place], [place] [address] [place] [phone] Teri Cerda APRN, C.N.P., D.N.P. [address] [place] [phone] 10/23/2023 9:20 AM CDT Office Visit Department of Dermatology in [place], [place] [address] [place] [phone] Crystal Rodriguez APRN, C.N.P., M.S.N. [address] [place] [phone] Scheduled Orders Name Type Priority Associated Diagnoses [...] documented as of this encounter Care Teams Loan Officer Assistant Relationship Specialty Start Date End Date Elsewhere, Pcp PCP - General Family Medicine 10/30/20 documented as of this encounter
--- OUTSIDE RECORDS SUMMARY | 2023-08-12 14:06 | XMS_ITS | Encounter Summary ---
Author Name Unknown Organization [facility] Address [address] [place] [address] Care Team Providers Care Engineering Technical Analyst Name Role Phone Elsewhere, Pcp Primary Care Provider Unavailabl e Reason for Visit * Auth/Cert (Routine) Specialty Diagnoses / Procedures Referred By Mychal t Referred To Contact Diagnoses Bladder disorder, unspecified X Procedures [place] CYSTOURETHROSCOPY WITH BX BIOPSY BLADDER Referral ID Status Reason Start Date Expiration Date Visits Re quested Visits Authorized [id number] 1 1 Encounter Details Date Type Department Care Team (Late st Contact Info) Description 07/16/2023 2:07 PM CDT Anesthesia Event Outpatient Procedure Center in [place], [place] [address] [place] [phone] Grecia Chauhan APRN, JAYLA [address] [place] [phone] Mahogany Elkins M.D. [address] [place] [phone] Anesthesia Record Procedure Summary Procedure Name Responsible [...] drink = 0.6 oz pur e alcohol) [facility] Utilities Answer Date Recorded In the past 12 months has [employer], gas, oil, or water [employer] threatened to shut off services in your [...] week 03/17/2022 How often do you attend [facility] or tenriism services? Never 03/17/2022 Do you [...] and heating? Not hard at all 08/27/2022 [facility] of Occupat ional Health - [...] Summary Date: 07/16/23 Room / Location: ROOM [address] / [facility] in [place], [place] Anesthesia Start: 1407 Anesthesia Stop: 1500 [...] Malignant Neoplasm Bladder (HCC) [C67.9]. Location: ROOM [address] / [facility] in [place], [place] Surgeons: Cale De La Fuente M.D. [...] with patient /legal guardian or through an prescription benefit specialist. The use of blood products not discussed Approval to Proceed: approved for anesthesia documented in this encounter Plan of Treatment Upcoming Encounters Date Type Department Care Team (Late st Contact Info) Description 08/20/2023 1:00 PM CDT Procedure visit Department of Urology in [place], [place] [address] [place] [phone] River Stockton M.D. [address] [place] [phone] 08/26/2023 10:30 AM CDT Procedure visit Department of Urology in [place], [place] [address] [place] [phone] River Stockton M.D. [address] [place] [phone] 09/03/2023 1:00 PM CDT Procedure visit Department of Urology in [place], [place] [address] [place] [phone] River Stockton M.D. [address] [place] [phone] 09/09/2023 10:30 AM CDT Procedure visit Department of Urology in [place], [place] [address] [place] [phone] River Stockton M.D. [address] [place] [phone] 09/22/2023 10:30 AM CDT Procedure visit Department of Dermatology in [place], [place] [address] [place] [phone] Vitaliy Alvares M.D. [address] [place] [phone] 09/25/2023 9:00 AM CDT Appointment Department of Radiology, [facility], in [place], [place] [address] [place] [phone] Cody Carroll M.D. [address] [place] [phone] 09/25/2023 9:30 AM CDT Diagnostic Division of Pulmonary Medicine in [address] [phone] Cody Carroll M.D. [address] [place] [phone] 09/25/2023 11:30 AM CDT Office Visit Division of Pulmonary Medicine in [address] [phone] Teri Cerda APRN, C.N.P., D.N.P. [address] [place] [phone] 10/23/2023 9:20 AM CDT Office Visit Department of Dermatology in [address] [phone] Crystal Rodriguez APRN, C.N.P., M.S.N. [address] [place] [phone] documented as of this encounter Visit Diagnoses [...] mg documented in this encounter Care Teams Engineering Technical Analyst Relationship Specialty Start Date End Date Elsewhere, Pcp PCP - General Family Medicine 10/30/20 documented as of this encounter
--- OUTSIDE RECORDS SUMMARY | 2023-08-12 14:07 | XMS_ITS | Encounter Summary ---
Author Name Unknown Organization [facility] Address [address] [place] [address] Care Team Providers Care Setup Technician Name Role Phone Elsewhere, Pcp Primary Care Provider Unavailabl e Reason for Visit * Reason Onset Date Comments Pre-visit Intake 06/20/2023 Encounter Details Date Type Department Care Team (Latest Contact Info) Description 06/20/2023 11:15 AM CDT Clinical Communication Virtual Review in [place], [place] 200 [place] [address] Pre-visit Intake Social History Tobacco Use Types Packs/Day Years Used Date Smoking Tobacco: Former Cigarettes 0 03/31/1961 - 03/31/1999 Passive Smoke Exposure: Past Smokeless Tobacco: Former Snuff Quit: 03/31/1994 Tobacco Cessation:Counseling Given: Not Answered Alcohol Use Standard Drinks/Week Comments Yes 7 (1 standard drink = 0.6 oz pur e alcohol) [facility] Utilities Answer Date Recorded In the past 12 months has [employer], gas, oil, or water [employer] threatened to shut off services in your [...] often do you attend chur ch or buddhism services? Never 03/17/2022 Do you [...] at all 08/27/2022 [facility] of Occupat ional Health - Occupational [...] your living situation today? I have a [facility] place to live 03/26/2023 Education [...] CDT Procedure visit Department of Urology in [place], [place] 200 [place] [address] River Stockton M.D. [address] [place] [address] 08/26/2023 10:30 AM CDT Procedure visit Department of Urology in [place], [place] [address] [place] [address] River Stockton M.D. [address] [place] [phone] 09/03/2023 1:00 PM CDT Procedure visit Department of Urology in [place], [place] [address] [place] [address] River Stockton M.D. [address] [place] [phone] 09/09/2023 10:30 AM CDT Procedure visit Department of Urology in [place], [place] [address] [place] [address] River Stockton M.D. [address] [place] [phone] 09/22/2023 10:30 AM CDT Procedure visit Department of Dermatology in [place], [place] [address] [place] [address] Vitaliy Alvares M.D. [address] [place] [phone] 09/25/2023 9:00 AM CDT Appointment Department of Radiology, [facility], in [place], [place] [address] [place] [phone] Cody Carroll M.D. [address] [place] [phone] 09/25/2023 9:30 AM CDT Diagnostic Division of Pulmonary Medicine in [place], [place] [address] [place] [phone] Cody Carroll M.D. [address] [place] [phone] 09/25/2023 11:30 AM CDT Office Visit Division of Pulmonary Medicine in [place], [place] [address] [place] [address] Teri Cerda APRN, C.N.P., D.N.P. [address] [place] [phone] 10/23/2023 9:20 AM CDT Office Visit Department of Dermatology in [place], [place] [address] [place] [phone] Crystal Rodriguez APRN, C.N.P., M.S.N. [address] [place] [phone] documented as of this encounter Visit Diagnoses Not on filedocumented in this encounter Care Teams Setup Technician Relationship Specialty Start Date End Date Elsewhere, Pcp PCP - General Family Medicine 10/30/20 documented as of this encounter
--- OUTSIDE RECORDS SUMMARY | 2023-08-12 14:07 | XMS_ITS | Encounter Summary ---
Author Name Unknown Organization [facility] Address [address] [place] [address] Care Team Providers Care Information Systems Director Name Role Phone Elsewhere, Pcp Primary [...] drink = 0.6 oz pur e alcohol) [facility] Utilities Answer Date Recorded In the past 12 months has [facility] [employer], gas, oil, or water [employer] threatened to shut off services in your [...] often do you attend chur ch or synagogue services? Never 03/17/2022 Do you belong to [...] and heating? Not hard at all 08/27/2022 [facility] - Occupational Stress Questionnaire Answer Date [...] CDT Procedure visit Department of Urology in [place], [place] [address] [place] [address] River Stockton M.D. [address] [place] [phone] 08/26/2023 10:30 AM CDT Procedure visit Department of Urology in [place], [place] [address] [place] [address] River Stockton M.D. 200 [place] [address] 09/03/2023 1:00 PM CDT Procedure visit Department of Urology in [place], [place] [address] [place] [phone] River Stockton M.D. [address] [place] [phone] 09/09/2023 10:30 AM CDT Procedure visit Department of Urology in [place], [place] [address] [place] [phone] River Stockton M.D. [address] [place] [phone] 09/22/2023 10:30 AM CDT Procedure visit Department of Dermatology in [place], [place] [address] [place] [phone] Vitaliy Alvares M.D. [address] [place] [phone] 09/25/2023 9:00 AM CDT Appointment Department of Radiology, [facility], in [place], [place] [address] [place] [phone] Cody Carroll M.D. [address] [place] [phone] 09/25/2023 9:30 AM CDT Diagnostic Division of Pulmonary Medicine in [place], [place] [address] [place] [phone] Cody Carroll M.D. [address] [place] [phone] 09/25/2023 11:30 AM CDT Office Visit Division of Pulmonary Medicine in [place], [place] [address] [place] [phone] Teri Cerda APRN, C.N.P., D.N.P. [address] [place] [address] 10/23/2023 9:20 AM CDT Office Visit Department of Dermatology in [place], [place] [address] [place] [address] Crystal Rodriguez APRN, C.N.P., M.S.N. [address] [place] [phone] documented as of this encounter Procedures Procedure [...] on filedocumented in this encounter Care Teams Information Systems Director Relationship Specialty Start Date End Date Elsewhere, Pcp PCP - General Family Medicine 10/30/20 documented as of this encounter
--- OUTSIDE RECORDS SUMMARY | 2023-08-12 14:07 | XMS_ITS | Encounter Summary ---
Author Name Unknown Organization [facility] Address [address] [place] [address] Care Team Providers Care Remote Encoding Operations Supervisor Name Role Phone Elsewhere, Pcp Primary Care Provider Unavailabl e Reason for Referral * Outpatient (Routine) - Authorized Specialty Diagnoses / Procedures Referred By Mychal izquierdo Referred To Contact Urology Cornell Rowan APRN, C.N.P. [address] [place] [phone] River Stockton M.D. [address] [place] [phone] Referral ID Status Reason Start Date Expiration Date V isits Requested Visits Authorized [id number] Authorized 07/21/2023 01/19/2025 1 1 Scheduling Instructions F2f or video Reason for Visit * Reason Onset Date Comments Urine Results 07/07/2023 Encounter Details Date Type Department Care Team (Late st Contact Info) Description 07/07/2023 Clinical Communication Department of Urology in [place], [place] [address] [place] [phone] River Stockton M.D. [address] [place] [phone] Urine Results Social History Tobacco Use Types Packs/Day Years Used Date Smoking Tobacco: Former Cigarettes 1.5 42.2 0 03/31/1961 - 06/30/2003 Passive Smoke Exposure: Past Smokeless Tobacco: Former Chew Quit: 03/31/1998 Comments:Quit several times Alcohol Use Standard Drinks/Week Comments Yes 9 (1 standard drink = 0.6 oz pur e alcohol) [facility] Utilities Answer Date Recorded In the past 12 months has e [employer], [employer], oil, or water [employer] threatened to shut off services in [...] often do you attend chur ch or faith services? Never 03/17/2022 Do you belong to any clubs o r organizations such as adventism groups, unions, fraternal or athletic groups, or [...] and heating? Not hard at all 08/27/2022 [facility] - Occupational Stress Questionnaire Answer Date Recorded [...] your living situation today? I have a [facility] place to live 03/26/2023 Education Answer [...] CDT Procedure visit Department of Urology in [place], [place] [address] [place] [phone] River Stockton M.D. [address] [place] [phone] 08/26/2023 10:30 AM CDT Procedure visit Department of Urology in [place], [place] [address] [place] [phone] River Stockton M.D. [address] [place] [phone] 09/03/2023 1:00 PM CDT Procedure visit Department of Urology in [place], [place] [address] [place] [address] River Stockton M.D. [address] [place] [phone] 09/09/2023 10:30 AM CDT Procedure visit Department of Urology in [place], [place] [address] [place] [address] River Stockton M.D. [address] [place] [phone] 09/22/2023 10:30 AM CDT Procedure visit Department of Dermatology in [place], [place] [address] [place] [address] Vitlaiy Alvares M.D. [address] [place] [phone] 09/25/2023 9:00 AM CDT Appointment Department of Radiology, [facility], in [place], [place] [address] [place] [address] Cody Carroll M.D. [address] [place] [phone] 09/25/2023 9:30 AM CDT Diagnostic Division of Pulmonary Medicine in [place], [place] [address] [place] [phone] Cody Carroll M.D. [address] [place] [phone] 09/25/2023 11:30 AM CDT Office Visit Division of Pulmonary Medicine in [place], [place] [address] [place] [phone] Teri Cerda APRN, C.N.P., D.N.P. [address] [place] [phone] 10/23/2023 9:20 AM CDT Office Visit Department of Dermatology in [place], [place] [address] [place] [address] Crystal Rodriguez APRN, C.N.P., M.S.N. 200 [place] [address] Scheduled Referrals Name Type Priority Associated Diagnoses Orde r Schedule Urology office visit (clinic) Outpatient Referral Routine Expected: 07/21/2023, Expires: 10/19/2024 documented as of this encounter Visit Diagnoses Not on filedocumented in this encounter Care Teams Remote Encoding Operations Supervisor Relationship Specialty Start Date End Date Elsewhere, Pcp PCP - General Family Medicine 10/30/20 documented as of this encounter
--- OUTSIDE RECORDS SUMMARY | 2023-08-12 14:07 | XMS_ITS | Encounter Summary ---
Author Name Unknown Organization [facility] Address [address] [place] [address] Care Team Providers Care Chief [employer] Name Role Phone Elsewhere, Pcp Primary Care Provider Unavailabl e Reason for Visit * Outpatient (Routine) - Closed Specialty Diagnoses / Procedures Referred By Mychal izquierdo Referred To Contact Diagnoses Malignant Neoplasm Of Bladder (HCC) Procedures URO Cystoscopy (general) Rula Elmore M.D. [address] [place] [phone] [facility] Region Referral ID Status Reason Start Date Expiration Date Visits Re quested Visits Authorized [id number] Closed 04/16/2023 04/15/2024 1 1 Encounter Details Date Type Department Care Team (Latest Contact Info) Description 06/23/2023 10:00 AM CDT Procedure visit Department of Urology in [place], [place] [address] [place] [phone] Rula Elmore M.D. [address] [place] [phone] Irma Larsen P.A.-C. [address] [place] [phone] Malignant Neoplasm Of Bladder (HCC) Social History Tobacco Use Types Packs/Day Years Used Date Smoking Tobacco: Former Cigarettes 0 03/31/1961 - 03/31/1999 Passive Smoke Exposure: Past Smokeless Tobacco: Former Snuff Quit: 03/31/1994 Alcohol Use Standard Drinks/Week Comments Yes 7 (1 standard drink = 0.6 oz pur e alcohol) [facility] Utilities Answer Date Recorded In [...] How often do you attend chur or advent services? Never 03/17/2022 Do you belong to any clubs o r organizations such as buddhism groups, unions, fraternal or athletic groups, or [...] and heating? Not hard at all 08/27/2022 [facility] of Occupat ional Health - Occupational [...] living situation today? I [facility] a [facility] to live 03/26/2023 Education Answer Date [...] cystoscopy performed by Irma Larsen Cystoscope CYF-VH #[id number] was used during today's cystoscopy procedure. Accessories used: disposable stop cock. Load number from processing via [employer]: [id number] Urines sent: No 4. Was dye used? [...] CDT Procedure visit Department of Urology in [place], [place] [address] [place] [phone] River Stockton M.D. [address] [place] [address] 08/26/2023 10:30 AM CDT Procedure visit Department of Urology in [place], [place] [address] [place] [address] River Stockton M.D. [address] [place] [phone] 09/03/2023 1:00 PM CDT Procedure visit Department of Urology in [place], [place] [address] [place] [address] River Stockton M.D. [address] [place] [phone] 09/09/2023 10:30 AM CDT Procedure visit Department of Urology in [place], [place] [address] [place] [address] River Stockton M.D. [address] [place] [phone] 09/22/2023 10:30 AM CDT Procedure visit Department of Dermatology in [place], [place] [address] [place] [address] Vitaliy Alvares M.D. [address] [place] [phone] 09/25/2023 9:00 AM CDT Appointment Department of Radiology, [facility], in [place], [place] [address] [place] [address] Cody Carroll M.D. [address] [place] [phone] 09/25/2023 9:30 AM CDT Diagnostic Division of Pulmonary Medicine in [place], [place] [address] [place] [address] Cody Carroll M.D. [address] [place] [phone] 09/25/2023 11:30 AM CDT Office Visit Division of Pulmonary Medicine in [place], [place] [address] [place] [phone] Teri Cerda APRN, C.N.PRenata, D.N.P. [address] [place] [phone] 10/23/2023 9:20 AM CDT Office Visit Department of Dermatology in [place], [place] [address] [place] [phone] Crystal Rodriguez APRN, C.N.P., M.S.N. [address] [place] [phone] documented as of this encounter Procedures Procedure Name Priority Date/Time Associated Diagnosis Comments URO CYSTOSCOPY (GENERAL) Routine 06/23/2023 10:00 AM CDT Malignant Neoplasm Of Bladder (HCC) CYTOLOGY NON-MANNEQUIN WIG MAKER Routine 06/23/2023 9:58 AM CDT Malignant Neoplasm Of Bladder (HCC) documented in this encounter Results * URO Cystoscopy (general) (06/23/2023 10:00 AM CDT) Narrative Irma Laresn P.A.-C. - 06/23/2023 10:00 AM CDT Irma [...] Rula Elmore M.D. UROLOGY ORDERABLES * Cytology Non-MANNEQUIN WIG MAKER (06/23/2023 9:58 AM CDT) 06/24/2023 1:37 PM [...] Larsen P.A.-C. LAB SURG PATH ORD ERABLES [facility] [address] [place] [address], [facility] [address] [facility] [address] [place] [address] documented in this encounter Visit Diagnoses Diagnosis Malignant Neoplasm Of Bladder (HCC) documented in this encounter Care Teams Chief Reservoir Engineering Relationship Specialty Start Date End Date Elsewhere, Pcp PCP - General Family Medicine 10/30/20 documented as of this encounter
--- OUTSIDE RECORDS SUMMARY | 2023-08-12 14:07 | XMS_ITS | Encounter Summary ---
Author Name Unknown Organization [facility] Address [address] [place] [address] Care Team Providers Care Cloth Bale Header Name Role Phone Elsewhere, Pcp Primary Care Provider Unavailabl e Reason for Visit * Reason Onset Date Comments Pre-visit Intake 07/15/2023 Encounter Details Date Type Department Care Team (Latest Contact Info) Description 07/15/2023 2:15 PM CDT Clinical Communication Virtual Review in [place], [place] 200 [place] [address] Pre-visit Intake Social History Tobacco Use Types Packs/Day Years Used Date Smoking Tobacco: Former Cigarettes 1.5 42.2 0 03/31/1961 - 06/30/2003 Passive Smoke Exposure: Past Smokeless Tobacco: Former Chew Quit: 03/31/1998 Tobacco Cessation:Counseling Given: Not Answered Comments:Quit several times Alcohol Use Standard Drinks/Week Comments Yes 9 (1 standard drink = 0.6 oz pur e alcohol) [facility] Utilities Answer Date Recorded In the past 12 months has e [employer], gas, oil, or water [facility] threatened to shut off services in your [...] any clubs o r organizations such as orthodox groups, unions, fraternal or athletic groups, or [...] and heating? Not hard at all 08/27/2022 [facility] of Occupat ional Health - Occupational Stress [...] your living situation today? I have a [facility] place to live 03/26/2023 Education Answer [...] CDT Procedure visit Department of Urology in [place], [place] 200 [place] [address] River Stockton M.D. 200 [place] [address] 08/26/2023 10:30 AM CDT Procedure visit Department of Urology in [place], [place] [address] [place] [address] River Stockton M.D. [address] [place] [phone] 09/03/2023 1:00 PM CDT Procedure visit Department of Urology in [place], [place] [address] [place] [address] River Stockton M.D. [address] [place] [phone] 09/09/2023 10:30 AM CDT Procedure visit Department of Urology in [place], [place] [address] [place] [phone] River Stockton M.D. [address] [place] [phone] 09/22/2023 10:30 AM CDT Procedure visit Department of Dermatology in [place], [place] [address] [place] [phone] Vitaliy Alvares M.D. [address] [place] [phone] 09/25/2023 9:00 AM CDT Appointment Department of Radiology, [facility], in [place], [place] [address] [place] [phone] Cody Carroll M.D. [address] [place] [phone] 09/25/2023 9:30 AM CDT Diagnostic Division of Pulmonary Medicine in [place], [place] [address] [place] [phone] Cody Carroll M.D. [address] [place] [phone] 09/25/2023 11:30 AM CDT Office Visit Division of Pulmonary Medicine in [place], [place] [address] [place] [phone] Teri Cerda APRN, C.N.P., D.N.P. [address] [place] [phone] 10/23/2023 9:20 AM CDT Office Visit Department of Dermatology in [place], [place] [address] [place] [phone] Crystal Rodriguez APRN, C.N.P., M.S.N. [address] [place] [phone] documented as of this encounter Visit Diagnoses Not on filedocumented in this encounter Care Teams Cloth Bale Header Relationship Specialty Start Date End Date Elsewhere, Pcp PCP - General Family Medicine 10/30/20 documented as of this encounter
--- OUTSIDE RECORDS SUMMARY | 2023-08-12 14:07 | XMS_ITS | Encounter Summary ---
Author Name Unknown Organization [facility] Address [address] [place] [address] Care Team Providers Care Roundhouse Supervisor Name Role Phone Elsewhere, Pcp Primary Care Provider Unavailabl e Reason for Visit * Auth/Cert (Routine) Specialty Diagnoses / Procedures Referred By Mychal t Referred To Contact Diagnoses Bladder disorder, unspecified X Procedures OH CYSTOURETHROSCOPY WITH BX BIOPSY BLADDER Referral ID Status Reason Start Date Expiration Date Visits Re quested Visits Authorized [id number] 1 1 Encounter Details Date Type Department Care Team (Latest Contact Info) Description 07/16/2023 11:29 AM CDT - 07/16/2023 3:55 PM CDT Hospital Encounter Outpatient Procedure Center in [place], [place] [address] [place] [address] Cale De La Fuente M.D. [address] [place] [address] Malignant Neoplasm Of Bladder (HCC) Discharge Disposition: Home or Self Care Social History Tobacco Use Types Packs/Day Years Used Date Smoking Tobacco: Former Cigarettes 1.5 42.2 0 03/31/1961 - 06/30/2003 Passive Smoke Exposure: Past Smokeless Tobacco: Former Chew Quit: 03/31/1998 Comments:Quit several times Alcohol Use Standard Drinks/Week Comments Yes 9 (1 standard drink = 0.6 oz pur e alcohol) [facility] Utilities Answer Date Recorded In the past 12 months has th e [employer], gas, oil, or water company threatened to [...] often do you attend chur ch or hindu services? Never 03/17/2022 Do you belong to any clubs o r organizations such as hinduism groups, unions, fraternal or athletic groups, or [...] and heating? Not hard at all 08/27/2022 [facility] [place] of Occupat ional Health - Occupational Stress [...] living situation today? I have a [facility] place to live 03/26/2023 Education [...] Take 1 tablet by mouth daily. 09/29/2008 in-ssh-SK-vit K-lfilcp-boghsar (PreserVision AREDS 2 Plus MV) 200 mcg-15 [...] Post-op Diagnosis Malignant Neoplasm Of Bladder (HCC) Community Assistant A presser first actively participated and was necessary for one [...] CDT Procedure visit Department of Urology in [place], [place] [address] [place] [address] River Stockton M.D. [address] [place] [address] 08/26/2023 10:30 AM CDT Procedure visit Department of Urology in [place], [place] [address] [place] [address] River Stockton M.D. [address] [place] [phone] 09/03/2023 1:00 PM CDT Procedure visit Department of Urology in [place], [place] [address] [place] [address] River Stockton M.D. [address] [place] [phone] 09/09/2023 10:30 AM CDT Procedure visit Department of Urology in [place], [place] [address] [place] [address] River Stockton M.D. [address] [place] [phone] 09/22/2023 10:30 AM CDT Procedure visit Department of Dermatology in [place], [place] [address] [place] [phone] Vitaliy Alvares M.D. [address] [place] [phone] 09/25/2023 9:00 AM CDT Appointment Department of Radiology, [facility], in [place], [place] [address] [place] [phone] Cody Carroll M.D. [address] [place] [phone] 09/25/2023 9:30 AM CDT Diagnostic Division of Pulmonary Medicine in [place], [place] [address] [place] [phone] Cody Carroll M.D. [address] [place] [phone] 09/25/2023 11:30 AM CDT Office Visit Division of Pulmonary Medicine in [place], [place] [address] [place] [phone] Teri Cerda APRN, C.N.P., D.N.P. [address] [place] [phone] 10/23/2023 9:20 AM CDT Office Visit Department of Dermatology in [place], [place] [address] [place] [phone] Crystal Rodriguez APRN C.N.P., M.S.N. [address] [place] [phone] documented as of this encounter Procedures Procedure Name Priority Date/Time Associated Diagnosis Comments SURGICAL PATHOLOGY Routine 07/16/2023 2: 33 PM CDT Malignant Neoplasm Of Bladder (HCC) CYSTOSCOPY BIOPSY FULGURATION 07/16/2023 1:57 PM CDT Malignant Neoplasm Of Bladder (HCC) Case Notes Shantanu 4/8 Special Needs Primary [place]. ADULT OXYGEN THERAPY Routine 07/16/2023 1:05 PM [...] as received in A1. ??Tiffanie Perez M.S., PA[facility]) B: Received in formalin labeled with the patient's name, medical record number, and right diverticulum are 2 fragments of sanchez-white tissue ranging from 0.2-0.3 cm in greatest dimension. ??The specimen is entirely submitted in B1. ??Tiffanie Perez M.S., TANISHA([facility]) 07/17/2023 1:23 PM [...] Fuente M.D. LAB SURG PATH ORDERA [facility] [address] [place] [address], [facility] [address] [place] [address] documented in this encounter Visit Diagnoses Diagnosis [...] (Given - Provid er: Grecia Chauhan APRN, CRNA - Comment: NO RASH NOTED FROM ADMINISTRATION) [...] CRNA)[id number] (Anesthesia Volume Adjustment - Provider: Grecia Chauhan, ZAKIYA, JAYLA) PRN Medication Order 07/14/2023 07/15/2023 07/16/2023 acetaminophen [...] NPO) documented in this encounter Care Teams Roundhouse Supervisor Relationship Specialty Start Date End Date Elsewhere, Pcp PCP - General Family Medicine 10/30/20 documented as of this encounter
--- OUTSIDE RECORDS SUMMARY | 2023-08-12 14:07 | XMS_ITS | Encounter Summary ---
Author Name Unknown Organization [facility] Address [address] [place] [address] Care Team Providers Care Computer Scientist Name Role Phone Elsewhere, Pcp Primary Care Provider Unavailabl e Reason for Visit * Outpatient (Routine) - Closed Specialty Diagnoses / Procedures Referred By Mychal izquierdo Referred To Contact Anesthesiology Diagnoses Mass Bladder Malignant Neoplasm Of Bladder (HCC) Cornell Rowan APRN, C.N.P. 200 [place] [address] [facility] Referral ID Status Reason Start Date Expiration Date Visits Re quested Visits Authorized [id number] Closed 06/23/2023 12/22/2024 1 1 Encounter Details Date Type Department Care Team (Latest Contact Info) Description 07/07/2023 2:00 PM CDT Telemedicine Preoperative Evaluation Center in [place], [place] 200 [place] [phone] Cornell Rowan APRN, C.N.P. [address] [place] [phone] Jodie Durbin APRN, C.N.P., M.S.N. [address] [place] [phone] Preanesthetic Medical Exam (Primary Dx); Mass [...] drink = 0.6 oz pur e alcohol) [facility] Utilities Answer Date Recorded In the past 12 months has e electric, gas, oil, or water [employer] threatened to shut off services in your [...] often do you attend chur ch or hinduism services? Never 03/17/2022 Do you belong to [...] and heating? Not hard at all 08/27/2022 [facility] - Occupational Stress Questionnaire Answer [...] from 07/07/2023 in Preoperative Evaluation Center in [place], [place] Telemedicine from 07/25/2022 in Preoperative Evaluation Center in [place], [place] DASI Total Score 37.45 45.45 Estimated [...] 1 week. Please see Care everywhere from [facility] in Care everywhere if n eeded. #5 [...] Get Ready for Your Surgery or Procedure: [facility]?? [id number] rev 0124. Verbal instructions given on medication management before surgery. Reviewed instructions on avoiding aspirin, ibuprofen-containing medications, and supplements one week before surgery. Patient may take acetaminophen as needed for pain. Evening before your surgery: The evening before your procedure at about 8:15 p.m. [facility] will inform you of the time to arrive the next day using one of these methods: - A text -or- An automated phone call If you have not received a text or a phone call by 8:45 p.m. or if you prefer to call after 8:15 p.m. to get the information: - Please call [phone] (automated) or [phone] (live lift operator) to learn report time for surgery next day. Phone system will ask for [facility] number and date of . Fasting for [...] by Jodie Durbin APRN, C.N.P., M.S.N. in [facility] to the patient in the patient's home. documented in this encounter Plan of Treatment Upcoming Encounters Date Type Department Care Team (Late st Contact Info) Description 08/20/2023 1:00 PM CDT Procedure visit Department of Urology in [place], [place] [address] [place] [phone] River Stockton M.D. [address] [place] [phone] 08/26/2023 10:30 AM CDT Procedure visit Department of Urology in [place], [place] [address] [place] [phone] River Stockton M.D. [address] [place] [phone] 09/03/2023 1:00 PM CDT Procedure visit Department of Urology in [place], [place] [address] [place] [phone] iRver Stockton M.D. [address] [place] [phone] 09/09/2023 10:30 AM CDT Procedure visit Department of Urology in [place], [place] [address] [place] [phone] River Stockton M.D. [address] [place] [phone] 09/22/2023 10:30 AM CDT Procedure visit Department of Dermatology in [place], [place] [address] [place] [phone] Vitaliy Alvares M.D. [address] [place] [phone] 09/25/2023 9:00 AM CDT Appointment Department of Radiology, [facility], in [place], [place] [address] [place] [address] Cody Carroll M.D. [address] [place] [phone] 09/25/2023 9:30 AM CDT Diagnostic Division of Pulmonary Medicine in [place], [place] [address] [place] [phone] Cody Carroll M.D. [address] [place] [phone] 09/25/2023 11:30 AM CDT Office Visit Division of Pulmonary Medicine in [place], [place] [address] [place] [phone] Teri Cerda APRN, C.N.P., D.N.P. [address] [place] [phone] 10/23/2023 9:20 AM CDT Office Visit Department of Dermatology in [place], [place] [address] [place] [phone] Crystal Rodriguez APRN, C.N.P., M.S.N. [address] [place] [phone] documented as of this encounter Visit Diagnoses Diagnosis Preanesthetic Medical Exam- Primary Mass Bladder Malignant Neoplasm Of Bladder (HCC) Other Nonspecific Abnormal Finding Of Lung Field Paresthesias Feet Polyneuropathy Neuroma Acoustic (HCC) Vertigo Crohn's Disease (HCC) documented in this encounter Care Teams Computer Scientist Relationship Specialty Start Date End Date Elsewhere, Pcp PCP - General Family Medicine 10/30/20 documented as of this encounter
--- OUTSIDE RECORDS SUMMARY | 2023-08-12 14:07 | XMS_ITS | Encounter Summary ---
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 [address] [place] [phone] [facility] Referral ID Status Reason Start Date Expiration Date Visits Re quested Visits Authorized [id number] Closed 07/04/2023 01/02/2025 1 1 Encounter Details Date Type Department Care Team (Late st Contact Info) Description 07/04/2023 [facility] [address] [place] [address] González Mathew M.D. [address] [place] [phone] Nodule Pulmonary Solitary (Primary Dx); Localized Enlarged Lymph Nodes Social History Tobacco Use Types Packs/Day Years Used Date Smoking Tobacco: Former Cigarettes 0 03/31/1961 - 03/31/1999 Passive Smoke Exposure: Past Smokeless Tobacco: Former Snuff Quit: 03/31/1994 Alcohol Use Standard Drinks/Week Comments Yes 7 (1 standard drink = 0.6 oz pur e alcohol) [facility] Utilities Answer Date Recorded In [...] often do you attend chur ch or mosque services? Never 03/17/2022 Do you belong to any clubs o r organizations such as judaism groups, unions, fraternal or athletic groups, or [...] and heating? Not hard at all 08/27/2022 [facility] [place] of Occupat ional Health - Occupational Stress [...] your living situation today? I have a [facility] place to live 03/26/2023 Education Answer [...] CDT Procedure visit Department of Urology in [place], [place] [address] [place] [phone] River Stockton M.D. [address] [place] [phone] 08/26/2023 10:30 AM CDT Procedure visit Department of Urology in [place], [place] [address] [place] [phone] River Stockton M.D. [address] [place] [phone] 09/03/2023 1:00 PM CDT Procedure visit Department of Urology in [place], [place] [address] [place] [phone] River Stockton M.D. [address] [place] [phone] 09/09/2023 10:30 AM CDT Procedure visit Department of Urology in [place], [place] [address] [place] [phone] River Stockton M.D. [address] [place] [phone] 09/22/2023 10:30 AM CDT Procedure visit Department of Dermatology in [place], [place] [address] [place] [phone] Vitaliy Alvares M.D. [address] [place] [phone] 09/25/2023 9:00 AM CDT Appointment Department of Radiology, [facility], in [place], [place] [address] [place] [address] Cody Carroll M.D. [address] [place] [phone] 09/25/2023 9:30 AM CDT Diagnostic Division of Pulmonary Medicine in [place], [place] [address] [place] [phone] Cody Carroll M.D. [address] [place] [phone] 09/25/2023 11:30 AM CDT Office Visit Division of Pulmonary Medicine in [place], [place] [address] [place] [phone] Teri Cerda APRN, C.N.P., D.N.P. [address] [place] [phone] 10/23/2023 9:20 AM CDT Office Visit Department of Dermatology in [place], [place] [address] [place] [phone] Crystal Rodriguez APRN, C.N.P., M.S.N. 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
--- OUTSIDE RECORDS SUMMARY | 2023-08-12 14:07 | XMS_ITS | Encounter Summary ---
Author Name Unknown Organization [facility] Address [address] [place] [address] Care Team Providers Care Health Communications Specialist Name Role Phone Elsewhere, Pcp Primary Care Provider Unavailabl e Encounter Details Date Type Department Care Team (Late st Contact Info) Description 07/09/2023 Clinical Communication Department of Urology in [place], [place] [address] [place] [address] Lynne Virgen Kye Social History Tobacco Use Types Packs/Day Years Used Date Smoking Tobacco: Former Cigarettes 1.5 42.2 0 03/31/1961 - 06/30/2003 Passive Smoke Exposure: Past Smokeless Tobacco: Former Chew Quit: 03/31/1998 Comments:Quit several times Alcohol Use Standard Drinks/Week Comments Yes 9 (1 standard drink = 0.6 oz pur e alcohol) [facility] Utilities Answer Date Recorded In the past 12 months has [employer] gas, oil, or water [employer] threatened to shut off services in your [...] often do you attend chur ch or mandaeism services? Never 03/17/2022 Do you belong to any clubs o r organizations such as druze groups, unions, fraternal or athletic groups, or [...] at all 08/27/2022 [facility] Occupat ionmn Health - Occupational Stress Questionnaire Answer Date [...] your living situation today? I have a [facility] place to live 03/26/2023 Education [...] CDT Procedure visit Department of Urology in [place], [place] [address] [place] [address] River Stockton M.D. [address] [place] [phone] 08/26/2023 10:30 AM CDT Procedure visit Department of Urology in [place], [place] [address] [place] [address] River Stockton M.D. [address] [place] [phone] 09/03/2023 1:00 PM CDT Procedure visit Department of Urology in [place], [place] [address] [place] [address] River Stockton M.D. [address] [place] [phone] 09/09/2023 10:30 AM CDT Procedure visit Department of Urology in [place], [place] [address] [place] [address] River Stockton M.D. [address] [place] [phone] 09/22/2023 10:30 AM CDT Procedure visit Department of Dermatology in [place], [place] [address] [place] [address] Vitaliy Alvares M.D. [address] [place] [phone] 09/25/2023 9:00 AM CDT Appointment Department of Radiology, [facility], in [place], [place] [address] [place] [phone] Cody Carroll M.D. [address] [place] [phone] 09/25/2023 9:30 AM CDT Diagnostic Division of Pulmonary Medicine in [place], [place] [address] [place] [phone] Cody Carroll M.D. [address] [place] [phone] 09/25/2023 11:30 AM CDT Office Visit Division of Pulmonary Medicine in [place], [place] [address] [place] [address] Teri Cerda APRN, C.N.P., D.N.P. [address] [place] [phone] 10/23/2023 9:20 AM CDT Office Visit Department of Dermatology in [place], [place] [address] [place] [phone] Crystal Rodriguez APRN, C.N.P., M.S.N. [address] [place] [phone] documented as of this encounter Visit Diagnoses Not on filedocumented in this encounter Care Teams Health Communications Specialist Relationship Specialty Start Date End Date Elsewhere, Pcp PCP - General Family Medicine 10/30/20 documented as of this encounter
--- OUTSIDE RECORDS SUMMARY | 2023-08-12 14:07 | XMS_ITS | Encounter Summary ---
Author Name Unknown Organization [facility] Address [address] [place] [address] Care Team Providers Care Passenger Service Representative Name Role Phone Elsewhere, Pcp Primary Care Provider Unavailabl e Reason for Visit * Outpatient (Routine) - Closed Specialty Diagnoses / Procedures Referred By Mychal izquierdo Referred To Contact Urology Rula Elmore M.D. [address] [place] [phone] River Stockton M.D. [address] [place] [phone] Referral ID Status Reason Start Date Expiration Date Visits Re quested Visits Authorized [id number] Closed 04/16/2023 04/15/2026 1 1 Encounter Details Date Type Department Care Team (Late st Contact Info) Description 06/23/2023 3:00 PM CDT Office Visit Department of Urology in [place], [place] [address] [place] [phone] River Stockton M.D. [address] [place] [phone] Lesion Bladder (Primary Dx) Social History Tobacco Use Types Packs/Day Years Used Date Smoking Tobacco: Former Cigarettes 0 03/31/1961 - 03/31/1999 Passive Smoke Exposure: Past Smokeless Tobacco: Former Snuff Quit: 03/31/1994 Alcohol Use Standard Drinks/Week Comments Yes 7 (1 standard drink = 0.6 oz pur e alcohol) [facility] Utilities Answer Date Recorded In the [...] often do you attend chur ch or denominational services? Never 03/17/2022 Do you belong to any clubs o r organizations such as denominational groups, unions, fraternal or athletic groups, or [...] and heating? Not hard at all 08/27/2022 [facility] [place] of Occupat ional Health - Occupational Stress [...] your living situation today? I have a [facility] place to live 03/26/2023 Education Answer Date [...] reviewed NPO instructions. His report location is [facility]. Surgical date is July 15 I gave [...] CDT Procedure visit Department of Urology in [place], [place] [address] [place] [phone] River Stockton M.D. [address] [place] [phone] 08/26/2023 10:30 AM CDT Procedure visit Department of Urology in [place], [place] [address] [place] [address] River Stockton M.D. [address] [place] [phone] 09/03/2023 1:00 PM CDT Procedure visit Department of Urology in [place], [place] [address] [place] [address] River Stockton M.D. [address] [place] [phone] 09/09/2023 10:30 AM CDT Procedure visit Department of Urology in [place], [place] [address] [place] [address] River Stockton M.D. [address] [place] [phone] 09/22/2023 10:30 AM CDT Procedure visit Department of Dermatology in [place], [place] [address] [place] [address] Vitaliy Alvares M.D. [address] [place] [phone] 09/25/2023 9:00 AM CDT Appointment Department of Radiology, [facility], in [place], [place] [address] [place] [address] Cody Carroll M.D. [address] [place] [phone] 09/25/2023 9:30 AM CDT Diagnostic Division of Pulmonary Medicine in [place], [place] [address] [place] [address] Cody Carroll M.D. [address] [place] [phone] 09/25/2023 11:30 AM CDT Office Visit Division of Pulmonary Medicine in [place], [place] [address] [place] [address] Teri Cerda APRN, C.N.P., D.N.P. [address] [place] [phone] 10/23/2023 9:20 AM CDT Office Visit Department of Dermatology in [place], [place] [address] [place] [address] Crystal Rodriguez APRN, C.N.P., M.S.N. [address] [place] [phone] documented as of this encounter Visit Diagnoses Diagnosis Lesion Bladder- Primary documented in this encounter Care Teams Passenger Service Representative Relationship Specialty Start Date End Date Elsewhere, Pcp PCP - General Family Medicine 10/30/20 documented as of this encounter
--- OUTSIDE RECORDS SUMMARY | 2023-08-12 14:07 | XMS_ITS | Encounter Summary ---
Author Name Unknown Organization [facility] Address [address] [place] [address] Care Team Providers Care Logistics Specialist Name Role Phone Elsewhere, Pcp Primary Care Provider Unavailabl e Reason for Referral * Outpatient (Routine) - Closed Specialty Diagnoses / Procedures Referred By Mychal izquierdo Referred To Contact Anesthesiology Diagnoses Mass Bladder Malignant Neoplasm Of Bladder (HCC) Cornell Rowan APRN, C.N.P. 200 [place] [address] [facility] Referral ID Status Reason Start Date Expiration Date Visits Re quested Visits Authorized [id number] Closed 06/23/2023 12/22/2024 1 1 Encounter Details Date Type Department Care Team (Late st Contact Info) Description 06/23/2023 Orders Only Department of Urology in [place], [place] [address] [place] [phone] Cornell Rowan APRN, C.N.P. [address] [place] [phone] Mass Bladder (Primary Dx); Malignant Neoplasm Of Bladder (HCC) Social History Tobacco Use Types Packs/Day Years Used Date Smoking Tobacco: Former Cigarettes 0 03/31/1961 - 03/31/1999 Passive Smoke Exposure: Past Smokeless Tobacco: Former Snuff Quit: 03/31/1994 Alcohol Use Standard Drinks/Week Comments Yes 7 (1 standard drink = 0.6 oz pur e alcohol) [facility] Utilities Answer Date Recorded [...] any clubs o r organizations such as jainism groups, unions, fraternal or athletic groups, or [...] and heating? Not hard at all 08/27/2022 [facility] [place] of Occupat ional Health - Occupational [...] CDT Procedure visit Department of Urology in [place], [place] [address] [place] [phone] River Stockton M.D. [address] [place] [phone] 08/26/2023 10:30 AM CDT Procedure visit Department of Urology in [place], [place] [address] [place] [phone] River Stockton M.D. [address] [place] [phone] 09/03/2023 1:00 PM CDT Procedure visit Department of Urology in [place], [place] [address] [place] [phone] River Stockton M.D. [address] [place] [phone] 09/09/2023 10:30 AM CDT Procedure visit Department of Urology in [place], [place] [address] [place] [phone] River Stockton M.D. [address] [place] [phone] 09/22/2023 10:30 AM CDT Procedure visit Department of Dermatology in [place], [place] [address] [place] [phone] Vitaliy Alvares M.D. [address] [place] [phone] 09/25/2023 9:00 AM CDT Appointment Department of Radiology, [facility], in [place], [place] [address] [place] [phone] Cody Carroll M.D. [address] [place] [phone] 09/25/2023 9:30 AM CDT Diagnostic Division of Pulmonary Medicine in [place], [place] [address] [place] [phone] Cody Carroll M.D. [address] [place] [phone] 09/25/2023 11:30 AM CDT Office Visit Division of Pulmonary Medicine in [place], [place] [address] [place] [phone] Teri Cerda APRN, C.N.P., D.N.P. [address] [place] [phone] 10/23/2023 9:20 AM CDT Office Visit Department of Dermatology in [place], [place] [address] [place] [phone] Crystal Rodriguez APRN, C.N.P., M.S.N. [address] [place] [phone] Scheduled Referrals Name Type Priority Associated Diagnoses Order Schedule Preoperative Evaluation CYNDY consult (clinic) Outpatient Referral Routine Mass Bladder Malignant Neoplasm Of Bladder (HCC) Expected: 06/23/2023, Expires: 09/22/2024 documented as of this encounter Visit Diagnoses Diagnosis Mass Bladder- Primary Malignant Neoplasm Of Bladder (HCC) documented in this encounter Care Teams Logistics Specialist Relationship Specialty Start Date End Date Elsewhere, Pcp PCP - General Family Medicine 10/30/20 documented as of this encounter
--- OUTSIDE RECORDS SUMMARY | 2023-08-12 14:07 | XMS_ITS | Encounter Summary ---
Author Name Unknown Organization [facility] Address [address] [place] [address] Care Team Providers Care Medical Communication Specialist Name Role Phone Elsewhere, Pcp Primary Care Provider Unavailabl e Reason for Referral * Outpatient (Routine) - Authorized Specialty Diagnoses / Procedures Referred By Mychal izquierdo Referred To Contact Dermatology Diagnoses Squamous Cell Carcinoma In Situ Procedures LASHAWN MOHS 1-4 sites Sallie Padilla P.A.-C., M.S. [address] [place] [phone] [facility] Referral ID Status Reason Start Date Expiration Date V isits Requested Visits Authorized [id number] Authorized 06/30/2023 06/29/2024 1 1 Encounter Details Date Type Department Care Team (Late st Contact Info) Description 06/30/2023 Orders Only Department of Dermatology in [place], [place] [address] [place] [phone] Sallie Padilla P.A.-C., M.S. [address] [place] [phone] Squamous Cell Carcinoma In Situ (Primary Dx) Social History Tobacco Use Types Packs/Day Years Used Date Smoking Tobacco: Former Cigarettes 0 03/31/1961 - 03/31/1999 Passive Smoke Exposure: Past Smokeless Tobacco: Former Snuff Quit: 03/31/1994 Alcohol Use Standard Drinks/Week Comments Yes 7 (1 standard drink = 0.6 oz pur e alcohol) [facility] Utilities Answer Date Recorded In [...] any clubs o r organizations such as anabaptist groups, unions, fraternal or athletic groups, or [...] and heating? Not hard at all 08/27/2022 [facility] Stress Questionnaire Answer Date [...] living situation today? I have a [facility] place to live 03/26/2023 Education Answer [...] CDT Procedure visit Department of Urology in [place], [place] [address] [place] [phone] River Stockton M.D. [address] [place] [phone] 08/26/2023 10:30 AM CDT Procedure visit Department of Urology in [place], [place] [address] [place] [phone] River Stockton M.D. [address] [place] [phone] 09/03/2023 1:00 PM CDT Procedure visit Department of Urology in [place], [place] [address] [place] [phone] River Stockton M.D. [address] [place] [phone] 09/09/2023 10:30 AM CDT Procedure visit Department of Urology in [place], [place] [address] [place] [phone] River Stockton M.D. [address] [place] [phone] 09/22/2023 10:30 AM CDT Procedure visit Department of Dermatology in [place], [place] [address] [place] [phone] Vitaliy Alvares M.D. [address] [place] [phone] 09/25/2023 9:00 AM CDT Appointment Department of Radiology, [facility], in [place], [place] [address] [place] [address] Cody Carroll M.D. [address] [place] [phone] 09/25/2023 9:30 AM CDT Diagnostic Division of Pulmonary Medicine in [place], [place] [address] [place] [phone] Cody Carroll M.D. [address] [place] [phone] 09/25/2023 11:30 AM CDT Office Visit Division of Pulmonary Medicine in [place], [place] [address] [place] [phone] Teri Cerda APRN, C.N.P., D.N.P. [address] [place] [phone] 10/23/2023 9:20 AM CDT Office Visit Department of Dermatology in [place], [place] [address] [place] [phone] Crystal Rodriguez APRN, C.N.P., M.S.N. [address] [place] [phone] Scheduled Orders Name Type Priority Associated Diagnoses Orde r Schedule LASHAWN MOHS 1-4 sites Dermatology Routine Squamous Cell Carcinoma In Situ Expected: 07/14/2023, Expires: 09/28/2024 documented as of this encounter Visit Diagnoses Diagnosis Squamous Cell Carcinoma In Situ- Primary documented in this encounter Care Teams Medical Communication Specialist Relationship Specialty Start Date End Date Elsewhere, Pcp PCP - General Family Medicine 10/30/20 documented as of this encounter
--- OUTSIDE RECORDS SUMMARY | 2023-08-12 14:07 | XMS_ITS | Encounter Summary ---
Author Name Unknown Organization [facility] Address [address] [place] [address] Care Team Providers Care Broker Associate Name Role Phone Elsewhere, Pcp Primary Care Provider Unavailabl e Encounter Details Date Type Department Care Team (Late st Contact Info) Description 07/04/2023 Clinical Communication Preoperative Evaluation Center in [place], [place] [address] [place] [phone] Vanessa Larios APRN, C.N.P., M.S.N. [address] [place] [phone] Social History Tobacco Use Types Packs/Day Years Used Date Smoking Tobacco: Former Cigarettes 0 03/31/1961 - 03/31/1999 Passive Smoke Exposure: Past Smokeless Tobacco: Former Snuff Quit: 03/31/1994 Alcohol Use Standard Drinks/Week Comments Yes 7 (1 standard drink = 0.6 oz pur e alcohol) [facility] Utilities Answer Date Recorded In the [...] any clubs o r organizations such as hoahaoism groups, unions, fraternal or athletic groups, or [...] and heating? Not hard at all 08/27/2022 [facility] Occupat ional Health - Occupational Stress [...] your living situation today? I have a [facility] place to live 03/26/2023 Education Answer [...] Ready for Your Surgery or Procedure: [facility] ([facility]) documented in this encounter Plan of Treatment Upcoming Encounters Date Type Department Care Team (Late st Contact Info) Description 08/20/2023 1:00 PM CDT Procedure visit Department of Urology in [place], [place] 200 [place] [address] River Stockton M.D. [address] [place] [phone] 08/26/2023 10:30 AM CDT Procedure visit Department of Urology in [place], [place] [address] [place] [phone] River Stockton M.D. [address] [place] [phone] 09/03/2023 1:00 PM CDT Procedure visit Department of Urology in [place], [place] [address] [place] [phone] River Stockton M.D. [address] [place] [phone] 09/09/2023 10:30 AM CDT Procedure visit Department of Urology in [place], [place] [address] [place] [phone] River Stockton M.D. [address] [place] [phone] 09/22/2023 10:30 AM CDT Procedure visit Department of Dermatology in [place], [place] [address] [place] [phone] Vitaliy Alvares M.D. [address] [place] [phone] 09/25/2023 9:00 AM CDT Appointment Department of Radiology, [facility], in [place], [place] [address] [place] [phone] Cody Carroll M.D. [address] [place] [phone] 09/25/2023 9:30 AM CDT Diagnostic Division of Pulmonary Medicine in [place], [place] [address] [place] [phone] Cody Carroll M.D. [address] [place] [phone] 09/25/2023 11:30 AM CDT Office Visit Division of Pulmonary Medicine in [place], [place] [address] [place] [phone] Teri Cerda APRN, C.N.P., D.N.P. [address] [place] [phone] 10/23/2023 9:20 AM CDT Office Visit Department of Dermatology in [place], [place] [address] [place] [phone] Crystal Rodriguez APRN, C.N.P., M.S.N. [address] [place] [phone] documented as of this encounter Visit Diagnoses Not on filedocumented in this encounter Care Teams Broker Associate Relationship Specialty Start Date End Date Elsewhere, Pcp PCP - General Family Medicine 10/30/20 documented as of this encounter
--- OUTSIDE RECORDS SUMMARY | 2023-08-12 14:07 | XMS_ITS | Encounter Summary ---
Author Name Unknown Organization [facility] Address [address] [place] [address] Care Team Providers Care Fabricator Special Items Name Role Phone Elsewhere, Pcp Primary Care Provider Unavailabl e Reason for Referral * Outpatient (Routine) - Authorized Specialty Diagnoses / Procedures Referred By Contac t Referred To Contact Dermatology Sallie Padilla P.A.-C., M.S. [address] [place] [address] [facility] Referral ID Status Reason Start Date Expiration Date V isits Requested Visits Authorized [id number] Authorized 06/23/2023 12/22/2024 1 1 Scheduling Instructions Needs full body skin check, can be with any provider Reason for Visit * Appointment Request (Routine) - Closed Specialty Diagnoses / Procedures Referred By Contac t Referred To Contact Dermatology Diagnoses Lesion Skin Face Referral ID Status Reason Start Date Expiration Date Visits Re quested Visits Authorized [id number] Closed 05/26/2023 05/25/2024 1 1 Encounter Details Date Type Department Care Team (Latest Contact Info) Description 06/23/2023 8:00 AM CDT Comprehensive Visit Department of Dermatology in [place], [place] [address] [place] [phone] Sallie Padilla P.A.-C., M.S. 200 [place] [address] Tumor Skin Uncertain Behavior (Primary Dx); Keratosis Actinic; Keratosis Seborrheic Social History Tobacco Use Types Packs/Day Years Used Date Smoking Tobacco: Former Cigarettes 0 03/31/1961 - 03/31/1999 Passive Smoke Exposure: Past Smokeless Tobacco: Former Snuff Quit: 03/31/1994 Alcohol Use Standard Drinks/Week Comments Yes 7 (1 standard drink = 0.6 oz pur e alcohol) [facility] Utilities Answer Date Recorded In the [...] often do you attend chur ch or spiritism services? Never 03/17/2022 Do you belong to any clubs o r organizations such as jew groups, unions, fraternal or athletic groups, or [...] and heating? Not hard at all 08/27/2022 [facility] - Occupational Stress Questionnaire [...] examination. The patient was last seen at [facility] on 12/27/2022 for Mohs micrographic surgery [...] be communicated in a letter on the [facility] portal. CONSENT Discussed the risks, benefits, alternatives, [...] the patient by letter. Patient given pamphlet [id number]. #2 Actinic Keratoses x13 Actinic keratoses are pre-cancerous skin growths caused by sun exposure. Treatment is recommended and medically indicated. A total of 13 actinic keratosis were treated with liquid nitrogen. Location:Scalp x5, right lateral canthus, right adventism x2, right superior helix, left tragus, right [...] CDT Procedure visit Department of Urology in [place], [place] [address] [place] [address] River Stockton M.D. [address] [place] [phone] 08/26/2023 10:30 AM CDT Procedure visit Department of Urology in [place], [place] [address] [place] [phone] River Stockton M.D. [address] [place] [phone] 09/03/2023 1:00 PM CDT Procedure visit Department of Urology in [place], [place] [address] [place] [address] River Stockton M.D. [address] [place] [phone] 09/09/2023 10:30 AM CDT Procedure visit Department of Urology in [place], [place] [address] [place] [address] River Stockton M.D. [address] [place] [phone] 09/22/2023 10:30 AM CDT Procedure visit Department of Dermatology in [place], [place] [address] [place] [address] Vitaliy Alvares M.D. [address] [place] [phone] 09/25/2023 9:00 AM CDT Appointment Department of Radiology, [facility], in [place], [place] [address] [place] [address] Cody Carroll M.D. [address] [place] [phone] 09/25/2023 9:30 AM CDT Diagnostic Division of Pulmonary Medicine in [place], [place] [address] [place] [phone] Cody Carroll M.D. [address] [place] [phone] 09/25/2023 11:30 AM CDT Office Visit Division of Pulmonary Medicine in [place], [place] [address] [place] [phone] Teri Cerda, ZAKIYA, C.N.P., D.N.P. [address] [place] [phone] 10/23/2023 9:20 AM CDT Office Visit Department of Dermatology in [place], [place] [address] [place] [phone] Crystal Rodriguez APRN, C.N.P., M.S.N. [address] [place] [address] Scheduled Referrals Name Type Priority Associated Diagnoses [...] 06/23/2023 8:05 AM CDT Sallie Padilla P.A.-C. M.S. LAB PATH DE ORDERABLES [facility] 200 [place] [address], [facility] [address] [place] [address] 200 [place] [address] documented in this encounter Visit Diagnoses Diagnosis Tumor Skin Uncertain Behavior- Primary Keratosis Actinic Keratosis Seborrheic documented in this encounter Care Teams Fabricator Special Items Relationship Specialty Start Date End Date Elsewhere, Pcp PCP - General Family Medicine 10/30/20 documented as of this encounter
--- OUTSIDE RECORDS SUMMARY | 2023-08-12 14:07 | XMS_ITS | Encounter Summary ---
Author Name Unknown Organization [facility] Address [address] [place] [address] Care Team Providers Care Special Effects Person Name Role Phone Elsewhere, Pcp Primary Care Provider Unavailabl e Encounter Details Date Type Department Care Team (Late st Contact Info) Description 07/09/2023 Virtual Visit Division of Pulmonary Medicine in [place], [place] [address] [place] [phone] Marcial Bush M.D. [address] [place] [phone] Nodule Pulmonary (Primary Dx) Social History Tobacco [...] In the past 12 months has e [employer], gas, oil, or water company threatened to [...] and heating? Not hard at all 08/27/2022 [facility] of Occupat ional Health - Occupational Stress [...] your living situation today? [facility] 03/26/2023 Education [...] M.D. - 07/09/2023 8:26 AM CDT SUBJECTIVE Ejc-Fgiw-ca-Face Consultation ASSESSMENT / PLAN #1 Cystic lesion, right upper lobe Tonu-hs-[id number] consultation would be appropriate for review of the CT scan findings and determinationof next steps. This could be done either virtually or in person. MARGIN CODE: No charge. Marcial Bush M.D. CT CT Job ID: [id number] documented in this encounter Plan of Treatment Upcoming Encounters Date Type Department Care Team (Late st Contact Info) Description 08/20/2023 1:00 PM CDT Procedure visit Department of Urology in [place], [place] [address] [place] [phone] River Stockton M.D. [address] [place] [phone] 08/26/2023 10:30 AM CDT Procedure visit Department of Urology in [place], [place] [address] [place] [phone] River Stockton M.D. [address] [place] [phone] 09/03/2023 1:00 PM CDT Procedure visit Department of Urology in [place], [place] [address] [place] [phone] River Stockton M.D. [address] [place] [phone] 09/09/2023 10:30 AM CDT Procedure visit Department of Urology in [place], [place] [address] [place] [phone] River Stockton M.D. [address] [place] [phone] 09/22/2023 10:30 AM CDT Procedure visit Department of Dermatology in [place], [place] [address] [place] [phone] Vitaliy Alvares M.D. [address] [place] [phone] 09/25/2023 9:00 AM CDT Appointment Department of Radiology, [facility], in [place], [place] [address] [place] [address] Cody Carroll M.D. [address] [place] [phone] 09/25/2023 9:30 AM CDT Diagnostic Division of Pulmonary Medicine in [place], [place] [address] [place] [phone] Cody Carroll M.D. [address] [place] [phone] 09/25/2023 11:30 AM CDT Office Visit Division of Pulmonary Medicine in [place], [place] [address] [place] [phone] Teri Cerda APRN, C.N.P., D.N.P. [address] [place] [phone] 10/23/2023 9:20 AM CDT Office Visit Department of Dermatology in [place], [place] [address] [place] [phone] Crystal Rodriguez APRN, C.N.P., M.S.N. [address] [place] [phone] documented as of this encounter Visit Diagnoses Diagnosis Nodule Pulmonary- Primary documented in this encounter Care Teams Special Effects Person Relationship Specialty Start Date End Date Elsewhere, Pcp PCP - General Family Medicine 10/30/20 documented as of this encounter
--- OUTSIDE RECORDS SUMMARY | 2023-08-12 14:08 | XMS_ITS | Encounter Summary ---
Author Name Unknown Organization [facility] Address [address] [place] [id number] Care Team Providers Care Condenser Tube Tender Name Role Phone Elsewhere, Pcp Primary Care Provider Unavailabl e Encounter Details Date Type Department Care Team (Late st Contact Info) Description 04/15/2023 Clinical Communication Department of Urology in [place], [place] [address] [place] [phone] River Stockton M.D. [address] [place] [phone] Social History Tobacco Use Types Packs/Day Years Used Date Smoking Tobacco: Former Cigarettes 0 03/31/1961 - 03/31/1999 Passive Smoke Exposure: Past Smokeless Tobacco: Former Snuff Quit: 03/31/1994 Alcohol Use Standard Drinks/Week Comments Yes 7 (1 standard drink = 0.6 oz pur e alcohol) [facility] Utilities Answer Date Recorded In [...] How often do you attend chur or baptism services? Never 03/17/2022 Do you belong to [...] and heating? Not hard at all 08/27/2022 [facility] - Occupational [...] your living situation today? I have a [facility] place to live 03/26/2023 Education [...] CDT Procedure visit Department of Urology in [place], [place] 200 [place] [phone] River Stockton M.D. 200 [place] [phone] 08/26/2023 10:30 AM CDT Procedure visit Department of Urology in [place], [place] [address] [place] [phone] River Stockton M.D. [address] [place] [phone] 09/03/2023 1:00 PM CDT Procedure visit Department of Urology in [place], [place] [address] [place] [phone] River Stockton M.D. [address] [place] [phone] 09/09/2023 10:30 AM CDT Procedure visit Department of Urology in [place], [place] [address] [place] [phone] River Stockton M.D. [address] [place] [phone] 09/22/2023 10:30 AM CDT Procedure visit Department of Dermatology in [place], [place] [address] [place] [phone] Vitaliy Alvares M.D. [address] [place] [phone] 09/25/2023 9:00 AM CDT Appointment Department of Radiology, [facility], in [place], [place] [address] [place] [phone] Cody Carroll M.D. [address] [place] [phone] 09/25/2023 9:30 AM CDT Diagnostic Division of Pulmonary Medicine in [place], [place] [address] [place] [phone] Cody Carroll M.D. [address] [place] [phone] 09/25/2023 11:30 AM CDT Office Visit Division of Pulmonary Medicine in [place], [place] [address] [place] [phone] Teri Cerda APRN, C.N.P., D.N.P. [address] [place] [phone] 10/23/2023 9:20 AM CDT Office Visit Department of Dermatology in [place], [place] [address] [place] [phone] Crystal Rodriguez APRN, C.N.P., M.S.N. [address] [place] [phone] documented as of this encounter Visit Diagnoses Not on filedocumented in this encounter Care Teams Condenser Tube Tender Relationship Specialty Start Date End Date Elsewhere, Pcp PCP - General Family Medicine 10/30/20 documented as of this encounter
--- OUTSIDE RECORDS SUMMARY | 2023-08-12 14:08 | XMS_ITS | Encounter Summary ---
Author Name Unknown Organization [facility] Address [address] [place] [address] Care Team Providers Care Staff Nurse Midwife Name Role Phone Elsewhere, Pcp Primary Care Provider Unavailabl e Reason for Referral * Outpatient (Routine) - Closed Specialty Diagnoses / Procedures Referred By Mychal izquierdo Referred To Contact Otorhinolaryngology Diagnoses Neuroma Acoustic (HCC) Vertigo Rikki Leiva M.D. [address] [place] [address] [facility] Referral ID Status Reason Start Date Expiration Date Visits Re quested Visits Authorized [id number] Closed 04/17/2018 04/17/2019 2 1 [employer] Encounter Details Date Type Department Care Team (Late st Contact Info) Description 04/17/2018 [facility] [address] [place] [address] Rikki Leiva M.D. [address] [place] [address] Neuroma Acoustic (HCC) (Primary Dx); [...] CDT Procedure visit Department of Urology in [place], [place] [address] [place] [phone] River Stockton M.D. [address] [place] [phone] 08/26/2023 10:30 AM CDT Procedure visit Department of Urology in [place], [place] [address] [place] [phone] River Stockton M.D. [address] [place] [phone] 09/03/2023 1:00 PM CDT Procedure visit Department of Urology in [place], [place] [address] [place] [phone] River Stockton M.D. [address] [place] [phone] 09/09/2023 10:30 AM CDT Procedure visit Department of Urology in [place], [place] [address] [place] [phone] River Stockton M.D. [address] [place] [phone] 09/22/2023 10:30 AM CDT Procedure visit Department of Dermatology in [place], [place] [address] [place] [phone] Vitaliy Alvares M.D. [address] [place] [phone] 09/25/2023 9:00 AM CDT Appointment Department of Radiology, [facility], in [place], [place] [address] [place] [address] Cody Carroll M.D. [address] [place] [phone] 09/25/2023 9:30 AM CDT Diagnostic Division of Pulmonary Medicine in [place], [place] [address] [place] [phone] Cody Carroll M.D. [address] [place] [phone] 09/25/2023 11:30 AM CDT Office Visit Division of Pulmonary Medicine in [place], [place] [address] [place] [phone] Teri Cerda APRN, C.N.P., D.N.P. [address] [place] [phone] 10/23/2023 9:20 AM CDT Office Visit Department of Dermatology in [place], [place] [address] [place] [phone] Crystal Rodriguez APRN, C.N.P., M.S.N. [address] [place] [phone] Scheduled Referrals Name Type Priority Associated Diagnoses [...] documented as of this encounter Care Teams Staff Nurse Midwife Relationship Specialty Start Date End Date Elsewhere, Pcp PCP - General Family Medicine 10/30/20 documented as of this encounter
--- NOTE | 2023-08-12 16:00 | US_ITS ---
Patient: RADHIKA SAEZ Facility:?[facility] Patient ID:?[id number] Site Patient ID:?[id number]. Site :?[id number] Study:?US-Abdomen limited-08/12/2023 3:58:17 PM Ordering Physician:Joanne Kearns Final Report: Indication: Elevated liver functions, hepatomegaly Technique: Right upper quadrant ultrasound utilizing grayscale and color flow techniques Comparison: Same day CT PE study Findings: Abdominal aorta: Upper abdominal aorta is normal in caliber. Remainder of the abdominal aorta was not visualized. Upper abdominal IVC: Patent by color flow. Liver: Normal echogenicity. Enlarged measuring up to 22 centimeters. Color flow is noted in the main portal vein. Gallbladder: No stones, gallbladder wall thickening or pericholecystic fluid. Negative sonographic Vazquez`s sign. Common bile duct: 3 millimeters. Right kidney: 12.5 centimeters in length. No stones or hydronephrosis. Partially visualized simple appearing cyst measures up to 7 centimeters. Free fluid: None. Impression: Hepatomegaly. Dictated by El Tang MD @ 08/12/2023 4:29:27 PM Signed by:?El Tang MD @08/12/2023 4:29:27 PM (Electronic Signature)
[2023-08-12] MEDS: ACETAMINOPHEN 325 MG TABLET 650 MG PO (20:11)
--- NOTE | 2023-08-12 20:15 | PC.NURSE ---
End of shift [phone] - Pt alert, oriented, cooperative. Up in room independently, tolerating RA and regular diet and fluids. Denies pain, SOB, nausea. Pt expressed frustration at staying in the hospital overnight. RN provided emotional support, MD talked with pt regarding treatment plan. Family at bedside, pt appears to be resting comfortably at end of shift.
[2023-08-12] MEDS: METOPROLOL TARTRATE 25 MG TABLET 12.5 MG PO (20:59)
[2023-08-12] MEDS: APIXABAN 5 MG TABLET PO (21:00)
[2023-08-12] MEDS: SODIUM CHLORIDE 0.9 % (FLUSH) 10 ML SYRINGE 5 ML IVF (21:00)
[2023-08-13 02:46] VITALS: BP 155/81; PULSE 70; RESP 20; TEMP 36.6; O2SAT 95
--- NOTE | 2023-08-13 05:56 | PC.NURSE ---
[phone] Pt pleasant and cooperative, slept during night, independent in room. Pt states he is SOB with activity at rest, it feels like he can't catch his breath or take a deep breath while laying bed, slight improvement to this if he lays on his left side. denies chest pain/heaviness. cough noted, pt states this is due to post nasal drip and not from lungs, denies coughing anything up. tele showing NSR during shift.
[2023-08-13 06:41] LABS: Basophils Absolute Auto 0.05 K/uL (0.00-0.30); Basophils Percent Auto 0.8 % (0.0-3.0); Eosinophils Absolute Auto 0.29 K/uL (0.00-0.50); Eosinophils Percent Auto 4.7 % (0.0-7.0); Hemoglobin* 11.3 gm/dL (13.5-17.5); Lymphocytes Percent Auto 14.9 % (20-44); Mean Corpuscular HGB Conc 31 gm/dL (32-36); Mean Corpuscular Hemoglobin 27 pg (26-34); Mean Corpuscular Volume 87 fL (80-100); Monocytes Percent Auto 14.7 % (0.0-11.0); Neutrophils Percent Auto 64.9 % (42.0-72.0); Platelet Count* 276 K/uL (140-440); RDW Coefficient of Variation % 13.7 % (11.5-15.5); Red Blood Count 4.14 m/uL (4.30-5.90); White Blood Count* 6.17 K/uL (4.50-11.00)
[2023-08-13 06:51] LABS: Slide Review Reflex No
[2023-08-13 07:25] LABS: Chloride* 103 mmol/L (96-114); Potassium* 3.9 mmol/L (3.6-5.1); Sodium* 136 mmol/L (135-149)
[2023-08-13 07:26] LABS: Albumin* 3.3 g/dL (3.3-5.0)
[2023-08-13 07:28] LABS: Anion Gap 4 mEq/L (7-15); Blood Urea Nitrogen* 15 mg/dL (7-30); Carbon Dioxide* 29 mmol/L (20-32); Creatinine* 0.6 mg/dL (0.5-1.5); Est. Creatinine Clearance* 72.76; Estimated Glomerular Filt Rate 99 ml/min; Gamma Glutamyl Transpeptidase* 57 U/L (8-55); Glucose* 91 mg/dL (60-115)
[2023-08-13 07:29] LABS: Alanine Aminotransferase* 78 U/L (4-50); Alkaline Phosphatase* 172 U/L (40-150); Aspartate Amino Transferase* 37 U/L (12-35); Bilirubin Direct* 0.1 mg/dL (0.0-0.5); Bilirubin Total* 0.7 mg/dL (0.1-1.5); Calcium* 8.6 mg/dL (8.4-10.6); Total Protein* 6.6 g/dL (6.0-8.3)
[2023-08-13 07:33] LABS: NT Pro B Type NatriureticPept* 1530 pg/mL
[2023-08-13 07:35] VITALS: BP 152/82; PULSE 66; PULSE 68; PULSE 70; RESP 20; TEMP 36.6; O2SAT 97
[2023-08-13 07:53] LABS: Troponin I* 0.02 ng/mL (0.01-0.04)
[2023-08-13] MEDS: APIXABAN 5 MG TABLET PO (08:45)
[2023-08-13] MEDS: METOPROLOL TARTRATE 25 MG TABLET 12.5 MG PO (08:45)
[2023-08-13] MEDS: SODIUM CHLORIDE 0.9 % (FLUSH) 10 ML SYRINGE 5 ML IVF (08:47)
[2023-08-13 11:10] VITALS: BP 119/77; PULSE 61; TEMP 36.6
[2023-08-13 11:37] LABS: Erythrocyte SedimentationRate* 40 mm/hr (2-15)
[2023-08-13 11:37] LABS: Erythrocyte SedimentationRate* 40 mm/hr (2-15)
--- NOTE | 2023-08-13 13:09 | PM.DS1 ---
DS: Providers Provider Date Seen: 08/13/23 Date of admission: 08/12/23 11:57 Primary care physician: González Mathew MD Admitting Clinician: Joanne Kelly MD Attending Physician on discharge: Joanne Kelly MD Date of Discharge: 08/13/23 DS: Diagnosis Discharge Diagnosis (1) Atrial fibrillation with rapid ventricular response: Status: Acute Problem details: - new diagnosis (08/12/23), converted in ED after IV fluid bolus - initiated Metoprolol and Eliquis 08/11 - remained in sinus rhythm throughout stay - TTE obtained 08/11 with results below: 1. Normal left ventricular size, borderline wall thickness, normal global systolic function, calculated EF of 62 %. 2. Right ventricular cavity size is normal, global systolic RV function is normal. 3. The mitral valve is normal, moderate mitral regurgitation. 4. Moderate pericardial effusion most prominently noted over the inferior right ventricular free wall, without evidence of tamponade. IVC exhibits normal inspiratory collapse. 5. This is the first visualization of patient's pericardial effusion - duration is unknown. Recommend follow-up echo within next 24 hours to look for change in effusion size. (2) Pericardial effusion: Status: Acute Problem details: - incidentally noted on TTE 08/11, improved on 08/12 TTE - given improvement, SR, asymptomatic status, no formal treatment required - outpatient f/u with PCP/Cardiology (3) Elevated LFTs: Status: Acute Problem details: - concern for hepatomegaly on exam, RUQ ultrasound ordered which confirmed hepatomegaly without any other abnormalities - recommend outpatient f/u to discuss further workup (autoimmune process, etc) (4) Malignant neoplasm of urinary bladder: Status: Acute Problem details: - follows with [facility], last BCG treatment was 08/06/23 (5) Ground glass opacity present on imaging of lung: Status: Acute Problem details: - known, following with [facility] (6) Pleural effusion: Status: Acute Problem details: - small, noted on CT in ED on 08/11 - remained stable on RA throughout stay, did not require any diuresis DS: Summary Hospital Course Hospital Course: Martin is admitted to the hospital on 08/11 for new onset AFib. He presented to the emergency room with palpitations, found to be in new AFib with RVR. He spontaneously converted back to sinus rhythm during an IV fluid bolus. Eliquis and metoprolol were initiated, and he remained in sinus rhythm throughout stay. Echocardiogram obtained revealed normal EF, moderately-sized pericardial effusion. Repeat TTE recommended and obtained on hospital day 1 with improvement in size of pericardial effusion. Patient otherwise medically appropriate for discharge home on hospital day 1 with close PCP follow-up. Comorbidities noted above, remained stable during short hospital stay. Followup is scheduled with pulmonology at [facility] next month, he will discuss cardiology follow-up at [facility] with his PCP during hospital discharge appointment. Status at Discharge Functional status at discharge: independent ambulation Overall status at discharge: patient is back to baseline Time Spent with Patient Time attestation: Total time spent providing and/or coordinating discharge services: Time spent: Greater than 30 minutes Specific discharge activities: Medication reconciliation, discussion of TTE results with Cardiology Exam Narrative: Exam Narrative: GEN: Alert and oriented, sitting in bedside chair and speaking in full sentences, nontoxic HEENT: Normal external ears, EOMIs bilaterally, no scleral icterus CV: RRR, No concerning murmurs R: LCTA bilaterally without concerning wheezing, fine bibasilar crackles Ext: wwp, no edema of LE Skin: Scattered AKs, no concerning skin lesions Neuro: Nonfocal Psych: Appropriate Const: Vital Signs, click to edit/add: Vital Signs - 24 hr 08/12/23 17:56 08/12/23 19:01 08/12/23 19:01 Temperature 98.6 F Pulse Rate Pulse Rate [Right Pulse Oximeter] 71 Pulse Rate [orthos tatic lying Right Pulse Oximeter] 71 Pulse Rate [orthos tatic sitting Left Pulse Oximeter] 70 Pulse Rate [orthos tatic standing Lef t Pulse Oximeter] 71 Respiratory Rate 16 16 Blood Pressure [Le ft Arm] 133/67 Blood Pressure [or thostatic lying Ri ght Arm] 133/67 Blood Pressure [or thostatic sitting] 139/81 Blood Pressure [or thostatic standing Right Arm] 120/68 Pulse Oximetry 96 95 Oxygen Delivery Me thod Room Air Room Air 08/12/23 20:13 08/12/23 23:00 08/12/23 23:01 Temperature Pulse Rate 70 Pulse Rate [Right Pulse Oximeter] 68 Pulse Rate [orthos tatic lying Right Pulse Oximeter] Pulse Rate [orthos tatic sitting Left Pulse Oximeter] Pulse Rate [orthos tatic standing Lef t Pulse Oximeter] Respiratory Rate 18 18 Blood Pressure [Le ft Arm] 131/82 Blood Pressure [or thostatic lying Ri ght Arm] Blood Pressure [or thostatic sitting] Blood Pressure [or thostatic standing Right Arm] Pulse Oximetry 97 97 Oxygen Delivery Va thod Room Air Room Air 08/12/23 23:18 08/13/23 02:46 08/13/23 07:35 Temperature 97.8 F Pulse Rate 61 66 Pulse Rate [Right Pulse Oximeter] 70 Pulse Rate [orthos tatic lying Right Pulse Oximeter] Pulse Rate [orthos tatic sitting Left Pulse Oximeter] Pulse Rate [orthos tatic standing Lef t Pulse Oximeter] Respiratory Rate 20 Blood Pressure [Le ft Arm] 155/81 H Blood Pressure [or thostatic lying Ri ght Arm] Blood Pressure [or thostatic sitting] Blood Pressure [or thostatic standing Right Arm] Pulse Oximetry 95 [facility] 08/13/23 07:35 08/13/23 07:35 08/13/23 07:35 Temperature 98 F Pulse Rate Pulse Rate [Right Pulse Oximeter] 70 68 Pulse Rate [orthos tatic lying Right Pulse Oximeter] Pulse Rate [orthos tatic sitting Left Pulse Oximeter] Pulse Rate [orthos tatic standing Lef t Pulse Oximeter] Respiratory Rate 20 20 20 Blood Pressure [Le ft Arm] 152/82 H Blood Pressure [or thostatic lying Ri ght Arm] Blood Pressure [or thostatic sitting] Blood Pressure [or thostatic standing Right Arm] Pulse Oximetry 97 97 Oxygen Delivery Va thod Room Air Room Air 08/13/23 11:10 Temperature 97.9 F Pulse Rate Pulse Rate [Right Pulse Oximeter] 61 Pulse Rate [orthos tatic lying Right Pulse Oximeter] Pulse Rate [orthos tatic sitting Left Pulse Oximeter] Pulse Rate [orthos tatic standing Lef t Pulse Oximeter] Respiratory Rate Blood Pressure [Le ft Arm] 119/77 Blood Pressure [or thostatic lying Ri ght Arm] Blood Pressure [or thostatic sitting] Blood Pressure [or thostatic standing Right Arm] Pulse Oximetry Oxygen Delivery Va thod Room Air DS: Data Data Completed and Pending Labs on day of discharge: Labs from last 24 hours 08/13/23 08/13/23 08/12/23 10:12 06:19 06:53 WBC 6.17 RBC 4.14 L Hgb 11.3 L Hct 36.0 L MCV 87 MCH 27 MCHC 31 L RDW Coeff of Thomas 13.7 Plt Count 276 Neut % (Auto) 64.9 Lymph % (Auto) 14.9 L Dixie % (Auto) 14.7 H Eos % (Auto) 4.7 Baso % (Auto) 0.8 Neut # (Auto) 4.00 Lymph # (Auto) 0.90 Dixie # (Auto) 0.90 Eos # (Auto) 0.29 Baso # (Auto) 0.05 Abs Immat Gran (auto) 0.00 Imm/Tot Granulo (auto) 0.0 ESR 40 H 40 H Sodium 136 Potassium 3.9 Chloride 103 Carbon Dioxide 29 Anion Gap 4 L BUN 15 Creatinine 0.6 Estimated Creat Clear 72.76 Estimated GFR 99 Glucose 91 Calcium 8.6 Total Bilirubin 0.7 Direct Bilirubin 0.1 GGT 57 H AST 37 H ALT 78 H Alkaline Phosphatase 172 H Troponin I 0.02 NT-Pro-B Natriuret Pep 1530 Total Protein 6.6 Albumin 3.3 Lab Acknowledgement Test Added Preliminary micro results at discharge 08/12/23 09:29 Urine Culture - Preliminary Urine,Clean Catch NO GROWTH AFTER 24 HOURS Discharge Plan Discharge Disposition: Home, Self-Care Date of Admission: 08/12/23 11:57 Attending Provider on Discharge: Joanne Kelly Primary Care Provider: González Mathew Condition: Improved Anticipated Discharge Date/Time: 08/13/23 13:03 Discharge Medications: New metoprolol tartrate 25 mg Tablet 12.5 mg PO BID Qty: 60 0RF Eliquis 5 mg Tablet 5 mg PO BID Qty: 60 0RF Continued cholecalciferol (vitamin D3) 250 mcg (10,000 unit) capsule 10,000 unit PO QDAY ascorbic acid (vitamin C) 250 mg tablet 250 mg PO DAILY multivitamin [Multiple Vitamins] Tablet 1 tab PO QDAY albuterol sulfate 90 mcg/actuation HFA aerosol inhaler 2 puff inhalation Q4-6H PRN (Reason: shortness of breath or wheezing) Qty: 8.5 1RF gabapentin 300 mg capsule 300 mg PO DAILY Qty: 90 3RF Discharge Orders: Discharge Order (Routine); Ordered 08/13/23 Ordered By: Joanne Kelly Patient Education: Metoprolol (By mouth), Apixaban (By mouth), A-fib (Atrial Fibrillation) (DC) Additional Instructions: New medications at [facility]: Metoprolol (beta ayanna, for rate control) and Eliquis (blood thinner, stroke prevention), twice/day. See Dr. Mathew as scheduled to go over hospital stay, Echocardiogram results, discuss possible Cardiology referral. You MUST come back to ER or clinic with any worsening shortness of breath, chest pain, or palpitations. Activity Level: Activity as Tolerated Activity Detail: Monitor HR and shortness of breath during activity Discharge Diet: Regular Follow Up Appointments: González Mathew MD [Primary Care Provider] - (see [place] in 3-7 days for hospital d/c followup (new onset a fib, pericardial effusion)) Forms: [facility] Info Instructions
--- NOTE | 2023-08-13 14:25 | PC.NURSE ---
Discharge Summary: The pt has been pleasant and cooperative; denied chest pain and short of breath rest, Spo2 has been in the 90s in RA, C/O of mild short of breath with exertion. Tele has been showing NSR with controlled heart rate 60-80 bpm. The pt has been moving independently in the room without any acute distress. Discharge instructions and teaching was done. The pt verbalize understaging the teaching; all the questions were answered. The pt belonging was sent home with the patient. The Pt's spouse wouldd be driving the patient home.
== END 2023-08-13 14:20 | disposition home or self-care (01) ==
LOC: ED 11:46 → MEDSURG 08-13 13:08
PROVIDERS: Admitting Provider Family Medicine; Emergency Provider Family Medicine; PCP Family Medicine; Visit Provider Family Medicine
DX: I48.91 Unspecified atrial fibrillation (principal); I31.39 Other pericardial effusion (noninflammatory); R79.89 Other specified abnormal findings of blood chemistry; C67.9 Malignant neoplasm of bladder, unspecified; R91.8 Other nonspecific abnormal finding of lung field; J90 Pleural effusion, not elsewhere classified; R82.90 Unspecified abnormal findings in urine; R06.00 Dyspnea, unspecified
CPT/HCPCS: 36415; 71045; 71275; 76705; 80048; 80053; 80076; 81001; 82977; 83735; 83880; 84443; 84484; 85025; 85379; 85651; 86140; 87086; 93005; 93306; 93308; 93321; 93325; 96360; 96361; 99284; 99285; A9270; G0378; J7030; Q9967

== ENCOUNTER 2024-03-17 10:11 | Outpatient (CLI) | payer MEDICARE, SELFPAY | END 2024-03-17 10:12 | disposition home or self-care (01) | LOC: NFLDREF 03-18 05:15 | PROVIDERS: PCP Family Medicine; Referring Provider Family Medicine; Visit Provider Family Medicine | DX: E78.5 Hyperlipidemia, unspecified (principal); D64.9 Anemia, unspecified; Z12.5 Encounter for screening for malignant neoplasm of prostate | CPT/HCPCS: 80053; 80061; G0103 ==

== ENCOUNTER 2024-10-04 12:19 | Emergency (ER) | payer MEDICARE, SELFPAY ==
--- OUTSIDE RECORDS SUMMARY | 2024-08-19 10:30 | XMS_ITS | Encounter Summary ---
Author Organization [facility] Address [address] [place] [address] Care Team Providers Care Entry Level Financial Analyst Name Role Phone Elsewhere, Pcp Primary Care Provider Unavailabl e Reason for Visit * Outpatient (Routine) - Authorized Specialty Diagnoses / Procedures Referred By yMchal izquierdo Referred To Contact Research Diagnoses Malignant Neoplasm Of Bladder (HCC) Marv Bird M.D. [address] [place] [address] Phone: tel: fax: [facility] Referral ID Status Reason Start Date Expiration Date V isits Requested Visits Authorized [id number] Authorized 08/06/2024 02/05/2026 1 1 Encounter Details Date Type Department Care Team (Latest Contact Info) Description 08/19/2024 10:30 AM CDT Clinical Support - [facility] Department of Urology in [place], [place] [address] [place] [phone] Marv Bird M.D. [address] [place] [phone] Anh Jacobs, CCRP Malignant Neoplasm Of Bladder (HCC) Social History Tobacco Use Types Packs/Day Years Used Date Smoking Tobacco: Former Cigarettes 1.5 42.1 0 03/31/1961 - 06/30/2003 Passive Smoke Exposure: Past Smokeless Tobacco: Former Chew Quit: 03/31/1998 Comments:Quit several times Alcohol Use Standard Drinks/Week Comments Yes 7 (1 standard drink = 0.6 oz pur e alcohol) [facility] Utilities Answer Date Recorded In the past 12 months has e electric, gas, oil, or water company threatened to shut off services in your home? No 05/31/2024 Humiliation, Afraid, Rape, and Kick questionnair e Answer Date Recorded Within the last year, have y ou been afraid of your partner or ex-partner? No 08/16/2023 Within the last year, have y ou been humiliated or emotionally abused in other ways by your partner or ex-partner? No Within the last year, have y ou been kicked, hit, slapped, or otherwise physically hurt by your partner or ex-partner? No 08/16/2023 Within the last year, have y ou been raped or forced to have any kind of sexual activity by your partner or ex-partner? No 08/16/2023 Hunger Vital Sign Answer Date Recorded Within the past 12 months, y ou worried that your food would run out before you got the money to buy more. Never true 06/01/19 25 Within the past 12 months, t he food you bought just didn't last and you didn't have money to get more. Never true 05/31/2024 PRAPARE - Transportation Answer Date Re corded In the past 12 months, has l ack of transportation kept you from medical appointments or from getting medications? No 05/2024 In the past 12 months, has l ack of transportation kept you from meetings, work, or from getting things needed for daily living? No 05/31/2024 Housing Stability Answer Date Recorded What is your living situation today? I have a [facility] place to live 05/31/2024 Education Answer Date Recorded What is the highest level of school you have completed or the highest degree you have received? 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 [address] [place] [phone] Anh Jacobs CCRP 10/21/2024 12:30 PM CDT Clinical Support - [facility] Department of Urology in [place], [place] [address] [place] [phone] Mrav Bird M.D. [address] [place] [phone] Anh Jacobs CCRP 11/16/2024 9:30 AM CDT Clinical Support - [facility] Department of Urology in [place], [place] [address] [place] [phone] Marv Bird M.D. [address] [place] [phone] Anh Jacobs CCRP 11/16/2024 11:00 AM CDT Procedure visit Department of Urology in [place], [place] [address] [place] [phone] Marv Bird M.D. [address] [place] [phone] documented as of this encounter Procedures Procedure Name Priority Date/Time Associated Diagnosis Comments CYTOLOGY NON-BROKE BEATER MACHINE OPERATOR (SCHEDULED) Routine 08/19/2024 11:39 AM CDT Malignant Neoplasm Of Bladder (HCC) documented in this encounter Results * (ABNORMAL) Cytology Non-BROKE BEATER MACHINE OPERATOR (Scheduled) (08/19/2024 11:39 AM CDT) (A ) 08/20/2024 8:52 AM CDT DTL Report electronically signed by Shilpi Rhoades M.D., Ph.D. I verify that I have examined all relevant slides/materi als for the specimen(s) and rendered or confirmed the diagnosis. (A) 08/20/2024 8:52 AM CDT DTL Gross Description Received 30 cc of yellow fluid.(A) 08/20/2024 8:52 AM CDT DTL Source A. Urine, [id number], voided(A) 08/20/2024 8:52 AM CDT DTL Interpretation A. Urine, [id number], voided (ThinPrep): Atypical urothelial cells. (A) 08/20/2024 8:52 AM CDT DTL Urine 08/19/2024 11:3 9 AM CDT 08/19/2024 12:21 PM CDT us Marv Bird M.D. LAB SURG PATH ORDERABLES Final Result [facility] [address] [place] [address], [facility] DTL [address] [place] [address] documented in this encounter Visit Diagnoses Diagnosis Malignant Neoplasm Of Bladder (HCC) documented in this encounter Care Teams Entry Level Financial Analyst Relationship Specialty Start Date End Date Elsewhere, Pcp PCP - General Internal Medicine 10/31/23 documented as of this encounter
--- OUTSIDE RECORDS SUMMARY | 2024-09-15 12:00 | XMS_ITS | Encounter Summary ---
Author Organization [facility] Address [address] [place] [phone] Care Team Providers Care Software Project Lead Name Role Phone Elsewhere, Pcp Primary Care Provider Unavailabl e Reason for Visit * Outpatient (Routine) - Closed Specialty Diagnoses / Procedures Referred By Mychal izquierdo Referred To Contact Urology Diagnoses Malignant Neoplasm Of Bladder (HCC) Marv Bird M.D. 200 [place] [address] Phone: tel: fax: [facility] Referral ID Status Reason Start Date Expiration Date Visits Re quested Visits Authorized [id number] Closed 09/13/2024 03/15/2026 1 1 Encounter Details Date Type Department Care Team (Late st Contact Info) Description 09/15/2024 12:00 PM CDT Office Visit Department of Urology in [place], [place] [address] [place] [phone] Marv Bird M.D. [address] [place] [phone] Malignant Neoplasm Of Bladder (HCC) Social History Tobacco Use Types Packs/Day Years Used Date Smoking Tobacco: Former Cigarettes 1.5 42.1 0 03/31/1961 - 06/30/2003 Passive Smoke Exposure: Past Smokeless Tobacco: Former Chew Quit: 03/31/1998 Comments:Quit several times Alcohol Use Standard Drinks/Week Comments Yes 7 (1 standard drink = 0.6 oz pur e alcohol) [facility] Utilities Answer Date Recorded In [...] your living situation today? I have a [facility] place to live 05/31/2024 Education Answer Date Recorded What is the highest level of school you have completed or the highest degree you have received? 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 [address] [place] [phone] Anh Jacobs CCRP 10/21/2024 12:30 PM CDT Clinical Support - [facility] Department of Urology in [place], [place] [address] [place] [phone] Marv Bird M.D. [address] [place] [phone] Anh Jacobs CCRP 11/16/2024 9:30 AM CDT Clinical Support - [facility] Department of Urology in [place], [place] [address] [place] [phone] Marv Bird M.D. [address] [place] [phone] Anh Jacobs CCRP 11/16/2024 11:00 AM CDT Procedure visit Department of Urology in [place], [place] [address] [place] [phone] Marv Bird M.D. [address] [place] [phone] documented as of this encounter Visit Diagnoses Diagnosis Malignant Neoplasm Of Bladder (HCC) documented in this encounter Care Teams Software Project Lead Relationship Specialty Start Date End Date Elsewhere, Pcp PCP - General Internal Medicine 10/31/23 documented as of this encounter
--- OUTSIDE RECORDS SUMMARY | 2024-09-15 12:00 | XMS_ITS | Encounter Summary ---
Author Organization [facility] Address [address] [place] [address] Care Team Providers Care Soot Blower Name Role Phone Elsewhere, Pcp Primary Care Provider Unavailabl e Reason for Visit * Outpatient (Routine) - Authorized Specialty Diagnoses / Procedures Referred By Mychal izquierdo Referred To Contact Research Diagnoses Malignant Neoplasm Of Bladder (HCC) Marv Bird M.D. [address] [place] [address] Phone: tel: fax: [facility] Referral ID Status Reason Start Date Expiration Date V isits Requested Visits Authorized [id number] Authorized 09/13/2024 03/15/2026 1 1 Encounter Details Date Type Department Care Team (Latest Contact Info) Description 09/15/2024 12:00 PM CDT Clinical Support - [facility] Department of Urology in [place], [place] [address] [place] [phone] Marv Bird M.D. [address] [place] [phone] Anh Jacobs, CCRP Malignant Neoplasm Of Bladder (HCC) Social History Tobacco Use Types Packs/Day Years Used Date Smoking Tobacco: Former Cigarettes 1.5 42.1 0 03/31/1961 - 06/30/2003 Passive Smoke Exposure: Past Smokeless Tobacco: Former Chew Quit: 03/31/1998 Comments:Quit several times Alcohol Use Standard Drinks/Week Comments Yes 7 (1 standard drink = 0.6 oz pur e alcohol) [facility] Utilities Answer Date Recorded In the [...] your living situation today? I have a [facility] place to live 05/31/2024 Education Answer Date Recorded What is the highest level of school you have completed or the highest degree you have received? 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 [address] [place] [phone] Anh Jacobs CCRP 10/21/2024 12:30 PM CDT Clinical Support - [facility] Department of Urology in [place], [place] [address] [place] [phone] Marv Bird M.D. [address] [place] [phone] Anh Jacobs CCRP 11/16/2024 9:30 AM CDT Clinical Support - [facility] Department of Urology in [place], [place] [address] [place] [address] Marv Bird M.D. [address] [place] [phone] Anh Jacobs CCRP 11/16/2024 11:00 AM CDT Procedure visit Department of Urology in [place], [place] [address] [place] [phone] Marv Bird M.D. [address] [place] [phone] documented as of this encounter Visit Diagnoses Diagnosis Malignant Neoplasm Of Bladder (HCC) documented in this encounter Care Teams Soot Blower Relationship Specialty Start Date End Date Elsewhere, Pcp PCP - General Internal Medicine 10/31/23 documented as of this encounter
--- OUTSIDE RECORDS SUMMARY | 2024-09-15 13:00 | XMS_ITS | Encounter Summary ---
Author Organization [facility] Address [address] [place] [address] Care Team Providers Care Command And Control Specialist Name Role Phone Elsewhere, Pcp Primary Care Provider Unavailabl e Reason for Visit * Reason Comments Other Catheter placement * Outpatient (Routine) - Closed Specialty Diagnoses / Procedures Referred By Mychal izquierdo Referred To Contact Diagnoses Malignant Neoplasm Of Bladder (HCC) Procedures URO Urethral cath insertion (UCI) Marv Bird M.D. [address] [place] [phone] Phone: tel: fax: [facility] Referral ID Status Reason Start Date Expiration Date Visits Re quested Visits Authorized [id number] Closed 09/13/2024 12/14/2025 1 1 Encounter Details Date Type Department Care Team (Late st Contact Info) Description 09/15/2024 1:00 PM CDT Procedure visit Department of Urology in [place], [place] [address] [place] [phone] Marv Bird M.D. [address] [place] [phone] Addie Pickering R.N. [address] [place] [phone] Malignant Neoplasm Of Bladder (HCC) Social History Tobacco Use Types Packs/Day Years Used Date Smoking Tobacco: Former Cigarettes 1.5 42.1 0 03/31/1961 - 06/30/2003 Passive Smoke Exposure: Past Smokeless Tobacco: Former Chew Quit: 03/31/1998 Comments:Quit several times Alcohol Use Standard Drinks/Week Comments Yes 7 (1 standard drink = 0.6 oz pur e alcohol) [facility] Utilities Answer Date Recorded In the [...] your living situation today? I have a [facility] place to live 05/31/2024 Education Answer Date Recorded What is the highest level of school you have completed or the highest degree you have received? 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 - 09/15/2024 1:00 PM CDT REASON FOR VISIT Martin Vieira is here for catheter insertion and research treatment in the [facility] 1.Patient is here for research treatment. 2.Research team assessed the patient and will proceed with treatment 3.The patient was prepped in sterile fashion using Betadine 4.Catheter size: 14F straight 5.Catheter type: Esteves indwelling 6. The catheter was attached to the night bag and clear yellow urine drained. 7.The patient was then handed off to the [facility] nurse for treatment administration. documented in this encounter Plan of Treatment Upcoming Encounters Date Type Department Care Team (Late st Contact Info) Description 10/14/2024 12:30 PM CDT Clinical Support - [facility] Department of Urology in [place], [place] [address] [place] [phone] Marv Bird M.D. [address] [place] [phone] Anh Jacobs CCRP 10/21/2024 12:30 PM CDT Clinical Support - [facility] Department of Urology in [place], [place] [address] [place] [phone] Marv Bird M.D. [address] [place] [phone] Anh Jacobs CCRP 11/16/2024 9:30 AM CDT Clinical Support - [facility] Department of Urology in [place], [place] [address] [place] [phone] Marv Bird M.D. [address] [place] [phone] Anh Jacobs, CCRP 11/16/2024 11:00 AM CDT Procedure visit Department of Urology in [place], [place] [address] [place] [phone] Marv Bird M.D. [address] [place] [phone] documented as of this encounter Visit Diagnoses Diagnosis Malignant Neoplasm Of Bladder (HCC) documented in this encounter Care Teams Command And Control Specialist Relationship Specialty Start Date End Date Elsewhere, Pcp PCP - General Internal Medicine 10/31/23 documented as of this encounter
--- OUTSIDE RECORDS SUMMARY | 2024-09-22 12:30 | XMS_ITS | Encounter Summary ---
Author Organization [facility] Address [address] [place] [address] Care Team Providers Care Glove Finisher Name Role Phone Elsewhere, Pcp Primary Care Provider Unavailabl e Reason for Visit * Outpatient (Routine) - Authorized Specialty Diagnoses / Procedures Referred By Mychal izquierdo Referred To Contact Research Diagnoses Malignant Neoplasm Of Bladder (HCC) Marv Bird M.D. [address] [place] [address] Phone: tel: fax: [facility] Referral ID Status Reason Start Date Expiration Date V isits Requested Visits Authorized [id number] Authorized 09/20/2024 03/22/2026 1 1 Encounter Details Date Type Department Care Team (Latest Contact Info) Description 09/22/2024 12:30 PM CDT Clinical Support - [facility] Department of Urology in [place], [place] [address] [place] [phone] Marv Bird M.D. [address] [place] [phone] Anh Jacobs, CCRP Malignant Neoplasm Of Bladder (HCC) Social History Tobacco Use Types Packs/Day Years Used Date Smoking Tobacco: Former Cigarettes 1.5 42.1 0 03/31/1961 - 06/30/2003 Passive Smoke Exposure: Past Smokeless Tobacco: Former Chew Quit: 03/31/1998 Comments:Quit several times Alcohol Use Standard Drinks/Week Comments Yes 7 (1 standard drink = 0.6 oz pur e alcohol) [facility] Utilities Answer Date Recorded In the [...] your living situation today? I have a [facility] place to live 05/31/2024 Education Answer Date Recorded What is the highest level of school you have completed or the highest degree you have received? 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 [address] [place] [phone] Anh Jacobs CCRP 10/21/2024 12:30 PM CDT Clinical Support - [facility] Department of Urology in [place], [place] [address] [place] [phone] Marv Bird M.D. [address] [place] [phone] Anh Jacobs CCRP 11/16/2024 9:30 AM CDT Clinical Support - [facility] Department of Urology in [place], [place] [address] [place] [phone] Marv Bird M.D. [address] [place] [phone] Anh Jacobs CCRP 11/16/2024 11:00 AM CDT Procedure visit Department of Urology in [place], [place] [address] [place] [phone] Marv Bird M.D. [address] [place] [phone] documented as of this encounter Visit Diagnoses Diagnosis Malignant Neoplasm Of Bladder (HCC) documented in this encounter Care Teams Glove Finisher Relationship Specialty Start Date End Date Elsewhere, Pcp PCP - General Internal Medicine 10/31/23 documented as of this encounter
--- OUTSIDE RECORDS SUMMARY | 2024-09-22 13:15 | XMS_ITS | Encounter Summary ---
Author Organization [facility] Address [address] [place] [address] Care Team Providers Care Engineering Clerk Name Role Phone Elsewhere, Pcp Primary Care Provider Unavailabl e Reason for Visit * Reason Comments Bladder Cancer [facility] * Outpatient (Routine) - Closed Specialty Diagnoses / Procedures Referred By Mychal izquierdo Referred To Contact Diagnoses Malignant Neoplasm Of Bladder (HCC) Procedures URO Urethral cath insertion (UCI) Marv Bird M.D. [address] [place] [phone] Phone: tel: fax: [facility] Referral ID Status Reason Start Date Expiration Date Visits Re quested Visits Authorized [id number] Closed 09/20/2024 12/21/2025 1 1 Encounter Details Date Type Department Care Team (Latest Contact Info) Description 09/22/2024 1:15 PM CDT Procedure visit Department of Urology in [place], [place] [address] [place] [phone] Marv Bird M.D. [address] [place] [phone] Abimbola Ferraro R.N. [address] [place] [phone] Malignant Neoplasm Of Bladder (HCC) Social History Tobacco Use Types Packs/Day Years Used Date Smoking Tobacco: Former Cigarettes 1.5 42.1 0 03/31/1961 - 06/30/2003 Passive Smoke Exposure: Past Smokeless Tobacco: Former Chew Quit: 03/31/1998 Comments:Quit several times Alcohol Use Standard Drinks/Week Comments Yes 7 (1 standard drink = 0.6 oz pur e alcohol) [facility] Utilities Answer Date Recorded In the [...] living situation today? I have a [facility] place to live 05/31/2024 Education Answer Date Recorded What is the highest level of school you have completed or the highest degree you have received? 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 - 09/22/2024 1:15 PM CDT REASON FOR VISIT Martin Vieira [facility] Department [facility] in [place], [place] [address] [place] [phone] Marv Bird M.D. [address] [place] [phone] Anh Jacobs CCRP 10/21/2024 12:30 PM CDT Clinical Support - [facility] Department of Urology in [place], [place] [address] [place] [phone] Marv Bird M.D. [address] [place] [phone] Anh Jacobs CCRP 11/16/2024 9:30 AM CDT Clinical Support - [facility] Department of Urology in [place], [place] [address] [place] [phone] Marv Bird M.D. [address] [place] [phone] Anh Jacobs, CCRP 11/16/2024 11:00 AM CDT Procedure visit Department of Urology in [place], [place] [address] [place] [phone] Marv Bird M.D. [address] [place] [phone] documented as of this encounter Visit Diagnoses Diagnosis Malignant Neoplasm Of Bladder (HCC) documented in this encounter Care Teams Engineering Clerk Relationship Specialty Start Date End Date Elsewhere, Pcp PCP - General Internal Medicine 10/31/23 documented as of this encounter
--- OUTSIDE RECORDS SUMMARY | 2024-09-29 09:00 | XMS_ITS | Encounter Summary ---
Author Organization [facility] Address [address] [place] [address] Care Team Providers Care Hand Tufter Name Role Phone Elsewhere, Pcp Primary Care Provider Unavailabl e Reason for Visit * Appointment Request (Routine) - Closed Specialty Diagnoses / Procedures Referred By Mychal izquierdo Referred To Contact Dermatology Diagnoses Screening Examination Skin Cancer Referral ID Status Reason Start Date Expiration Date Visits Re quested Visits Authorized [id number] Closed 09/14/2024 12/15/2025 1 1 Encounter Details Date Type Department Care Team (Latest Contact Info) Description 09/29/2024 9:00 AM CDT Comprehensive Visit Department of Dermatology in [place], [place] [address] [place] [address] [place] [address] Griffin Pisano M.D., M.B.A. [address] [place] [address] Keratosis Actinic (Primary Dx); Lesion Skin Social History Tobacco Use Types Packs/Day Years Used Date Smoking Tobacco: Former Cigarettes 1.5 42.1 0 03/31/1961 - 06/30/2003 Passive Smoke Exposure: Past Smokeless Tobacco: Former Chew Quit: 03/31/1998 Comments:Quit several times Alcohol Use Standard Drinks/Week Comments Yes 7 (1 standard drink = 0.6 oz pur e alcohol) [facility] Utilities Answer Date Recorded In the past 12 months has [place], gas, oil, or water [employer] threatened to shut off services in your [...] your living situation today? I have a [facility] place to live 05/31/2024 Education Answer Date Recorded What is the highest level of school you have completed or the highest degree you have received? 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 - 09/29/2024 9:00 AM CDT SUBJECTIVE CHIEF COMPLAINT/REASON FOR VISIT Lesions, scalp and neck. HISTORY OF PRESENT ILLNESS Mr. Vieira is a very pleasant 79-year-old patient who recently completed photodynamic therapy for actinic keratoses, diffuse, on his scalp. This has worked well. He maybe has 3 or 4 residual lesionson his scalp and forehead. He also noted a somewhat ill-defined keratotic lesion on his right neck.He would like us to check that as well. He feels well otherwise. OBJECTIVE PHYSICAL EXAMINATION General: Very pleasant 79-year-old patient, in no acute distress. Skin: Complete skin exam, including the face, neck, trunk, upper, and lower extremities, performed.Exam significant for 4 discrete keratotic lesions with overlying erythema on the scalp and forehead. There was 1 somewhat erythematous inflamed keratotic area noted on the patient's right neck adjacent to a scar. This area was sampled today via shave biopsy to rule out nonmelanoma skin cancer/nonmelanoma skin cancer recurrence. Neuro: Patient alert and oriented to time, place, and person. ASSESSMENT / PLAN #1 Actinic keratoses x4, scalp and forehead These areas were treated with liquid nitrogen, 2 freeze-thaw cycles x15 seconds. No complications. #2 Lesion, right neck, rule out nonmelanoma skin cancer This area was sampled via shave biopsy. No complications. Postsurgical wound care instructions provided. #3 Skin cancer screening exam Otherwise, no worrisome skin lesions identified on today's exam. The patient will continue to protect his skin with use of sunscreen, sun protective clothing, and sun avoidance. Followup skin check in 12 months. PATIENT EDUCATION: Learning needs assessment was performed. No learning barriers were identified. Explained diagnosis and treatment plan. Patient expressed understanding and was able to teach back. CONSENT Discussed the risks, benefits, alternatives, and the necessity of other members of the healthcare team participating in the procedure. All questions answered and consent given. Griffin Pisano M.D., M.B.A. CT CT Job ID: [id number] documented in this encounter Plan of Treatment Upcoming Encounters Date Type Department Care Team (Late st Contact Info) Description 10/14/2024 12:30 PM CDT Clinical Support - [facility] Department of Urology in [place], [place] [address] [place] [phone] Marv Bird M.D. [address] [place] [phone] Anh Jacobs CCRP 10/21/2024 12:30 PM CDT Clinical Support - [facility] Department of Urology in [place], [place] [address] [place] [phone] Marv Bird M.D. [address] [place] [phone] Anh Jacobs CCRP 11/16/2024 9:30 AM CDT Clinical Support - [facility] Department of Urology in [place], [place] [address] [place] [phone] Marv Bird M.D. [address] [place] [phone] Anh Jacobs CCRP 11/16/2024 11:00 AM CDT Procedure visit Department of Urology in [place], [place] [address] [place] [phone] Marv Bird M.D. [address] [place] [phone] Pending Results Name Type Priority Associated Diagnoses Date /Time Dermatopathology Pathology and Cytology Routine Keratosis Actinic Lesion Skin 09/29/2024 9:06 AM CDT Scheduled Orders Name Type Priority Associated Diagnoses Orde r Schedule Dermatopathology Pathology and Cytology Routine Keratosis Actinic Lesion Skin Release Upon Ordering for 1 Occurrences starting 09/29/2024 until 10/08/2024 documented as of this encounter Visit Diagnoses Diagnosis Keratosis Actinic- Primary Lesion Skin documented in this encounter Care Teams Hand Tufter Relationship Specialty Start Date End Date Elsewhere, Pcp PCP - General Internal Medicine 10/31/23 documented as of this encounter
--- OUTSIDE RECORDS SUMMARY | 2024-09-29 09:10 | XMS_ITS | Encounter Summary ---
Author Organization [facility] Address [address] [place] [address] Care Team Providers Care Cutting Machine Operator Helper Name Role Phone Elsewhere, Pcp Primary Care Provider Unavailabl e Encounter Details Date Type Department Care Team (Late st Contact Info) Description 09/29/2024 9:10 AM CDT Ancillary Procedure Department of Dermatology Social History Tobacco Use Types Packs/Day Years Used Date Smoking Tobacco: Former Cigarettes 1.5 42.1 0 03/31/1961 - 06/30/2003 Passive Smoke Exposure: Past Smokeless Tobacco: Former Chew Quit: 03/31/1998 Comments:Quit several times Alcohol Use Standard Drinks/Week Comments Yes 7 (1 standard drink = 0.6 oz pur e alcohol) [facility] Utilities Answer Date Recorded In the past 12 months has e [employer], gas, oil, or water [employer] threatened to shut off services in your [...] AM CDT 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 200 [place] [phone] Anh Jacobs, CCRP 10/21/2024 12:30 PM CDT Clinical Support - [facility] Department of Urology in [place], [place] [address] [place] [phone] Marv Bird M.D. 200 [place] [phone] Anh Jacobs CCRP 11/16/2024 9:30 AM CDT Clinical Support - [facility] Department of Urology in [place], [place] [address] [place] [address] Marv Bird M.D. [address] [place] [phone] Anh Jacobs CCRP 11/16/2024 11:00 AM CDT Procedure visit Department of Urology in [place], [place] [address] [place] [address] Marv Bird M.D. [address] [place] [phone] documented as of this encounter Procedures Procedure Name Priority Date/Time Associated Diagnosis Comments DERMATOLOGY IMAGE EXAM Routine 09/29/2024 9:08 AM CDT documented in this encounter Results * neck, right posterior 46-Dermatology Image Exam (09/29/2024 9:08 AM CDT) 09/29/2024 9:07 AM CDT Narrative IIM[facility] - 09/29/2024 9:08 AM CDT This order has been created and auto-finalized to support the import of images acquired without order. The clinical documentation to support these images can be found on the encounter that produced images. us Provider Not In System IMG NON RAD IMAGING PROCE DURES Final Result [facility] NA documented in this encounter Visit Diagnoses Not on filedocumented in this encounter Care Teams Cutting Machine Operator Helper Relationship Specialty Start Date End Date Elsewhere, Pcp PCP - General Internal Medicine 10/31/23 documented as of this encounter
[2024-10-04 12:52] VITALS: BP 123/72; PULSE 60; RESP 16; TEMP 36.3; O2SAT 96
--- NOTE | 2024-10-04 14:30 | CRLHL7_ITS ---
For Patients: As a result of the Century Cures Act, medical imaging exams and procedure reports are released immediately into your electronic medical record. You may view this report before your referring provider. If you have questions, please contact your health care provider. INDICATION: FALL PLAYING TENNIS. HIT BACK OF HEAD. NO LOC. TECHNIQUE: CT head without contrast. COMPARISON: October 20, 2017. FINDINGS: CSF spaces: Within normal limits for age. Brain parenchyma and extra-axial spaces: The ramirez-white differentiation is normal. No sign of mass, hemorrhage, or midline shift. No extra-axial fluid collection. Skull base and calvarium: The visualized paranasal sinuses and mastoid air cells demonstrate no acute or significant findings. The visualized orbits are grossly unremarkable. No skull fractures. Small left parietal occipital scalp contusions. IMPRESSION: No acute intracranial hemorrhage identified. No skull fractures identified. Small left posterior parietal occipital scalp contusions. Please note that all CT scans at this facility use dose modulation, iterative reconstruction, and/or weight-based dosing when appropriate to reduce radiation dose to as low as reasonably achievable. Dictated by Katlyn Westfall MD @ 10/04/2024 3:31:38 PM (Electronically Signed)
--- NOTE | 2024-10-04 15:44 | ED.GENADULT ---
HPI - General Adult General Chief complaint: Head Injury/Pain Stated complaint: was playing tennis fell and hit his head Time Seen by Provider: 10/04/24 15:34 Source: patient Mode of arrival: ambulatory Limitations: no limitations History of Present Illness HPI narrative: 79-year-old male presenting today after a fall. He was playing tennis, lost his footing and fell backwards. Fell on his buttocks and then fell backwards hitting his head on the tennis court. He is complaining of pain in the back of his head and pain on the buttocks. Patient is not anticoagulated. Denies nausea or vomiting. Denies confusion, blurry vision or ringing in his ears. Was able to get up without assistance. He can walk without difficulty, sit without significant pain. He denies neck pain, denies pain up and down the back. Related Data Home Medications ?Medication ?Instructions ?Recorded ?Confirmed cholecalciferol (vitamin D3) 250 10,000 unit PO QDAY 01/22/22 10/04/24 mcg (10,000 unit) capsule multivitamin (Multiple Vitamins 1 tab PO QDAY 01/22/22 10/04/24 tablet) epinephrine 0.3 mg/0.3 mL IM PRN 08/27/23 07/12/24 injection, auto-injector ibuprofen 600 mg tablet 600 mg PO TID 08/27/23 10/04/24 mv-mn-folic 200 mcg-vit K 15 1 cap PO .QD 08/27/23 10/04/24 mcg-lutein 5 mg-zeaxanthin 1 mg capsule (PreserVision AREDS 2 Plus Multivit) vitamin B complex 1 tab PO QDAY 08/27/23 10/04/24 metoprolol tartrate 25 mg tablet 6.25 mg PO BID 03/29/24 10/04/24 tiotropium 2.5 mcg-olodaterol 2.5 2 puff inhalation QDAY 03/29/24 10/04/24 mcg/actuation mist for inhalation (Stiolto Respimat) Previous Rx's ?Medication ?Instructions ?Recorded albuterol sulfate 90 mcg/actuation 2 puff inhalation Q4-6H PRN 07/14/23 aerosol inhaler shortness of breath or wheezing #8.5 grams gabapentin 300 mg capsule 300 mg PO DAILY #90 caps 03/29/24 lorazepam 1 mg tablet 0.5 - 1 mg (0.5 - 1 x 1 mg) PO BID 03/29/24 PRN tinnitus #30 tabs Allergies Allergy/AdvReac Type Severity Reaction Status Date / Time amoxicillin Allergy Rash Verified 10/04/24 13:00 Review of Systems Status of ROS: Reports: 10 or more systems reviewed and unremarkable except as noted in History and below [facility] Medical History Pleural effusion ?J90 - Pleural effusion, not elsewhere classified (ICD-10) Elevated LFTs ?R79.89 - Other specified abnormal findings of blood chemistry (ICD-10) Ground glass opacity present on imaging of lung ?R91.8 - Other nonspecific abnormal finding of lung field (ICD-10) Insomnia ?G47.00 - Insomnia, unspecified (ICD-10) Macular degeneration ?H35.30 - Unspecified macular degeneration (ICD-10) Bilateral cataracts ?H26.9 - Unspecified cataract (ICD-10) REM sleep behavior disorder ?G47.52 - REM sleep behavior disorder (ICD-10) Squamous cell carcinoma Malignant neoplasm of urinary bladder (2004) ?C67.9 - Malignant neoplasm of bladder, unspecified (ICD-10) Malignant melanoma ?C43.9 - Malignant melanoma of skin, unspecified (ICD-10) Hyperlipidemia ?E78.5 - Hyperlipidemia, unspecified (ICD-10) Erectile dysfunction (09/29/12) ?N52.9 - Male erectile dysfunction, unspecified (ICD-10) Crohn's disease (09/29/12) ?K50.90 - Crohn's disease, unspecified, without complications (ICD-10) Acoustic neuroma ?D33.3 - Benign neoplasm of cranial nerves (ICD-10) UTI (urinary tract infection) ?N39.0 - Urinary tract infection, site not specified (ICD-10) Back Pain ?M54.9 - Dorsalgia, unspecified (ICD-10) Laceration of scalp ?S01.01XA - Laceration without foreign body of scalp, initial encounter (ICD-10) Injury of head ?S09.90XA - Unspecified injury of head, initial encounter (ICD-10) Hematoma of scalp ?S00.03XA - Contusion of scalp, initial encounter (ICD-10) Dizziness ?R42 - Dizziness and giddiness (ICD-10) Dehydration ?E86.0 - Dehydration (ICD-10) Family History Father Coronary artery disease Social History Narrative: Lives with Joanie, retired. Nonsmoker, no ETOH. Requests Full Code status. What is your current living situation?: I presently have a place to live Problems where you live: pests, such as bugs, ants, or mice Problems where you live details: na In the past 12 months, utilities in danger of being shut off: no In past 12 months, lack of transportation kept you from medical appts, meetings, work, or getting things needed for daily living: no In the past 12 mos, have been you worried that your food would run out before you had money to buy more?: never true In the past 12 mos, the food you bought just didn't last and you didn't have money to buy more?: never true Highest level of school completed/degree received: Bachelor's degree Smoking Status: Never smoker Do you use any of these nicotine containing products: None How often do you have a drink containing alcohol: 2-3 times a week AUDIT-C Alcohol total score: 3 Non-prescribed substance use: denies use How often does anyone, including family, friends and others, physically hurt you: never How often does anyone, including family, friends and others, insult or talk down to you: never How often does anyone, including family, friends and others, threaten you with harm: never How often does anyone, including family, friends and others, scream or curse at you: never service: No Health Related Social Needs: Inadequate housing (Z59.1) Exam Narrative: Exam Narrative: Well-nourished well-developed patient in no acute distress. Alert and oriented. Answers questions appropriately. Mood and affect are appropriate. Thoughts are goal oriented and rational. No tangential or magical thinking noted. Patient speaks in full sentences without needing to catch his breath. GCS is 15. HEENT: Normocephalic. Patient has a small hematoma of the posterior scalp. No crepitus or significant tenderness. Pupils are equally round reactive to light. Extraocular muscles are intact. Conjunctivae are moist without any icterus noted. Moist mucous membranes. Neck is soft without tenderness. He has full range of motion of the cervical spine including flexion, extension, side way bending and rotation without pain. No tenderness to palpation of the cervical spine. Buttock exam deferred. Const: Vital Signs, click to edit/add: Vital Signs - 24 hr 10/04/24 12:52 Temperature 97.4 F L Pulse Rate [Right Pulse Oximeter] 60 Respiratory Rate 16 Blood Pressure [Ri ght Upper Arm] 123/72 Pulse Oximetry 96 Oxygen Delivery Me thod Room Air Course Course ED Course: CT scan of the head does not show any acute intracranial pathology. Vital Signs Vital signs: Initial Vital Signs Temperature 97.4 F L 10/04/24 12:52 Temperature Source Temporal Artery Scan 10/04/24 12:52 Pulse Rate 60 10/04/24 12:52 Respiratory Rate 16 10/04/24 12:52 Blood Pressure 123/72 10/04/24 12:52 Blood Pressure Mean 89 10/04/24 12:52 Blood Pressure Position Sitting 10/04/24 12:52 Pulse Oximetry 96 10/04/24 12:52 Oxygen Delivery Method Room Air 10/04/24 12:52 Vital Signs Temperature 97.4 F L 10/04/24 12:52 Pulse Rate 60 10/04/24 12:52 Respiratory Rate 16 10/04/24 12:52 Blood Pressure 123/72 10/04/24 12:52 Pulse Oximetry 96 10/04/24 12:52 Oxygen Delivery Method Room Air 10/04/24 12:52 Temperature 97.4 F L 10/04/24 12:52 Pulse Rate 60 10/04/24 12:52 Respiratory Rate 16 10/04/24 12:52 Blood Pressure 123/72 10/04/24 12:52 Pulse Oximetry 96 10/04/24 12:52 Oxygen Delivery Method Room Air 10/04/24 12:52 Medical Decision Making MDM Narrative Medical decision making narrative: [age] year male status post fall with hematoma to the back of the head. Patient does not have a headache or signs of a concussion. No intracranial pathology or bleed noted. We discussed symptomatic treatment and reasons for follow-up. Imaging Data CT scan - head: Attestation: I have reviewed the pertinent imaging results. Radiologist's impression: TECHNIQUE: CT head without contrast. COMPARISON: October 20, 2017. FINDINGS: CSF spaces: Within normal limits for age. Brain parenchyma and extra-axial spaces: The ramirez-white differentiation is normal. No sign of mass, hemorrhage, or midline shift. No extra-axial fluid collection. Skull base and calvarium: The visualized paranasal sinuses and mastoid air cells demonstrate no acute or significant findings. The visualized orbits are grossly unremarkable. No skull fractures. Small left parietal occipital scalp contusions. IMPRESSION: No acute intracranial hemorrhage identified. No skull fractures identified. Small left posterior parietal occipital scalp contusions. Discharge Plan Discharge Clinical Impression: Closed head injury Patient Disposition: Home, Self-Care Condition: Stable Additional Instructions: Okay to take Tylenol for discomfort. Okay to use a heating pad or ice to sore areas tomorrow. Do not apply heat or ice directly to the skin and do not use for more than 20 minutes at a time. Follow-up with your primary care provider as needed. Return to the ER if you develop significant headache, vomiting or confusion. Prescriptions: No Action cholecalciferol (vitamin D3) 250 mcg (10,000 unit) capsule 10,000 unit PO QDAY multivitamin [Multiple Vitamins] Tablet 1 tab PO QDAY albuterol sulfate 90 mcg/actuation HFA aerosol inhaler 2 puff inhalation Q4-6H PRN (Reason: shortness of breath or wheezing) Qty: 8.5 1RF epinephrine 0.3 mg/0.3 mL auto-injector IM PRN ibuprofen 600 mg tablet 600 mg PO TID PreserVision AREDS 2 Plus MV 200 mcg-15 mcg- 5 mg-1 mg capsule 1 cap PO .QD vitamin B complex Tablet 1 tab PO QDAY metoprolol tartrate 25 mg tablet 6.25 mg PO BID Stiolto Respimat 2.5-2.5 mcg/actuation mist 2 puff inhalation QDAY gabapentin 300 mg capsule 300 mg PO DAILY Qty: 90 3RF lorazepam 1 mg tablet 0.5 - 1 mg PO BID PRN (Reason: tinnitus) Qty: 30 0RF Follow Up/Referrals: González Mathew MD [Primary Care Provider, Family Practice] Stand Alone Forms: [employer] Info Instructions
--- OUTSIDE RECORDS SUMMARY | 2024-10-04 15:50 | XMS_ITS | Clinical Summary ---
Author Organization [facility] Address [address] [place] [address] Care Team Providers Care Puff Ironer Name Role Phone Unavailable Primary Care Provider Unavailabl e Allergies No known active allergies Medications MULTIVITAMIN TAB take 1 tablet by oral route once daily with food 0 7 Active OMEGA 3-6-9 40 MG-60 MG-10 UNIT CAP Once daily 0 7 Active ZINC 15 MG TAB 1/2 tablet daily 0 7 Active ASPIRIN 81 MG TAB, DELAYED RELEASE take 1 tablet (81 mg) by oral route once daily 0 9 Active LYSINE 500 MG TAB 1 po qd 0 9 Active ergocalciferol (VITAMIN D) 50,000 unit capsule Take 1 capsule by mouth once weekly. one po WEEKLY for 8 weeks 8 capsule 0 0 Active albuterol HFA (PRO-AIR,VENTOLIN ,PROVENTIL) 90 mcg/Actuation inhalerIndication s:Acute bronchitis 2 Puffs. 2 puffs every 4-6 hours PRN wheezing. Up to 4 times per day. 1 Inhaler 0 1 Active predniSONE (DELTASONE) 20 mg tabletIndications :Acute bronchospasm Take 3 tablets once a day x 5 days. Take with food or a meal. 15 tablet 0 1 Active tadalafil (CIALIS) 20 mg tablet 1/2 to one oral daily as needed. Take 30 minutes before sexual activity. 10 tablet prn 1 Active ORDER - MEDICATION ORDER COMPOSER 0 2 Active budesonide (ENTOCORT EC) 3 mg capsule Take 1 capsule by mouth every morning. 0 6 Active Active Problems Problem Noted Date Diagnosed Date Benign localized hyperplasia of prostate with urinary obstruction and other lower urinary tract symptoms (LUTS)(600.21) 01/19/2007 Diverticulosis of colon (without mention of hemo rrhage) 01/19/2007 Family history of diabetes mellitus 01/19/2007 Immunizations Immunization Administration Dates Next Due Influenza, High-dose Inactivated 03/18/2016 Influenza, IIV3 (Age >=3 years) 12/07/2008,01/19 Td (Age >=7 Years) 03/31/2001 Tdap 04/01/2011 Family History Medical History Relation Name Comments Cancer Brother , Hodgk ins Heart Disease Father in 50 s from [place] Other Father colitis Diabetes Maternal Aunt Psychiatric [...] Recorded Sex Assigned at Not on file 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 Gender Identity Not on file Sexual Orientation Not on file Obstetrics History Last Filed Vital Signs Vital Sign Reading Time Taken Comments Blood Pressure 144/79 12/02/2015 8:41 AM CDT Pulse 62 12/02/2015 8:41 AM CDT Temperature 36.8 C (98.2 F) 12/02/2015 8:41 AM CDT Respiratory Rate - - Oxygen Saturation 95% 12/02/2015 8:41 AM CDT Inhaled Oxygen Concentration - - Weight 101.7 kg (224 lb 2 oz) 12/02/2015 8:41 AM CDT Height 190.5 cm (6' 3) 12/02/2015 8:41 AM CDT Body Mass Index 28.01 12/02/2015 8:41 AM CDT Plan of Treatment Health Maintenance Due Date Last Done Comments Depression screening for age 12+ 1957 Hepatitis C screening for ag e 18-79 08/01/1963 Pneumococcal series for age 50+ (1 of 1 - PCV) 08/01/1995 Zoster (shingles) series for age 50+ (1 of 2) 08/01/1995 BMI (ht and wt on same day) for age 18+ 12/01/2016 12/02/2015 RSV vaccine for adults or (1 - 1-dose 75+ series) 2020 Tetanus booster 04/01/2021 04/01/2011, 05/16/2008, 03/31/2001 COVID-19 vaccine series (2023- season) 2023 Influenza Vaccine (#1) 2024 6, 12/07/2008, 01/19/2007 Hepatitis B series for 19+ Aged Out N o longer eligible based on patient's age to complete this topic Insurance [employer] ONLY MEDICARE PART A HB ONLY MEDICARE PART B HB ONLY [employer] [place] BL[place] MR PB ONLY
--- OUTSIDE RECORDS SUMMARY | 2024-10-04 15:50 | XMS_ITS | Encounter Summary ---
Author Organization [facility] Address [address] [place] [address] Care Team Providers Care Traffic Division Commanding Officer Name Role Phone Elsewhere, Pcp Primary Care Provider Unavailabl e Reason for Referral * Injectables (Routine) - Authorized Specialty Diagnoses / Procedures Referred By Mychal izquierdo Referred To Contact Diagnoses Malignant Neoplasm Of Bladder (HCC) Procedures URO Intravesical instillation - Gemcitabine/Docetaxel Curry Khan M.D. [facility] Referral ID Status Reason Start Date Expiration Date V isits Requested Visits Authorized [id number] Authorized 08/10/2024 11/10/2025 6 6 Encounter Details Date Type Department Care Team (Late st Contact Info) Description 08/06/2024 Clinical Communication Department of Urology in [place], [place] [address] [place] [phone] Curry Khan M.D. Social History Tobacco Use Types Packs/Day Years Used Date Smoking Tobacco: Former Cigarettes 1.5 42.1 0 03/31/1961 - 06/30/2003 Passive Smoke Exposure: Past Smokeless Tobacco: Former Chew Quit: 03/31/1998 Comments:Quit several times Alcohol Use Standard Drinks/Week Comments Yes 7 (1 standard drink = 0.6 oz pur e alcohol) [facility] Utilities Answer Date Recorded In the past 12 months has [employer], gas, oil, or water [employer] threatened to shut off services in your [...] a [facility] place to live 05/31/2024 Education Answer Date Recorded What is the highest level of school you have completed or the highest degree you have received? 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 [address] [place] [phone] Anh Jacobs CCRP 10/21/2024 12:30 PM CDT Clinical Support - [facility] Department of Urology in [place], [place] [address] [place] [address] Marv Bird M.D. [address] [place] [phone] Anh Jacobs CCRP 11/16/2024 9:30 AM CDT Clinical Support - [facility] Department of Urology in [place], [place] [address] [place] [address] Marv Bird M.D. [address] [place] [phone] Anh Jacobs CCRP 11/16/2024 11:00 AM CDT Procedure visit Department of Urology in [place], [place] [address] [place] [address] Marv Bird M.D. [address] [place] [phone] Scheduled Orders Name Type Priority Associated Diagnoses Orde r Schedule URO Intravesical instillation - Gemcitabine/Docetaxel Procedure Routine Malignant Neoplasm Of Bladder (HCC) 6 Occurrences starting 08/10/2024 until 11/10/2025 documented as of this encounter Visit Diagnoses Diagnosis Malignant Neoplasm Of Bladder (HCC)- Primary documented in this encounter Care Teams Traffic Division Commanding Officer Relationship Specialty Start Date End Date Elsewhere, Pcp PCP - General Internal Medicine 10/31/23 documented as of this encounter
--- OUTSIDE RECORDS SUMMARY | 2024-10-04 15:50 | XMS_ITS | Encounter Summary ---
Author Organization [facility] Address [address] [place] [address] Care Team Providers Care Interactive Multimedia Designer Name Role Phone Elsewhere, Pcp Primary Care Provider Unavailabl e Encounter Details Date Type Department Care Team (Late st Contact Info) Description 09/20/2024 Documentation Department of Urology in [place], [place] [address] [place] [phone] Anh Jacobs, CCRP Social History Tobacco Use Types Packs/Day Years Used Date Smoking Tobacco: Former Cigarettes 1.5 42.1 0 03/31/1961 - 06/30/2003 Passive Smoke Exposure: Past Smokeless Tobacco: Former Chew Quit: 03/31/1998 Comments:Quit several times Alcohol Use Standard Drinks/Week Comments Yes 7 (1 standard drink = 0.6 oz pur e alcohol) [facility] Utilities Answer Date Recorded In the past 12 months has [employer], gas, oil, or water [email or web address] threatened to shut off services in your [...] living situation today? I have a [facility] place to live 05/31/2024 Education Answer Date Recorded What is the highest level of school you have completed or the highest degree you have received? 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 [address] [place] [phone] Anh Jacobs, CCRP 10/21/2024 12:30 PM CDT Clinical Support - [facility] Department of Urology in [place], [place] [address] [place] [address] Marv Bird M.D. [address] [place] [phone] Anh Jacobs CCRP 11/16/2024 9:30 AM CDT Clinical Support - [facility] Department of Urology in [place], [place] [address] [place] [phone] Marv Bird M.D. [address] [place] [phone] Anh Jacobs CCRP 11/16/2024 11:00 AM CDT Procedure visit Department of Urology in [place], [place] [address] [place] [phone] Marv Bird M.D. [address] [place] [phone] documented as of this encounter Visit Diagnoses Not on filedocumented in this encounter Care Teams Interactive Multimedia Designer Relationship Specialty Start Date End Date Elsewhere, Pcp PCP - General Internal Medicine 10/31/23 documented as of this encounter
--- OUTSIDE RECORDS SUMMARY | 2024-10-04 15:50 | XMS_ITS | Clinical Summary ---
Author Organization [facility] Address [address] [place] [address] Care Team Providers Care Excavating Supervisor Name Role Phone Elsewhere, Pcp Primary Care Provider Unavailabl e Source Comments Patient records contain information from all sites at [facility]. For routine questions regarding patient records, call [phone] during business hours, M-F 8:00 AM - 5:00 PM Central Time. Record requests for emergency care only can be directed to [phone] at any time.[facility] Allergies Active Allergy Reactions Criticality Noted Date Comments Amoxicillin Rash Low 07/07/2023 'fuzzy' tongue - Medications * This document contains information received from the source organization and may not represent a complete record from that organization. multivitamin tablet Take 1 tablet by mouth daily. 09/30/19 09 Active LORazepam (ATIVAN) 0.5 mg tablet Take 0.5 mg by mouth daily as needed (vertigo). 10/21/19 18 Active B complex-vitamin (Super B-50) capsule Take 1 capsule by mouth daily. 08/30/19 21 Active cholecalciferol (VITAMIN D3) 125 mcg (5,000 Unit) tablet Take 125 mcg by mouth daily. Active albuterol 90 mcg/actuation inhaler Inhale 2 puffs every 4 (four) hours as needed for wheezing or shortness of breath. 01/23/20 22 Active ab-ery-FO-vit N-fxppgf-wkdfnt t (PreserVision AREDS 2 Plus MV) 200 mcg-15 mcg- 5 mg-1 mg capsule Take 2 capsules by mouth daily. Active EPINEPHrine 0.3 mg/0.3 mL injection syringe Inject 0.3 mg intramuscularly as needed for anaphylaxis. 06/27/19 24 Active gabapentin (NEURONTIN) 300 mg capsule Take 300 mg by mouth at bedtime. 08/15/19 24 Active metoprolol tartrate 6.25 mg oral capsule Take 1 capsule (6.25 mg total) by mouth 2 (two) times a day. 60 capsule 11 10:14 AM CDT 10/07/19 24 Active tiotropium-olod ateroL (Stiolto Respimat) 2.5-2.5 mcg/actuation inhalerIndicati ons:Chronic Obstructive Pulmonary Disease (HCC) Inhale 2 puffs once daily. 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 Date Type Department Care Team Description 09/29/2024 9:10 AM CDT Ancillary Procedure Department of Dermatology 09/29/2024 9:00 AM CDT Comprehensive Visit Department of Dermatology in [place], [place] [address] [place] [phone] Griffin Pisano M.D., M.B.A. Keratosis Actinic (Primary Dx); Lesion Skin 09/22/2024 1:15 PM CDT Procedure visit Department of Urology in [place], [place] [address] [place] [phone] Marv Bird M.D. Franson, Jane E, R.N. Malignant Neoplasm Of Bladder (HCC) 09/22/2024 12:30 PM CDT Clinical Support - [facility] Department of Urology in [place], [place] [address] [place] [phone] Marv Bird M.D. Nellie Jacobse P, CCRP Malignant Neoplasm Of Bladder (HCC) 09/22/2024 Orders Only Department of Urology in [place], [place] [address] [place] [phone] Nellie Jacobse P, CCRP Malignant Neoplasm Of Bladder (HCC) (Primary Dx) 09/21/2024 Orders Only Department of Urology in [place], [place] [address] [place] [phone] Nellie Jacobse P, CCRP Malignant Neoplasm Of Bladder (HCC) (Primary Dx) 09/20/2024 Documentation Department of Urology in [place], [place] [address] [place] [phone] Nellie Jcaobse P, CCRP 09/20/2024 Orders Only Department of Urology in [place], [place] [address] [place] [phone] Arlene Anh P, CCRP Malignant Neoplasm Of Bladder (HCC) (Primary Dx) 09/15/2024 1:00 PM CDT Procedure visit Department of Urology in [place], [place] [address] [place] [phone] Marv Bird M.D. Dudley, Kathleen A REdmundo Malignant Neoplasm Of Bladder (HCC) 09/15/2024 12:00 PM CDT Office Visit Department of Urology in [place], [place] [address] [place] [phone] Marv Bird M.D. Malignant Neoplasm Of Bladder (HCC) 09/15/2024 12:00 PM CDT Clinical Support - [facility] Department of Urology in [place], [place] [address] [place] [phone] Marv Bird M.D. Kostreba, Angie P, CCRP Malignant Neoplasm Of Bladder (HCC) 09/15/2024 Orders Only Department of Urology in [place], [place] [address] [place] [phone] Anh Jacobs P, CCRP Malignant Neoplasm Of Bladder (HCC) (Primary Dx) 09/13/2024 Orders Only Department of Urology in [place], [place] [address] [place] [phone] Anh Jacobs P, CCRP Malignant Neoplasm Of Bladder (HCC) (Primary Dx) 08/19/2024 1:00 PM CDT Clinical Support - [facility] Department of Urology in [place], [place] [address] [place] [phone] Marv Bird M.D. Kostreba, Angie P, CCRP Malignant Neoplasm Of Bladder (HCC) 08/19/2024 11:30 AM CDT Procedure visit Department of Urology in [place], [place] [address] [place] [phone] Marv Bird M.D. Malignant Neoplasm Of Bladder (HCC) 08/19/2024 10:30 AM CDT Office Visit Department of Urology in [place], [place] [address] [place] [phone] Marv Bird M.D. Malignant Neoplasm Of Bladder (HCC) 08/19/2024 10:30 AM CDT Clinical Support - [facility] Department of Urology in [place], [place] [address] [place] [phone] Marv Bird M.D. Kostreba, Angie P, CCRP Malignant Neoplasm Of Bladder (HCC) 08/19/2024 Ancillary Procedure Department of Urology 08/19/2024 Orders Only Department of Urology in [place], [place] [address] [place] [phone] JoyAngelo Malignant Neoplasm Of Bladder (HCC) (Primary Dx) 08/14/2024 Orders Only Department of Urology in [place], [place] [address] [place] [phone] Curry Khan M.D. Malignant Neoplasm Of Bladder (HCC) (Primary Dx) 08/12/2024 Documentation Department of Urology in [place], [place] [address] [place] [phone] Anh Jacobs, CCRP 08/06/2024 Documentation Department of Urology in [place], [place] [address] [place] [phone] Anh Jacobs, CCRP 08/06/2024 Clinical Communication Department of Urology in [place], [place] [address] [place] [phone] Curry Khan M.D. 08/06/2024 Orders Only Department of Urology in [place], [place] [address] [place] [phone] Anh Jacobs, CCRP Malignant Neoplasm Of Bladder (HCC) (Primary Dx) 08/05/2024 1:00 PM CDT Clinical Support Department of Dermatology in [place], [place] [address] [place] [phone] Crystal Rodriguez APRN, C.N.P., M.S.N. Maribel Hamilton, R.N. Keratosis Actinic 08/05/2024 10:00 AM CDT Comprehensive Visit Department of Urology in [place], [place] [address] [place] [phone] Curry Khan M.D. Malignant Neoplasm Of Bladder (HCC) 08/04/2024 1:04 PM CDT - 08/04/2024 11:59 PM CDT Hospital Encounter Department of Radiology, [facility], in [place], [place] [address] [place] [phone] Jodie Pressley APRN, C.N.P., D.N.P. Malignant Neoplasm Of Bladder (HCC) Discharge Disposition: Home or Self Care 08/04/2024 12:12 PM CDT - 08/04/2024 1:03 PM CDT Hospital Encounter Department of Laboratory Medicine and Pathology, [address] [phone] Jodie Pressley APRN, C.N.P., D.N.P. Malignant Neoplasm Of Bladder (HCC) Discharge Disposition: Home or Self Care 08/04/2024 12:12 PM CDT - 08/04/2024 1:03 PM CDT Hospital Encounter Department of Laboratory Medicine and Pathology, [place], [place] [address] [place] [phone] Jodie Pressley APRN, C.N.P., D.N.P. Malignant Neoplasm Of Bladder (HCC) Discharge Disposition: Home or Self Care 07/26/2024 3:40 PM CDT Comprehensive Visit Department of Dermatology in [address] [phone] Crystal Rodriguez APRN, C.N.P., M.S.N. Melanoma Personal History (Primary Dx); Keratosis Actinic 07/23/2024 2:45 PM CDT Clinical Communication Virtual Review in [address] [phone] Pre-visit Intake 07/20/2024 Orders Only Division of Pulmonary Medicine in [address] [phone] Cody Carroll M.D. Chronic Obstructive Pulmonary Disease (HCC) 07/13/2024 Clinical Communication Department of Urology in [address] [phone] Jodie Pressley APRN, C.N.P., D.N.P. 07/13/2024 Orders Only Department of Urology in [address] [phone] Jodie Pressley APRN, C.N.P., D.N.P. Malignant Neoplasm Of Bladder (HCC) (Primary Dx) 07/08/2024 12:29 PM CDT Anesthesia Event Outpatient Procedure Center in [place], [place] [address] [place] [address] Yuko Gutierrez, ZAKIYA, JAYLA, DNAP Hari Castillo M.D. 07/08/2024 12:18 PM CDT - 07/08/2024 1:29 PM CDT Surgery Outpatient Procedure Center in [place], [place] [address] [place] [address] Dc Llamas M.D., M.S. CYSTOSCOPY BIOPSY FULGURATION. 07/08/2024 11:45 AM CDT Ancillary Procedure Department of General Surgery 07/08/2024 11:05 AM CDT - 07/08/2024 2:37 PM CDT Hospital Encounter Outpatient Procedure Center in [place], [place] [address] [place] [address] Dc Llamas M.D., M.S. Lesion Bladder Discharge Disposition: Home or Self Care 07/05/2024 Clinical Communication Department of Urology in [place], [place] [address] [place] [address] Dayday Santos OPC PROC from Last 3 Months Immunizations Immunization Administration Dates Next Due influenza trivalent vaccine (6 months and older) (PF) 01/27/2013 Family History Medical History Relation Name Comments Coronary artery disease Father 1 Murphy Ulcerative colitis Father 1 Murphy Coronary artery disease Father 2 rajat vieira Ulcerative colitis Father 2 rajat siemers Dementia Mother 1 Ardes at 91 years Migraines Mother 1 Ardes Dementia Mother 2 Ardes at 91 years Migraines Mother 2 Ardes Macular degeneration Sister 1 rajat Migraines Sister 1 rajat Ulcerative colitis Sister 1 rajat Ulcerative colitis Sister 2 rajat Amblyopia Neg Hx Blindness Neg Hx Cancer Neg Hx Cataracts Neg Hx Corneal Dystrophy Neg Hx Diabetes Neg Hx Glaucoma Neg Hx Hypertension Neg Hx Retinal degeneration Neg Hx Retinal detachment Neg Hx Strabismus Neg Hx Stroke Neg Hx Thyroid disease Neg Hx Vision loss Neg Hx Relation Name Status Comments Father 1 Murphy Alive Father 2 rajat siemmarion Alive Mother 1 Ardes Alive Mother 2 Ardes Alive Sister 1 rajat Alive Sister 2 rajat Alive Social History Tobacco Use Types Packs/Day Years Used Date Smoking Tobacco: Former Cigarettes 1.5 42.1 0 03/31/1961 - 06/30/2003 Passive Smoke Exposure: Past Smokeless Tobacco: Former Chew Quit: 03/31/1998 Tobacco Cessation:Counseling Given: Not Answered Comments:Quit several times Alcohol Use Standard Drinks/Week Comments Yes 7 (1 standard drink = 0.6 oz pur e alcohol) [facility] Utilities Answer Date Recorded In the past 12 months has e [facility], gas, oil, or water Andre Phillipe threatened to shut off services in your [...] [facility] to live 05/31/2024 Education Answer Date Recorded What is the highest level of school you have completed or the highest degree you have received? 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 Gender Identity Male 09/14/2017 9:59 AM CDT Sexual Orientation Straight 08/28/2018 6: 34 AM CDT Last Filed Vital Signs Vital Sign Reading Time Taken Comments Blood Pressure 120/66 09/22/2024 1:30 PM CDT Pulse 51 09/22/2024 1:30 PM CDT Temperature 36.5 C (97.7 F) 09/22/2024 1:30 PM CDT Respiratory Rate 16 09/22/2024 1:30 PM CDT Oxygen Saturation 94% 07/08/2024 2:20 PM CDT Inhaled Oxygen Concentration - - Weight 95 kg (209 lb 7 oz) 09/15/2024 1:03 PM CD T Height 190.1 cm (6' 2.84) 08/19/2024 2:38 PM CD T Body Mass Index 26.29 08/19/2024 2:38 PM CDT Plan of Treatment Upcoming Encounters Date Type Department Care Team (Late st Contact Info) Description 10/14/2024 12:30 PM CDT Clinical Support - [facility] Department of Urology in [place], [place] [address] [place] [phone] Marv Bird M.D. [address] [place] [phone] Anh Jacobs CCRP 10/21/2024 12:30 PM CDT Clinical Support - [facility] Department of Urology in [place], [place] [address] [place] [phone] Marv Bird M.D. [address] [place] [phone] Anh Jacobs CCRP 11/16/2024 9:30 AM CDT Clinical Support - [facility] Department of Urology in [place], [place] [address] [place] [phone] Marv Bird M.D. [address] [place] [phone] Arlene Anh P, [facility] 11/16/2024 11:00 AM CDT Procedure visit Department of Urology in [place], [place] [address] [place] [phone] Marv Bird M.D. [address] [place] [phone] Health Maintenance Due Date Last Done Comments Hepatitis C Screening 1945 DTaP,Tdap,and Td Vaccines (1 - Tdap) 1964 Pneumococcal vaccine (50+ years) (1 of 2 - PCV) 1964 Zoster Vaccines (1 of 2) 08/01/1995 RSV vaccine - (32-36 weeks) or 60+ years (1 - 1-dose 75+ series) 2020 Depression Screening (Annual PHQ-2) 03/31/2024 COVID-19 Vaccine (2023- season) 2024 12/28/2023, 12/31/2022, 12/14/2021, Additional history exists Influenza Vaccine (#1) 2024 01/27/2013 Abdominal Aortic Aneurysm (AAA) Screen Discontinued 11/18/2013, 02/26/2011 Colonoscopy Discontinued 08/29/2021, 03/2016, 02/25/2011, Additional history exists Colonoscopy Discontinued 08/29/2021, 03/2016, 02/25/2011, Additional history exists Colorectal Cancer Screening Discontinued Colorectal Cancer Surveillance Discontinued Fall Risk Screen (Annual) Completed 07/08/[address] Colonography Discontinued Cologuard Discontinued FIT Discontinued IPV Vaccines Aged Out No longer eligi ble based on patient's age to complete this topic Medical Devices Implanted Type Area Talent Partner Device Identifier Shelf Expiration Date Model / Serial / Lot Lens Tcn Mnfcl Dcb00 +18.5d - [id number] - [id number] Implanted:Qty : 1 on 01/29/2023 by Chuckie Sawant M.D. at [facility] [employer] Ocular Lens Left: Eye [employer] (Previously ERENDIRA) 11/10/2025 [id number] / [id number] / Eyhance Iol Implanted:Qty : 1 on 02/28/2023 by Chuckie Sawant M.D. at [facility] [employer] Ocular Lens Right: Eye [employer] 12/24/2025 [id number] / [id number] / Procedures Procedure Name Priority Date/Time Associated Diagnosis Comments DERMATOLOGY IMAGE EXAM Routine 9:08 AM CDT ECG Routine 08/19/2024 2:46 PM CDT Malignant Neoplasm Of Bladder (HCC) CYTOLOGY NON-ADDICTION PSYCHIATRIST (SCHEDULED) Routine 08/19/2024 11:39 AM CDT Malignant Neoplasm Of Bladder (HCC) [place] CYSTOURETHROSCOPY Routine 08/19/2024 11:30 AM CDT Malignant Neoplasm Of Bladder (HCC) UROLOGY IMAGE EXAM Routine 08/19/2024 12:[address] UROGRAM WITHOUT AND WITH IV CONTRAST RAD - Routine (most inpatients and all outpatients) 08/04/2024 2:46 PM CDT Malignant Neoplasm Of Bladder (HCC) [place] OSMOLALITY ASSAY URINE Routine 08/04/2024 12:37 PM CDT PH, RANDOM, U Routine 08/04/2024 12:37 PM CDT DIPSTICK, U Routine 08/04/2024 12:37 PM CDT MICROSCOPIC MANUAL Routine 08/04/2024 12:37 PM CDT URINALYSIS WITH MICROSCOPIC Routine 08/04/2024 12:37 PM CDT Malignant Neoplasm Of Bladder (HCC) BASIC METABOLIC PANEL, S/P Routine 08/04/2024 12:25 PM CDT Malignant Neoplasm Of Bladder (HCC) ALKALINE PHOSPHATASE, S/P Routine 08/04/2024 12:25 PM CDT Malignant Neoplasm Of Bladder (HCC) CBC WITHOUT DIFFERENTIAL, B Routine 08/04/2024 12:25 PM CDT Malignant Neoplasm Of Bladder (HCC) ALBUMIN, S/P Routine 08/04/2024 12:25 PM CDT Malignant Neoplasm Of Bladder (HCC) SURGICAL PATHOLOGY Routine 07/08/2024 12:49 PM CDT Lesion Bladder CYSTOSCOPY BIOPSY FULGURATION 07/08/2024 12:12 PM CDT Lesion Bladder Special Needs Previous Su Haji patient, Survivorship. SURGERY IMAGE EXAM Routine 07/08/2024 11:45 AM CDT COLONOSCOPY Routine 08/29/2021 9:32 AM CDT Crohn's Disease (HCC) CT ABDOMEN PELVIS ENTEROGRAPHY WITH IV CONTRAST Routine 11/18/2013 1:46 PM CDT from Last 3 Months or Most Recently Relevant to Health Maintenance Results * neck, right posterior 46-Dermatology Image [...] IMAGING PROCE DURES Final Result IIMS NA * ECG 12 Lead (08/19/2024 2:46 PM CDT) Ventricular Rate ECG/Min 56 BPM MUSE [place] Interval 190 ms MUSE QRSD Interval 98 ms MUSE QT Interval 430 ms MUSE QTC Interval 414 ms MUSE P [place] 36 degrees MUSE R [place] 69 degrees MUSE T Wave [place] 82 degrees MUSE 08/19/2024 2:46 PM CDT 08/19/2024 3:39 PM CDT Impressions MUSE - 08/19/2024 3:39 PM CDT Sinus bradycardia Otherwise normal ECG When compared with ECG of 29-Aug-2023 11:27, No significant change was found Reviewed by ANNIE Thompson Narrative Procedure Note Geo Nolasco Jr., M.D. - 08/19/2024 IMPRESSION: Sinus bradycardia Otherwise normal ECG When compared with ECG of 29-Aug-2023 11:27, No significant change was found Reviewed by ANNIE Thompson Marv Bird M.D. ECG ORDERABLES Final Result MUSE NA * (ABNORMAL) Cytology Non-ADDICTION PSYCHIATRIST (Scheduled) (08/19/2024 11:39 AM CDT) (A ) [...] M.D. LAB SURG PATH ORDERABLES Final Result [facility] [address] [place] [address], [facility] DTL [address] [place] [address] * [place] CYSTOURETHROSCOPY (08/19/2024 11:30 AM CDT) Narrative Marv Bird M.D. - 08/19/2024 11:30 AM CDT Marv Bird M.D. 08/19/2024 6:10 PM Cystoscopy (specific provider) Performed by: Marv Bird M.D. Authorized by: Marv Bird M.D. IMPRESSION negative cystoscopy Additional procedures performed: cystoscopy PROCEDURE DETAILS: Anterior urethra: Normal: yes Posterior urethra: Normal: yes Prostate: Characteristics: Non-obstructive Sphincter: Characteristics: Coapting Ureters: Characteristics: Effluxing clear urine Effluxing clear urine - side: Bilateral Bladder: Normal: yes Capacity: Moderate Quality of urine: Clear Residual upon entry: Small Retroflex view: Normal: yes A flexible cystoscope was inserted through the urethra into the bladder. Cystoscope was removed at the end of procedure. Impression - No overt papillary tumors within the bladder - Slight area of erythema along the posterior superior bladder wall that appeared more inflammatory in nature and healing. CONSENT Consent obtained: verbal Consent given by: [...] was marked if required. A fire risk and smoke assessment were done as applicable. The procedural time-out to [...] completed successfully: yes Complications: no apparent complications Comments The ordering provider is responsible for reviewing results of the procedure and communicating the findings to the patient. Patient was educated on post procedure instructions. us Marv Bird M.D. UROLOGY ORDERABLES Final Resul t * Urology Image Exam (08/19/2024 12:00 AM CDT) Narrative IIMS - 08/19/2024 1:26 PM CDT This order has been created and auto-finalized to support the import of images acquired without order. The clinical documentation to support these images can be found on the encounter that produced images. us Provider Not In System IMG NON RAD IMAGING PROCE DURES Final Result IIRI NA * CT Urogram without and with IV Contrast (08/04/2024 2:46 PM CDT) Anatomical Region Laterality Modality Abdomen, Pelvis, Abdominal R ST LOS, Abdominal ARZ LOS, Abdominal FLA LOS N/A Computed Tomograp hy, Computed Tomography 08/04/2024 2:40 PM CDT Impressions 08/04/2024 4:21 PM CDT 1. No abnormal mass, enhancement or filling defects in the urinary tracts. 2. Prostatomegaly with a few hypodense areas in the right centrum peripheral zones which could be further evaluated with dedicated prostate MRI if clinically indicated. 3. Diffuse wall thickening the terminal and distal ileum, probably related to inflammatory bowel disease. Narrative 08/04/2024 4:21 PM CDT EXAM: CT UROGRAM WITHOUT AND WITH IV CONTRAST COMPARISON: CT urogram without and with IV contrast 10/30/2023. FINDINGS: : No renal stones, obstruction or hydronephrosis. Bilateral symmetric nephrograms. Bilateral renal cysts. Small urinary bladder diverticula. Excretory images demonstrate normal opacification of the collecting systems, ureters and urinary bladder without masslike filling defects. Prostatomegaly with a few hypodense areas in the right central and peripheral zones. OTHER FINDINGS: Normal liver, spleen, pancreas, gallbladder, and adrenals. Nonobstructed small and large bowel loops. Large duodenal diverticulum. Colonic diverticulosis without diverticulitis. Diffuse wall thickening of the terminal and distal ileum, probable inflammatory. Numerous enlarged and prominent abdominal lymph nodes including a 1 cm node at the distal aortic/common iliac bifurcation (series 9 image 110), several other aortocaval, mesenteric and retroperitoneal nodes. Degenerative changes in the spine. Procedure Note Iggy Clark M.D., Ph.D. - 08/04/2024 EXAM: CT UROGRAM WITHOUT AND WITH IV CONTRAST COMPARISON: CT urogram without and with IV contrast 10/30/2023. FINDINGS: : No renal stones, obstruction or hydronephrosis. Bilateral symmetricnephrograms. Bilateral renal cysts. Small urinary bladder diverticula.Excretory images demonstrate normal opacification of the collectingsystems, ureters and urinary bladder without masslike filling defects. Prostatomegaly with a few hypodenseareas in the right central and peripheral zones. OTHER FINDINGS: Normal liver, spleen, pancreas, gallbladder, and adrenals.Nonobstructed small and large bowel loops. Large duodenal diverticulum.Colonic diverticulosis without diverticulitis. Diffuse wall thickening ofthe terminal and distal ileum, probable inflammatory. Numerous enlarged and prominent abdominal lymph nodes including a 1 cmnode at the distal aortic/common iliac bifurcation (series 9 image 110),several other aortocaval, mesenteric and retroperitoneal nodes.Degenerative changes in the spine. IMPRESSION: 1. No abnormal mass, enhancement or filling defects in the urinarytracts. 2. Prostatomegaly with a few hypodense areas in the right centrumperipheral zones which could be further evaluated with dedicated prostateMRI if clinically indicated. 3. Diffuse wall thickening the terminal and distal ileum, probablyrelated to inflammatory bowel disease. Jodie Pressley APRN, C.N.P., D.N.P. IMG CT PROCEDURE S Final Result * Osmolality, Urine (08/04/2024 12:37 PM CDT) Osmolality, U 767 150 - 1150 mOsm/kg 08/04/2024 1:37 PM CDT DTL Urine 08/04/2024 12:3 7 PM CDT 08/04/2024 1:11 PM CDT Trini Ovalle APRN.N.P., D.N.P. LAB URINE ORDERA BLES Final Result Performing Organization Address City/[facility] Co de Phone Number [facility] [address] [facility] [address] [place] [address] * Dipstick, Urine (08/04/2024 12:37 PM CDT) Hemoglobin, QL, U Negative Negative 08/04/2024 1:24 PM CDT DTL Leukocyte Esterase, U Negative Negative 08/04/2024 1:24 PM CDT DTL Nitrite, U Negative Negative 08/04/2024 1:24 PM CDT DTL Ketone, U Negative Negative mg/dL 08/04/2024 1:24 PM CDT DTL Glucose, U Negative Negative mg/dL 08/04/2024 1:24 PM CDT DTL Urine 08/04/2024 12:3 7 PM CDT 08/04/2024 1:11 PM CDT Trini Ovalle APRN.N.P., D.N.P. LAB URINE ORDERA BLES Final Result Performing Organization Address City/[facility]/ZIP Co de Phone Number [facility] [address] [place] [address], [facility] [facility] [address] [place] [address] * pH, Random, Urine (08/04/2024 12:37 PM CDT) pH, Random, U 5.3 4.5 - 8.0 08/04/2024 1:37 PM CDT DTL Urine 08/04/2024 12:3 7 PM CDT 08/04/2024 1:11 PM CDT Trini Ovalle APRN.N.P., D.N.P. LAB URINE ORDERA BLES Final Result Performing Organization Address [facility] de Phone Number [facility] 200 [place] [address], [facility] [address] [place] [address] * Microscopic Manual (08/04/2024 12:37 PM CDT) Microscopy Normal 08/04/2024 1:58 PM CDT DTL RBC <3 <3 /hpf 08/04/2024 1:58 PM CDT DTL WBC 1-3 /hpf 08/04/2024 1:58 PM CDT DTL Comment: ----REFERENCE VALUE---- <4 (Males) <11 (Females) Urine 08/04/2024 12:3 7 PM CDT 08/04/2024 1:11 PM CDT Dorian Ovalle APRNN.P., D.N.P. LAB URINE ORDERA BLES Final Result Performing Organization Address [facility] de Phone Number [facility] [address] [place] [address], [facility] [address] [place] [address] * Urinalysis, with Microscopic: Urine, Midstream (08/04/2024 12:37 PM CDT) Source Urine, Urine, Midstream 08/04/2024 1:11 PM CDT DTL Color, U Yellow 08/04/2024 1:11 PM CDT DTL Clarity, U Clear 08/04/2024 1:11 PM CDT DTL Protein, U 14 <26 mg/dL 08/04/2024 2:01 PM CDT DTL Protein/Osmol ality 0.18 <0.42 ratio 08/04/2024 2:01 PM CDT DTL Predicted 24 HR Protein, U 186 <229 mg/24 h 08/04/2024 2:01 PM CDT DTL Predicted Range 59-587 mg/24 h 08/04/2024 2:01 PM CDT DTL Comment Micro done on <2.5 mL 08/04/2024 1:53 PM CDT DTL Urine (Urine, Midstream) 08/04/2024 12:37 PM CDT 08/04/2024 1:11 PM CDT Jodie Pressley APRN, C.N.P., D.N.P. LAB URINE ORDERA BLES Final Result [facility] [address] [place] [address], [facility] [address] [place] [address] * CBC without Differential (08/04/2024 12:25 PM CDT) Hemoglobin 13.3 13.2 - 16.6 g/dL 08/04/2024 1:17 PM CDT DTL Hematocrit 42.9 38.3 - 48.6 % 08/04/2024 1:17 PM CDT DTL Erythrocytes 4.84 4.35 - 5.65 x10(12)/L 08/04/2024 1:17 PM CDT DTL MCV 88.6 78.2 - 97.9 fL 08/04/2024 1:17 PM CDT DTL RBC Distrib Width 14.3 11.8 - 14.5 % 08/04/2024 1:17 PM CDT DTL Platelet Count 144 135 - 317 x10(9)/L 08/04/2024 1:17 PM CDT DTL Leukocytes 8.5 3.4 - 9.6 x10(9)/L 08/04/2024 1:17 PM CDT DTL Blood (Blood, Venous) 08/04/2024 12:25 PM CDT 08/04/2024 12:59 PM CDT Jodie Pressley APRN, C.N.P., D.N.P. LAB BLOOD ADD-ON Final Result [facility] [address] [place] [address] * Alkaline Phosphatase (08/04/2024 12:25 PM CDT) Alkaline Phosphatase, S 68 40 - 129 U/L 08/04/2024 1:28 PM CDT DTL Blood (Blood, Venous) 08/04/2024 12:25 PM CDT 08/04/2024 1:10 PM CDT Dorian Ovalle APRNN.P., D.N.P. LAB BLOOD ADD-ON Final Result [facility] [address] [place] [address] * Albumin (08/04/2024 12:25 PM CDT) Albumin, S 3.6 3.5 - 5.0 g/dL 08/04/2024 1:28 PM CDT DTL Blood (Blood, Venous) 08/04/2024 12:25 PM CDT 08/04/2024 1:10 PM CDT Trini Ovalle APRN.N.P., D.N.P. LAB BLOOD ADD-ON Final Result [facility] [address] [place] [address] * (ABNORMAL) Basic Metabolic Panel (08/04/2024 12:25 PM CDT) Potassium, S 4.4 3.6 - 5.2 mmol/L 08/04/2024 1:28 PM CDT DTL Sodium, S 140 135 - 145 mmol/L 08/04/2024 1:28 PM CDT DTL Chloride, S 106 98 - 107 mmol/L 08/04/2024 1:28 PM CDT DTL Bicarbonate, S 29 22 - 29 mmol/L 08/04/2024 1:28 PM CDT DTL Anion Gap 5(L) 7 - 15 08/04/2024 1:28 PM CDT DTL BUN (Blood Urea Nitrogen), S 22 8 - 24 mg/dL 08/04/2024 1:28 PM CDT DTL Creatinine 0.96 0.74 - 1.35 mg/dL 08/04/2024 1:28 PM CDT DTL Estimated GFR (eGFR) 80 >=60 mL/min/BSA 08/04/2024 1:28 PM CDT DTL Comment: Estimated GFR calculated using the 2020 CKD_EPI creatinine equation. Calcium, Total, S 8.6(L) 8.8 - 10.2 mg/dL 08/04/2024 1:28 PM CDT DTL Glucose, S 79 70 - 140 mg/dL 08/04/2024 1:28 PM CDT DTL Blood (Blood, Venous) 08/04/2024 12:25 PM CDT 08/04/2024 1:10 PM CDT Trini Ovalle APRN.N.P., D.N.P. LAB BLOOD ADD-ON Final Result [facility] [address] [place] [address], [facility] [address] [place] [address] * Surgical Pathology (07/08/2024 12:49 PM CDT) 07/09/2024 2:33 PM CDT DTL Report electronically signed by Riley Tarango M.D. I verify that I have examined all relevant slides/materials for the specimen(s) and rendered or confirmed the diagnosis. 07/09/2024 2:33 PM CDT DTL Gross Description A: Received in formalin labeled with the patient's name, medical record number, and diverticulum is a 0.3 x 0.2 x 0.1 cm sanchez-pinkfragment of mucosa. The specimen is entirely submitted in cassette A1. Grossed by Piper Rivas M.S., TANISHA([facility]). B: Received in formalin labeled with the patient's name, medical record number, and dome are 2 sanchez-pink, irregular mucosal fragmentsranging from 0.4 to 0.7 cm in greatest dimension. Specimen is entirely submitted in cassette B1. Grossed by Piper Rivas M.S., TANISHA([facility]). 07/09/2024 2:33 PM CDT DTL Interpretation FINAL DIAGNOSIS A. Urinary bladder, diverticulum, biopsy: Unremarkable urothelial mucosa Muscularis propria present B. Urinary bladder, dome, biopsy: Urothelial carcinoma in situ Muscularis propria present Digital imaging was used in the diagnostic assessment of this case. 07/09/2024 2:33 PM CDT DTL Tissue (Bladder) 07/08/2024 12:49 PM CDT Tissue (Bladder) 07/08/2024 12:49 PM CDT us Dc Llamas M.D., M.S. LAB SURG PATH ORDERA BLES Final Result Performing Organization Address [facility] Co de Phone Number [facility] [address] [place] [address], [facility] DTL [address] [place] [address] * CYSTOSCOPY BIOPSY FULGURATION-Surgery Image Exam (07/08/2024 11:45 AM CDT) 07/08/2024 11:4 5 AM CDT Narrative [facility] - 07/08/2024 1:05 PM CDT This order has been created and auto-finalized to support the import of images acquired without order. The clinical documentation to support these images can be found on the encounter that produced images. us Provider Not In System IMG NON RAD IMAGING PROCE DURES Final Result Performing Organization Address City/[facility]/ZIP Co de Phone Number [facility] NA * Colonoscopy (08/29/2021 9:32 AM CDT) 08/29/2021 9:32 AM CDT Impressions BRIGID HENSLEY - 08/29/2021 2:36 PM CDT Post-op Diagnoses: - Single area of Ulcerated mucosa in the sigmoid colon. Biopsied. - The entire examined colon is normal. Biopsied. - Diverticulosis in the left colon. Narrative BRIGID HENSLEY - 08/29/2021 2:36 PM CDT Ozzie 6 GI GI Patient Name: Martin Vieira Date of : 1945 Age: 76 Gender: Male Procedure Date: 08/29/2021 Procedure: Colonoscopy Providers: Jairo Castellanos MD, DWAIN Adler (Fellow) Referring Provider: Noé Artis MD Pre-op Diagnoses: High risk colon cancer surveillance: Inflammatory bowel disease Recommendation: - Return to referring physician as previously scheduled. - PATHOLOGY/MICROBIOLOGY FOLLOW-UP: The ordering provider is responsible for reviewing results from specimens obtained during this endoscopic procedure and communicating the findings to the patient. If guidance is needed for interpreting endoscopic findings or pathology results, please consider a gastroenterology e-consult. Findings: The perianal and digital rectal examinations were normal. A localized area of mildly ulcerated mucosa was found in the sigmoid colon next to a diverticulum. Biopsies were taken with a cold forceps for histology. The remaining examined colon appeared normal. Biopsies were taken with a cold forceps for histology and placed into separate bottles for right and left colon. Multiple small and large-mouthed diverticula were found in the left colon. Terminal ileum could not be intubated despite change in position and abdominal pressure. Procedural Details: The patient was seen, evaluated, history reviewed, airway and heart-lung exams were performed by licensed provider and were satisfactory for planned level of sedation care. The risks, benefits and alternatives for the procedure and sedation were discussed and informed consent was obtained. A procedural pause was conducted in the presence of assisting personnel to verify the correct patient identity and procedure to be performed. Throughout the procedure, the patient's blood pressure, pulse, and oxygen saturations were monitored continuously. The Colonoscope was introduced under direct vision through the anus and advanced to the cecum, identified by appendiceal orifice and ileocecal valve. The patient tolerated the procedure well. The colonoscopy was technically difficult and complex due to a redundant colon. Successful completion of the procedure was aided by changing the patient to a supine position and using manual pressure. The quality of the bowel preparation was evaluated using the BBPS (Ransom Bowel Preparation Scale) with scores of: Right Colon = 1 (portion of mucosa seen, but other areas not well seen due to staining, residual stool and/or opaque liquid), Transverse Colon = 1 (portion of mucosa seen, but other areas not well seen due to staining, residual stool and/or opaque liquid) and Left Colon = 1 (portion of mucosa seen, but other areas not well seen due to staining, residual stool and/or opaque liquid). The total BBPS score equals 3. Estimated Blood Loss: Estimated blood loss: none. Complications: No immediate complications. Sedation: Anesthesia was administered by an anesthesia professional. The following parameters were monitored: oxygen saturation, heart rate, blood pressure, respiratory rate, EKG, adequacy of pulmonary ventilation, and response to care. Attending Participation: I was present and participated during the entire procedure, including non-[place] portions. Jairo Castellanos MD 08/29/2021 2:36:29 PM This report has been signed electronically. Number of Addenda: 0 Noé Artis M.D. GI PROCEDURE ORDERABLES Fi nal Result [facility] NA * CT Abdomen Pelvis Enterography with IV Contrast (11/18/2013 1:46 PM CDT) Anatomical Region Laterality Modality Abdomen, Pelvis N/A Computed Tomogra phy 11/18/2013 1:46 PM CDT Impressions 11/18/2013 2:53 PM CDT Findings of active Crohn's disease are similar [...] to the comparison CT enterography, with the disease being most prominent in the 20 cm segment of mid ileum referenced on comparison exam (series 3/149, series 4/103). There is a small 5 mm serosal contour irregularity involving this inflamed segment (series 2/149). It may represent a small Sinus tract, however, the finding appears unchanged from the exam. Otherwise, no evidence of penetrating disease. Stable 4.5 cm duodenal diverticulum at the junction of the third and fourth segments. The liver, gallbladder, pancreas, left kidney, adrenal glands are normal. Tiny splenic cyst or hemangioma. Multiple cysts right kidney. Colonic diverticulosis without diverticulitis. Bladder diverticula. Electronically signed by: Nico Ospina MD [phone] 18-Nov-2013 14:53 Rich Munoz M.D. [id number] 18-Nov-2013 14:53 Narrative 11/18/2013 2:53 PM CDT 18-Nov-2013 13:46:00 Exam: CT Ent Abd w - Pelvis w Indications: Crohn's Disease Small Intestine;Pain Abdominal NOS ORIGINAL REPORT - 18-Nov-2013 14:53:00 EXAM: CT scan of the Abdomen and Pelvis with oral and IV contrast using the enterography protocol COMPARISON: CT enterography 02/26/2011 Procedure Note Rich Munoz [...] Bladderdiverticula. Electronically signed by: Nico Ospina MD [phone] 18-Nov-2013 14:53 Rich Munoz M.D.[id number] 18-Nov-2013 14:53 Noé Artis M.D. IMG CT PROCEDURES Final Re sult from Last 3 Months or Most Recently Relevant to Health Maintenance Insurance [facility] Advance Directives For more information, please contact: [phone] Documents on File Type Date Recorded Patient Psychology Fellow Expl anation Advance Directives 11/30/2018 4:27 PM Healt h Care Directive * Full Code (Latest Code Status on File) Date Activated Date Inactivated Comments 07/08/2024 11:38 AM 07/08/2024 4:42 PM Question Answer Comments Full Code: Discussed * Full Code Date Activated Date Inactivated Comments 08/16/2023 9:14 PM 08/18/2023 8:07 PM Question Answer Comments Full Code: Discussed * Full Code Date Activated Date Inactivated Comments 07/16/2023 1:05 PM 07/16/2023 5:55 PM Question Answer Comments Full Code: Discussed Healthcare Agents on File Name Relationship Healthcare Agent Relationship Communication Joanie Vieira Spouse Health Care Agent Melonie Isha First Alternate Health Care Agent Nissa Vieira Second Alternat e Health Care Agent Care Teams Excavating Supervisor Relationship Specialty Start Date End Date Elsewhere, Pcp PCP - General Internal Medicine 10/31/23
--- OUTSIDE RECORDS SUMMARY | 2024-10-04 15:50 | XMS_ITS | Encounter Summary ---
Author Organization [facility] Address [address] [place] [address] Care Team Providers Care Lead Data Entry Operator Name Role Phone Elsewhere, Pcp Primary Care Provider Unavailabl e Reason for Referral * Outpatient (Routine) - Closed Specialty Diagnoses / Procedures Referred By Mychal izquierdo Referred To Contact Otorhinolaryngology Diagnoses Neuroma Acoustic (HCC) Vertigo Rikki Leiva M.D. Phone: tel: fax: [facility] Referral ID Status Reason Start Date Expiration Date Visits Re quested Visits Authorized [id number] Closed 04/17/2018 04/17/2019 2 1 STRATE ASSISTANT Encounter Details Date Type Department Care Team (Late st Contact Info) Description 04/17/2018 [facility] [address] [place] [address] Rikki Leiva M.D. [address] [place] [phone] Neuroma Acoustic (HCC) (Primary Dx); Vertigo Social History Tobacco Use Types Packs/Day Years Used Date Smoking Tobacco: Former Smokeless Tobacco: Never Sex and Gender Information Value Date Recorded Sex Assigned at Male 09/14/2017 9:59 AM CDT Legal Sex Male 11:43 AM MAGISTRATE ASSISTANT Gender Identity Male 09/14/2017 9:59 AM CDT Sexual Orientation Straight 08/28/2018 6: 34 AM CDT documented as of this encounter Plan of Treatment Upcoming Encounters Date Type Department Care Team (Late st Contact Info) Description 10/14/2024 12:30 PM CDT Clinical Support - [facility] Department of Urology in [place], [place] [address] [place] [phone] Marv Bird M.D. [address] [place] [phone] Anh Jacobs CCRP 10/21/2024 12:30 PM CDT Clinical Support - [facility] Department of Urology in [place], [place] [address] [place] [address] Marv Bird M.D. [address] [place] [phone] Anh Jacobs CCRP 11/16/2024 9:30 AM CDT Clinical Support - [facility] Department of Urology in [place], [place] [address] [place] [address] Marv Bird M.D. [address] [place] [phone] Anh Jacobs CCRP 11/16/2024 11:00 AM CDT Procedure visit Department of Urology in [place], [place] [address] [place] [phone] Marv Bird M.D. [address] [place] [phone] Scheduled Referrals Name Type Priority Associated Diagnoses [...] 09/04/202212/08 5:31 AM CDT Protective Environment 08/06/2023 08/06/202310/18 5:35 AM CDT COVID19 Pending 08/16/2023 08/16/2023 08/16/2023 4 :46 PM CDT documented as of this encounter Care Teams Lead Data Entry Operator Relationship Specialty Start Date End Date Elsewhere, Pcp PCP - General Internal Medicine 10/31/23 documented as of this encounter
--- OUTSIDE RECORDS SUMMARY | 2024-10-04 15:50 | XMS_ITS | Encounter Summary ---
Author Organization [facility] Address [address] [place] [address] Care Team Providers Care Wall Mirror Department Supervisor Name Role Phone Elsewhere, Pcp Primary Care Provider Unavailabl e Reason for Referral * Outpatient (Routine) - Closed Specialty Diagnoses / Procedures Referred By Contac t Referred To Contact Diagnoses Malignant Neoplasm Of Bladder (HCC) Procedures URO Urethral cath insertion (UCI) Marv Bird M.D. [address] [place] [address] Phone: tel: fax: [facility] Referral ID Status Reason Start Date Expiration Date Visits Re quested Visits Authorized [id number] Closed 09/13/2024 12/14/2025 1 1 * Outpatient (Routine) - Authorized Specialty Diagnoses / Procedures Referred By Contradha t Referred To Contact Research Diagnoses Malignant Neoplasm Of Bladder (HCC) Marv Bird M.D. [address] [place] [address] Phone: tel: fax: [facility] Referral ID Status Reason Start Date Expiration Date V isits Requested Visits Authorized [id number] Authorized 09/13/2024 03/15/2026 1 1 * Outpatient (Routine) - Closed Specialty Diagnoses / Procedures Referred By Mychal izquierdo Referred To Contact Urology Diagnoses Malignant Neoplasm Of Bladder (HCC) Marv Bird M.D. [address] [place] [address] Phone: tel: fax: [facility] Referral ID Status Reason Start Date Expiration Date Visits Re quested Visits Authorized [id number] Closed 09/13/2024 03/15/2026 1 1 Encounter Details Date Type Department Care Team (Late st Contact Info) Description 09/13/2024 Orders Only Department of Urology in [place], [place] [address] [place] [phone] Anh Jacobs, CCRP Malignant Neoplasm Of Bladder (HCC) (Primary Dx) Social History Tobacco Use Types Packs/Day Years Used Date Smoking Tobacco: Former Cigarettes 1.5 42.1 0 03/31/1961 - 06/30/2003 Passive Smoke Exposure: Past Smokeless Tobacco: Former Chew Quit: 03/31/1998 Comments:Quit several times Alcohol Use Standard Drinks/Week Comments Yes 7 (1 standard drink = 0.6 oz pur e alcohol) [facility] Utilities Answer Date Recorded In the past 12 months has e [employer], gas, oil, or water [employer] threatened to shut off services in your [...] AM CDT Legal Sex Male 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 [address] [place] [phone] Anh Jacobs CCRP 10/21/2024 12:30 PM CDT Clinical Support - [facility] Department of Urology in [place], [place] [address] [place] [phone] Marv Bird M.D. [address] [place] [phone] Anh Jacobs CCRP 11/16/2024 9:30 AM CDT Clinical Support - [facility] Department of Urology in [place], [place] [address] [place] [address] Marv Bird M.D. [address] [place] [phone] Anh Jacobs CCRP 11/16/2024 11:00 AM CDT Procedure visit Department of Urology in [place], [place] [address] [place] [address] aMrv Bird M.D. [address] [place] [phone] Scheduled Orders Name Type Priority Associated Diagnoses Orde r Schedule URO Urethral cath insertion (UCI) Procedure Routine Malignant Neoplasm Of Bladder (HCC) Expected: 09/13/2024, Expires: 12/14/2025 Scheduled Referrals Name Type Priority Associated Diagnoses Order Schedule Urology office visit (clinic) Outpatient Referral Routine Malignant Neoplasm Of Bladder (HCC) Expected: 09/15/2024, Expires: 12/14/2025 Research Residential Property Consultant office visit (clinic) Outpatient Referral Routine Malignant Neoplasm Of Bladder (HCC) Expected: 09/15/2024, Expires: 12/14/2025 documented as of this encounter Visit Diagnoses Diagnosis Malignant Neoplasm Of Bladder (HCC)- Primary documented in this encounter Care Teams Wall Mirror Department Supervisor Relationship Specialty Start Date End Date Elsewhere, Pcp PCP - General Internal Medicine 10/31/23 documented as of this encounter
--- OUTSIDE RECORDS SUMMARY | 2024-10-04 15:50 | XMS_ITS | Encounter Summary ---
Author Organization [facility] Address [address] [place] [address] Care Team Providers Care Senior Manufacturing Test Engineer Name Role Phone Elsewhere, Pcp Primary Care Provider Unavailabl e Reason for Referral * Outpatient (Routine) - Authorized Specialty Diagnoses / Procedures Referred By Contac t Referred To Contact Diagnoses Malignant Neoplasm Of Bladder (HCC) Procedures URO Urethral cath insertion (UCI) Marv Bird M.D. [address] [place] [address] Phone: tel: fax: [facility] Referral ID Status Reason Start Date Expiration Date V isits Requested Visits Authorized [id number] Authorized 09/21/2024 12/22/2025 1 1 * Outpatient (Routine) - Authorized Specialty Diagnoses / Procedures Referred By Contradha t Referred To Contact Diagnoses Malignant Neoplasm Of Bladder (HCC) Procedures Cystoscopy (specific provider) Marv Bird M.D. [address] [place] [address] Phone: tel: fax: Marv Bird M.D. [address] [place] [address] Phone: tel: fax: Referral ID Status Reason Start Date Expiration Date V isits Requested Visits Authorized [id number] Authorized 09/21/2024 12/22/2025 1 1 * Outpatient (Routine) - Authorized Specialty Diagnoses / Procedures Referred By Contac t Referred To Contact Research Diagnoses Malignant Neoplasm Of Bladder (HCC) Marv Bird M.D. [address] [place] [phone] Phone: tel: fax: [facility] Referral ID Status Reason Start Date Expiration Date V isits Requested Visits Authorized [id number] Authorized 09/21/2024 03/23/2026 1 1 * Outpatient (Routine) - Authorized Specialty Diagnoses / Procedures Referred By Contac t Referred To Contact Diagnoses Malignant Neoplasm Of Bladder (HCC) Procedures URO Urethral cath insertion (UCI) Marv Brid M.D. [address] [place] [phone] Phone: tel: fax: [facility] Referral ID Status Reason Start Date Expiration Date V isits Requested Visits Authorized [id number] Authorized 09/21/2024 12/22/2025 1 1 * Outpatient (Routine) - Authorized Specialty Diagnoses / Procedures Referred By Contac t Referred To Contact Research Diagnoses Malignant Neoplasm Of Bladder (HCC) Marv Bird M.D. [address] [place] [phone] Phone: tel: fax: [facility] Referral ID Status Reason Start Date Expiration Date V isits Requested Visits Authorized [id number] Authorized 09/21/2024 03/23/2026 1 1 * Outpatient (Routine) - Authorized Specialty Diagnoses / Procedures Referred By Contac t Referred To Contact Research Diagnoses Malignant Neoplasm Of Bladder (HCC) Marv Bird M.D. [address] [place] [address] Phone: tel: fax: [facility] Referral ID Status Reason Start Date Expiration Date V isits Requested Visits Authorized [id number] Authorized 09/21/2024 03/23/2026 1 1 Encounter Details Date Type Department Care Team (Late st Contact Info) Description 09/21/2024 Orders Only Department of Urology in [place], [place] [address] [place] [phone] Anh Jacobs, CCRP Malignant Neoplasm Of Bladder (HCC) (Primary Dx) Social History Tobacco Use Types Packs/Day Years Used Date Smoking Tobacco: Former Cigarettes 1.5 42.1 0 03/31/1961 - 06/30/2003 Passive Smoke Exposure: Past Smokeless Tobacco: Former Chew Quit: 03/31/1998 Comments:Quit several times Alcohol Use Standard Drinks/Week Comments Yes 7 (1 standard drink = 0.6 oz pur e alcohol) [facility] Utilities Answer Date Recorded In the past 12 months has [facility] [employer], gas, oil, or water [employer] threatened to shut off services in your [...] your living situation today? I have a [facility] place to live 05/31/2024 Education Answer Date Recorded What is the highest level of school you have completed or the highest degree you have received? Bachelor's degree (e.g., BA, AB, BS) 03/05/2019 Sex and Gender Information Value Date Recorded Sex Assigned at Male 09/14/2017 9:59 AM CDT Legal Sex Male 11:43 AM PRIVATE EYE Gender Identity Male 09/14/2017 9:59 AM CDT Sexual Orientation Straight 08/28/2018 6: 34 AM CDT documented as of this encounter Plan of Treatment Upcoming Encounters Date Type Department Care Team (Late st Contact Info) Description 10/14/2024 12:30 PM CDT Clinical Support - [facility] Department of Urology in [place], [place] [address] [place] [address] Marv Bird M.D. [address] [place] [phone] Anh Jacobs CCRP 10/21/2024 12:30 PM CDT Clinical Support - [facility] Department of Urology in [place], [place] [address] [place] [address] Marv Bird M.D. [address] [place] [phone] Anh Jacobs CCRP 11/16/2024 9:30 AM CDT Clinical Support - [facility] Department of Urology in [place], [place] [address] [place] [address] Marv Bird M.D. [address] [place] [address] Anh Jacobs, CCRP 11/16/2024 11:00 AM CDT Procedure visit Department of Urology in [place], [place] [address] [place] [address] Marv Bird M.D. [address] [place] [address] Scheduled Orders Name Type Priority Associated Diagnoses Orde r Schedule URO Urethral cath insertion (UCI) Procedure Routine Malignant Neoplasm Of Bladder (HCC) Expected: 10/21/2024, Expires: 12/22/2025 URO Urethral cath insertion (UCI) Procedure Routine Malignant Neoplasm Of Bladder (HCC) Expected: 10/14/2024, Expires: 12/22/2025 Cytology Non-CLINICAL CASE MANAGER (Scheduled) Pathology and Cytology Routine Malignant Neoplasm Of Bladder (HCC) Expected: 11/16/2024, Expires: 12/22/2025 Scheduled Referrals Name Type Priority Associated Diagnoses Order Schedule Research Narcotics Investigator office visit (clinic) Outpatient Referral Routine Malignant Neoplasm Of Bladder (HCC) Expected: 10/14/2024, Expires: 12/22/2025 Research Narcotics Investigator office visit (clinic) Outpatient Referral Routine Malignant Neoplasm Of Bladder (HCC) Expected: 10/21/2024, Expires: 12/22/2025 Research Narcotics Investigator office visit (clinic) Outpatient Referral Routine Malignant Neoplasm Of Bladder (HCC) Expected: 11/16/2024, Expires: 12/22/2025 documented as of this encounter Visit Diagnoses Diagnosis Malignant Neoplasm Of Bladder (HCC)- Primary documented in this encounter Care Teams Senior Manufacturing Test Engineer Relationship Specialty Start Date End Date Elsewhere, Pcp PCP - General Internal Medicine 10/31/23 documented as of this encounter
--- OUTSIDE RECORDS SUMMARY | 2024-10-04 15:50 | XMS_ITS | Data Portability ---
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 After lengthy discussion he does not want a scar. We discussed topicals. Photodynamic light therapy would be ineffective except for possibly multiple multiple treatments. We have chosen to proceed with Efudex twice daily for 6 weeks. Discussed redness pain discomfort and downtime. Discussed maximum 80-85% efficacy. Potential need for surgery in the future if this fails. He was start this soon. He will sign up on the HIPAA compliant texting meggan and send me a picture at week 8 2 weeks after completion. We will contact us at any time in the interim. Extensive actinic keratosis on the crown of the scalp. I agree that we should consider a field treatment. We discussed once weekly off label Efudex versus red light or blue light therapy. We currently have the only blue light therapy in the [place]. And its efficacy is probably similar. We discussed risks benefits of this versus once weekly Efudex or possibly combination. We will consider this again. [place] [email or web address] Not available 03/09/2018 21:44:05 Plan of Treatment Reminders Order Date Submit Date Provider Last Modified By Organization Details Last Modified Time Details Appointments None recorded. Lab None recorded. Referral None recorded. Procedures None recorded. Surgeries None recorded. Imaging None recorded. Medication Orders Efudex 5 % topical cream 2017 018 [email or web address] [facility] [address] [place] [address], [address], 8 16:57:02 niacinamide ER 500 mg tablet,exte nded release 2017 018 [email or web address] [facility] [address] [place] [address] K[place], [address], 16:57:02 Patient Targets Encounter Date Encounter Id Patient Goals Patient Target Last Modified By Organization Details Last Modified Time 03/09/2018 [id number] Patient's goals to treat the lesion on the forehead diagnosed biopsy-prove n squamous cell carcinoma [email or web address] Not available 03/09/2018 21:44:12 Patient Instructions Encounter Date Encounter Id Patient Instructions Last Modified By Organization Details Last Modified Time 03/09/2018 [id number] actinic keratosis: care instructions [email or web address] Not available 03/09/2018 21:46:12 Please start the Efudex also known as 5 fluorouracil twice daily for 6 weeks. After 8 weeks please reach out to me by the [employer] compliant texting meggan with a photograph. If things look good we will simply plan on follow-up in July when I return or you return. Do not hesitate to call with any questions. I agree with the [facility] treatment to the crown of the scalp would be warranted. Either red light with photodynamic therapy at our office, bluelight with photodynamic therapy at the [facility], where the once weekly 5-fluorouracil are all viable options. Even a combination of 5-fluorouracil with 1 of the above is viable. Was nice seeing you again. Please reach out to us at any time. [email or web address] Not available 03/09/2018 21:45:01 1. Discussed alternatives to skin cancer surgery Mohs surgery and scarring. The lower success rate but a viable option. The fact that the cancer is not life-threatening. We want to decrease morbidity or future risks of a larger scar. 2. We discussed the diffuse precancers on the crown I do agree with the [facility] in this aspect that I feel treatment is warranted. We discussed photodynamic light therapy with either blue or red light. And/or possibly once weekly Efudex off label. 3. We plan follow-up via the [place] a compliant texting in about 8 weeks after initiation of therapy, 2 weeks after completion of the topical. Otherwise plan clinical follow-up in the spring when he returns [email or web address] Not available 03/09/2018 21:45:47 Reason for Referral None Reported. Medical Equipment None Reported. Allergies No known drug allergies Medications Name Sig Start Date Stop Date Status Note LastModified by Organization Details LastModified Time prednisone 20 mg tablet 03/09 completed Not Available Not Available Not Available meclizine 12.5 mg tablet active Not Available Not Available Not Available doxycycline monohydrate 100 mg tablet 03/09 completed Not Available Not Available Not Available triamterene 37.5 mg-hydrochl orothiazide 25 mg capsule active Not Available Not Available Not Available Efudex 5 % topical cream APPLY TWICE DAILY TO RIGHT UPPER FOREHEAD FOR 5 WEEKS 2017 active Not Available Not Available Not Avai lable lorazepam 0.5 mg tablet active Not Available Not Available Not Available doxycycline monohydrate 100 mg capsule 03/09 completed Not Available Not Available Not Available pravastatin 20 mg tablet active Not Available Not Available Not Available methylpredn isolone 4 mg tablets in a dose pack 03/09 completed Not Available Not Available Not Available ondansetron 4 mg disintegrat ing tablet active Not Available Not Available N ot Available Ventolin HFA 90 mcg/actuati on aerosol inhaler 03/09 completed Not Available Not Available Not Available niacinamide ER 500 mg tablet,exte nded release Take 2 tablets every day by oral route. 2017 active Not Available Not Available Not Avai lable Vitals None Recorded Social History Question Answer Notes LastModified by Organizat ion Details LastModified Time Tobacco Smoking Status Never Smoker Not Available [facility] 02/01/2020 03:34:37 What Was The Date Of Your Most Recent Tobacco Screening? 03/09/2018 [id number] Information not available 02/01/2020 What Is Your Relationship Status? [id number] Information not available 02/01/2020 Sun Exposure Moderate Information not available 03/09/2018 Do You Use Sunscreen Routinely? Yes [id number] Information not available 02/01/2020 Tanning Bed Exposure No Information not available 03/09/2018 Sex: Unknown Functional Status None recorded. Mental Status None recorded. Family History Relationship Description Onset Age of this Age Resolved Age Notes LastModified by Organization Details LastModified Time Father No current problems or disability [email or web address] Not available 03/09 13:30:06 Mother No current problems or disability [email or web address] Not available 03/09 13:30:06 Medical History Condition Response Diabetes N Bleeding Disorder N Squamous Cell Carcinoma N Arthritis N Blood Clot N Tuberculosis N AIDS/HIV N Cancer N Melanoma N Stroke N Thyroid Problems N Asthma N Pacemaker N Anemia N Basal Cell Carcinoma N Skin Cancer Y Hepatitis N Liver Disease N Heart Disease Y Pulmonary Embolism N Hypertension N Seasonal Allergies N Kidney Disease N Past Encounters Encounter ID Performer Location Encounter Start Date Encounter Closed Date Diagnosis/Indication Diagnosis SNOMED-CT Code Diagnosis ICD10 Code Diagnosis Note [id number] Daniela Thomas MD Main Office [address] [address] 03/09/2018 13:03:04 03/09/2018 21:46:33 Squamous cell carcinoma of skin 353509637 C44.92 Actinic keratosis 007 L57.0 Health Concerns Section Related Observation LastModified by Organization Detai ls LastModified Time None Recorded Concern Status LastModified by Organization Details LastModified Time None Recorded Advance Directives Directive None Recorded Payers Insurance Date Sequence Insurance Name Policy Number Policy Magallanes Covered Member ID Magallanes Member ID Guarantor Name 03/09/2018 1 [facility] [id number] Martin Vieira [id number] Martin Garretttammi Vieira 03/09/2018 2 [place]: [employer] Martin Vieira [id number] Martin Kaye Isha Notes Date Note Type Note Provider Name and Address Organization Details Recorded Time 03/09/2018 text/html 72-year-old male presents today for Mohs surgery plan for lesion biopsy proven as a squamous cell carcinoma upper right forehead. After some evaluation and reassessment together we identified the site appropriately. He states he is not sure if he wants surgery is been seen by the [facility], and the inference I have is that they suggested Mohs surgery may not be warranted. This lesion does sit appropriately in Mohs justification as its essentially on his forehead he has a squamous cell carcinoma and is actually larger than a centimeter poorly defined. He was concerned about the scar if we discussed the options and the closure lengths. After a lengthy discussion today which shows a pursue other options. He is not interested in the once weekly Efudex. The [facility] did discuss a field treatment photodynamic blue light therapy. Daniela Thomas MD [facility], [place], [address], [facility] 03/09/2018 21:46:17
--- OUTSIDE RECORDS SUMMARY | 2024-10-04 15:50 | XMS_ITS ---
Author Organization [facility] Address [address] [place] [address] Care Team Providers Care Newspaper Carrier Name Role Phone Elsewhere, Pcp Primary Care Provider Unavailabl e Active Problems * This document contains information received from the source organization and may not represent a complete record from that organization. 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 Linked Problems Malignant Neoplasm Of Bladde r (HCC) Treatment Medications DOCEtaxeL (Taxotere) bladder instillation in 50 mL (Taxotere)gemcitabine (Gemzar) bladder instillation 1 g in NaCl 0.9% 50 mL (Gemzar) Past Treatment and Therapy Plans Urology Plan Name Start Date Discontinue Date Treatment Medications Discontinue Reason Plan Provider BCG Live (Induction) Weekly for 6 weeks 08/06/2023 08/06/2024 BCG live (Amanda BCG) Therapy Complete River [place]ton M.D. BCG LIVE (INDUCTION) WEEKLY FOR 6 WEEKS 10/03/2022 07/29/2023 BCG live ([place] BCG) Therapy Complete River [place] M.D. Lifetime Dose Tracking * Chemical Lifetime Dose Automatic Entry Manual Entr y Radiation 10.09 mGy 10.09 mGy 0 mGy Fluoro Time 0.217 minutes 0.217 minutes 0 minutes
--- OUTSIDE RECORDS SUMMARY | 2024-10-04 15:50 | XMS_ITS | Encounter Summary ---
Author Organization [facility] Address [address] [place] [address] Care Team Providers Care Multifocal Button Grinder Name Role Phone Elsewhere, Pcp Primary Care Provider Unavailabl e Encounter Details Date Type Department Care Team (Late st Contact Info) Description 09/22/2024 Orders Only Department of Urology in [place], [place] [address] [place] [address] Anh Jacobs, CCRP Malignant Neoplasm Of Bladder (HCC) (Primary Dx) Social History Tobacco Use Types Packs/Day Years Used Date Smoking Tobacco: Former Cigarettes 1.5 42.1 0 03/31/1961 - 06/30/2003 Passive Smoke Exposure: Past Smokeless Tobacco: Former Chew Quit: 03/31/1998 Comments:Quit several times Alcohol Use Standard Drinks/Week Comments Yes 7 (1 standard drink = 0.6 oz pur e alcohol) [facility] Utilities Answer Date Recorded In the past 12 months has e electric, gas, oil, or water [employer] threatened to shut off services in your [...] your living situation today? I have a [facility] place to live 05/31/2024 Education Answer Date Recorded What is the highest level of school you have completed or the highest degree you have received? 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 [address] [place] [address] Anh Jacobs, CCRP 10/21/2024 12:30 PM CDT Clinical Support - [facility] Department of Urology in [place], [place] [address] [place] [address] Marv Bird M.D. [address] [place] [phone] Anh Jacobs CCRP 11/16/2024 9:30 AM CDT Clinical Support - [facility] Department of Urology in [place], [place] [address] [place] [address] Marv Bird M.D. [address] [place] [phone] Anh Jacobs CCRP 11/16/2024 11:00 AM CDT Procedure visit Department of Urology in [place], [place] [address] [place] [address] Marv Bird M.D. [address] [place] [phone] documented as of this encounter Visit Diagnoses Diagnosis Malignant Neoplasm Of Bladder (HCC)- Primary documented in this encounter Care Teams Multifocal Button Grinder Relationship Specialty Start Date End Date Elsewhere, Pcp PCP - General Internal Medicine 10/31/23 documented as of this encounter
--- OUTSIDE RECORDS SUMMARY | 2024-10-04 15:50 | XMS_ITS | Encounter Summary ---
Author Organization [facility] Address [address] [place] [address] Care Team Providers Care Molecular Geneticist Name Role Phone Elsewhere, Pcp Primary Care Provider Unavailabl e Reason for Referral * Outpatient (Routine) - Closed Specialty Diagnoses / Procedures Referred By Contac t Referred To Contact Diagnoses Malignant Neoplasm Of Bladder (HCC) Procedures URO Urethral cath insertion (UCI) Marv Bird M.D. [address] [place] [address] Phone: tel: fax: [facility] Referral ID Status Reason Start Date Expiration Date Visits Re quested Visits Authorized [id number] Closed 09/20/2024 12/21/2025 1 1 * Outpatient (Routine) - Authorized Specialty Diagnoses / Procedures Referred By Contradha t Referred To Contact Research Diagnoses Malignant Neoplasm Of Bladder (HCC) Marv Bird M.D. [address] [place] [address] Phone: tel: fax: [facility] Referral ID Status Reason Start Date Expiration Date V isits Requested Visits Authorized [id number] Authorized 09/20/2024 03/22/2026 1 1 Encounter Details Date Type Department Care Team (Late st Contact Info) Description 09/20/2024 Orders Only Department of Urology in [place], [place] [address] [place] [address] Anh Jacobs, CCRP Malignant Neoplasm Of Bladder (HCC) (Primary Dx) Social History Tobacco Use Types Packs/Day Years Used Date Smoking Tobacco: Former Cigarettes 1.5 42.1 0 03/31/1961 - 06/30/2003 Passive Smoke Exposure: Past Smokeless Tobacco: Former Chew Quit: 03/31/1998 Comments:Quit several times Alcohol Use Standard Drinks/Week Comments Yes 7 (1 standard drink = 0.6 oz pur e alcohol) [facility] Utilities Answer Date Recorded In the past 12 months has e electric, gas, oil, or water [employer] threatened to shut off services in [...] your living situation today? I have a [place] place to live 05/31/2024 Education Answer Date Recorded What is the highest level of school you have completed or the highest degree you have received? 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 [address] [place] [phone] Anh Jacobs CCRP 10/21/2024 12:30 PM CDT Clinical Support - [facility] Department of Urology in [place], [place] [address] [place] [address] Marv Bird M.D. [address] [place] [phone] Anh Jacobs CCRP 11/16/2024 9:30 AM CDT Clinical Support - [facility] Department of Urology in [place], [place] [address] [place] [phone] Marv Bird M.D. [address] [place] [phone] Anh Jacobs CCRP 11/16/2024 11:00 AM CDT Procedure visit Department of Urology in [place], [place] [address] [place] [address] Marv Bird M.D. [address] [place] [address] Scheduled Orders Name Type Priority Associated Diagnoses Orde r Schedule URO Urethral cath insertion (UCI) Procedure Routine Malignant Neoplasm Of Bladder (HCC) Expected: 09/22/2024, Expires: 12/21/2025 Scheduled Referrals Name Type Priority Associated Diagnoses Order Schedule Research Business And Services Instructor office visit (clinic) Outpatient Referral Routine Malignant Neoplasm Of Bladder (HCC) Expected: 09/22/2024, Expires: 12/21/2025 documented as of this encounter Visit Diagnoses Diagnosis Malignant Neoplasm Of Bladder (HCC)- Primary documented in this encounter Care Teams Molecular Geneticist Relationship Specialty Start Date End Date Elsewhere, Pcp PCP - General Internal Medicine 10/31/23 documented as of this encounter
--- OUTSIDE RECORDS SUMMARY | 2024-10-04 15:50 | XMS_ITS | Encounter Summary ---
Author Organization [facility] Address [address] [place] [address] Care Team Providers Care Tripe Finisher Name Role Phone Elsewhere, Pcp Primary Care Provider Unavailabl e Encounter Details Date Type Department Care Team (Late st Contact Info) Description 08/14/2024 Orders Only Department of Urology in [place], [place] [address] [place] [address] Curry Khan M.D. Malignant Neoplasm Of Bladder (HCC) (Primary Dx) Social History Tobacco Use Types Packs/Day Years Used Date Smoking Tobacco: Former Cigarettes 1.5 42.1 0 03/31/1961 - 06/30/2003 Passive Smoke Exposure: Past Smokeless Tobacco: Former Chew Quit: 03/31/1998 Comments:Quit several times Alcohol Use Standard Drinks/Week Comments Yes 7 (1 standard drink = 0.6 oz pur e alcohol) [facility] Utilities Answer Date Recorded In the past 12 months has Metaps, gas, oil, or water [employer] threatened to shut off services in your [...] [facility] place to live 05/31/2024 Education Answer Date Recorded What is the highest level of school you have completed or the highest degree you have received? 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 [address] [place] [phone] Anh Jacobs, CCRP 10/21/2024 12:30 PM CDT Clinical Support - [facility] Department of Urology in [place], [place] [address] [place] [address] Marv Bird M.D. [address] [place] [phone] Anh Jacobs CCRP 11/16/2024 9:30 AM CDT Clinical Support - [facility] Department of Urology in [place], [place] [address] [place] [phone] Marv Bird M.D. [address] [place] [phone] Anh Jacobs CCRP 11/16/2024 11:00 AM CDT Procedure visit Department of Urology in [place], [place] [address] [place] [phone] Marv Bird M.D. [address] [place] [phone] documented as of this encounter Visit Diagnoses Diagnosis Malignant Neoplasm Of Bladder (HCC)- Primary documented in this encounter Care Teams Tripe Finisher Relationship Specialty Start Date End Date Elsewhere, Pcp PCP - General Internal Medicine 10/31/23 documented as of this encounter
--- OUTSIDE RECORDS SUMMARY | 2024-10-04 15:50 | XMS_ITS | Encounter Summary ---
Author Organization [facility] Address [address] [place] [address] Care Team Providers Care Store Assistant Name Role Phone Elsewhere, Pcp Primary Care Provider Unavailabl e Encounter Details Date Type Department Care Team (Late st Contact Info) Description 09/15/2024 Orders Only Department of Urology in [place], [place] [address] [place] [address] Anh Jacobs, CCRP Malignant Neoplasm Of Bladder (HCC) (Primary Dx) Social History Tobacco Use Types Packs/Day Years Used Date Smoking Tobacco: Former Cigarettes 1.5 42.1 0 03/31/1961 - 06/30/2003 Passive Smoke Exposure: Past Smokeless Tobacco: Former Chew Quit: 03/31/1998 Comments:Quit several times Alcohol Use Standard Drinks/Week Comments Yes 7 (1 standard drink = 0.6 oz pur e alcohol) [facility] Utilities Answer Date Recorded In the past 12 months has e electric, gas, oil, or water [employer] threatened to shut off services in your [...] your living situation today? [facility] a [facility] 05/31/2024 Education Answer Date Recorded What is the highest level of school you have completed or the highest degree you have received? 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 [address] [place] [address] Anh Jacobs, CCRP 10/21/2024 12:30 PM CDT Clinical Support - [facility] Department of Urology in [place], [place] [address] [place] [address] Marv Bird M.D. [address] [place] [phone] Anh Jacobs CCRP 11/16/2024 9:30 AM CDT Clinical Support - [facility] Department of Urology in [place], [place] [address] [place] [address] Marv Bird M.D. [address] [place] [phone] Anh Jacobs CCRP 11/16/2024 11:00 AM CDT Procedure visit Department of Urology in [place], [place] [address] [place] [address] Marv Bird M.D. [address] [place] [phone] documented as of this encounter Visit Diagnoses Diagnosis Malignant Neoplasm Of Bladder (HCC)- Primary documented in this encounter Care Teams Store Assistant Relationship Specialty Start Date End Date Elsewhere, Pcp PCP - General Internal Medicine 10/31/23 documented as of this encounter
[2024-10-04 15:54] VITALS: BP 132/68; PULSE 60; RESP 16
== END 2024-10-04 15:58 | disposition home or self-care (01) ==
PROVIDERS: Emergency Provider Family Medicine; PCP Family Medicine
DX: S09.90XA Unspecified injury of head, initial encounter (principal); W19.XXXA Unspecified fall, initial encounter; Y93.73 Activity, racquet and hand sports
CPT/HCPCS: 70450; 99283; 99284

== ENCOUNTER 2025-03-25 07:29 | Outpatient (CLI) | payer MEDICARE, SELFPAY | END 2025-03-25 07:30 | disposition home or self-care (01) | LOC: NFLDREF 03-28 13:26 | PROVIDERS: PCP Family Medicine; Referring Provider Family Medicine; Visit Provider Family Medicine | DX: E78.5 Hyperlipidemia, unspecified (principal); Z12.5 Encounter for screening for malignant neoplasm of prostate | CPT/HCPCS: 80053; 80061; G0103 ==